=== PATIENT | female | born 1965 | race Caucasian/White ===

== ENCOUNTER → 2018-05-15 | Outpatient (CLI) | payer MEDICARE, MEDICAID ==
--- NOTE | 2018-05-16 09:29 | REP ---
PET/CT: HISTORY: Solitary pulmonary nodule. Nearly found category IV B right upper lobe nodule. 10 mm. COMPARISONS: No prior imaging available. TECHNIQUE: 62 minutes following the intravenous injection of a 8.17 mCi dose of F-18 FDG, three-dimensional PET scintigraphy is acquired from the skull base to the proximal thighs. Triplanar noncontrast CT scanning is acquired through the same anatomic range for attenuation correction, and image registration with scan parameters optimized to minimize radiation exposure to the patient. PET scintigraphy and CT datasets were fused and displayed on a workstation with multiplanar and projection display capability. PET/CT FINDINGS: The previously identified right upper lobe nodule is again seen. It is noted on PET scintigraphy to be hypermetabolic. Maximum standard uptake value is 5.69. There is no other hypermetabolic pulmonary parenchymal lesion. No hilar or mediastinal hypermetabolic nahun uptake is seen. Head and neck soft tissues are unremarkable. In the abdomen and pelvis, normal hepatic, splenic, gastrointestinal, and genitourinary FDG distribution is seen. No abnormal hypermetabolic uptake is seen in the abdomen or pelvis. No abnormal skeletal uptake. IMPRESSION: The recently identified right upper lobe pulmonary nodule is hypermetabolic and must be considered suspicious. No other abnormal hypermetabolic uptake is appreciated. The patient is status post lower thoracic spine fusion. Electronically Signed by Israel Hines MD 05/16/2018 09:35 A
== END ==
LOC: M PLARAD 15:35
PROVIDERS: ATTEND Physician Assistant
DX: R91.1 Solitary pulmonary nodule (principal); Z98.2 Presence of cerebrospinal fluid drainage device
CPT/HCPCS: 78815; A9552

== ENCOUNTER → 2018-05-29 | Outpatient (CLI) | payer MEDICARE, MEDICAID ==
[~2018-05-29] MED LIST: ALEV220T26 PO; ANOR1AER INH; BACL10TA2 PO; MAGN500T2 PO; NICO21DI34 TD; NICO2GUM34 PO; POTA99TA PO; PYRI100T2 PO; SOOT1DRO OU; VISISOL OU; VITA-122 PO; VITA10002 PO; VITA500T PO
[2018-05-29 09:44] LABS: PARTIAL THROMBOPLASTIN TIME 28.4 SECONDS (25.4-37.6); PROTHROMBIN TIME 13.3 SECONDS (12.1-14.4)
== END ==
LOC: M LAB 08:58
PROVIDERS: ATTEND Internal Medicine Pulmonary Disease
DX: R91.1 Solitary pulmonary nodule (principal)

== ENCOUNTER → 2018-06-05 | Outpatient (CLI) | payer MEDICARE, MEDICAID ==
[~2018-06-05] MED LIST changes: +ACETAMINOPHEN 325 MG TAB As Ordered ONE; +LIDOCAINE 1% MDV 20ML VIAL As Ordered ONE; -NICO2GUM34 PO; +NICO2GUM50 PO
--- NOTE | 2018-06-05 10:07 | REP ---
CHEST, POST BIOPSY: Single expiratory view of the chest is performed status-post right lung biopsy. There is a small right apical pneumothorax. The air gap is approximately 1.9 cm. Right upper lobe nodule is again seen. Followup chest radiograph will be performed. Electronically Signed by Omar Boyd MD 06/05/2018 11:19 A
--- NOTE | 2018-06-05 12:10 | REP ---
CHEST, SINGLE VIEW: Single expiratory view of the chest is performed status post right lung biopsy. Comparison is made with a prior study 2 hours ago. There is a small right apical pneumothorax, which may be slightly increased in size since the prior exam, air gap measured to be about 2.2 cm. There are no other acute changes. Electronically Signed by Omar Boyd MD 06/05/2018 04:51 P
--- NOTE | 2018-06-05 16:55 | REP ---
CT-GUIDED RIGHT UPPER LOBE LUNG BIOPSY The procedure was performed under the direct supervision of Dr. boyd. The patient has a history of A right upper lobe lung nodule that was hypermetabolic on a previous PET scan dated 05/15/2018. The risks and benefits of the procedure were explained to the patient and informed consent was obtained. The right upper lobe lung nodule was localized using CT guidance. The skin was prepped and draped in a sterile fashion. 1% lidocaine was used as a local anesthetic. Using CT guidance a 19/20 gauge coaxial needle biopsy system was inserted and advanced into the nodule. Four core biopsy samples were obtained and sent to lab. CT images obtained after the dorsum move shows no evidence of a pneumothorax. However, once the patient sign of she did experience some chest discomfort. She rated her pain as a 07/10. O2 saturations were approximately 94% as when she came in. She was placed on 2 liters of O2 via nasal cannula. A chest x-ray was performed and image demonstrates a small right apical pneumothorax. A chest x-ray was performed two hours later and the image demonstrates that the pneumothorax had gotten slightly bigger. However, her pain had subsided to be nearly gone and her O2 saturations were at baseline. Dr. Xavier was consulted and felt the patient could be discharged and will follow-up with Dr. Cabral. Reviewed by MOUNIKA Forrester 06/05/2018 03:32 P Electronically Signed by Omar Boyd MD 06/05/2018 04:47 P
== END ==
LOC: M RADPRO 07:56
PROVIDERS: ATTEND Internal Medicine Pulmonary Disease
DX: J98.4 Other disorders of lung (principal); J95.811 Postprocedural pneumothorax; J44.9 Chronic obstructive pulmonary disease, unspecified; F17.210 Nicotine dependence, cigarettes, uncomplicated; G35 Multiple sclerosis; Z79.899 Other long term (current) drug therapy; Z88.8 Allergy status to other drugs, medicaments and biological substances

== ENCOUNTER → 2018-09-25 | Outpatient (CLI) | payer MEDICARE, MEDICAID ==
[~2018-09-25] MED LIST changes: -ACETAMINOPHEN 325 MG TAB As Ordered ONE; +CYAN100049 PO; -LIDOCAINE 1% MDV 20ML VIAL As Ordered ONE; -VITA10002 PO
--- NOTE | 2018-09-25 11:12 | REP ---
CT chest without contrast: History: Solitary pulmonary nodule. Comparison is made with prior CT study from [facility] May 10, 2018 showing a cavitary 1.1 cm right upper lobe pulmonary nodule. Percutaneous CT-guided needle biopsy of this was performed June 05, 2018 with negative or nondiagnostic result. Comparison PET/CT study May 15, [address] findings: The previously noted right upper lobe nodule is seen to be associated with a small air cyst. The solid portion of the nodule has decreased in size measuring 6 mm today. Including the air cyst, the nodule measures 11 mm, there is no evidence of progression. No new pulmonary nodule is appreciated. There is a granulomatous calcification in the right lower lobe just above the right hemidiaphragm unchanged. The patient is status post lower thoracic spine fusion with some spray artifact from fusion hardware again noted. There is no evidence of pleural effusion. No infiltrate is seen. There are scattered mediastinal lymph nodes which are not enlarged. These appear to be unchanged in size from the May 10, 2018 study. No adrenal lesion is observed on either side. No bony destructive lesion is seen. Impression: The solid component of the right upper lobe nodule is actually smaller, 6 mm today. The nodule is associated with a small adjacent air cyst. Continued followup is advised. Stable mediastinal lymph nodes. Electronically Signed by Israel Hines MD 09/25/2018 11:47 A
== END ==
LOC: M RAD 09:08
PROVIDERS: ATTEND Internal Medicine Pulmonary Disease
DX: R91.1 Solitary pulmonary nodule (principal)

== ENCOUNTER → 2018-10-04 | Outpatient (CLI) | payer MEDICARE, MEDICAID ==
[2018-10-04 12:27] LABS: BASO # 0.1 10^3/uL (0.0-0.2); BASO % 0.8 % (0.0-1.0); EOS # 0.1 10^3/uL (0.0-0.50); HEMATOCRIT 45.7 % (36.0-47.0); HEMOGLOBIN 15.4 g/dl (12.0-15.5); LYMPH # 2.4 10^3/uL (1.5-4.5); LYMPH % 37.3 % (24.0-44.0); MEAN CORPUSCULAR HEMOGLOBIN 31.6 pg (27.0-33.0); MEAN CORPUSCULAR HGB CONC 33.7 g/dl (32.0-36.5); MEAN CORPUSCULAR VOLUME 93.6 fl (80.0-96.0); MONO # 0.3 10^3/uL (0.0-0.8); MONO % 4.6 % (0.0-5.0); NEUTROPHILS # 3.6 10^3/uL (1.8-7.7); PLATELET COUNT, AUTOMATED 232 10^3/uL (150-450); RED BLOOD COUNT 4.88 10^6/uL (4.00-5.40); WHITE BLOOD COUNT 6.5 10^3/uL (4.0-10.0)
[2018-10-04 12:56] LABS: ALBUMIN 4.3 GM/DL (3.2-5.2); ALT/SGPT 27 U/L (12-78); BILIRUBIN,TOTAL 0.5 MG/DL (0.2-1.0); BLOOD UREA NITROGEN 12 MG/DL (7-18); C REACTIVE PROTEIN QUANTITATIV 0.51 MG/DL (0.00-0.30); CALCIUM LEVEL 9.7 MG/DL (8.5-10.1); CARBON DIOXIDE LEVEL 27 MEQ/L (21-32); CHLORIDE LEVEL 108 MEQ/L (98-107); CREATININE FOR GFR 0.72 MG/DL (0.55-1.30); GLOMERULAR FILTRATION RATE > 60.0 (>51); GLUCOSE, FASTING 132 MG/DL (70-100); RHEUMATOID FACTOR QUANT < 10.0 IU/ML (<15.0); SODIUM LEVEL 140 MEQ/L (136-145); TOTAL PROTEIN 7.5 GM/DL (6.4-8.2); URIC ACID 4.2 MG/DL (2.6-6.0)
[2018-10-04 12:59] LABS: ERYTHROCYTE SEDIMENTATION RATE 7 mm/hr (0-30)
--- NOTE | 2018-10-04 14:09 | REP ---
REASON: Pain. COMPARISON: None. LEFT HAND: The bones are demineralized. There does appear to be mild periarticular osteopenia without evidence of marginal erosion. There is no fracture, dislocation, or subluxation. Tiny marginal osteophytes are seen arising from the DIP joint of the 2nd digit. See the wrist report. IMPRESSION: Chronic changes, as described above. FOUR VIEWS OF THE RIGHT HAND: REASON: Pain. PRIORS: None. There is minimal marginal osteophytosis involving the DIP joint of the 2nd digit. There does appear to be mild periarticular osteopenia. There are no marginal erosions. There is no acute fracture, dislocation, or subluxation. IMPRESSION: Chronic changes, as described above. Electronically Signed by Ortega Ellis DO 10/04/2018 02:16 P
--- NOTE | 2018-10-04 14:10 | REP ---
REASON: Bilateral wrist pain. LEFT WRIST: There has been previous ORIF. The fixation screws do not breach the articular surface. There are chronic changes seen involving the wrist. There is a lucency in the dorsal cortex of the distal radius. IMPRESSION: Postoperative changes and other findings as described above. Since I have no priors for comparison, I cannot state for certainty whether or not the finding involving the dorsal surface of the distal radius represents an acute finding superimposed upon chronic change or represents chronic change in of itself. This needs to be correlated clinically with appropriate followup. RIGHT WRIST, FOUR VIEWS: REASON: Pain. FINDINGS: No acute fracture or destructive osseous lesion. Electronically Signed by Ortega Ellis DO 10/04/2018 02:15 P
--- NOTE | 2018-10-04 14:10 | REP ---
REASON: Knee pain. Bilateral standing AP view of the knees shows the compartments to be symmetric and well maintained. There is no evidence of marginal osteophytosis, and there is no evidence of compartmental narrowing. There is no fracture or destructive osseous lesion. IMPRESSION: As above. Electronically Signed by Ortega Ellis DO 10/04/2018 02:16 P
[2018-10-08 14:07] LABS: VITAMIN D 1,25 DIHYDROXY 63.2 pg/mL (19.9-79.3)
== END ==
LOC: M LAB 11:33
PROVIDERS: ATTEND Internal Medicine Rheumatology
DX: M25.742 Osteophyte, left hand (principal)

== ENCOUNTER → 2018-10-11 | Outpatient (CLI) | payer MEDICARE, MEDICAID ==
[~2018-10-11] MED LIST changes: +PROHANCE 279.3MG/ML 15ML VIAL (A9576) As Ordered ONE
--- NOTE | 2018-10-14 08:45 | REP ---
MRI BRAIN WITHOUT AND WITH CONTRAST: HISTORY: Multiple sclerosis. CONTRAST: ProHance 13 mL. Multiple areas of increased signal intensity on T2-weighted images are present in the periventricular and subcortical white matter and alysha. There are no areas of abnormal signal intensity in the corpus callosum. There is no abnormal enhancement. There is no intraparenchymal hemorrhage, infarct, mass or midline shift. The ventricular system is normal in appearance. There is no extracerebral collection. The sinuses are clear. IMPRESSION: The above findings are consistent with multiple sclerosis. Electronically Signed by Oskar Carrillo MD 10/14/2018 11:21 A
--- NOTE | 2018-10-14 09:01 | REP ---
MR CERVICAL SPINE WITHOUT AND WITH CONTRAST: HISTORY: Multiple sclerosis. CONTRAST: ProHance 13 mL. A disc bulge is present at the C3-4 level. There is minimal effacement of the thecal sac without spinal cord compression. Bilateral uncinate process hypertrophy is present. This produces minimal narrowing of the C3 neural foramina . A disc bulge is present at the C4-5 level. There is minimal effacement of the thecal sac without spinal cord compression. Bilateral uncinate process hypertrophy is present. This produces mild and minimal narrowing of the right and left C4 neural foramina respectively. A disc bulge is present at the C5 -6 level. There moderate effacement of the thecal sac without spinal cord compression. Bilateral uncinate process hypertrophy is present. This produces mild narrowing of the C5 neural foramina. There is no other disc bulge or herniation. The remaining neural foramina are patent. The spinal cord is normal in signal intensity. The C5-6 intervertebral disc is decrease in height consistent with disc degeneration. There is no abnormal enhancement. Normal signal intensity is present in the cervical vertebral bodies. IMPRESSION: There is cervical spondylosis at the C3-4 through C5-6 levels without spinal compression. ? Electronically Signed by Oskar Carrillo MD 10/14/2018 11:17 A
--- NOTE | 2018-10-14 09:07 | REP ---
MRI THORACIC SPINE WITHOUT AND WITH CONTRAST: HISTORY: Multiple sclerosis. CONTRAST: ProHance 13 mL. A small central disc protrusion is present at the T7-8 level. There is minimal effacement of the thecal sac without spinal cord compression. The T7 neural foramina are patent. Posterior osteophytes are present at the T9-10 level. There is mild effacement of the thecal sac without spinal cord compression. The T9 neural foramina are patent. A small central disc protrusion is present at the T10-11 level. There is minimal effacement of the thecal sac without spinal cord compression. The T10 neural foramina are patent. There is no other disc bulge or herniation. The spinal cord is normal in signal intensity. The patient is status-post T9-11 anterior spinal fusion. Metal hardware is present. Normal signal intensity is present in the visualized thoracic vertebral bodies. There is no subluxation. IMPRESSION:1. The patient is status-post T9-11 anterior spinal fusion. 2. Small disc protrusions at the T7-8 and T10-11 levels without spinal cord compression. Electronically Signed by Oskar Carrillo MD 10/14/2018 11:17 A
== END ==
LOC: M RAD 14:33
PROVIDERS: ATTEND Psychiatry & Neurology Neurology
DX: M47.812 Spondylosis without myelopathy or radiculopathy, cervical region (principal); G35 Multiple sclerosis; M51.04 Intervertebral disc disorders with myelopathy, thoracic region; M43.24 Fusion of spine, thoracic region
CPT/HCPCS: 70553; 72156; 72157; A9576

== ENCOUNTER → 2019-03-31 | Outpatient (CLI) | payer MEDICARE, MEDICAID ==
[~2019-03-31] MED LIST changes: -PROHANCE 279.3MG/ML 15ML VIAL (A9576) As Ordered ONE; -PYRI100T2 PO; +VITA100T82 PO
--- NOTE | 2019-03-31 10:41 | REP ---
CT of the chest without IV contrast: Comparisons are 09/25/[address] dated 05/10/2018. There is a 20 mm lobulated cavitary nodule posteriorly in the right upper lobe on image 30. On 09/25/2018 the nodule measured 6 mm, however, there was an adjacent air cyst. Including the air cyst, the lesion measured 11 mm. On 06/05/2018, the lesion measured 10 mm. The the patient had a CT guided needle biopsy of the nodule on 06/05/2018. The lesion is reportedly hypermetabolic on PET scan dated 05/15/2018. No other lung masses or nodules are identified. There is curvilinear parenchymal scarring in the left lower lobe, not significantly changed. There are no infiltrates or pleural effusions. There is no mediastinal or axillary lymphadenopathy. The study is insensitive for hilar lymphadenopathy in the absence of IV contrast. The unenhanced thoracic aorta is unremarkable. Cardiac size is normal. There is no pericardial effusion. The visualized upper abdomen. No adrenal mass is identified. The visualized unenhanced hepatic parenchyma is homogeneous. Surgical fusion of the inferior thoracic spine is again identified, unchanged. Impression: Next The patient's known right upper lobe cavitary lung nodule has significantly increased in size. No other lung nodules are identified. There is no mediastinal adenopathy. Evaluation of hilar adenopathy is insensitive in the absence of IV contrast. No adrenal mass is identified. Surgical fusion of the inferior thoracic spine, unchanged. Electronically Signed by Omar Hendrix MD 03/31/2019 10:34 A
== END ==
LOC: M RAD 09:23
PROVIDERS: ATTEND Internal Medicine Pulmonary Disease
DX: R91.1 Solitary pulmonary nodule (principal)

== ENCOUNTER → 2019-06-19 | Outpatient (CLI) | payer MEDICARE, MEDICAID ==
[~2019-06-19] MED LIST changes: +ACETAMINOPHEN 325 MG TAB As Ordered ONE; +ACETAMINOPHEN TAB 650MG DOSE (2X325MG) PO PRN; +LIDOCAINE 1% MDV 20ML VIAL As Ordered ONE; +VITA-243 PO; -VITA500T PO
[2019-06-19 08:44] LABS: PLATELET COUNT, AUTOMATED 268 10^3/uL (150-450)
[2019-06-19 08:55] LABS: INR 0.97; PROTHROMBIN TIME 12.6 SECONDS (11.8-14.0)
[2019-06-19 10:55] VITALS: BP 129/78
--- NOTE | 2019-06-19 12:45 | REP ---
CHEST, SINGLE VIEW: Single expiratory view of the chest is performed status post right lung biopsy. There is small right apical pneumothorax with an air-gap of 1.8 cm. Right upper lobe nodule is noted. There are crowded lung markings in each lung base. The patient is asymptomatic. She is instructed to return to the emergency department if any symptoms develop such a chest pain or shortness of breath. Electronically Signed by Omar Boyd MD 06/19/2019 01:42 P
--- NOTE | 2019-06-19 13:50 | REP ---
CT-guided right upper lobe lung biopsy The procedure is performed by MOUNIKA Orourke, under the direct supervision of Dr. Boyd. The risks and benefits of the procedure were explained to the patient and informed consent was obtained both orally and written. Directly prior to the start of the procedure, a formal timeout was done in the exam room. The right upper lobe lung mass was localized using CT guidance. Skin was prepped and draped in the usual sterile fashion. 2 ml of 1% lidocaine 10 mg/ml was used as a local anesthetic. Using CT guidance a 19/20 gauge coaxial needle biopsy system was inserted and advanced into the nodule. 6 core biopsy samples were obtained and sent to the lab. CT images obtained directly after the biopsy show no evidence of pneumothorax. A post-biopsy chest x-ray obtained 2 hours after showed a small apical pneumothorax. The patient was not any respiratory distress and was discharged home with instructions to follow up with the emergency room should anything change. Reviewed by MOUNKIA Watts 06/19/2019 12:10 P Electronically Signed by Omar Boyd MD 06/19/2019 01:41 P
== END ==
LOC: M IRPRO 07:30
PROVIDERS: ATTEND Internal Medicine Pulmonary Disease
DX: C34.11 Malignant neoplasm of upper lobe, right bronchus or lung (principal); J44.9 Chronic obstructive pulmonary disease, unspecified; F17.218 Nicotine dependence, cigarettes, with other nicotine-induced disorders; M06.9 Rheumatoid arthritis, unspecified; Z79.899 Other long term (current) drug therapy; Z88.8 Allergy status to other drugs, medicaments and biological substances; Z91.040 Latex allergy status; Z86.79 Personal history of other diseases of the circulatory system

== ENCOUNTER → 2019-07-08 | Outpatient (CLI) | payer MEDICARE, MEDICAID ==
[~2019-07-08] MED LIST changes: -ACETAMINOPHEN 325 MG TAB As Ordered ONE; -ACETAMINOPHEN TAB 650MG DOSE (2X325MG) PO PRN; -LIDOCAINE 1% MDV 20ML VIAL As Ordered ONE
--- NOTE | 2019-07-08 09:29 | PFTRPT ---
Height: 63.00 Inches Weight: 125.00 Lbs BSA: 1.58 Diagnosis: C34.11 DATE OF PROCEDURE: 07/08/2019 ORDERED BY: Dr. Cabral Spirometry: Pre and post bronchodilator study of excellent technical quality. Forced vital capacity normal. FEV1 out of proportion. Obstructive index is, therefore, reduced. Flow Volume Loop: Expiratory limb of the flow volume loop is consistent with flow rate limitation. No significant bronchodilator response is identified. Lung Volumes: Total lung capacity mildly elevated. Residual volume consistent with air trapping. Diffusing Capacity: Diffusing capacity significantly reduced and does not completely correct for alveolar volume. Hemoglobin: Hemoglobin acceptable at 12.9. Airway Mechanics: Airway resistance and conductance are normal. IMPRESSION: Mild to moderate obstructive ventilatory impairment with underlying air trapping and diffusing capacity impairment suggesting emphysema. Please correlate clinically. MTDD
== END ==
LOC: M CARPUL 08:15
PROVIDERS: ATTEND Internal Medicine Pulmonary Disease
DX: C34.11 Malignant neoplasm of upper lobe, right bronchus or lung (principal)

== ENCOUNTER → 2019-07-15 | Outpatient (CLI) | payer MEDICARE, MEDICAID ==
--- NOTE | 2019-07-15 10:37 | REP ---
REASON FOR EXAM: Followup single pulmonary nodule. COMPARISON: Comparison exam 05/15/2018 was reviewed. Patient has a history of nonsmall cell lung carcinoma. All prior CT scans were reviewed by the latest prior CT scan is showing enlargement of a pulmonary nodule in the right upper lobe. After the intravenous administration of 8.02 millicuries of FDG18, triplane, whole body PET/CT was performed from the skull base to the mild thigh. The right upper lobe nodule seen on both prior CT scans and seen to have enlarged is hypermetabolic with maximal SUV valves between 13 and 14. No other areas of abnormal hypometabolic activity are seen in the neck, chest, abdomen, or pelvis. IMPRESSION: The enlarging nodule seen in the right lung upper lobe is hypermetabolic. Electronically Signed by Ortega Ellis DO 07/15/2019 12:09 P
== END ==
LOC: M PLARAD 07:32
PROVIDERS: ATTEND Internal Medicine Pulmonary Disease
DX: C34.11 Malignant neoplasm of upper lobe, right bronchus or lung (principal)
CPT/HCPCS: 78815; A9552

== ENCOUNTER → 2019-07-17 | Outpatient (REF) | payer MEDICARE, MEDICAID ==
[2019-07-17 18:13] LABS: BLOOD UREA NITROGEN 8 MG/DL (7-18); CREATININE FOR GFR 0.56 MG/DL (0.55-1.30); GLOMERULAR FILTRATION RATE > 60.0 (>51)
== END ==
LOC: M LAB REF 16:53
PROVIDERS: ATTEND Thoracic Surgery (Cardiothoracic Vascular Surgery)
DX: Z01.812 Encounter for preprocedural laboratory examination (principal)

== ENCOUNTER → 2019-08-05 | Outpatient (CLI) | payer MEDICARE, MEDICAID ==
[~2019-08-05] MED LIST changes: +ATOR40TA75 PO; +BENA25CA4 PO; +BUPR15TASR PO; +FENT1DIS14 TD; +ISOVUE-370 76% 100ML VIAL As Ordered ONE; +NICO14DI6 TOP; +OMEP40CA97 PO; +OXYC-1 PO; +PROAAER10 INH; +SUMA100T2 PO; +TRAZ-257 PO; +VITAD1000T PO; +potassium PO
--- NOTE | 2019-08-05 12:32 | REP ---
CT CHEST WITH IV CONTRAST: TECHNIQUE: Axial contrast-enhanced images from the thoracic inlet to the upper abdomen using 100 mL Isovue-370 intravenous contrast material with multiplanar reformations. COMPARISON: 03/31/2019 The right upper lobe mass posteriorly abuts the adjacent pleural surface. It has mildly increased in size since the prior study. Current diameter is approximately 2.6 cm, previously approximately 1.9 cm. No new parenchymal nodules are seen bilaterally. Calcified granuloma is seen along the right hemidiaphragm. There is mild bibasilar fibroatelectatic change. There is no axillary adenopathy. There are some scattered subcentimeter mediastinal lymph nodes. There is a lymph node in the pretracheal region 1 cm in short axis. There is a precarinal lymph node 1.2 cm in short axis. There is a right hilar lymph node 1.3 cm in short axis. A subcarinal lymph node has a short axis dimension of 9 mm. The heart is not enlarged. There is no pleural or pericardial effusion. There are atherosclerotic calcifications of the thoracic aorta with no aneurysm. There is a small hiatal hernia. No significant upper abdominal abnormality is seen. There is metallic fixation in the lower thoracic spine. IMPRESSION: Mild increase in size of right upper lobe mass. There is mild mediastinal and right hilar adenopathy as discussed in detail above. Electronically Signed by Omar Boyd MD 08/05/2019 01:42 P
== END ==
LOC: M RAD 08:21
PROVIDERS: ATTEND Thoracic Surgery (Cardiothoracic Vascular Surgery)
DX: Z01.818 Encounter for other preprocedural examination (principal); C34.11 Malignant neoplasm of upper lobe, right bronchus or lung; Z11.59 Encounter for screening for other viral diseases
CPT/HCPCS: 71260; Q9967; U0003

== ENCOUNTER → 2019-08-05 | Outpatient (CLI) | payer MEDICARE, MEDICAID ==
[~2019-08-05] MED LIST changes: -ISOVUE-370 76% 100ML VIAL As Ordered ONE
== END ==
LOC: M LABSMTC 09:28
PROVIDERS: ATTEND Anesthesiology
DX: Z01.818 Encounter for other preprocedural examination (principal); Z11.59 Encounter for screening for other viral diseases

== ENCOUNTER 2019-08-08 05:59 | Inpatient (IN) | payer MEDICARE, MEDICAID ==
[~2019-08-08] VITALS: Ht 160 cm; Wt 61.2 kg
[2019-08-08] VITALS (19 sets, daily range): BP systolic 75–112; BP diastolic 46–63; O2SAT 98
[2019-08-08] MEDS ORDERED: LR 1,000 ML IV ONE (06:00)
[2019-08-08] MEDS ORDERED: MUPIROCIN 2% OINT 22 GM TUBE TOP ONE (07:00)
[2019-08-08] MEDS ORDERED: ceFAZolin SOD 2 GM in IV 1 EA IV ONE (07:00)
[2019-08-08] MEDS ORDERED: fentaNYL 100 MCG/2 ML INJECTION (J3010) As Ordered ONE ×2 (07:21→12:27)
[2019-08-08] MEDS ORDERED: MIDAZOLAM INJ 2MG/2ML VIAL (J2250 PER 1MG) As Ordered ONE ×2 (07:21→09:34)
[2019-08-08] MEDS ORDERED: BUPIVACAINE HCL 0.5% 10ML VIAL As Ordered ONE (07:42)
[2019-08-08] MEDS ORDERED: BUPIVACAINE LIPOSOME/PF 1.3% 20ML VIAL (13.3MG/ML)(EXPAREL)(C9290 PER1MG) As Ordered ONE (07:42)
[2019-08-08] MEDS ORDERED: CETACAINE SPRAY 5GM As Ordered ONE (07:42)
[2019-08-08] MEDS ORDERED: MIDAZOLAM INJ 2MG/2ML VIAL (J2250 PER 1MG) IV ONE ×2 (09:15→14:15)
[2019-08-08] MEDS ORDERED: EPIDURAL/PCA KEYS XX PRN (09:15)
[2019-08-08] MEDS ORDERED: NALOXONE INJ 0.4MG/1ML VIAL (J2310 PER 1MG) IV PRN (09:15)
[2019-08-08] MEDS ORDERED: fentaNYL 100 MCG/2 ML INJECTION (J3010) IV ONE ×2 (09:15→14:15)
[2019-08-08] MEDS ORDERED: WALLBOXKEY XX PRN (09:15)
[2019-08-08] MEDS ORDERED: FENTANYL/BUPIVACAINE/NACL BAG 250 ML EPIDURAL SCH (09:30)
[2019-08-08] MEDS ORDERED: ONDANSETRON 4MG/2ML VIAL As Ordered ONE (09:34)
[2019-08-08] MEDS ORDERED: propofoL 200 MG/20 ML VIAL As Ordered ONE (09:34)
[2019-08-08] MEDS ORDERED: dexameTHASONE 4 MG/ML 1ML VIAL (J1100 PER 1MG) As Ordered ONE (09:34)
[2019-08-08] MEDS ORDERED: BUPIVACAINE HCL 0.25% 30ML VIAL As Ordered ONE (09:34)
[2019-08-08] MEDS ORDERED: ROCURONIUM BROMIDE 50 MG/5 ML VIAL As Ordered ONE ×2 (09:34→11:50)
[2019-08-08] MEDS ORDERED: fentaNYL 250 MCG/5 ML INJECTION (J3010) As Ordered ONE (09:34)
[2019-08-08] MEDS ORDERED: LIDOCAINE 2% 100MG/5ML SDV (FOR ANES.) As Ordered ONE (09:34)
[2019-08-08] MEDS ORDERED: LIDOCAINE 2% JELLY 6 ML SYRINGE As Ordered ONE (09:34)
[2019-08-08] MEDS ORDERED: ePHEDrine SULFATE 25 MG/5 ML(5MG/ML) SYRINGE As Ordered ONE (09:35)
[2019-08-08] MEDS ORDERED: PHENYLephrine HCL 500 MCG/5 ML (100MCG/ML) SYRINGE (J2370) As Ordered ONE (09:35)
[2019-08-08] MEDS ORDERED: SUGAMMADEX SODIUM 500 MG/5 ML VIAL (BRIDION) As Ordered ONE (11:49)
[2019-08-08] MEDS ORDERED: ACETAMINOPHEN 1000MG 100ML IV BTL (OFIRMEV) (J0131 PER 10MG) As Ordered ONE (11:53)
[2019-08-08] MEDS ORDERED: SUMAtriptan SUCCINATE 25 MG TAB PO PRN (13:15)
[2019-08-08] MEDS ORDERED: ACETAMINOPHEN TAB 650MG DOSE (2X325MG) PO PRN (13:15)
[2019-08-08] MEDS ORDERED: LEVALBUTEROL 1.25 MG/0.5 ML CONCENTRATE NEB NEB PRN (13:15)
[2019-08-08] MEDS ORDERED: NICOTINE POLACRILEX 2 MG GUM PO PRN (13:15)
[2019-08-08] MEDS ORDERED: BISACODYL 10 MG SUPP PR PRN (13:15)
[2019-08-08] MEDS: fentaNYL 100 MCG/2 ML INJECTION (J3010) IV PRN ×4 (13:30→13:45)
[2019-08-08] MEDS ORDERED: HYDROMORPHONE HCL 0.5 MG/ 0.5 ML SYRINGE (J1170 PER 1) As Ordered ONE (13:43)
[2019-08-08] MEDS ORDERED: ONDANSETRON 4MG/2ML VIAL IV PRN (13:45)
[2019-08-08] MEDS ORDERED: MEPERIDINE INJ 25 MG/ML VIAL (J2175) IV PRN (13:45)
[2019-08-08] MEDS ORDERED: oxyCODONE 5MG TAB PO PRN (13:45)
[2019-08-08] MEDS ORDERED: HYDROMORPHONE HCL 0.5 MG/ 0.5 ML SYRINGE (J1170 PER 1) IV PRN (13:45)
[2019-08-08] MEDS ORDERED: LR 1,000 ML IV SCH (13:45)
[2019-08-08 13:46] LABS: ABG BASE EXCESS -3.8 (-2.0-2.0); ABG HCO3 20.1 MEQ/L (22.0-26.0); ABG O2 SATURATION 98.6 % (95.0-99.0); ABG PARTIAL PRESSURE CO2 33.7 mmHg (35.0-45.0); ABG PARTIAL PRESSURE O2 127.6 mmHg (75.0-100.0); ABG STANDARD HCO3 21.4 MEQ/L (22.0-26.0); ABG TOTAL CO2 21.1 MEQ/L (22.0-29.0); ABG pH (ARTERIAL) 7.393 UNITS (7.350-7.450)
[2019-08-08 13:51] LABS: BASO % 0.3 % (0.0-1.0); EOS % 0.2 % (0.0-3.0); HEMATOCRIT 45.3 % (36.0-47.0); HEMOGLOBIN 15.5 g/dl (12.0-15.5); LYMPH # 0.9 10^3/uL (1.5-5.0); LYMPH % 7.7 % (24.0-44.0); MEAN CORPUSCULAR HEMOGLOBIN 29.9 pg (27.0-33.0); MEAN CORPUSCULAR HGB CONC 34.2 g/dl (32.0-36.5); MEAN CORPUSCULAR VOLUME 87.5 fl (80.0-96.0); MONO # 0.2 10^3/uL (0.0-0.8); NEUTROPHILS # 10.5 10^3/uL (1.5-8.5); NEUTROPHILS % 89.5 % (36.0-66.0); PLATELET COUNT, AUTOMATED 246 10^3/uL (150-450); RED BLOOD COUNT 5.18 10^6/uL (4.00-5.40); WHITE BLOOD COUNT 11.8 10^3/uL (4.0-10.0)
[2019-08-08] MEDS ORDERED: FENTANYL/BUPIVACAINE BAG 250 ML EPIDURAL SCH (14:00)
[2019-08-08] MEDS: PHENYLephrine HCL 500 MCG/5 ML (100MCG/ML) SYRINGE (J2370) IV SCH ×5 (14:05→14:35)
[2019-08-08] MEDS ORDERED: PROMETHAZINE INJ 25 MG/ML VIAL (J2550) IV PRN (14:15)
[2019-08-08] MEDS ORDERED: PHENYLEPHRINE HCL INJ 10 MG in D5W 99 ML IV SCH (14:15)
[2019-08-08 14:19] LABS: BLOOD UREA NITROGEN 15 MG/DL (7-18); CALCIUM LEVEL 8.8 MG/DL (8.5-10.1); CARBON DIOXIDE LEVEL 24 MEQ/L (21-32); CHLORIDE LEVEL 107 MEQ/L (98-107); CREATININE FOR GFR 0.87 MG/DL (0.55-1.30); GLOMERULAR FILTRATION RATE > 60.0 (>51); GLUCOSE, FASTING 136 MG/DL (70-100); SODIUM LEVEL 139 MEQ/L (136-145)
--- NOTE | 2019-08-08 14:30 | RO ---
DATE OF PROCEDURE: 08/08/2019 PREPROCEDURE DIAGNOSIS: Non-small cell carcinoma right upper lobe, clinical stage I. POSTPROCEDURE DIAGNOSIS: Non-small cell carcinoma right upper lobe, clinical stage I, pathology pending. PROCEDURE: Right upper lobe lobectomy, mediastinal lymphadenectomy, azygos vein flap bronchoscopy, five-level rib block, bronchoscopy. SURGEON: Abraham Xavier MD [employer]: ANESTHESIA: FINDINGS: Bronchoscopy revealed a normal branching tracheobronchial tree. There was some thick secretions, which were suction aspirated. The thoracotomy revealed an almost incomplete fissure of the right middle lobe, which had to be created with a staple line. The internal right pulmonary artery was displaced anteriorly in the major fissure. DESCRIPTION OF PROCEDURE: Under satisfactory general anesthesia with a single-lumen tube endotracheal intubation, the bronchoscope was placed into the tracheobronchial tree. She had normal branching anatomy and all segments and sub segments were thoroughly inspected. There were no endobronchial lesions. There was a number of thick secretions and these were suction aspirated. The patient then underwent double-lumen intubation and turned to the left lateral decubitus position. She was prepped and draped in the usual sterile fashion. A posterolateral thoracotomy incision was made and the chest was entered through the 5th intercostal space above the 6th rib. The lung was not adherent to the chest wall and neither was the tumor. Dissection was started in the main fissure at the rudimentary confluence of fissures. I could not identify a vessel there nor could I palpate one, and I then proceeded more anteriorly up the fissure until I could palpate and isolate the pulmonary artery. This was then followed proximally to the takeoff of the apical basilar segmental artery to the lower lobe. The posterior mediastinal pleura was incised and a tract was created between the major fissure pulmonary artery superior to the apical basilar pulmonary artery to the space between the takeoff of the right upper lobe and then bronchus intermedius. The posterior fissure was then completed by use of an Brainard stapler. It was noted in her dissection of the pulmonary arteries that she had an intensive inflammatory response throughout, which made dissection quite slow and tedious. Attention was then turned to the hilum, where the truncal right pulmonary artery was dissected. The superior pulmonary vein was identified and it looked as if there were two branches coming off going to the middle lobe and these were preserved. The truncal artery was dissected and surrounded with a vessel loop, and then divided by use of a vascular stapler. Likewise, the pulmonary vein was dissected preserving the two branches to the middle lobe and divided by use of the vascular stapler. These were not easy dissections because of the inflammatory responses. Because there was no fissure, I could not create one directly. I therefore turned my attention to the bronchus. The right upper lobe bronchus was isolated and surrounding nodes were swept up with the bronchus. Care was taken not to enter the pulmonary artery. The bronchus was then divided by use of a 4.5 Brainard stapler. Having done the venous arterial supplies and bronchus, attention was then turned to the fissure. The course of the inner lobe and pulmonary artery was closely examined. I could not find a posterior ascending branch. The lung was re-inflated and the demarcating line between the isolated upper lobe and the middle lobe was noted and marked, and a horizontal fissure was then created by multiple staple lines. The right upper lobe bronchus was then checked for air leaks at 30 cm of pressure water. It was found to be intact. Attention was then turned to the inferior pulmonary ligament, which was taken down, and three inferior pulmonary ligament nodes were removed. Attention was then turned to superior mediastinum, which was incised. There was a mass of notable tissue in the paratracheal space and these were all removed after dividing the azygos vein at the vena cava. These were removed by use of both electrocautery and Harmonic scalpel. There was no lymphatic leakage seen in the ensuing mediastinal space after removal of the nodes. Attention was then turned to the subcarinal nodes, which were removed in a packet. There was only one that I could definitely see. The azygos vein was stapled at its distal end and then filleted so as to create a bronchus flap. This was then sewn to the cut bronchus to cover with a vascular flap with interrupted #3-0 Vicryl sutures. The bronchus was again tested and found to be intact. A five-level rib block consisting of Marcaine and Exparel was then injected and two chest tubes, both 24s, one curved, one straight placed anteriorly and posteriorly into the chest. The lung was re-inflated and sutures lines were covered Tisseel as was the superior mediastinal and paratracheal space. The ribs were reapproximated by use of #1 figure-of-8 Prolene sutures. The extrathoracic muscles were reapproximated by use of running #0 Vicryl suture. It should be noted that serratus anterior was quite posterior and had to be taken. Subcutaneous tissue was closed with running #3-0 Vicryl suture and the skin closed with running #3-0 Monocryl subcuticular suture. Patient tolerated the procedure well, left the operating room in satisfactory condition to the recovery room.
[2019-08-08] MEDS: KCL 20MEQ IN D5/NS 1000ML 1,000 ML IV SCH (15:00)
[2019-08-08] MEDS: LEVALBUTEROL 1.25 MG/0.5 ML CONCENTRATE NEB NEB SCH ×2 (15:15→20:17)
--- NOTE | 2019-08-08 15:53 | REP ---
PORTABLE CHEST X-RAY: Single view. HISTORY: Abnormal preop x-ray. Surgery for lung cancer. The patient status post right upper lobectomy. Comparison chest x-ray July 30, 2019. FINDINGS: Epidural catheter is seen along with monitoring electrodes. Two right-sided chest tubes are noted in place. There is minimal soft tissue emphysema in the extrathoracic soft tissues on the right. There is a triangular hazy area of parenchymal opacity adjacent to the chest tube in the right lateral chest. Suture line with some adjacent parenchymal opacity is seen in the right apex. Left lung is clear. Pleural angles are sharp. Mediastinum is not widened. There is lower thoracic spine fusion hardware in place. IMPRESSION: Postoperative changes on the right. Hazy area of parenchymal opacity in the right mid lung zone laterally. Electronically Signed by Israel Hines MD 08/08/2019 04:09 P
[2019-08-08] MEDS: ceFAZolin SOD 1 GM in D5W MINI-BAG PLUS 50 ML IV SCH (17:32)
[2019-08-08] MEDS: fentaNYL 75 MCG/HR PATCH TD SCH (18:27)
[2019-08-08] MEDS: ACETAMINOPHEN *IV* 1,000 MG in IV 1 EA IV SCH (18:27)
[2019-08-08] MEDS ORDERED: PHENYLEPHRINE 10MG/ML 1ML VIAL (J2370 PER 1) As Ordered ONE (20:55)
[2019-08-08] MEDS: PHENYLEPHRINE HCL INJ 50 MG in D5W 495 ML IV SCH (21:07)
[2019-08-08] MEDS: buPROPion **SR TABLET** (ZYBAN) 150MG PO SCH (21:08)
[2019-08-08] MEDS: traZODone 100 MG TAB PO SCH (21:08)
[2019-08-08] MEDS: HEPARIN SOD (PORCINE) 5000UNITS/ML VIAL (J1644 PER 1000UNITS) SC SCH (21:08)
[2019-08-08] MEDS: DOCUSATE SODIUM 100 MG CAP PO SCH (21:08)
[2019-08-09] VITALS (49 sets, daily range): BP systolic 83–145; BP diastolic 48–112; O2SAT 98
[2019-08-09] MEDS: ACETAMINOPHEN *IV* 1,000 MG in IV 1 EA IV SCH ×4 (00:05→17:21)
[2019-08-09] MEDS: ceFAZolin SOD 1 GM in D5W MINI-BAG PLUS 50 ML IV SCH ×3 (00:06→16:38)
[2019-08-09] MEDS: BACLOFEN 10 MG TAB PO PRN (00:36)
[2019-08-09] MEDS: LEVALBUTEROL 1.25 MG/0.5 ML CONCENTRATE NEB NEB SCH ×4 (02:04→20:10)
[2019-08-09] MEDS: KCL 20MEQ IN D5/NS 1000ML 1,000 ML IV SCH (02:06)
[2019-08-09 05:18] LABS: BASO # 0.1 10^3/uL (0.0-0.2); BASO % 0.4 % (0.0-1.0); EOS % 0.1 % (0.0-3.0); HEMATOCRIT 41.4 % (36.0-47.0); HEMOGLOBIN 13.7 g/dl (12.0-15.5); LYMPH # 2.1 10^3/uL (1.5-5.0); LYMPH % 15.5 % (24.0-44.0); MEAN CORPUSCULAR HGB CONC 33.1 g/dl (32.0-36.5); MEAN CORPUSCULAR VOLUME 87.5 fl (80.0-96.0); MONO # 0.8 10^3/uL (0.0-0.8); MONO % 5.8 % (0.0-5.0); NEUTROPHILS # 10.4 10^3/uL (1.5-8.5); NEUTROPHILS % 77.8 % (36.0-66.0); PLATELET COUNT, AUTOMATED 278 10^3/uL (150-450); RED BLOOD COUNT 4.73 10^6/uL (4.00-5.40); WHITE BLOOD COUNT 13.4 10^3/uL (4.0-10.0)
[2019-08-09 05:39] LABS: BLOOD UREA NITROGEN 9 MG/DL (7-18); CALCIUM LEVEL 8.2 MG/DL (8.5-10.1); CARBON DIOXIDE LEVEL 22 MEQ/L (21-32); CHLORIDE LEVEL 108 MEQ/L (98-107); GLOMERULAR FILTRATION RATE > 60.0 (>51); GLUCOSE, FASTING 133 MG/DL (70-100); POTASSIUM SERUM 4.4 MEQ/L (3.5-5.1); SODIUM LEVEL 138 MEQ/L (136-145)
[2019-08-09 05:58] LABS: ABG BASE EXCESS -2.4 (-2.0-2.0); ABG HCO3 20.4 MEQ/L (22.0-26.0); ABG O2 SATURATION 96.7 % (95.0-99.0); ABG PARTIAL PRESSURE CO2 29.7 mmHg (35.0-45.0); ABG PARTIAL PRESSURE O2 81.8 mmHg (75.0-100.0); ABG STANDARD HCO3 22.5 MEQ/L (22.0-26.0); ABG TOTAL CO2 21.3 MEQ/L (22.0-29.0); ABG pH (ARTERIAL) 7.454 UNITS (7.350-7.450)
[2019-08-09] MEDS: CYANOCOBALAMIN 500 MCG TAB PO SCH (08:51)
[2019-08-09] MEDS: ASCORBIC ACID 500 MG TAB PO SCH (08:51)
[2019-08-09] MEDS: buPROPion **SR TABLET** (ZYBAN) 150MG PO SCH ×2 (08:51→20:17)
[2019-08-09] MEDS: PYRIDOXINE 50 MG TAB PO SCH (08:52)
[2019-08-09] MEDS: ATORVASTATIN 20 MG TAB PO SCH (08:52)
[2019-08-09] MEDS: VITAMIN D 1,000 INTERNATIONAL UNITS TABLET PO SCH (08:52)
[2019-08-09] MEDS: PANTOPRAZOLE 40MG TAB (PROTONIX) PO SCH (08:52)
[2019-08-09] MEDS: HEPARIN SOD (PORCINE) 5000UNITS/ML VIAL (J1644 PER 1000UNITS) SC SCH ×2 (08:53→20:17)
[2019-08-09] MEDS: NICOTINE 14 MG/24 HR TRANSDERMAL TOP SCH (08:53)
[2019-08-09] MEDS: DOCUSATE SODIUM 100 MG CAP PO SCH ×2 (08:53→20:17)
[2019-08-09] MEDS: MOM 30ML SUSPENSION UDC PO SCH (09:00)
[2019-08-09] MEDS: FENTANYL/BUPIVACAINE BAG 250 ML EPIDURAL SCH (10:36)
[2019-08-09] MEDS: PHENYLEPHRINE HCL INJ 50 MG in D5W 495 ML IV SCH (11:23)
--- NOTE | 2019-08-09 13:59 | REP ---
CHEST, TWO VIEWS: Two views of the chest are performed and compared to prior study of 08/08/2019. Two right chest tubes are again noted. There is a small right apical pneumothorax. There is a small amount of air in the right chest wall. No infiltrate is seen in either lung. The heart is normal in size. Mediastinal silhouette is unchanged. Metallic internal fixation is seen in the lower thoracic spine. Electronically Signed by Omar Boyd MD 08/09/2019 09:46 P
[2019-08-09] MEDS: traZODone 100 MG TAB PO SCH (20:17)
[2019-08-09] MEDS: diphenhydrAMINE 50MG/ML VIAL (J1200) IV PRN (20:27)
[2019-08-10] VITALS (50 sets, daily range): BP systolic 62–126; BP diastolic 35–74
[2019-08-10] MEDS: ceFAZolin SOD 1 GM in D5W MINI-BAG PLUS 50 ML IV SCH ×2 (00:39→08:57)
[2019-08-10] MEDS: ACETAMINOPHEN *IV* 1,000 MG in IV 1 EA IV SCH ×5 (00:39→23:47)
[2019-08-10] MEDS: LEVALBUTEROL 1.25 MG/0.5 ML CONCENTRATE NEB NEB SCH ×4 (02:15→19:46)
[2019-08-10] MEDS: PHENYLEPHRINE HCL INJ 50 MG in D5W 495 ML IV SCH ×2 (04:45→22:50)
[2019-08-10] MEDS: FENTANYL/BUPIVACAINE BAG 250 ML EPIDURAL SCH ×2 (04:50→22:50)
[2019-08-10 05:06] LABS: BASO % 0.3 % (0.0-1.0); EOS # 0.1 10^3/uL (0.0-0.5); EOS % 0.8 % (0.0-3.0); HEMOGLOBIN 14.4 g/dl (12.0-15.5); LYMPH # 1.3 10^3/uL (1.5-5.0); LYMPH % 8.3 % (24.0-44.0); MEAN CORPUSCULAR HEMOGLOBIN 29.1 pg (27.0-33.0); MEAN CORPUSCULAR VOLUME 91.1 fl (80.0-96.0); MONO # 0.8 10^3/uL (0.0-0.8); NEUTROPHILS # 13.1 10^3/uL (1.5-8.5); NEUTROPHILS % 84.6 % (36.0-66.0); PLATELET COUNT, AUTOMATED 252 10^3/uL (150-450); RED BLOOD COUNT 4.94 10^6/uL (4.00-5.40); WHITE BLOOD COUNT 15.5 10^3/uL (4.0-10.0)
[2019-08-10 05:27] LABS: BLOOD UREA NITROGEN 9 MG/DL (7-18); CALCIUM LEVEL 8.5 MG/DL (8.5-10.1); CARBON DIOXIDE LEVEL 28 MEQ/L (21-32); CHLORIDE LEVEL 103 MEQ/L (98-107); CREATININE FOR GFR 0.66 MG/DL (0.55-1.30); GLOMERULAR FILTRATION RATE > 60.0 (>51); GLUCOSE, FASTING 133 MG/DL (70-100); POTASSIUM SERUM 4.6 MEQ/L (3.5-5.1); SODIUM LEVEL 137 MEQ/L (136-145)
[2019-08-10] MEDS: VITAMIN D 1,000 INTERNATIONAL UNITS TABLET PO SCH (08:58)
[2019-08-10] MEDS: PYRIDOXINE 50 MG TAB PO SCH (08:58)
[2019-08-10] MEDS: DOCUSATE SODIUM 100 MG CAP PO SCH ×2 (08:58→20:11)
[2019-08-10] MEDS: ASCORBIC ACID 500 MG TAB PO SCH (08:58)
[2019-08-10] MEDS: PANTOPRAZOLE 40MG TAB (PROTONIX) PO SCH (08:58)
[2019-08-10] MEDS: buPROPion **SR TABLET** (ZYBAN) 150MG PO SCH ×2 (08:58→20:12)
[2019-08-10] MEDS: ATORVASTATIN 20 MG TAB PO SCH (08:58)
[2019-08-10] MEDS: HEPARIN SOD (PORCINE) 5000UNITS/ML VIAL (J1644 PER 1000UNITS) SC SCH ×2 (08:59→20:12)
[2019-08-10] MEDS: CYANOCOBALAMIN 500 MCG TAB PO SCH (08:59)
[2019-08-10] MEDS: NICOTINE 14 MG/24 HR TRANSDERMAL TOP SCH (08:59)
[2019-08-10] MEDS: MOM 30ML SUSPENSION UDC PO SCH (09:00)
--- NOTE | 2019-08-10 09:43 | REP ---
CHEST, TWO VIEWS: Two views of the chest are performed and compared to prior study of 08/09/2019. Two right chest tubes remain in place. The small right apical pneumothorax has slightly increased in size. There is again a small amount of air in the right chest wall. Lungs are unchanged in appearance. Heart and mediastinum are unchanged. Electronically Signed by Omar Boyd MD 08/10/2019 10:26 A
[2019-08-10 10:35] LABS: ALBUMIN 2.8 GM/DL (3.2-5.2); ALT/SGPT 19 U/L (12-78); BILIRUBIN,DIRECT 0.2 MG/DL (0.0-0.2); BILIRUBIN,TOTAL 0.8 MG/DL (0.2-1.0); TOTAL PROTEIN 5.9 GM/DL (6.4-8.2)
--- NOTE | 2019-08-10 14:25 | IPN ---
DATE: 08/09/2019 Ms. Brandt had a physiologically stable night of surgery. However, her pain is still quite intense. Today she refused increase in epidural for unknown reasons. I have spoken to her with regard to the importance of pain control, and she has consented to allow us to use more of the epidural. She has a background problem of pain from her multiple sclerosis and fibromyalgia. She was already on significant narcotic control for her preoperative pain. Because we are using so much of the epidural, and it is double strength, I have had to place her on phenylephrine for blood pressure maintenance, which she is tolerating. Her vital signs show a maximum temperature (T max) of 98.8 with a heart rate that ranges between 75 and 98 and is sinus rhythm, respiratory rate of 15 to 18 without the use of accessory muscles who is 97% saturated now on room air. Her blood pressure is ranging between 117/72 to 94/58. She did dip into the high 70s last night. Her intake and output the past 24 hours has been recorded as 2654 in and 2060 out for a positivity of 594 mL. She has put out 460 mL from her chest tube, and there is a small air leak. Weight is pending today. On physical examination, her lungs show equal breath sounds on either side. Percussion note is full to the diaphragm. She has bilateral rhonchi, not all of the rhonchi clear with coughing. Cardiac exam is without murmurs, clicks, gallops or rubs. I cannot feel her point of maximum impulse (PMI). S1, S2 are normal. Abdomen is soft and nontender. Bowel sounds are positive. There is no hepatomegaly. No costovertebral angle tenderness. Extremities show no pretibial edema. No calf tenderness. No differential swelling of the upper extremities. Skin is warm, dry and perfused without cyanosis or mottling, including that of the nail beds and the knees. Neck is supple. There is no jugular venous distention, no subcutaneous emphysema. Trachea is midline. Mouth shows her mucous membranes to be pink and moist. Lips and commissures without lesions. There is no thrush. Eyes show her pupils to be equal and reactive. Extraocular motions intact. Sclerae anicteric. Neurologic shows II-XII intact along with gross motor and gross sensation intact. Gait is not tested. Psychiatric shows her to be awake and alert, oriented times three with appropriate mood and affect and conversational. Her white count today is 13.4 with a hemoglobin and hematocrit of 13.7 and 41.4 respectively with a platelet count of 278. Differential shows 77% neutrophils, 15% lymphocytes, 5% monocytes. There are no immature forms. No toxic granulations. Her electrolytes are normal with a BUN and creatinine of 9 and 0.6 with a glucose of 133, and a calcium of 8.2. Blood gases today show a pH of 7.45, a pCO2 of 29 and a pO2 of 81. Base excess of -2.4. Her chest x-ray today shows her lung fully expanded to the chest wall. Chest tube is in good place. There is minimal subcutaneous emphysematous on the lateral chest wall. His costophrenic angles are sharp. There are no infiltrates. IMPRESSION: 1. Postoperative day #1, status post a right upper lobectomy. 2. Multiple sclerosis. 3. Prior narcotic dependence. 4. Fibromyalgia. 5. Depression and anxiety. 6. Prior nicotine dependence. 7. Hyperlipidemia. PLAN AND DISCUSSION: As she is requiring phenylephrine, I will not diurese her today. I will continue her chest tubes on suction and also continue her in the intensive care unit (ICU). She is doing remarkably well all things considered. She is asking to walk around, and I encourage that even though she is on Ju[place]-Synephrine. Her arterial line will remain in place.
[2019-08-10] MEDS: traZODone 100 MG TAB PO SCH (20:12)
[2019-08-11] VITALS (22 sets, daily range): BP systolic 85–138; BP diastolic 48–73
[2019-08-11] MEDS: LEVALBUTEROL 1.25 MG/0.5 ML CONCENTRATE NEB NEB SCH ×4 (01:58→19:57)
[2019-08-11] MEDS: ACETAMINOPHEN *IV* 1,000 MG in IV 1 EA IV SCH ×3 (05:06→23:29)
[2019-08-11 05:12] LABS: BASO # 0.1 10^3/uL (0.0-0.2); BASO % 0.5 % (0.0-1.0); EOS # 0.3 10^3/uL (0.0-0.5); EOS % 3.3 % (0.0-3.0); HEMOGLOBIN 14.3 g/dl (12.0-15.5); LYMPH # 1.4 10^3/uL (1.5-5.0); LYMPH % 13.3 % (24.0-44.0); MEAN CORPUSCULAR HEMOGLOBIN 29.7 pg (27.0-33.0); MEAN CORPUSCULAR HGB CONC 32.5 g/dl (32.0-36.5); MEAN CORPUSCULAR VOLUME 91.3 fl (80.0-96.0); MONO # 0.7 10^3/uL (0.0-0.8); MONO % 6.6 % (0.0-5.0); NEUTROPHILS # 7.7 10^3/uL (1.5-8.5); NEUTROPHILS % 75.8 % (36.0-66.0); PLATELET COUNT, AUTOMATED 236 10^3/uL (150-450); RED BLOOD COUNT 4.82 10^6/uL (4.00-5.40); WHITE BLOOD COUNT 10.2 10^3/uL (4.0-10.0)
[2019-08-11 05:36] LABS: ALBUMIN 2.4 GM/DL (3.2-5.2); ALT/SGPT 16 U/L (12-78); BILIRUBIN,TOTAL 0.4 MG/DL (0.2-1.0); BLOOD UREA NITROGEN 7 MG/DL (7-18); CALCIUM LEVEL 8.6 MG/DL (8.5-10.1); CARBON DIOXIDE LEVEL 30 MEQ/L (21-32); CHLORIDE LEVEL 103 MEQ/L (98-107); CHOLESTEROL LEVEL 168 MG/DL (< 200); CPK CREATINE PHOSPHOKINASE 706 U/L (26-192); CREATININE FOR GFR 0.57 MG/DL (0.55-1.30); GLOMERULAR FILTRATION RATE > 60.0 (>51); GLUCOSE, FASTING 124 MG/DL (70-100); LDH LACTATE DEHYDROGENASE 247 U/L (84-246); MAGNESIUM LEVEL 1.9 MG/DL (1.8-2.4); PHOSPHORUS LEVEL 2.4 MG/DL (2.5-4.9); POTASSIUM SERUM 4.8 MEQ/L (3.5-5.1); SODIUM LEVEL 135 MEQ/L (136-145); TOTAL PROTEIN 5.5 GM/DL (6.4-8.2); TRIGLYCERIDES LEVEL 278 MG/DL (<150)
[2019-08-11] MEDS: KCL 20MEQ IN D5/NS 1000ML 1,000 ML IV SCH ×2 (07:19→19:36)
[2019-08-11] MEDS: PANTOPRAZOLE 40MG TAB (PROTONIX) PO SCH (08:59)
[2019-08-11] MEDS: DOCUSATE SODIUM 100 MG CAP PO SCH ×2 (08:59→20:11)
[2019-08-11] MEDS: ATORVASTATIN 20 MG TAB PO SCH (09:00)
[2019-08-11] MEDS: MOM 30ML SUSPENSION UDC PO SCH (09:00)
[2019-08-11] MEDS: ASCORBIC ACID 500 MG TAB PO SCH (09:01)
[2019-08-11] MEDS: CYANOCOBALAMIN 500 MCG TAB PO SCH (09:01)
[2019-08-11] MEDS: buPROPion **SR TABLET** (ZYBAN) 150MG PO SCH ×2 (09:02→20:11)
[2019-08-11] MEDS: VITAMIN D 1,000 INTERNATIONAL UNITS TABLET PO SCH (09:02)
[2019-08-11] MEDS: PYRIDOXINE 50 MG TAB PO SCH (09:03)
[2019-08-11] MEDS: NICOTINE 14 MG/24 HR TRANSDERMAL TOP SCH (09:05)
[2019-08-11] MEDS: OCTREOTIDE ACETATE 100MCG/ML VIAL (J2354 PER 25MCG) SC SCH ×2 (09:07→17:50)
[2019-08-11] MEDS: HEPARIN SOD (PORCINE) 5000UNITS/ML VIAL (J1644 PER 1000UNITS) SC SCH ×2 (09:07→20:12)
--- NOTE | 2019-08-11 10:00 | REP ---
REASON FOR EXAM: Followup. Latest prior for comparison is 08/10/2019. Right-sided thoracotomy tube status quo. Small right apical pneumothorax, status quo. Cardiomediastinal silhouette status quo. Lung thomas are unchanged. No acute patchy parenchymal opacities or pleural effusions have developed. The degree of subcutaneous emphysema is unchanged. IMPRESSION: No significant change. Electronically Signed by Ortega Ellis DO 08/11/2019 10:11 A
--- NOTE | 2019-08-11 10:27 | IPN ---
DATE: 08/10/2019 This is a postoperative day #2 for Ms. Brandt. Her pain is now better controlled. Although, her shoulder still hurts her. Yesterday afternoon it was noted that she was putting out milky sanguineous fluid, and today it is very clear that she has a lymph which is layering on the Pleur-evac output. It looks though she now has chylothorax most likely from the mediastinal node dissection. Her vital signs show a maximum temperature (Tmax) of 100.0, now 98.1. Heart rate ranges between 91-82 in a sinus rhythm, respiratory rate of 18-20 without the use of accessory muscles, who is 95% saturated on room air, and blood pressure is ranging between 118/56-94/52 when sleeping. She is still on phenylephrine. Her epidural is going at 14 mL/h double strength. Her intake and output for the past 24 hours has been recorded as 3712 in and 3265 out for a positivity of 447 mL. She has put out 505 mL from her chest tube. This, however does not count the soaked dressings at the chest tube sites. So, she has probably put out a lot more than the 500. I have asked the nursing staff to weigh the soaked dressings. Her weight today 62.8 kg compared to 60 kg preoperatively. On physical examination, she has very coarse rhonchi on both sides. Right is greater than left, however. I hear no wheezing. Percussion note is full to the diaphragm. Cardiac exam is without murmurs, clicks, gallops, or rubs. I cannot feel her point of maximum impulse (PMI). S1 and S2 are normal. Abdomen is soft and nontender. Bowel sounds are positive. There is no hepatomegaly. No costovertebral angle (CVA) tenderness. Extremities show no pretibial edema. No calf tenderness. No differential swelling of the upper extremities. Skin is warm, dry and perfused without cyanosis or mottling, including that of the nail beds and the knees. Neck is supple. There is no jugular venous distention. No subcutaneous emphysema. Trachea is midline. Mouth shows her mucous membranes to be pink and moist. Lips and commissures without lesions. There is no thrush. Eyes show her pupils to be equal and reactive. Extraocular motions intact. Sclerae anicteric. Neurologic shows II-XII intact, along with gross motor and gross sensation intact. Gait is not tested. Psychiatric shows her to be awake and alert, oriented times three with appropriate mood and affect, and conversational. Her white count today is 15.5, with hemoglobin and hematocrit of 14.4 and 48.0, respectively. Platelet count is 252 and stable, and differential shows 84% neutrophils, 8% lymphocytes, and 5% monocytes. There are no immature forms. No toxic granulations. Her electrolytes are normal today with BUN and creatinine of 9 and 0.66. Glucose is 133, with a calcium of 8.5. Her albumin today is 2.8, with normal liver functions. Total protein this morning is 5.9. Her chest x-ray today showed sharp costophrenic angles and the lung, which looks to be fully expanded to the chest wall. I am a little suspicious of an air space at the cupula, although I do think I see lung markings at the cupula. There is a faint line, which also corresponds to a staple line secondary to creation of the minor fissure, which was very complete. Lateral chest x-ray does not show any posterior infiltrates. IMPRESSION: 1. Postoperative day #2 status post right upper lobectomy and complete mediastinal node dissection. 2. Multiple sclerosis. 3. Fibromyalgia. 4. Depression. 5. Anxiety. 6. Prior tobacco abuse. 7. Chylothorax. PLAN AND DISCUSSION: She had an extensive lymph node dissection, including paratracheal nodes, subcarinal nodes, and inferior pulmonary ligament nodes. I suspect one of these in fact is leaking. She had an extraordinary of number of paratracheal nodes. I suspect that is where the chylous leak is emitting. Today, I will put her on a low fat diet. If she continues to emit chyle in large amounts, I will be forced to place a central line per hyperalimentation and make her nothing by mouth. I may or may not start octreotide. Her pain control is doing fairly well, although she is on increased amounts via the epidural and still needs phenylephrine support. I would rather support her blood pressure with phenylephrine rather than compromise on her pain control.
[2019-08-11] MEDS: PHENYLEPHRINE HCL INJ 50 MG in D5W 495 ML IV SCH (11:00)
[2019-08-11] MEDS ORDERED: LIDOCAINE 1% MDV 20ML VIAL As Ordered ONE (11:20)
[2019-08-11] MEDS ORDERED: ACETAMINOPHEN 500 MG TAB PO SCH (12:00)
--- NOTE | 2019-08-11 12:15 | IPN ---
DATE: 08/11/2019 This is now the third postoperative day for Ms. Brandt. Her pain is being much better controlled now and her shoulder pain is decreasing. She however has put out an extraordinary amount from her chest tube of chylous consistency. I have therefore made her nothing by mouth (n.p.o.) and will start her on hyperalimentation. Her vital signs show a maximum temperature (Tmax) of 98.3 with a heart rate that ranges between 79 and 90 in a sinus rhythm, a respiratory rate of 16 to 18 without the use of accessory muscles, who is 95% to 99% saturated on room air, and whose blood pressure is ranging between 119/66 to 96/51. She is still on phenylephrine blood pressure support secondary to her epidural. Her intake and output for the past 24 hours has been recorded as 3460 in and 3760 out for a negativity of 300 mL. She has taken in 2500 mL in oral intake and 900 mL in IV intake. Her chest tube has put out 1235 mL. There is still an air leak. Weight today is 61.2 kg compared to 62.8 yesterday. On physical examination, her lungs show equal breath sounds on either side. She has less rhonchi today on the right side than she did yesterday. They do not all clear with coughing. Percussion note is full to the diaphragm. Cardiac exam is without murmurs, clicks, gallops, or rubs. I cannot feel her point of maximum impulse (PMI). S1 and S2 are normal. Abdomen is soft and nontender. Bowel sounds are positive. There is no hepatomegaly. No costovertebral angle (CVA) tenderness. Extremities show no pretibial edema. No calf tenderness. No differential swelling of the upper extremities. Skin is warm, dry and perfused without cyanosis or mottling, including that of the nail beds and the knees. Neck is supple. There is no jugular venous distention. No subcutaneous emphysema. Trachea is midline. Mouth shows her mucous membranes to be pink and moist. Lips and commissures without lesions. There is no thrush. Eyes show her pupils to be equal and reactive. Extraocular motions intact. Sclerae anicteric. Neurologic shows II-XII intact, along with gross motor and gross sensation intact. Gait is not tested. Psychiatric shows her to be awake and alert, oriented times three with appropriate mood and affect, and conversational. Her white count today is 10.2 and continues to decrease with a hemoglobin and hematocrit of 14.3 and 44.0 which is unchanged from yesterday. Platelet count is 236 and stable. Differential shows 75% neutrophils, 13% lymphocytes, and 6% monocytes. There are no immature forms and no toxic granulations. Her electrolytes show marginally low sodium of 135, with a BUN and creatinine of 7 and 0.57 respectively. Glucose is 124 with a calcium of 8.6. Phosphorus is 2.4. Her magnesium is 1.9. Albumin is 2.4, down from 2.8 yesterday. Her chest x-ray is still pending. IMPRESSION: 1. Postoperative day #3 status post right upper lobectomy. 2. Adenocarcinoma, final pathology pending. 3. Multiple sclerosis. 4. Prior narcotic dependency. 5. Fibromyalgia. 6. Depression and anxiety. 7. Prior nicotine dependence. 8. Hyperlipidemia. 9. Chylothorax. PLAN AND DISCUSSION: I tried a low fat diet yesterday and her chest tube output is still considerable and chylous. I will therefore make her n.p.o. and start her on hyperalimentation. I will also order octreotide 100 mcg three times a day subcutaneous. Rather than a central line, I will have a peripherally inserted central catheter (PICC) line placed as this may last a couple of weeks.
[2019-08-11] MEDS ORDERED: ACETAMINOPHEN 500 MG TAB PO PRN (12:30)
[2019-08-11] MEDS: FENTANYL/BUPIVACAINE BAG 250 ML EPIDURAL SCH (13:28)
--- NOTE | 2019-08-11 17:15 | REP ---
Procedure: PICC line insertion with [place] The procedure was performed under the direct supervision of Dr. Boyd. The risks and benefits of the procedure were explained to the patient and informed consent was obtained. The procedure was performed in the ICU at the bedside. The right basilic vein was localized using ultrasound guidance. The skin was prepped and draped in a sterile fashion. 1% lidocaine was used as a local anesthetic. Using ultrasound guidance the basilic vein was cannulated and a 0.018 guidewire was inserted. The needle was removed and a 5.5 Marshallese dilator and peel-away sheath was inserted over the guide wire. A 5.5 Marshallese dual lumen catheter was cut to length of 41 cm. The dilator was removed and the catheter was inserted over the guide wire. A portable chest x-ray was performed and the image demonstrates the catheter to be too long. The catheter was removed and cut to length of 38 cm. The catheter was reinserted over the guide wire. Another portable chest x-ray was performed and the image demonstrates the catheter to be doubled back on itself in the SVC. The catheter was readjusted another film was performed and the shows the catheter to be a heading up into the neck. The catheter was once again readjusted and another chest x-ray was performed and the image demonstrates the tip of the catheter to be in the SVC. The peel-away sheath was removed and the catheter was flushed with heparinized saline as per Hospital protocol. The catheter was affixed to the skin and a sterile dressing was applied. The patient tolerated the procedure well and there were no immediate complications. Electronically Signed by MOUNIKA Forrester 08/11/2019 04:25 P Electronically Signed by Omar Boyd MD 08/11/2019 05:05 P
[2019-08-11] MEDS: fentaNYL 75 MCG/HR PATCH TD SCH (17:16)
[2019-08-11] MEDS: diphenhydrAMINE 50MG/ML VIAL (J1200) IV PRN (17:17)
[2019-08-11] MEDS: HumaLOG INSULIN (NovoLOG) PER UNIT SC SCH ×2 (17:49→23:29)
[2019-08-11] MEDS ORDERED: FAT EMULSION IV 20% 500 ML IV SCH (18:00)
[2019-08-11] MEDS ORDERED: MULTIVITAMIN -ADULT INJECTION 10 ML, CR/CU/SE/MN/ZN INJ 1 ML in AMINO AC/ELECTROLYTE/DE... IV SCH (18:00)
[2019-08-11] MEDS: traZODone 100 MG TAB PO SCH (20:11)
[2019-08-12] VITALS: BP 103/61
[2019-08-12] MEDS: PHENYLEPHRINE HCL INJ 50 MG in D5W 495 ML IV SCH (00:26)
[2019-08-12] MEDS: OCTREOTIDE ACETATE 100MCG/ML VIAL (J2354 PER 25MCG) SC SCH ×3 (01:41→17:42)
[2019-08-12] MEDS: LEVALBUTEROL 1.25 MG/0.5 ML CONCENTRATE NEB NEB SCH ×4 (01:51→19:31)
[2019-08-12 04:00] VITALS: BP 98/59
[2019-08-12 04:05] LABS: BASO % 0.5 % (0.0-1.0); EOS # 0.3 10^3/uL (0.0-0.5); EOS % 4.9 % (0.0-3.0); HEMATOCRIT 34.2 % (36.0-47.0); LYMPH # 1.2 10^3/uL (1.5-5.0); LYMPH % 20.1 % (24.0-44.0); MEAN CORPUSCULAR HEMOGLOBIN 29.1 pg (27.0-33.0); MEAN CORPUSCULAR HGB CONC 32.2 g/dl (32.0-36.5); MEAN CORPUSCULAR VOLUME 90.5 fl (80.0-96.0); MONO # 0.4 10^3/uL (0.0-0.8); MONO % 6.3 % (0.0-5.0); NEUTROPHILS # 4.2 10^3/uL (1.5-8.5); NEUTROPHILS % 67.6 % (36.0-66.0); PLATELET COUNT, AUTOMATED 173 10^3/uL (150-450); RED BLOOD COUNT 3.78 10^6/uL (4.00-5.40); WHITE BLOOD COUNT 6.2 10^3/uL (4.0-10.0)
[2019-08-12 04:42] LABS: ALT/SGPT 12 U/L (12-78); BILIRUBIN,TOTAL 0.2 MG/DL (0.2-1.0); BLOOD UREA NITROGEN 8 MG/DL (7-18); CALCIUM LEVEL 8.3 MG/DL (8.5-10.1); CARBON DIOXIDE LEVEL 30 MEQ/L (21-32); CHLORIDE LEVEL 105 MEQ/L (98-107); CHOLESTEROL LEVEL 112 MG/DL (< 200); CPK CREATINE PHOSPHOKINASE 361 U/L (26-192); CREATININE FOR GFR 0.47 MG/DL (0.55-1.30); GLOMERULAR FILTRATION RATE > 60.0 (>51); GLUCOSE, FASTING 146 MG/DL (70-100); LDH LACTATE DEHYDROGENASE 164 U/L (84-246); PHOSPHORUS LEVEL 3.2 MG/DL (2.5-4.9); POTASSIUM SERUM 3.9 MEQ/L (3.5-5.1); SODIUM LEVEL 139 MEQ/L (136-145); TOTAL PROTEIN 5.5 GM/DL (6.4-8.2); TRIGLYCERIDES LEVEL 236 MG/DL (<150)
[2019-08-12] MEDS: ACETAMINOPHEN *IV* 1,000 MG in IV 1 EA IV SCH ×3 (05:10→17:42)
[2019-08-12] MEDS: HumaLOG INSULIN (NovoLOG) PER UNIT SC SCH ×3 (05:10→17:43)
[2019-08-12] MEDS: FENTANYL/BUPIVACAINE BAG 250 ML EPIDURAL SCH (07:40)
[2019-08-12 08:00] VITALS: BP 92/61
--- NOTE | 2019-08-12 08:40 | REP ---
REASON: Followup COMPARISON: Multiple, the latest 08/11/2019 at 8:28 a.m. The cardiomediastinal silhouette and lung thomas are unchanged. The right-sided thoracotomy tubes are unchanged. The small right apical pneumothorax is stable. The degree of subcutaneous emphysema is essentially unchanged, possibly slightly less. There is no change in the osseous structures. There are no new abnormal opacities. IMPRESSION: No significant change. Electronically Signed by Ortega Ellis DO 08/12/2019 09:46 A
[2019-08-12] MEDS: PYRIDOXINE 50 MG TAB PO SCH (09:04)
[2019-08-12] MEDS: MOM 30ML SUSPENSION UDC PO SCH (09:04)
[2019-08-12] MEDS: HEPARIN SOD (PORCINE) 5000UNITS/ML VIAL (J1644 PER 1000UNITS) SC SCH ×2 (09:04→20:02)
[2019-08-12] MEDS: buPROPion **SR TABLET** (ZYBAN) 150MG PO SCH ×2 (09:04→20:03)
[2019-08-12] MEDS: ASCORBIC ACID 500 MG TAB PO SCH (09:04)
[2019-08-12] MEDS: CYANOCOBALAMIN 500 MCG TAB PO SCH (09:05)
[2019-08-12] MEDS: DOCUSATE SODIUM 100 MG CAP PO SCH ×2 (09:05→20:03)
[2019-08-12] MEDS: VITAMIN D 1,000 INTERNATIONAL UNITS TABLET PO SCH (09:05)
[2019-08-12] MEDS: NICOTINE 14 MG/24 HR TRANSDERMAL TOP SCH (09:05)
[2019-08-12] MEDS: ATORVASTATIN 20 MG TAB PO SCH (09:06)
[2019-08-12] MEDS: PANTOPRAZOLE 40MG TAB (PROTONIX) PO SCH (09:06)
[2019-08-12] MEDS: BACLOFEN 10 MG TAB PO PRN (12:20)
--- NOTE | 2019-08-12 12:55 | IPN ---
DATE: 08/12/2019 Ms. Brandt is sitting comfortably up in a chair. She does note that her pain is somewhat better today with her shoulder being better. Her vital signs show a maximum temperature (Tmax) of 99.0 with a heart rate that ranges between 93 and 85 in a sinus rhythm, a respiratory rate of 18 to 20 without the use of accessory muscles, who is now 94% saturated on room air, and whose blood pressure is ranging between 92/61 to 115/68. Her intake and output for the past 24 hours has been recorded as 3780 in and 2995 out for a positivity of 785 mL. She has only put out 395 mL from the chest tube compared to 1235 mL the day before. She was made nothing by mouth and started octreotide. There is still a small air leak. She continues on her total parenteral nutrition (TPN). On physical examination, she has scattered rhonchi on the right side which almost completely clear with coughing. Percussion note is full to the diaphragm. Cardiac exam is without murmurs, clicks, gallops, or rubs. I cannot feel her point of maximum impulse (PMI). S1 and S2 are normal. Abdomen is soft and nontender. Bowel sounds are positive. There is no hepatomegaly. No costovertebral angle (CVA) tenderness. Extremities show no pretibial edema. No calf tenderness. No differential swelling of the upper extremities. Skin is warm, dry and perfused without cyanosis or mottling, including that of the nail beds and the knees. Neck is supple. There is no jugular venous distention. No subcutaneous emphysema. Trachea is midline. Mouth shows her mucous membranes to be pink and moist. Lips and commissures without lesions. There is no thrush. Eyes show her pupils to be equal and reactive. Extraocular motions intact. Sclerae anicteric. Neurologic shows II-XII intact, along with gross motor and gross sensation intact. Gait is not tested. Psychiatric shows her to be awake and alert, oriented times three with appropriate mood and affect, and conversational. Her white count today is 6.2 with a hemoglobin and hematocrit of 11.0 and 34.2, markedly changed from yesterday of 14.3 and 44.0. I suspect this is either secondary to hemodilution or from taking a sample from the PICC line. Her platelet count is 173 and stable. Differential shows 67% neutrophils, 20% lymphocytes, and 6% monocytes. There are no immature forms and no toxic granulations. Her chemistries today show normal electrolytes with a potassium of 3.9. BUN and creatinine are 8 and 0.47 respectively with a calcium of 8.3 and a corresponding albumin of 2.0, which is down from 2.4 yesterday. Magnesium is 2.0 with a phosphorus of 3.2 which is increased from 2.4 yesterday. Liver functions are normal. I have therefore not changed her hyperalimentation formula today. Her chest x-ray shows the lung fully expanded to the chest wall. There is minimal trace subcutaneous emphysema at the neck. Costophrenic angles are sharp. Chest tubes are in good place. There are no infiltrates, either on the PA or the lateral views. IMPRESSION: 1. Postoperative day #4 status post right upper lobectomy and mediastinal node dissection. 2. Adenocarcinoma, Stage III, see discussion below. 3. Multiple sclerosis. 4. Prior narcotic dependency. 5. Fibromyalgia. 6. Depression and anxiety. 7. Prior nicotine dependence. 8. Hyperlipidemia. 9. Chylothorax. PLAN AND DISCUSSION: I have gone over the pathology with Dr. Zayas. It looks to be poorly differentiated tumor, not completely characterized thus far. It looks to be non small cell. It is present in the mediastinal nodes as well as in a hilar node. This therefore makes her Stage III A. I have informed the patient of her pathology findings today. We had a long discussion with regard to the need for chemotherapy and adjuvant radiation. It is understatement to say that she is disappointed as we entered thinking that she was Stage I disease. As far as her chylothorax is concerned, I am quite gratified that the chest tube output has markedly dropped off with being nothing by mouth and having nutritional support by hyperalimentation and receiving octreotide. She has no complaints of cramping or diarrhea. I will continue her on the epidural. She has also been weaned from the phenylephrine.
[2019-08-12 13:30] VITALS: BP 97/56
[2019-08-12 16:00] VITALS: BP 103/61
[2019-08-12] MEDS ORDERED: AMINO AC/ELECTROLYTE/DEX/CALC 2,000 ML IV SCH (18:00)
[2019-08-12] MEDS ORDERED: FAT EMULSION IV 20% 500 ML IV SCH (18:00)
[2019-08-12] MEDS: SODIUM CHLORIDE 0.9% INJ 10 ML SYR IV SCH (18:35)
[2019-08-12 20:00] VITALS: BP 102/57
[2019-08-12] MEDS: traZODone 100 MG TAB PO SCH (20:03)
[2019-08-13] VITALS: BP 112/55
[2019-08-13] MEDS: OCTREOTIDE ACETATE 100MCG/ML VIAL (J2354 PER 25MCG) SC SCH ×3 (00:03→16:49)
[2019-08-13] MEDS: ACETAMINOPHEN *IV* 1,000 MG in IV 1 EA IV SCH ×4 (00:03→17:45)
[2019-08-13] MEDS: HumaLOG INSULIN (NovoLOG) PER UNIT SC SCH ×4 (00:12→18:21)
[2019-08-13] MEDS: FENTANYL/BUPIVACAINE BAG 250 ML EPIDURAL SCH ×2 (01:14→16:30)
[2019-08-13] MEDS: LEVALBUTEROL 1.25 MG/0.5 ML CONCENTRATE NEB NEB SCH ×4 (01:22→19:39)
[2019-08-13 04:00] VITALS: BP 97/58
[2019-08-13 04:58] LABS: BASO % 0.5 % (0.0-1.0); EOS # 0.3 10^3/uL (0.0-0.5); EOS % 4.5 % (0.0-3.0); HEMATOCRIT 37.6 % (36.0-47.0); HEMOGLOBIN 12.2 g/dl (12.0-15.5); LYMPH # 1.1 10^3/uL (1.5-5.0); LYMPH % 17.9 % (24.0-44.0); MEAN CORPUSCULAR HEMOGLOBIN 29.8 pg (27.0-33.0); MEAN CORPUSCULAR HGB CONC 32.4 g/dl (32.0-36.5); MEAN CORPUSCULAR VOLUME 91.7 fl (80.0-96.0); MONO # 0.4 10^3/uL (0.0-0.8); MONO % 6.4 % (0.0-5.0); NEUTROPHILS # 4.2 10^3/uL (1.5-8.5); NEUTROPHILS % 70.2 % (36.0-66.0); PLATELET COUNT, AUTOMATED 212 10^3/uL (150-450)
[2019-08-13] MEDS: SODIUM CHLORIDE 0.9% INJ 10 ML SYR IV SCH ×2 (05:02→17:45)
[2019-08-13 05:29] LABS: ALT/SGPT 18 U/L (12-78); BILIRUBIN,TOTAL 0.2 MG/DL (0.2-1.0); BLOOD UREA NITROGEN 10 MG/DL (7-18); CALCIUM LEVEL 8.4 MG/DL (8.5-10.1); CARBON DIOXIDE LEVEL 32 MEQ/L (21-32); CHLORIDE LEVEL 104 MEQ/L (98-107); CHOLESTEROL LEVEL 126 MG/DL (< 200); CPK CREATINE PHOSPHOKINASE 163 U/L (26-192); CREATININE FOR GFR 0.48 MG/DL (0.55-1.30); GLOMERULAR FILTRATION RATE > 60.0 (>51); GLUCOSE, FASTING 142 MG/DL (70-100); LDH LACTATE DEHYDROGENASE 173 U/L (84-246); MAGNESIUM LEVEL 2.1 MG/DL (1.8-2.4); PHOSPHORUS LEVEL 4.4 MG/DL (2.5-4.9); POTASSIUM SERUM 4.4 MEQ/L (3.5-5.1); SODIUM LEVEL 139 MEQ/L (136-145); TOTAL PROTEIN 5.9 GM/DL (6.4-8.2); TRIGLYCERIDES LEVEL 191 MG/DL (<150)
[2019-08-13 08:00] VITALS: BP 98/57
[2019-08-13] MEDS: HEPARIN SOD (PORCINE) 5000UNITS/ML VIAL (J1644 PER 1000UNITS) SC SCH ×2 (08:17→20:50)
[2019-08-13] MEDS: NICOTINE 14 MG/24 HR TRANSDERMAL TOP SCH (08:21)
[2019-08-13] MEDS: PANTOPRAZOLE 40MG TAB (PROTONIX) PO SCH (08:21)
[2019-08-13] MEDS: ASCORBIC ACID 500 MG TAB PO SCH (08:21)
[2019-08-13] MEDS: buPROPion **SR TABLET** (ZYBAN) 150MG PO SCH ×2 (08:21→20:50)
[2019-08-13] MEDS: ATORVASTATIN 20 MG TAB PO SCH (08:21)
[2019-08-13] MEDS: DOCUSATE SODIUM 100 MG CAP PO SCH ×2 (08:21→20:50)
[2019-08-13] MEDS: VITAMIN D 1,000 INTERNATIONAL UNITS TABLET PO SCH (08:21)
[2019-08-13] MEDS: PYRIDOXINE 50 MG TAB PO SCH (08:22)
[2019-08-13] MEDS: CYANOCOBALAMIN 500 MCG TAB PO SCH (08:22)
[2019-08-13] MEDS: MOM 30ML SUSPENSION UDC PO SCH (08:22)
[2019-08-13] MEDS: METOCLOPRAMIDE INJ 10MG/2ML VIAL (J2765 PER 1) IV PRN (08:39)
--- NOTE | 2019-08-13 11:13 | REP ---
CHEST, TWO VIEWS: Two views of the chest are performed and compared to a prior study 08/12/2019. Small right apical pneumothorax is unchanged. Right arm PICC line is unchanged. There are two right chest tubes unchanged. The lungs, heart and mediastinum are unchanged in appearance. IMPRESSION: Stable exam. Electronically Signed by Omar Boyd MD 08/13/2019 12:56 P
[2019-08-13 12:00] VITALS: BP 91/62
--- NOTE | 2019-08-13 12:47 | IPN ---
DATE OF SERVICE: 08/13/2019 This is now the fifth postoperative day for Mrs. Brandt. She has plateaued regarding her chest tube output, putting out 400 mL today compared to 395 mL yesterday. Otherwise, she is feeling fairly well. She rates her pain between a 6 and an 8 but was able to walk down to x-ray today. Her vital signs show a maximum temperature (Tmax) of 98.0 with a heart rate that ranges between 95 and 82 in a sinus rhythm, a respiratory rate of 18-20 without the use of accessory muscles, who is 94% saturated on room air, and whose blood pressure is ranging between 112/55 to 97/58. Her intake and output for the past 24 hours has been recorded as 3996 in and 3625 out for a positivity of 375 mL. She has taken in 1080 mL in by mouth intake in the form of water. The remainder of her intake is intravenous (IV) 2900. As noted in introduction, she has put out 400 mL from the chest tube, but there is no air leak. She has put 300 mL out in the last 8 hours, however. Her weight today is 61.6 kg compared to 61.8 kg yesterday. On physical examination, she has some rales and rhonchi on the right side and most of which clear with coughing. Percussion note is full to the diaphragm. Cardiac exam is without murmurs, clicks, gallops, or rubs. I cannot feel her point of maximum impulse (PMI). S1 and S2 are normal. Abdomen is soft and nontender. Bowel sounds are positive. There is no hepatomegaly. No costovertebral angle (CVA) tenderness. Extremities show no pretibial edema. No calf tenderness. No differential swelling of the upper extremities. Skin is warm, dry, and perfused without cyanosis or mottling, including that of the nail beds and the knees. Neck is supple. There is no subcutaneous emphysema. Trachea is midline. There is no jugular venous distention. Mouth shows her mucous membranes to be pink and moist. Lips and commissures without lesions. There is no thrush. Eyes show her pupils to be equal and reactive. Extraocular motions intact. Sclerae anicteric. Neurologic shows II-XII intact, along with gross motor and gross sensation intact. Gait is not tested. Psychiatric shows her to be awake and alert, oriented times three with appropriate mood and affect, and conversational. Her white count today is 6.0 with a hemoglobin and hematocrit of 12.2 and 37.6 up from 11.0 and 34.2 yesterday. Her platelet count is 212 and stable, and differential shows 70% neutrophils, 17% lymphocytes, and 6% monocytes. There are no immature forms and no toxic granulations. Her chemistries today show normal electrolytes with a BUN and creatinine of 10 and 0.48. Glucose is 142 with a calcium of 8.4. Magnesium is 2.0 with a phosphorus of 4.4 up from 3.2 yesterday. Liver functions are normal. Albumin is still 2.0 with a total protein of 5.9. Her chest x-ray today shows her lung fully expanded to the chest wall. She has obligate volume loss from the lobectomy on the right side. Costophrenic angles are sharp. I see no infiltrates. IMPRESSION: 1. Postoperative day #5, status post right upper lobectomy and mediastinal node dissection. 2. Chylothorax 3. Adenocarcinoma, stage IIIA. 4. Multiple sclerosis. 5. Prior narcotic dependency. 6. Fibromyalgia. 7. Depression and anxiety. 8. Prior nicotine dependence. 9. Hyperlipidemia. PLAN AND DISCUSSION: I am gratified that her air leak has stopped. Because her output has plateaued, I will eliminate all fluids by mouth except sips and chips. I have again spoken with her about her diagnosis and had a lengthy discussion. She is devastated by learning that she is stage III and that she will need more radiation and adjuvant therapy. I indicated to her that will not start until she is out of the hospital and healed. I have also reassured her that chemotherapy and radiation is done on an outpatient basis.
[2019-08-13 16:00] VITALS: BP 96/62
[2019-08-13] MEDS: LIDOCAINE 5% OINT 30 GM TOP SCH (16:39)
[2019-08-13] MEDS ORDERED: MULTIVITAMIN -ADULT INJECTION 10 ML, CR/CU/SE/MN/ZN INJ 1 ML in AMINO AC/ELECTROLYTE/DE... IV SCH ×4 (18:00)
[2019-08-13] MEDS ORDERED: FAT EMULSION IV 20% 500 ML IV SCH (18:00)
[2019-08-13 20:00] VITALS: BP 96/73
[2019-08-13] MEDS: traZODone 100 MG TAB PO SCH (20:49)
[2019-08-14] VITALS: BP 96/53
[2019-08-14] MEDS: OCTREOTIDE ACETATE 100MCG/ML VIAL (J2354 PER 25MCG) SC SCH (00:30)
[2019-08-14] MEDS: LIDOCAINE 5% OINT 30 GM TOP SCH (00:30)
[2019-08-14] MEDS: ACETAMINOPHEN *IV* 1,000 MG in IV 1 EA IV SCH ×4 (00:37→17:04)
[2019-08-14] MEDS: ONDANSETRON 4MG/2ML VIAL IV PRN (00:52)
[2019-08-14] MEDS: diphenhydrAMINE 50MG/ML VIAL (J1200) IV PRN (00:55)
[2019-08-14] MEDS: HumaLOG INSULIN (NovoLOG) PER UNIT SC SCH ×4 (00:56→17:40)
[2019-08-14] MEDS: LEVALBUTEROL 1.25 MG/0.5 ML CONCENTRATE NEB NEB SCH ×4 (01:44→19:26)
[2019-08-14 04:00] VITALS: BP 93/55
[2019-08-14 05:30] LABS: BASO % 0.5 % (0.0-1.0); EOS # 0.2 10^3/uL (0.0-0.5); EOS % 3.8 % (0.0-3.0); HEMATOCRIT 38.1 % (36.0-47.0); HEMOGLOBIN 12.3 g/dl (12.0-15.5); MEAN CORPUSCULAR HEMOGLOBIN 29.4 pg (27.0-33.0); MEAN CORPUSCULAR HGB CONC 32.3 g/dl (32.0-36.5); MEAN CORPUSCULAR VOLUME 90.9 fl (80.0-96.0); MONO # 0.4 10^3/uL (0.0-0.8); MONO % 7.2 % (0.0-5.0); NEUTROPHILS # 4.4 10^3/uL (1.5-8.5); NEUTROPHILS % 71.8 % (36.0-66.0); PLATELET COUNT, AUTOMATED 217 10^3/uL (150-450); RED BLOOD COUNT 4.19 10^6/uL (4.00-5.40); WHITE BLOOD COUNT 6.1 10^3/uL (4.0-10.0)
[2019-08-14 06:02] LABS: ALT/SGPT 28 U/L (12-78); BILIRUBIN,TOTAL 0.2 MG/DL (0.2-1.0); BLOOD UREA NITROGEN 14 MG/DL (7-18); CALCIUM LEVEL 8.1 MG/DL (8.5-10.1); CARBON DIOXIDE LEVEL 29 MEQ/L (21-32); CHLORIDE LEVEL 104 MEQ/L (98-107); CHOLESTEROL LEVEL 129 MG/DL (< 200); CPK CREATINE PHOSPHOKINASE 90 U/L (26-192); CREATININE FOR GFR 0.45 MG/DL (0.55-1.30); GLOMERULAR FILTRATION RATE > 60.0 (>51); GLUCOSE, FASTING 114 MG/DL (70-100); LDH LACTATE DEHYDROGENASE 197 U/L (84-246); MAGNESIUM LEVEL 1.9 MG/DL (1.8-2.4); PHOSPHORUS LEVEL 4.2 MG/DL (2.5-4.9); POTASSIUM SERUM 4.5 MEQ/L (3.5-5.1); SODIUM LEVEL 139 MEQ/L (136-145); TOTAL PROTEIN 4.9 GM/DL (6.4-8.2); TRIGLYCERIDES LEVEL 156 MG/DL (<150)
[2019-08-14] MEDS: SODIUM CHLORIDE 0.9% INJ 10 ML SYR IV SCH ×2 (06:20→17:16)
[2019-08-14] MEDS: BACLOFEN 10 MG TAB PO PRN (06:41)
[2019-08-14] MEDS: FENTANYL/BUPIVACAINE BAG 250 ML EPIDURAL SCH (07:43)
[2019-08-14 08:00] VITALS: BP 94/64
[2019-08-14] MEDS: NICOTINE 14 MG/24 HR TRANSDERMAL TOP SCH (08:50)
[2019-08-14] MEDS: OCTREOTIDE ACETATE 100MCG/ML VIAL (J2354 PER 25MCG) IV SCH ×2 (08:51→17:04)
[2019-08-14] MEDS: HEPARIN SOD (PORCINE) 5000UNITS/ML VIAL (J1644 PER 1000UNITS) SC SCH ×2 (08:51→20:48)
[2019-08-14] MEDS: VITAMIN D 1,000 INTERNATIONAL UNITS TABLET PO SCH (08:52)
[2019-08-14] MEDS: ATORVASTATIN 20 MG TAB PO SCH (08:52)
[2019-08-14] MEDS: ASCORBIC ACID 500 MG TAB PO SCH (08:52)
[2019-08-14] MEDS: buPROPion **SR TABLET** (ZYBAN) 150MG PO SCH ×2 (08:52→20:48)
[2019-08-14] MEDS: PYRIDOXINE 50 MG TAB PO SCH (08:52)
[2019-08-14] MEDS: DOCUSATE SODIUM 100 MG CAP PO SCH ×2 (08:52→20:48)
[2019-08-14] MEDS: CYANOCOBALAMIN 500 MCG TAB PO SCH (08:52)
[2019-08-14] MEDS: PANTOPRAZOLE 40MG TAB (PROTONIX) PO SCH (08:53)
[2019-08-14] MEDS: MOM 30ML SUSPENSION UDC PO SCH (08:58)
[2019-08-14] MEDS: METOCLOPRAMIDE INJ 10MG/2ML VIAL (J2765 PER 1) IV PRN ×2 (09:01→17:13)
--- NOTE | 2019-08-14 10:21 | IPN ---
DATE: 08/14/2019 This is now the sixth postoperative day for Mrs. Brandt. She has put out much greater amount from her chest tube than the previous two days. She is very anxious and upset about her staging, which is quite understandable. See discussion below. Her vital signs show a maximum temperature (Tmax) of 98.4 with a heart rate that ranges between 103 and 93 in a sinus rhythm, a respiratory rate of 18-20 without the use of accessory muscles, who is 93% saturated on room air, and whose blood pressure is ranging between 98/57 to 91/62. Her pain is intense today and we have given her another bolus. She is already up to 16 mL of double strength Fentanyl and bupivacaine on the epidural. Her intake and output for the past 24 hours has been recorded as 3596 in and 3790 out for a negativity of 194 mL. She has taken in 2950 mL in IV intake and 640 mL in by mouth intake. Most of the by mouth intake should now be completely gone. Her chest tube output was 1040 yesterday compared to 400 the day before. In the last 8 hours, however, she has only put out 160. Her weight today is 61.6 kg, which is the same as yesterday. On physical examination, she has some scattered rhonchi on the right side. Breath sounds are equal on either side. Percussion note is full to the diaphragm. There is no subcutaneous emphysema over the chest wall. Cardiac exam is without murmurs, clicks, gallops, or rubs. I cannot feel her point of maximum impulse (PMI). S1 and S2 are normal. Abdomen is soft and nontender. Bowel sounds are positive, but hypoactive. She does complain of tenderness at the heparin injection sites. Extremities show no pretibial edema. No calf tenderness. No differential swelling of the upper extremities. Skin is warm, dry, and perfused without cyanosis or mottling, including that of the nail beds and the knees. Neck is supple. There is no jugular venous distention. No subcutaneous emphysema. Trachea is midline. Mouth shows her mucous membranes to be pink and moist. Lips and commissures without lesions. There is no thrush. Eyes show her pupils to be equal and reactive. Extraocular movements intact. Sclerae anicteric. Neurologic shows II-XII intact, along with gross motor and gross sensation intact. Gait is not tested. Psychiatric shows her to be awake and alert, oriented times three with appropriate mood and affect, and conversational. The nurses do report to me that she walked down to x-ray today without difficulty. Her white count today is 6.1 with a hemoglobin and hematocrit of 12.3 and 38.1 respectively with a platelet count of 217 and stable. Differential shows 71% neutrophils, 16% lymphocytes, and 7% monocytes. There are no immature forms and no toxic granulations. Her electrolytes are normal with a BUN and creatinine of 14 and 0.45. Calcium is 8.1 with a phosphorus of 4.2 and a magnesium of 1.9. Liver functions are normal. Her albumin is still 2.0. Her chest x-ray today shows a small apical air space in the right upper hemithorax. I saw one bubble air leak today off suction which did not reoccur with coughing. The costophrenic angles are sharp. Diaphragms are flat. There is obligate volume loss from the lobectomy. There are no infiltrates. IMPRESSION: 1. Postoperative day #6, status post right upper lobectomy and mediastinal node lymphadenectomy. 2. Chylothorax 3. Adenocarcinoma, stage IIIA. 4. Multiple sclerosis. 5. Prior narcotic dependency. 6. Fibromyalgia. 7. Depression and anxiety. 8. Prior nicotine dependence. 9. Hyperlipidemia. PLAN AND DISCUSSION: I am going to change her octreotide to IV 200 mg every 8 hours. I am starting to get a bit more concerned about this chylothorax as her output markedly increased yesterday. I am certainly not ready to take her to the operating room. I did tell her this may take up to two weeks. She is very, very anxious about her staging and diagnosis. She is asking to see oncology as she wants to get on with her chemotherapy and radiation, however, I have indicated to her yesterday and today that nothing is going to happen until she heals from her surgery. Furthermore, oncology could not give her any real plan for treatment until we get the molecular studies back. That will take about a week. I tried my best to ease her anxieties. She is convinced she has Stage IV disease and I have had to agree with her that it could be that, but that we just can't detect it. As soon as we get this chylothorax under control and her on the way to healing, we will arrange oncology to see her. If she is in the hospital when the molecular studies come back, I will also arrange for oncology to see her at that point in time.
[2019-08-14 12:00] VITALS: BP 110/62
--- NOTE | 2019-08-14 13:13 | REP ---
REASON FOR EXAM: Follow Up COMPARISON: Yesterday. Right-sided thoracotomy tube, status quo. Right-sided PICC line catheter tip, unchanged, remaining in the superior vena cava. Chronic right basilar changes, stable. No acute patchy parenchymal opacities or pleural effusions have developed. Left lung clear and stable. No change in the osseous structures. IMPRESSION: Stable exam. Electronically Signed by Ortega Ellis DO 08/14/2019 02:32 P
[2019-08-14 17:00] VITALS: BP 103/60
[2019-08-14] MEDS: fentaNYL 75 MCG/HR PATCH TD SCH (17:06)
[2019-08-14] MEDS: FENTANYL REMOVAL DOCUMENTATION MISC XX SCH (17:11)
[2019-08-14] MEDS: AMINO AC/ELECTROLYTE/DEX/CALC 2,000 ML IV SCH (17:15)
[2019-08-14] MEDS ORDERED: FAT EMULSION IV 20% 500 ML IV SCH (18:00)
[2019-08-14 20:00] VITALS: BP 102/59
[2019-08-14] MEDS: traZODone 100 MG TAB PO SCH (20:48)
[2019-08-15] VITALS: BP 90/55
[2019-08-15] MEDS: ACETAMINOPHEN *IV* 1,000 MG in IV 1 EA IV SCH ×5 (00:11→23:44)
[2019-08-15] MEDS: OCTREOTIDE ACETATE 100MCG/ML VIAL (J2354 PER 25MCG) IV SCH ×3 (00:12→17:49)
[2019-08-15] MEDS: METOCLOPRAMIDE INJ 10MG/2ML VIAL (J2765 PER 1) IV PRN ×3 (00:12→17:49)
[2019-08-15] MEDS: ONDANSETRON 4MG/2ML VIAL IV PRN (00:37)
[2019-08-15] MEDS: HumaLOG INSULIN (NovoLOG) PER UNIT SC SCH ×4 (00:37→18:00)
[2019-08-15] MEDS: FENTANYL/BUPIVACAINE BAG 250 ML EPIDURAL SCH ×2 (00:44→17:01)
[2019-08-15] MEDS: LEVALBUTEROL 1.25 MG/0.5 ML CONCENTRATE NEB NEB SCH ×4 (02:00→19:55)
[2019-08-15 04:00] VITALS: BP 106/58
[2019-08-15] MEDS: SODIUM CHLORIDE 0.9% INJ 10 ML SYR IV SCH ×2 (05:43→17:49)
[2019-08-15 06:19] LABS: ALBUMIN 2.1 GM/DL (3.2-5.2); ALT/SGPT 36 U/L (12-78); BILIRUBIN,TOTAL 0.2 MG/DL (0.2-1.0); BLOOD UREA NITROGEN 16 MG/DL (7-18); CALCIUM LEVEL 8.3 MG/DL (8.5-10.1); CARBON DIOXIDE LEVEL 29 MEQ/L (21-32); CHLORIDE LEVEL 105 MEQ/L (98-107); CHOLESTEROL LEVEL 135 MG/DL (< 200); CPK CREATINE PHOSPHOKINASE 63 U/L (26-192); CREATININE FOR GFR 0.48 MG/DL (0.55-1.30); GLOMERULAR FILTRATION RATE > 60.0 (>51); GLUCOSE, FASTING 117 MG/DL (70-100); LDH LACTATE DEHYDROGENASE 197 U/L (84-246); MAGNESIUM LEVEL 1.9 MG/DL (1.8-2.4); PHOSPHORUS LEVEL 4.2 MG/DL (2.5-4.9); POTASSIUM SERUM 4.4 MEQ/L (3.5-5.1); SODIUM LEVEL 138 MEQ/L (136-145); TOTAL PROTEIN 5.1 GM/DL (6.4-8.2); TRIGLYCERIDES LEVEL 174 MG/DL (<150)
[2019-08-15 08:00] VITALS: BP 111/55
[2019-08-15] MEDS: VITAMIN D 1,000 INTERNATIONAL UNITS TABLET PO SCH (09:00)
[2019-08-15] MEDS: CYANOCOBALAMIN 500 MCG TAB PO SCH (09:00)
[2019-08-15] MEDS: MOM 30ML SUSPENSION UDC PO SCH (09:00)
[2019-08-15] MEDS: DOCUSATE SODIUM 100 MG CAP PO SCH ×2 (09:01→20:10)
[2019-08-15] MEDS: PANTOPRAZOLE 40MG TAB (PROTONIX) PO SCH (09:01)
[2019-08-15] MEDS: ATORVASTATIN 20 MG TAB PO SCH (09:01)
[2019-08-15] MEDS: HEPARIN SOD (PORCINE) 5000UNITS/ML VIAL (J1644 PER 1000UNITS) SC SCH ×2 (09:02→20:10)
[2019-08-15] MEDS: buPROPion **SR TABLET** (ZYBAN) 150MG PO SCH ×2 (09:03→20:11)
[2019-08-15] MEDS: PYRIDOXINE 50 MG TAB PO SCH (09:03)
[2019-08-15] MEDS: NICOTINE 14 MG/24 HR TRANSDERMAL TOP SCH (09:03)
[2019-08-15] MEDS: ASCORBIC ACID 500 MG TAB PO SCH (09:04)
--- NOTE | 2019-08-15 10:43 | REP ---
REASON FOR EXAM: Followup. Multiple priors reviewed, the latest obtained yesterday. Right-sided thoracotomy tube, status quo. Chronic right lung base changes, status quo. Small persistent right apical pneumothorax, status quo. No change in the cardiomediastinal silhouette, tip of the right-sided PICC line catheter, or osseous structures. IMPRESSION: Stable chest. Electronically Signed by Ortega Ellis DO 08/15/2019 11:15 A
[2019-08-15 12:00] VITALS: BP 96/51
[2019-08-15] MEDS ORDERED: FUROSEMIDE 20MG/2ML VIAL (J1940) IV ONE (12:00)
--- NOTE | 2019-08-15 13:23 | IPN ---
DATE: 08/15/2019 This is now the 6th postoperative day for Ms. Bower. Today, she is in better spirits and her pain is being fairly well controlled with the epidural. Furthermore, her chest tube output is markedly decreased. Her vital signs show a T-max of 97.8 with a heart rate that ranges between 92 and 103 in a sinus rhythm, a respiratory rate of 18 to 20 without the use of accessory muscles, who is 97% to 98% saturated on room air, and whose blood pressure is ranging between 90/55 to 111/55. Her intake and output the past 24 hours has been recorded as 3206 in and 3405 out for a negativity of 199 mL. Her chest tube has put out 380 mL compared to 1040 mL yesterday. There is no air leak. Weight today is 62.4 kg compared to 61.6 kg yesterday. On physical examination, her lungs show equal breath sounds on either side. I hear no wheezes, rhonchi or rales and her percussion note is full to the diaphragm. Cardiac exam is without murmurs, clicks, gallops or rubs. I cannot feel her PMI. S1, S2 are normal. Abdomen is soft, nontender. Bowel sounds are positive. There is no hepatomegaly. No CVA tenderness. Extremities show no pretibial edema and no calf tenderness. No differential swelling of the upper extremities. Skin is warm, dry and perfused, without cyanosis or mottling, including that of the nail beds and the knees. Neck is supple. There is no jugular venous distention. No subcutaneous emphysema. Trachea is midline. Mouth shows her mucous membranes to be pink and moist. Lips and commissures are without lesions. There is no thrush. Eyes show her pupils to be equal and reactive. Extraocular movements intact. Sclerae nonicteric. Neurologic shows II-XII intact along with gross motor and gross sensation intact. Gait is not tested. The nurses tell me that she walked down to x-ray without difficulty. Psychiatric shows her to be awake, alert and oriented times three with appropriate mood and affect and conversational. Her white count today is 6.1 with a hemoglobin and hematocrit of 12.3 and 38.1 respectively. Platelet count is 217 with a differential of 71% neutrophils, 16% lymphocytes and 7% monocytes. There are no immature forms and no toxic granulations. Her electrolytes are normal with a BUN and creatinine of 16 and 0.48, glucose 117, and a calcium of 8.3. Liver functions are normal and her albumin is now up to 2.1. IMPRESSION: 1. Postoperative day #7 status post right upper lobectomy and mediastinal node lymphadenectomy. 2. Chylothorax. 3. Adenocarcinoma Stage III A. 4. Multiple sclerosis. 5. Prior narcotic dependency. 6. Fibromyalgia. 7. Depression and anxiety. 8. Prior nicotine dependence. 9. Hyperlipidemia. PLAN AND DISCUSSION: I am very pleased that her chest tube output is decreased. She does have about 10 minutes of nausea after the octreotide infusion. There is no abdominal cramping or pain. Her electrolytes are normal and will continue her on total parenteral nutrition (TPN) and the octreotide infusion. I will also gently diurese her today.
[2019-08-15] MEDS: AMINO AC/ELECTROLYTE/DEX/CALC 2,000 ML IV SCH (13:43)
[2019-08-15 16:04] VITALS: BP 94/52
[2019-08-15] MEDS ORDERED: FAT EMULSION IV 20% 500 ML IV SCH (18:00)
[2019-08-15] MEDS ORDERED: MULTIVITAMIN -ADULT INJECTION 10 ML, CR/CU/SE/MN/ZN INJ 1 ML in AMINO AC/ELECTROLYTE/DE... IV SCH ×4 (18:00)
[2019-08-15 20:00] VITALS: BP 103/58
[2019-08-15] MEDS: traZODone 100 MG TAB PO SCH (20:10)
[2019-08-15] MEDS: PERCOCET 5MG/325MG TAB PO PRN (20:11)
[2019-08-16] VITALS: BP 101/57
[2019-08-16] MEDS: OCTREOTIDE ACETATE 100MCG/ML VIAL (J2354 PER 25MCG) IV SCH ×3 (00:03→16:19)
[2019-08-16] MEDS: HumaLOG INSULIN (NovoLOG) PER UNIT SC SCH ×4 (00:03→18:07)
[2019-08-16] MEDS: METOCLOPRAMIDE INJ 10MG/2ML VIAL (J2765 PER 1) IV PRN ×2 (00:03→16:31)
[2019-08-16] MEDS: PERCOCET 5MG/325MG TAB PO PRN ×6 (00:04→18:13)
[2019-08-16] MEDS: LEVALBUTEROL 1.25 MG/0.5 ML CONCENTRATE NEB NEB SCH ×4 (01:52→20:24)
[2019-08-16 04:00] VITALS: BP 105/68
[2019-08-16] MEDS: ACETAMINOPHEN *IV* 1,000 MG in IV 1 EA IV SCH ×3 (05:07→18:07)
[2019-08-16] MEDS: SODIUM CHLORIDE 0.9% INJ 10 ML SYR IV SCH ×2 (05:08→16:20)
[2019-08-16 05:52] LABS: ALT/SGPT 35 U/L (12-78); BILIRUBIN,TOTAL 0.2 MG/DL (0.2-1.0); BLOOD UREA NITROGEN 16 MG/DL (7-18); CALCIUM LEVEL 8.6 MG/DL (8.5-10.1); CARBON DIOXIDE LEVEL 31 MEQ/L (21-32); CHLORIDE LEVEL 105 MEQ/L (98-107); CHOLESTEROL LEVEL 125 MG/DL (< 200); CPK CREATINE PHOSPHOKINASE 58 U/L (26-192); CREATININE FOR GFR 0.53 MG/DL (0.55-1.30); GLOMERULAR FILTRATION RATE > 60.0 (>51); GLUCOSE, FASTING 138 MG/DL (70-100); LDH LACTATE DEHYDROGENASE 171 U/L (84-246); MAGNESIUM LEVEL 2.1 MG/DL (1.8-2.4); PHOSPHORUS LEVEL 4.4 MG/DL (2.5-4.9); POTASSIUM SERUM 4.3 MEQ/L (3.5-5.1); SODIUM LEVEL 140 MEQ/L (136-145); TOTAL PROTEIN 5.7 GM/DL (6.4-8.2); TRIGLYCERIDES LEVEL 179 MG/DL (<150)
[2019-08-16] MEDS: FENTANYL/BUPIVACAINE BAG 250 ML EPIDURAL SCH (07:32)
[2019-08-16 07:37] VITALS: BP 115/66
[2019-08-16] MEDS: ATORVASTATIN 20 MG TAB PO SCH (08:15)
[2019-08-16] MEDS: buPROPion **SR TABLET** (ZYBAN) 150MG PO SCH ×2 (08:15→20:19)
[2019-08-16] MEDS: NICOTINE 14 MG/24 HR TRANSDERMAL TOP SCH (08:15)
[2019-08-16] MEDS: PANTOPRAZOLE 40MG TAB (PROTONIX) PO SCH (08:15)
[2019-08-16] MEDS: DOCUSATE SODIUM 100 MG CAP PO SCH ×2 (08:15→20:19)
[2019-08-16] MEDS: MOM 30ML SUSPENSION UDC PO SCH (08:15)
[2019-08-16] MEDS: ONDANSETRON 4MG/2ML VIAL IV PRN (08:16)
[2019-08-16] MEDS: HEPARIN SOD (PORCINE) 5000UNITS/ML VIAL (J1644 PER 1000UNITS) SC SCH ×2 (08:17→20:19)
[2019-08-16] MEDS: CYANOCOBALAMIN 500 MCG TAB PO SCH (08:23)
[2019-08-16] MEDS: ASCORBIC ACID 500 MG TAB PO SCH (08:24)
[2019-08-16] MEDS: VITAMIN D 1,000 INTERNATIONAL UNITS TABLET PO SCH (08:24)
[2019-08-16] MEDS: PYRIDOXINE 50 MG TAB PO SCH (08:24)
--- NOTE | 2019-08-16 09:41 | IPN ---
DATE: 08/16/2019 This is now the 8th postoperative day for Ms. Brandt. Her epidural was weaned yesterday over 16 hours and she managing fairly well. Most importantly, her chest tube output is markedly down. Her vital signs show a maximum temperature (Tmax) of 98.4 with a heart rate that ranges between 98 and 102 in a sinus rhythm, respiratory rate of 18 to 20 without the use of accessory muscles, who is 96% saturated on room air, and whose blood pressure is ranging between [address]36 to 94/52. Her intake and output for the past 24 hours has been recorded as 3548 in and 3115 out for a positivity of 433 mL. She has put 170 mL out the chest tube and there is no air leak. I did diurese with 20 mg of Lasix yesterday and she put out 2945 mL of urine. I will continue to diurese her today. Her weight today is 62.1 kg, down from 62.4 kg yesterday. On physical examination, her lungs show normal vesicular sounds without wheezes, rhonchi or rales. Percussion note is full to the diaphragm. Cardiac exam is without murmurs, clicks, gallops or rubs. I cannot feel her point of maximum impulse (PMI). S1 and S2 are normal. Abdomen is soft, nontender. Bowel sounds are positive. There is no hepatomegaly. No costovertebral angle (CVA) tenderness. She did have bowel movement today. Extremities show no pretibial edema. No calf tenderness. No differential swelling of the upper extremities. Skin is warm, dry and perfused, without cyanosis or mottling, including that of the nail beds and the knees. Neck is supple. There is no jugular venous distention. No subcutaneous emphysema. Trachea is midline. Mouth shows her mucous membranes to be pink and moist. Lips and commissures are without lesions. There is no thrush. Eyes show her pupils to be equal and reactive. Extraocular movements intact. Sclerae nonicteric. Neurologic shows II-XII intact along with gross motor and gross sensation intact. Gait is not tested. Psychiatric shows her to be awake, alert and oriented times three with appropriate mood and affect and conversational. Her chemistries show normal electrolytes with a BUN and creatinine of 16 and 0.53. Glucose is 138 with a calcium of 8.6. Phosphorus is 4.4 with a magnesium of 2.1. AST and ALT are normal, and albumin is 2.0. Her chest x-ray shows her lung fully expanded to the chest wall except for a small apical air space in the right upper hemithorax. Chest tubes are in good place. I see no infiltrates. IMPRESSION: 1. Postoperative day #8 status post right upper lobectomy and mediastinal node lymphadenectomy. 2. Chylothorax. 3. Adenocarcinoma Stage III A. 4. Multiple sclerosis. 5. Prior narcotic dependency. 6. Fibromyalgia. 7. Depression and anxiety. 8. Prior nicotine dependence. 9. Hyperlipidemia. PLAN AND DISCUSSION: As noted above, I will again diurese her today. I am very gratified that her chest tube output has markedly increased. Now that I am not too rushed to be feeding her as to allow inflammatory process to seal lymphatic leak as the output is going markedly down. I will transfer her to the progressive care unit (PCU) today.
[2019-08-16] MEDS: NORCO, ANEXSIA 5/325MG TABLET (HYDROcodone/ACETAMINOPHEN) PO PRN ×3 (09:54→18:18)
[2019-08-16] MEDS ORDERED: FUROSEMIDE 40MG/4ML VIAL (J1940) IV ONE (10:00)
[2019-08-16 10:05] LABS: BASO % 0.5 % (0.0-1.0); EOS # 0.3 10^3/uL (0.0-0.5); EOS % 4.6 % (0.0-3.0); HEMATOCRIT 35.2 % (36.0-47.0); HEMOGLOBIN 11.8 g/dl (12.0-15.5); LYMPH # 0.8 10^3/uL (1.5-5.0); LYMPH % 13.7 % (24.0-44.0); MEAN CORPUSCULAR HEMOGLOBIN 32.1 pg (27.0-33.0); MEAN CORPUSCULAR HGB CONC 33.5 g/dl (32.0-36.5); MEAN CORPUSCULAR VOLUME 95.7 fl (80.0-96.0); MONO # 0.4 10^3/uL (0.0-0.8); MONO % 6.2 % (0.0-5.0); NEUTROPHILS # 4.6 10^3/uL (1.5-8.5); PLATELET COUNT, AUTOMATED 216 10^3/uL (150-450); RED BLOOD COUNT 3.68 10^6/uL (4.00-5.40); WHITE BLOOD COUNT 6.2 10^3/uL (4.0-10.0)
[2019-08-16 12:00] VITALS: BP 127/80
[2019-08-16 16:00] VITALS: BP 137/75
[2019-08-16] MEDS ORDERED: FAT EMULSION IV 20% 500 ML IV SCH (18:00)
[2019-08-16] MEDS: AMINO AC/ELECTROLYTE/DEX/CALC 2,000 ML IV SCH (18:41)
[2019-08-16] MEDS ORDERED: oxyCODONE 5MG TAB PO PRN (19:00)
[2019-08-16 20:00] VITALS: BP 119/71
[2019-08-16] MEDS: traZODone 100 MG TAB PO SCH (20:19)
[2019-08-16] MEDS: oxyCODONE 5MG TAB PO PRN (20:20)
[2019-08-17] VITALS: BP 118/62
[2019-08-17] MEDS: METOCLOPRAMIDE INJ 10MG/2ML VIAL (J2765 PER 1) IV PRN (00:25)
[2019-08-17] MEDS: oxyCODONE 5MG TAB PO PRN ×6 (00:25→21:02)
[2019-08-17] MEDS: HumaLOG INSULIN (NovoLOG) PER UNIT SC SCH ×4 (00:26→18:00)
[2019-08-17] MEDS: ACETAMINOPHEN *IV* 1,000 MG in IV 1 EA IV SCH ×5 (00:33→23:45)
[2019-08-17] MEDS: OCTREOTIDE ACETATE 100MCG/ML VIAL (J2354 PER 25MCG) IV SCH (00:48)
[2019-08-17] MEDS: LEVALBUTEROL 1.25 MG/0.5 ML CONCENTRATE NEB NEB SCH ×4 (02:00→20:13)
[2019-08-17 04:00] VITALS: BP 115/71
[2019-08-17] MEDS: SODIUM CHLORIDE 0.9% INJ 10 ML SYR IV SCH ×2 (05:58→18:29)
[2019-08-17 06:33] LABS: BASO % 0.6 % (0.0-1.0); EOS # 0.3 10^3/uL (0.0-0.5); HEMATOCRIT 40.2 % (36.0-47.0); HEMOGLOBIN 12.9 g/dl (12.0-15.5); LYMPH # 0.6 10^3/uL (1.5-5.0); LYMPH % 8.7 % (24.0-44.0); MEAN CORPUSCULAR HEMOGLOBIN 29.4 pg (27.0-33.0); MEAN CORPUSCULAR HGB CONC 32.1 g/dl (32.0-36.5); MEAN CORPUSCULAR VOLUME 91.6 fl (80.0-96.0); MONO # 0.5 10^3/uL (0.0-0.8); MONO % 7.2 % (0.0-5.0); NEUTROPHILS # 5.2 10^3/uL (1.5-8.5); NEUTROPHILS % 78.4 % (36.0-66.0); PLATELET COUNT, AUTOMATED 253 10^3/uL (150-450); RED BLOOD COUNT 4.39 10^6/uL (4.00-5.40); WHITE BLOOD COUNT 6.6 10^3/uL (4.0-10.0)
[2019-08-17 07:05] LABS: ALBUMIN 2.3 GM/DL (3.2-5.2); ALT/SGPT 38 U/L (12-78); BILIRUBIN,TOTAL 0.4 MG/DL (0.2-1.0); BLOOD UREA NITROGEN 17 MG/DL (7-18); CALCIUM LEVEL 8.5 MG/DL (8.5-10.1); CARBON DIOXIDE LEVEL 30 MEQ/L (21-32); CHLORIDE LEVEL 102 MEQ/L (98-107); CHOLESTEROL LEVEL 142 MG/DL (< 200); CPK CREATINE PHOSPHOKINASE 86 U/L (26-192); CREATININE FOR GFR 0.52 MG/DL (0.55-1.30); GLOMERULAR FILTRATION RATE > 60.0 (>51); GLUCOSE, FASTING 123 MG/DL (70-100); LDH LACTATE DEHYDROGENASE 426 U/L (84-246); MAGNESIUM LEVEL 2.1 MG/DL (1.8-2.4); PHOSPHORUS LEVEL 4.6 MG/DL (2.5-4.9); POTASSIUM SERUM 5.1 MEQ/L (3.5-5.1); SODIUM LEVEL 137 MEQ/L (136-145); TOTAL PROTEIN 5.7 GM/DL (6.4-8.2); TRIGLYCERIDES LEVEL 193 MG/DL (<150)
[2019-08-17 08:00] VITALS: BP 130/63
[2019-08-17] MEDS: ASCORBIC ACID 500 MG TAB PO SCH (08:28)
[2019-08-17] MEDS: CYANOCOBALAMIN 500 MCG TAB PO SCH (08:28)
[2019-08-17] MEDS: VITAMIN D 1,000 INTERNATIONAL UNITS TABLET PO SCH (08:28)
[2019-08-17] MEDS: PANTOPRAZOLE 40MG TAB (PROTONIX) PO SCH (08:29)
[2019-08-17] MEDS: DOCUSATE SODIUM 100 MG CAP PO SCH ×2 (08:29→20:40)
[2019-08-17] MEDS: MOM 30ML SUSPENSION UDC PO SCH (08:29)
[2019-08-17] MEDS: ATORVASTATIN 20 MG TAB PO SCH (08:29)
[2019-08-17] MEDS: buPROPion **SR TABLET** (ZYBAN) 150MG PO SCH ×2 (08:29→20:39)
[2019-08-17] MEDS: PYRIDOXINE 50 MG TAB PO SCH (08:29)
[2019-08-17] MEDS: HEPARIN SOD (PORCINE) 5000UNITS/ML VIAL (J1644 PER 1000UNITS) SC SCH ×2 (08:30→20:41)
[2019-08-17] MEDS: NICOTINE 14 MG/24 HR TRANSDERMAL TOP SCH (08:30)
[2019-08-17 12:00] VITALS: BP 137/68
[2019-08-17] MEDS ORDERED: FUROSEMIDE 20MG/2ML VIAL (J1940) IV ONE (12:00)
--- NOTE | 2019-08-17 12:05 | IPN ---
DATE: 08/17/2019 This is now the ninth postoperative day for Mrs. Brandt status post right upper lobectomy and subsequent chylothorax. Today, she is doing fairly well with her pain being controlled with oral pain medications. Her chest tube output is markedly decreased. Her vital signs show a maximum temperature (T-max) of 97.5 with a heart rate that ranges between 70 and 97 in sinus rhythm. Respiratory rate of 18-20 without the use of accessory muscles who is 93-97% saturated on room air and whose blood pressures range between 130/63 to 115/71. Her intake and output over the past 24 hours has been recorded as 2950 in and 4355 out for a negativity of 1400 mL. She has put out 55 mL out the chest tube. Weight today is 61.4 kg with 62.1 kg yesterday. On physical examination, her lungs showed normal vesicular sounds without wheezes, rhonchi or rales. Percussion note is full to the diaphragm. Cardiac exam is without murmurs, clicks, gallops or rubs. I cannot feel his point of maximum impulse (PMI). S1 and S2 are normal. Abdomen is soft and nontender. Bowel sounds are positive. There is no hepatomegaly. No costovertebral angle (CVA) tenderness. Extremities show no pretibial edema with no calf tenderness. No differential swelling of the upper extremities. Skin is warm, dry and perfused without cyanosis or mottling including that of the nail beds and knees. Neck is supple. There is no jugular venous distention. No subcutaneous emphysema. Trachea is midline. Mouth shows her mucous membranes to be pink and moist. Lips and commissures are without lesions. There is no thrush. Eyes show her pupils to be equal and reactive. Extraocular movements intact. Sclerae nonicteric. Neurologic shows II-XII intact along with gross motor and gross sensation intact. Gait is not tested. Psychiatric showed her to be awake, alert and oriented times three with appropriate and affect and conversational. Her white count today is 6.6 with hemoglobin and hematocrit of 12.9 and 40.2. Platelet count is 253 and differential shows 70% neutrophil, 8% lymphocytes 7% monocytes. There are no immature forms or toxic granulations. Her electrolytes are normal with a BUN and creatinine of 17 and 0.52 and glucose of 123, calcium 8.5. Phosphorus is 4.6 with a magnesium of 2.1. AST and ALT are normal. Albumin is up to 2.3. Her chest x-ray today shows her lungs fully expanded to the chest wall. There is volume loss from the lobectomy. Costophrenic angle is sharp and I see no infiltrates. IMPRESSION: 1. Postoperative day #9 status post right upper lobectomy. 2. Chylothorax. 3. Adenocarcinoma stage III A. 4. Multiple sclerosis. 5. Prior narcotic dependency. 6. Fibromyalgia. 7. Depression and anxiety. 8. Prior nicotine dependence. 9. Hyperlipidemia. PLAN AND DISCUSSION: I will discontinue her octreotide today. I will increase oral pain medications to include oxycodone 15 mg every 4 hours. She has become quite intolerant to narcotics secondary to her prior pain control. Hopefully tomorrow, we will start to feed her if the chest tube output remains down after stopping the octreotide.
[2019-08-17] MEDS: SODIUM CHLORIDE 0.9% INJ 10 ML SYR IV PRN (12:18)
[2019-08-17 16:00] VITALS: BP 118/80
[2019-08-17] MEDS: AMINO AC/ELECTROLYTE/DEX/CALC 2,000 ML IV SCH (16:40)
[2019-08-17] MEDS ORDERED: FAT EMULSION IV 20% 500 ML IV SCH (18:00)
[2019-08-17] MEDS: fentaNYL 75 MCG/HR PATCH TD SCH (18:30)
[2019-08-17 20:00] VITALS: BP 136/69
[2019-08-17] MEDS: traZODone 100 MG TAB PO SCH (20:40)
[2019-08-18] VITALS: BP 111/57
[2019-08-18] MEDS: oxyCODONE 5MG TAB PO PRN ×6 (00:31→21:21)
[2019-08-18] MEDS: HumaLOG INSULIN (NovoLOG) PER UNIT SC SCH ×5 (00:34→23:41)
[2019-08-18] MEDS: LEVALBUTEROL 1.25 MG/0.5 ML CONCENTRATE NEB NEB SCH ×4 (01:55→19:38)
[2019-08-18 04:00] VITALS: BP 111/68
[2019-08-18 05:23] LABS: BASO # 0.1 10^3/uL (0.0-0.2); BASO % 1.1 % (0.0-1.0); EOS # 0.3 10^3/uL (0.0-0.5); EOS % 5.3 % (0.0-3.0); HEMATOCRIT 41.2 % (36.0-47.0); HEMOGLOBIN 13.3 g/dl (12.0-15.5); LYMPH # 0.8 10^3/uL (1.5-5.0); LYMPH % 14.8 % (24.0-44.0); MEAN CORPUSCULAR HEMOGLOBIN 29.6 pg (27.0-33.0); MEAN CORPUSCULAR HGB CONC 32.3 g/dl (32.0-36.5); MEAN CORPUSCULAR VOLUME 91.8 fl (80.0-96.0); MONO # 0.5 10^3/uL (0.0-0.8); MONO % 8.3 % (0.0-5.0); NEUTROPHILS # 3.9 10^3/uL (1.5-8.5); NEUTROPHILS % 69.1 % (36.0-66.0); PLATELET COUNT, AUTOMATED 275 10^3/uL (150-450); RED BLOOD COUNT 4.49 10^6/uL (4.00-5.40); WHITE BLOOD COUNT 5.7 10^3/uL (4.0-10.0)
[2019-08-18] MEDS: SODIUM CHLORIDE 0.9% INJ 10 ML SYR IV SCH ×2 (06:44→17:14)
[2019-08-18] MEDS: ACETAMINOPHEN *IV* 1,000 MG in IV 1 EA IV SCH ×4 (06:44→23:41)
[2019-08-18 08:00] VITALS: BP 120/80
[2019-08-18] MEDS: CYANOCOBALAMIN 500 MCG TAB PO SCH (08:39)
[2019-08-18] MEDS: PYRIDOXINE 50 MG TAB PO SCH (08:39)
[2019-08-18] MEDS: DOCUSATE SODIUM 100 MG CAP PO SCH ×2 (08:39→21:21)
[2019-08-18] MEDS: MOM 30ML SUSPENSION UDC PO SCH (08:39)
[2019-08-18] MEDS: ASCORBIC ACID 500 MG TAB PO SCH (08:39)
[2019-08-18] MEDS: VITAMIN D 1,000 INTERNATIONAL UNITS TABLET PO SCH (08:39)
[2019-08-18] MEDS: NICOTINE 14 MG/24 HR TRANSDERMAL TOP SCH (08:40)
[2019-08-18] MEDS: HEPARIN SOD (PORCINE) 5000UNITS/ML VIAL (J1644 PER 1000UNITS) SC SCH ×2 (08:41→21:21)
[2019-08-18] MEDS: PANTOPRAZOLE 40MG TAB (PROTONIX) PO SCH (08:41)
[2019-08-18] MEDS: ATORVASTATIN 20 MG TAB PO SCH (08:41)
[2019-08-18] MEDS: buPROPion **SR TABLET** (ZYBAN) 150MG PO SCH ×2 (08:41→21:20)
[2019-08-18 08:45] LABS: MAGNESIUM LEVEL 2.3 MG/DL (1.8-2.4)
[2019-08-18 09:08] LABS: ALBUMIN 2.4 GM/DL (3.2-5.2); ALT/SGPT 38 U/L (12-78); BILIRUBIN,TOTAL 0.2 MG/DL (0.2-1.0); BLOOD UREA NITROGEN 15 MG/DL (7-18); CALCIUM LEVEL 8.7 MG/DL (8.5-10.1); CARBON DIOXIDE LEVEL 29 MEQ/L (21-32); CHLORIDE LEVEL 104 MEQ/L (98-107); CHOLESTEROL LEVEL 142 MG/DL (< 200); CPK CREATINE PHOSPHOKINASE 54 U/L (26-192); GLOMERULAR FILTRATION RATE > 60.0 (>51); GLUCOSE, FASTING 115 MG/DL (70-100); LDH LACTATE DEHYDROGENASE 295 U/L (84-246); PHOSPHORUS LEVEL 4.9 MG/DL (2.5-4.9); POTASSIUM SERUM 4.5 MEQ/L (3.5-5.1); SODIUM LEVEL 140 MEQ/L (136-145); TOTAL PROTEIN 6.1 GM/DL (6.4-8.2); TRIGLYCERIDES LEVEL 208 MG/DL (<150)
--- NOTE | 2019-08-18 09:51 | IPN ---
DATE OF SERVICE: 08/18/2019 This is now the tenth postoperative day for Mrs. Brandt. Things are going well, although she is rather frustrated today after having multiple blood draws. I have taken responsibility for that and indicated to her that was my error. Her pain is being fairly well controlled. She is in fairly good spirits. I have started her on clear liquids, and she is quite gratified. Her vital signs show a maximum temperature (Tmax) of 98.4 with a heart rate that ranges between 85 and 104 in sinus rhythm. Respiratory rate of 18-20 without the use of accessory muscles who is 96% saturated on room air and whose blood pressure is ranging between 111/68 to 137/68. Her intake and output over the past 24 hours has been recorded as 2720 in and 3100 out for a negativity of 380 mL. She has put 75 mL out of the chest tube. There is no air leak. She weighs 61.2 kg today compared to 61.4 kg yesterday. On physical examination, she has normal vesicular sounds on either side without wheezes, rhonchi, or rales. Percussion note is full to the diaphragm. Cardiac examination is without murmurs, clicks, gallops, or rubs. I cannot feel her point of maximum impulse (PMI). S1 and S2 are normal. Abdomen is soft and nontender. Bowel sounds are positive. There is no hepatomegaly. No costovertebral angle (CVA) tenderness. Extremities show no pretibial edema, no calf tenderness, no differential swelling of the upper extremities. Skin is warm, dry, and perfused without cyanosis or mottling including that of the nail beds and the knees. Neck is supple. There is no jugular venous distention. No subcutaneous emphysema. Trachea is midline. Mouth shows her mucous membranes to be pink and moist. Lips and commissures without lesions. There is no thrush. Eyes show her pupils to be equal and reactive. Extraocular motions are intact. Sclerae anicteric. Neurologic shows II-XII intact, along with gross motor and gross sensation intact. Gait is not tested. Psychiatric shows her to be awake, alert, and oriented times three with appropriate mood and affect and conversational. Her white count today is 5.7 with hemoglobin and hematocrit of 13.3 and 41.2, respectively. Platelet count is 275 and stable, and differential shows 69% neutrophil, 14% lymphocytes, and 8% monocytes. There are no immature forms. No toxic granulations. Her electrolytes are pending. Her magnesium is also pending. Her chest x-ray today shows her lung fully expanded to the chest wall. There are no infiltrates. Costophrenic angles are sharp. There is obligate volume loss from the upper lobectomy. IMPRESSION: 1. Postoperative day #10, status post right upper lobectomy. 2. Chylothorax. 3. Adenocarcinoma stage IIIA. 4. Multiple sclerosis. 5. Prior narcotic dependency. 6. Fibromyalgia. 7. Depression and anxiety. 8. Prior nicotine dependence. 9. Hyperlipidemia. PLAN AND DISCUSSION: I am quite gratified now that her output has been down for the last 48 hours from her chest tube. I will start her on clear liquids today. If she tolerates that and there is no increase in her chest tube output, I will then move her along to a regular diet. The real test will come with a regular diet and her gut being challenged with fats. I have already discontinued her octreotide. I will continue her on hyperalimentation today.
[2019-08-18 12:00] VITALS: BP 121/57
--- NOTE | 2019-08-18 12:20 | REP ---
REASON FOR EXAM: Followup. Today's exam 08/17/2019 at 7:56 a.m. Compared to multiple priors, the latest 08/16/2019 at 7:43 a.m. Right-sided thoracotomy tube, status quo. Small right apical pneumothorax, status quo. Right basilar opacity, status quo. No new abnormal opacities. No change in the cardiomediastinal silhouette or osseous structures. No change in the tip of the PICC line catheter. No significant change. Electronically Signed by Ortega Ellis DO 08/18/2019 03:15 P
[2019-08-18] MEDS: AMINO AC/ELECTROLYTE/DEX/CALC 2,000 ML IV SCH (12:53)
--- NOTE | 2019-08-18 13:33 | REP ---
CHEST, TWO VIEWS: Two views of the chest are performed and compared to prior study of 08/17/2019. Two right chest tubes remain in place. There is again a small right apical pneumothorax, unchanged. Right arm PICC line is unchanged. Lungs, heart, and mediastinum are unchanged. IMPRESSION: Stable exam. Electronically Signed by Omar Boyd MD 08/18/2019 10:45 P
--- NOTE | 2019-08-18 13:47 | REP ---
CHEST, TWO VIEWS: Two views of the chest are performed and compared to prior study of 08/15/2019. Small right apical pneumothorax is unchanged. Two right chest tubes remain in place. Right arm PICC line is unchanged. The lungs, heart, and mediastinum are unchanged in appearance. IMPRESSION: Stable exam. Electronically Signed by Omar Boyd MD 08/18/2019 10:56 P
[2019-08-18 16:00] VITALS: BP 140/63
[2019-08-18] MEDS ORDERED: MULTIVITAMIN -ADULT INJECTION 10 ML, CR/CU/SE/MN/ZN INJ 1 ML in AMINO AC/ELECTROLYTE/DE... IV SCH ×4 (18:00)
[2019-08-18] MEDS ORDERED: FAT EMULSION IV 20% 500 ML IV SCH (18:00)
[2019-08-18 20:00] VITALS: BP 127/64
[2019-08-18] MEDS: traZODone 100 MG TAB PO SCH (21:21)
[2019-08-18] MEDS: BACLOFEN 10 MG TAB PO PRN (23:41)
[2019-08-19] VITALS: BP 115/67
[2019-08-19] MEDS: oxyCODONE 5MG TAB PO PRN ×6 (02:16→23:06)
[2019-08-19 04:00] VITALS: BP 106/66
[2019-08-19 05:15] LABS: BASO # 0.1 10^3/uL (0.0-0.2); BASO % 0.8 % (0.0-1.0); EOS # 0.3 10^3/uL (0.0-0.5); HEMATOCRIT 36.9 % (36.0-47.0); HEMOGLOBIN 11.8 g/dl (12.0-15.5); LYMPH # 0.9 10^3/uL (1.5-5.0); LYMPH % 13.6 % (24.0-44.0); MEAN CORPUSCULAR HEMOGLOBIN 29.3 pg (27.0-33.0); MEAN CORPUSCULAR VOLUME 91.6 fl (80.0-96.0); MONO # 0.5 10^3/uL (0.0-0.8); NEUTROPHILS # 4.7 10^3/uL (1.5-8.5); NEUTROPHILS % 71.9 % (36.0-66.0); PLATELET COUNT, AUTOMATED 250 10^3/uL (150-450); RED BLOOD COUNT 4.03 10^6/uL (4.00-5.40); WHITE BLOOD COUNT 6.6 10^3/uL (4.0-10.0)
[2019-08-19 05:39] LABS: ALBUMIN 2.1 GM/DL (3.2-5.2); ALT/SGPT 29 U/L (12-78); BILIRUBIN,TOTAL 0.2 MG/DL (0.2-1.0); BLOOD UREA NITROGEN 18 MG/DL (7-18); CALCIUM LEVEL 8.2 MG/DL (8.5-10.1); CARBON DIOXIDE LEVEL 27 MEQ/L (21-32); CHLORIDE LEVEL 105 MEQ/L (98-107); CHOLESTEROL LEVEL 124 MG/DL (< 200); CPK CREATINE PHOSPHOKINASE 40 U/L (26-192); GLOMERULAR FILTRATION RATE > 60.0 (>51); GLUCOSE, FASTING 117 MG/DL (70-100); LDH LACTATE DEHYDROGENASE 217 U/L (84-246); PHOSPHORUS LEVEL 4.5 MG/DL (2.5-4.9); POTASSIUM SERUM 4.6 MEQ/L (3.5-5.1); SODIUM LEVEL 138 MEQ/L (136-145); TOTAL PROTEIN 5.3 GM/DL (6.4-8.2); TRIGLYCERIDES LEVEL 172 MG/DL (<150)
[2019-08-19] MEDS: HumaLOG INSULIN (NovoLOG) PER UNIT SC SCH ×2 (06:00→12:00)
[2019-08-19] MEDS: SODIUM CHLORIDE 0.9% INJ 10 ML SYR IV SCH ×2 (06:11→17:52)
[2019-08-19] MEDS: ACETAMINOPHEN *IV* 1,000 MG in IV 1 EA IV SCH ×4 (06:24→23:06)
[2019-08-19] MEDS: LEVALBUTEROL 1.25 MG/0.5 ML CONCENTRATE NEB NEB SCH ×3 (07:15→19:18)
[2019-08-19 08:01] VITALS: BP 111/67
[2019-08-19] MEDS ORDERED: FUROSEMIDE 40MG/4ML VIAL (J1940) IV ONE (08:30)
[2019-08-19] MEDS: VITAMIN D 1,000 INTERNATIONAL UNITS TABLET PO SCH (09:00)
[2019-08-19] MEDS: PYRIDOXINE 50 MG TAB PO SCH (09:00)
[2019-08-19] MEDS: CYANOCOBALAMIN 500 MCG TAB PO SCH (09:00)
[2019-08-19] MEDS: ASCORBIC ACID 500 MG TAB PO SCH (09:00)
[2019-08-19] MEDS: HEPARIN SOD (PORCINE) 5000UNITS/ML VIAL (J1644 PER 1000UNITS) SC SCH ×2 (09:14→20:46)
[2019-08-19] MEDS: NICOTINE 14 MG/24 HR TRANSDERMAL TOP SCH (09:14)
[2019-08-19] MEDS: DOCUSATE SODIUM 100 MG CAP PO SCH ×2 (09:15→20:47)
[2019-08-19] MEDS: MOM 30ML SUSPENSION UDC PO SCH (09:15)
[2019-08-19] MEDS: ATORVASTATIN 20 MG TAB PO SCH (09:15)
[2019-08-19] MEDS: PANTOPRAZOLE 40MG TAB (PROTONIX) PO SCH (09:15)
[2019-08-19] MEDS: buPROPion **SR TABLET** (ZYBAN) 150MG PO SCH ×2 (09:15→20:47)
[2019-08-19] MEDS: SODIUM CHLORIDE 0.9% INJ 10 ML SYR IV PRN ×2 (09:40→13:00)
--- NOTE | 2019-08-19 10:16 | IPN ---
DATE OF SERVICE: 08/19/2019 This is now the eleventh postoperative day for Mrs. Brandt. She was fed clear liquids yesterday, and she has only put 135 mL out of the chest tube. It does not look cloudy. The real test will come today when we feed her a regular diet. Her vital signs show a maximum temperature (Tmax) of 98.0 with a heart rate that ranges between 109 and 97 in a sinus rhythm. Respiratory rate of 16-20 without the use of accessory muscles who is 95% saturated on room air and whose blood pressure is ranging between 111/67 to 106/66. Her intake and output over the past 24 hours has been recorded as 4420 in and 3059 out for a positivity of 1360 mL. She has put out 134 mL out of the chest tube. There is no air leak. Her weight today is 63.1 kg compared to 61.2 kg yesterday. On physical examination, her lungs show normal vesicular sounds without wheezes, rhonchi, or rales. Cardiac examination is without murmurs, clicks, gallops, or rubs. I cannot feel her point of maximum impulse (PMI). S1 and S2 are normal. Abdomen is soft and nontender. Bowel sounds are positive. There is no hepatomegaly. No costovertebral angle (CVA) tenderness. Extremities show no pretibial edema, no calf tenderness, no differential swelling of the upper extremities. Skin is warm, dry, and perfused without cyanosis or mottling, including that of the nail beds and the knees. Neck is supple. There is no jugular venous distention. No subcutaneous emphysema. Trachea is midline. Mouth shows her mucous membranes to be pink and moist. Lips and commissures without lesions. There is no thrush. Eyes show her pupils to be equal and reactive. Extraocular motions are intact. Sclerae anicteric. Neurologic shows II-XII intact, along with gross motor and gross sensation intact. Gait is not tested. Psychiatric shows her to be awake, alert, and oriented times three with appropriate mood and affect and conversational. Her white count today is 6.6 with hemoglobin and hematocrit of 11.8 and 36.9, respectively, down from 13.3 and 41.2 yesterday secondary to hemodilution. Platelet count is 250 and stable, and differential shows 71% neutrophil, 16% lymphocytes, and 7% monocytes. There are no immature forms. No toxic granulations. Her chemistries today show normal electrolytes with potassium 4.6 and a BUN and creatinine of 18 and 0.50. Glucose is 117 with a calcium of 8.2. Magnesium is 2.0. AST and ALT are normal, and her albumin is 2.1 again secondary to hemodilution. Her chest x-ray today shows her lung fully expanded to the chest wall. There are no infiltrates. Costophrenic angles are sharp. There is obligate volume loss from the lobectomy on the right side. IMPRESSION: 1. Postoperative day #11, status post right upper lobectomy. 2. Chylothorax. 3. Adenocarcinoma stage IIIA. 4. Multiple sclerosis. 5. Prior narcotic dependency. 6. Fibromyalgia. 7. Depression and anxiety. 8. Prior nicotine dependence. 9. Hyperlipidemia. PLAN AND DISCUSSION: Today, we will feed her a low-fat diet. Will monitor the chest tube output. Depending on the chest tube output, I may remove them tomorrow or the next day. I will also diurese her today. Will stop her hyperalimentation.
[2019-08-19 12:00] VITALS: BP 119/65
--- NOTE | 2019-08-19 12:41 | REP ---
REASON: Status post right upper lobectomy. COMPARISON: Multiple, the latest yesterday. PICC line catheter status quo. Two right-sided chest tubes stable. Small right apical pneumothorax unchanged. Bibasilar opacities with bilateral CP angle blunting, stable. Cardiomediastinal silhouette is unchanged. No acute patchy parenchymal opacities have developed. There is no significant change in the osseous structures. IMPRESSION: No significant change. Electronically Signed by Ortega Ellis DO 08/19/2019 02:24 P
[2019-08-19 16:00] VITALS: BP 109/61
[2019-08-19 20:00] VITALS: BP 134/71
[2019-08-19] MEDS: BACLOFEN 10 MG TAB PO PRN (20:46)
[2019-08-19] MEDS: traZODone 100 MG TAB PO SCH (20:47)
[2019-08-20] VITALS: BP 128/68
[2019-08-20] MEDS: LEVALBUTEROL 1.25 MG/0.5 ML CONCENTRATE NEB NEB SCH ×4 (01:26→19:30)
[2019-08-20] MEDS: oxyCODONE 5MG TAB PO PRN ×5 (03:41→20:42)
[2019-08-20 04:00] VITALS: BP 119/59
[2019-08-20] MEDS: ACETAMINOPHEN *IV* 1,000 MG in IV 1 EA IV SCH (05:45)
[2019-08-20] MEDS: SODIUM CHLORIDE 0.9% INJ 10 ML SYR IV SCH ×2 (05:45→16:49)
[2019-08-20 06:38] LABS: BASO # 0.1 10^3/uL (0.0-0.2); BASO % 0.7 % (0.0-1.0); EOS # 0.2 10^3/uL (0.0-0.5); EOS % 2.3 % (0.0-3.0); HEMATOCRIT 39.4 % (36.0-47.0); HEMOGLOBIN 12.9 g/dl (12.0-15.5); LYMPH % 9.8 % (24.0-44.0); MEAN CORPUSCULAR HEMOGLOBIN 29.5 pg (27.0-33.0); MEAN CORPUSCULAR HGB CONC 32.7 g/dl (32.0-36.5); MONO # 0.6 10^3/uL (0.0-0.8); NEUTROPHILS # 8.6 10^3/uL (1.5-8.5); NEUTROPHILS % 80.4 % (36.0-66.0); PLATELET COUNT, AUTOMATED 326 10^3/uL (150-450); RED BLOOD COUNT 4.38 10^6/uL (4.00-5.40); WHITE BLOOD COUNT 10.6 10^3/uL (4.0-10.0)
[2019-08-20 07:03] LABS: ALBUMIN 2.3 GM/DL (3.2-5.2); ALT/SGPT 29 U/L (12-78); BILIRUBIN,TOTAL 0.4 MG/DL (0.2-1.0); BLOOD UREA NITROGEN 14 MG/DL (7-18); CALCIUM LEVEL 9.1 MG/DL (8.5-10.1); CARBON DIOXIDE LEVEL 29 MEQ/L (21-32); CHLORIDE LEVEL 100 MEQ/L (98-107); CHOLESTEROL LEVEL 145 MG/DL (< 200); CPK CREATINE PHOSPHOKINASE 37 U/L (26-192); GLOMERULAR FILTRATION RATE > 60.0 (>51); GLUCOSE, FASTING 110 MG/DL (70-100); LDH LACTATE DEHYDROGENASE 183 U/L (84-246); PHOSPHORUS LEVEL 3.8 MG/DL (2.5-4.9); POTASSIUM SERUM 4.4 MEQ/L (3.5-5.1); SODIUM LEVEL 133 MEQ/L (136-145); TOTAL PROTEIN 6.6 GM/DL (6.4-8.2); TRIGLYCERIDES LEVEL 166 MG/DL (<150)
[2019-08-20] MEDS: BACLOFEN 10 MG TAB PO PRN (07:54)
[2019-08-20 07:55] VITALS: BP 101/57
[2019-08-20] MEDS: DOCUSATE SODIUM 100 MG CAP PO SCH ×2 (08:04→20:14)
[2019-08-20] MEDS: ATORVASTATIN 20 MG TAB PO SCH (08:04)
[2019-08-20] MEDS: PANTOPRAZOLE 40MG TAB (PROTONIX) PO SCH (08:05)
[2019-08-20] MEDS: VITAMIN D 1,000 INTERNATIONAL UNITS TABLET PO SCH (08:05)
[2019-08-20] MEDS: ASCORBIC ACID 500 MG TAB PO SCH (08:05)
[2019-08-20] MEDS: PYRIDOXINE 50 MG TAB PO SCH (08:05)
[2019-08-20] MEDS: MOM 30ML SUSPENSION UDC PO SCH (08:05)
[2019-08-20] MEDS: CYANOCOBALAMIN 500 MCG TAB PO SCH (08:05)
[2019-08-20] MEDS: HEPARIN SOD (PORCINE) 5000UNITS/ML VIAL (J1644 PER 1000UNITS) SC SCH ×2 (08:05→20:15)
[2019-08-20] MEDS: NICOTINE 14 MG/24 HR TRANSDERMAL TOP SCH (08:06)
--- NOTE | 2019-08-20 09:52 | REP ---
CHEST, TWO VIEWS: Two views of the chest are performed and compared to a prior study of 08/19/2019. Small right apical pneumothorax is unchanged. Right arm PICC line and two right chest tubes are unchanged. Heart and mediastinum are unchanged. Bibasilar pleural and parenchymal opacities are unchanged. IMPRESSION: Stable exam. Electronically Signed by Omar Boyd MD 08/21/2019 10:29 A
[2019-08-20] MEDS ORDERED: FUROSEMIDE 40MG/4ML VIAL (J1940) IV ONE (10:00)
[2019-08-20] MEDS ORDERED: PERCOCET 5MG/325MG TAB PO PRN ×2 (10:00)
[2019-08-20] MEDS ORDERED: NORCO, ANEXSIA 5/325MG TABLET (HYDROcodone/ACETAMINOPHEN) PO PRN (10:00)
--- NOTE | 2019-08-20 10:29 | IPN ---
DATE OF SERVICE: 08/20/2019 As noted yesterday, her chest tube output occurring with full diet. She put out 400 plus mL from her chest tube yesterday. It does look creamy. I suspect she still has the chylothorax. In the last 8 hours, however, she has put out 55 mL. By definition, I would expect that in the evening, as she has not eaten since last night. Ms. Brandt is quite frustrated at the length of time this is taking, and I have had to explain to her that this is potentially a fatal complication if we do not treat it quickly. For now, she understands that. Her vital signs show a maximum temperature (Tmax) of 98.0 with a heart rate that ranges between 107 and 125 in a sinus rhythm. Respiratory rate of 15-20 without the use of accessory muscles who is 95% saturated on room air and whose blood pressure is ranging between 101/57 to 128/68. Her intake and output over the past 24 hours has been recorded as 3760 in and 4961 out for a negativity of 1200 mL. She put out 436 mL out of the chest tube. There is no air leak. Her weight today is 62.3 kg compared to 63.1 kg yesterday. I will continue to diurese her today. On physical examination, her lungs show normal vesicular sounds without wheezes, rhonchi, or rales. Breath sounds are equal on either side. Percussion note is full to the diaphragm. Cardiac examination is without murmurs, clicks, gallops, or rubs. I cannot feel her point of maximum impulse (PMI). S1 and S2 are normal. Abdomen is soft and nontender. Bowel sounds are positive. There is no hepatomegaly. No costovertebral angle (CVA) tenderness. Extremities show no pretibial edema, no calf tenderness, no differential swelling of the upper extremities. Skin is warm, dry, and perfused without cyanosis or mottling, including that of the nail beds and the knees. Neck is supple. There is no jugular venous distention. No subcutaneous emphysema. Trachea is midline. Mouth shows her mucous membranes to be pink and moist. Lips and commissures without lesions. There is no thrush. Eyes show her pupils to be equal and reactive. Extraocular motions are intact. Sclerae anicteric. Neurologic shows II-XII intact, along with gross motor and gross sensation intact. Gait is not tested. Psychiatric shows her to be awake, alert, and oriented times three with appropriate mood and affect and conversational. Her white count today is 10.6 compared to 6.6 yesterday. Hemoglobin and hematocrit are 12.9 and 39.4 up from yesterdays of 11.8 and 36.9. Platelet count is 326 and stable, and differential shows 80% neutrophils, 10% lymphocytes, and 6% monocytes. There are no immature forms. No toxic granulations. Her electrolytes show a sodium of 133 with a BUN and creatinine of 14 and 0.7 compared to 18 and 0.5 yesterday. AST and ALT are normal. Glucose is 110 and a calcium is 9.1 with an albumin of 2.3 today. Her chest x-ray shows her lung fully expanded to the chest wall. Costophrenic angles are sharp, given that she has flat diaphragms and prior emphysema. I see no infiltrates. There is no subcutaneous emphysema. IMPRESSION: 1. Postoperative day #12, status post right upper lobectomy and mediastinal lymphadenectomy. 2. Chylothorax. 3. Adenocarcinoma stage IIIA disease. 4. Multiple sclerosis. 5. Prior narcotic dependency. 6. Fibromyalgia. 7. Depression and anxiety. 8. Prior nicotine dependence. 9. Hyperlipidemia. PLAN AND DISCUSSION: I have called dietary to see if we can do a no-fat diet with MCT oil supplementation. I will again diurese her today. I am hoping that the output will decrease. It would have to decrease to below 200 mL a day for me to feel confident to remove her chest tubes. She did respond to the period of nothing by mouth and hyperalimentation, along with octreotide, as she used to be putting out over 1000 mL a day. The choices are to undertake a thoracic duct ligation either surgically or with interventional radiology or to resume the nothing by mouth hyperalimentation, octreotide, treatment. Right now, I favor the latter, although it would take at least another week.
[2019-08-20] MEDS ORDERED: ACETAMINOPHEN TAB 650MG DOSE (2X325MG) PO PRN (10:45)
[2019-08-20] MEDS ORDERED: oxyCODONE 5MG TAB PO PRN (10:45)
[2019-08-20] MEDS: buPROPion **SR TABLET** (ZYBAN) 150MG PO SCH ×2 (11:20→20:14)
[2019-08-20 11:48] VITALS: BP 121/71
[2019-08-20 15:48] VITALS: BP 107/62
[2019-08-20] MEDS: fentaNYL 75 MCG/HR PATCH TD SCH (18:26)
[2019-08-20 20:00] VITALS: BP 115/71
[2019-08-20] MEDS: traZODone 100 MG TAB PO SCH (20:14)
[2019-08-21] VITALS: BP 117/68
[2019-08-21] MEDS: oxyCODONE 5MG TAB PO PRN ×6 (00:47→20:31)
[2019-08-21] MEDS: LEVALBUTEROL 1.25 MG/0.5 ML CONCENTRATE NEB NEB SCH ×4 (01:05→20:00)
[2019-08-21 04:00] VITALS: BP 114/74
[2019-08-21] MEDS: SODIUM CHLORIDE 0.9% INJ 10 ML SYR IV SCH ×2 (04:42→17:13)
[2019-08-21 05:13] LABS: BASO # 0.1 10^3/uL (0.0-0.2); EOS # 0.3 10^3/uL (0.0-0.5); EOS % 4.6 % (0.0-3.0); HEMATOCRIT 38.1 % (36.0-47.0); HEMOGLOBIN 12.5 g/dl (12.0-15.5); LYMPH # 1.1 10^3/uL (1.5-5.0); LYMPH % 15.4 % (24.0-44.0); MEAN CORPUSCULAR HEMOGLOBIN 29.6 pg (27.0-33.0); MEAN CORPUSCULAR HGB CONC 32.8 g/dl (32.0-36.5); MEAN CORPUSCULAR VOLUME 90.3 fl (80.0-96.0); MONO # 0.5 10^3/uL (0.0-0.8); MONO % 7.2 % (0.0-5.0); NEUTROPHILS # 5.1 10^3/uL (1.5-8.5); NEUTROPHILS % 70.8 % (36.0-66.0); PLATELET COUNT, AUTOMATED 314 10^3/uL (150-450); RED BLOOD COUNT 4.22 10^6/uL (4.00-5.40); WHITE BLOOD COUNT 7.3 10^3/uL (4.0-10.0)
[2019-08-21 05:43] LABS: ALBUMIN 2.4 GM/DL (3.2-5.2); ALT/SGPT 28 U/L (12-78); BILIRUBIN,TOTAL 0.5 MG/DL (0.2-1.0); BLOOD UREA NITROGEN 17 MG/DL (7-18); CALCIUM LEVEL 8.9 MG/DL (8.5-10.1); CARBON DIOXIDE LEVEL 30 MEQ/L (21-32); CHLORIDE LEVEL 100 MEQ/L (98-107); CHOLESTEROL LEVEL 159 MG/DL (< 200); CPK CREATINE PHOSPHOKINASE 36 U/L (26-192); CREATININE FOR GFR 0.65 MG/DL (0.55-1.30); GLOMERULAR FILTRATION RATE > 60.0 (>51); GLUCOSE, FASTING 101 MG/DL (70-100); LDH LACTATE DEHYDROGENASE 206 U/L (84-246); MAGNESIUM LEVEL 2.1 MG/DL (1.8-2.4); SODIUM LEVEL 136 MEQ/L (136-145); TRIGLYCERIDES LEVEL 198 MG/DL (<150)
[2019-08-21 07:58] VITALS: BP 107/67
--- NOTE | 2019-08-21 08:32 | REP ---
REASON FOR EXAM: Followup. The right-sided chest tubes are unchanged. The small right-sided pneumothorax is unchanged. PICC line catheter is unchanged. Right basilar opacity is stable. Left lung clear and unchanged. No change in the osseous structures. The cardiomediastinal silhouette is stable. IMPRESSION: No change. Electronically Signed by Ortega Ellis DO 08/21/2019 10:51 A
[2019-08-21] MEDS: HEPARIN SOD (PORCINE) 5000UNITS/ML VIAL (J1644 PER 1000UNITS) SC SCH ×2 (08:34→20:29)
[2019-08-21] MEDS: DOCUSATE SODIUM 100 MG CAP PO SCH ×2 (08:34→20:29)
[2019-08-21] MEDS: PANTOPRAZOLE 40MG TAB (PROTONIX) PO SCH (08:35)
[2019-08-21] MEDS: MOM 30ML SUSPENSION UDC PO SCH (08:35)
[2019-08-21] MEDS: buPROPion **SR TABLET** (ZYBAN) 150MG PO SCH ×2 (08:35→20:29)
[2019-08-21] MEDS: ATORVASTATIN 20 MG TAB PO SCH (08:35)
[2019-08-21] MEDS: BACLOFEN 10 MG TAB PO PRN (08:37)
[2019-08-21] MEDS: NICOTINE 14 MG/24 HR TRANSDERMAL TOP SCH (08:38)
[2019-08-21] MEDS: VITAMIN D 1,000 INTERNATIONAL UNITS TABLET PO SCH (09:00)
[2019-08-21] MEDS: CYANOCOBALAMIN 500 MCG TAB PO SCH (09:00)
[2019-08-21] MEDS: PYRIDOXINE 50 MG TAB PO SCH (09:00)
[2019-08-21] MEDS: ASCORBIC ACID 500 MG TAB PO SCH (09:00)
[2019-08-21] MEDS ORDERED: FUROSEMIDE 40MG/4ML VIAL (J1940) IV ONE (10:15)
--- NOTE | 2019-08-21 10:35 | IPN ---
DATE: 08/21/2019 This is now the 13th postoperative day for Mrs. Brandt. She drained 315 mL from the chest tube yesterday. She has been placed on a no-fat diet. In the 8 hours from the 13 day, she has only drained 75 mL. She weighs 62 kg today. Her vital signs show a Maximum temperature (T-max) of 98.2, with a heart rate that ranges between 115-107 and in sinus rhythm with a respiratory rate of 18-20 without the use of accessory muscles who is 96% saturated on room air and has blood pressures ranging between 114/74 to 128/68. Her intake and output over the past 24 hours has been recorded as 1548 in and 2815 out for a negativity of 1275 mL. Her chest tube put out 315 mL. There is no air leak. Weight is 62 kg compared to the 62.3 kg yesterday. On physical examination, the lungs show normal vesicular sounds without wheezes, rhonchi or rales. Percussion note is full to the diaphragm. Cardiac exam is without murmurs, clicks, gallops or rubs. I cannot feel her point of maximum impulse (PMI). S1 and S2 are normal. Abdomen is soft and nontender. Bowel sounds are positive. There is no hepatomegaly. No costovertebral angle (CVA) tenderness. Extremities show no pretibial edema with no calf tenderness. No differential swelling of the upper extremities. Skin is warm, dry and perfused without cyanosis or mottling including that of the nail beds and knees. Neck is supple. There is no jugular venous distention. No subcutaneous emphysema. Trachea is midline. Mouth shows her mucous membranes to be pink and moist. Lips and commissures are without lesions. There is no thrush. Eyes show her pupils to be equal and reactive. Extraocular movements intact. Sclerae nonicteric. Neurologic shows II-XII intact along with gross motor and gross sensation intact. Gait is not tested. Psychiatric showed her to be awake, alert and oriented times three with appropriate and affect and conversational. Her white count today is down to 7.3 from 10.6 yesterday. Hemoglobin and hematocrit is 12.5 and 38.1 essentially unchanged from yesterday with a platelet count of 314. Differential shows 70% neutrophils, 15% lymphocytes, 7% monocytes. There are no immature forms or toxic granulations. Her electrolytes are normal with a BUN and creatinine of 17 and 0.65 which is essentially unchanged from 14/0.7 yesterday. Glucose is 101 with a calcium 8.9. Albumin continues to slowly improved up to 2.4 but most likely secondary to hemoconcentration. AST and ALT are normal. Her chest x-ray shows her lungs fully expanded to the chest wall. Costophrenic angles are sharp. There is obligate volume loss from the lobectomy and there are no infiltrates. Chest tubes are in good place. IMPRESSION: 1. Postoperative day number 13 status post a right upper lobectomy and mediastinal lymphadenectomy. 2. Chylothorax. 3. Adenocarcinoma stage III A. 4. Multiple sclerosis. 5. Prior narcotic dependence. 6. Fibromyalgia. 7. Depression and anxiety. 8. Prior nicotine dependence. 9. Hyperlipidemia. PLAN AND DISCUSSION: Today, I am going to clamp her chest tube. I put her on a no-fat diet. I will obtain MCT oil. I will also continued to diuresis her. We will check a chest x-ray tomorrow and if the chest x-ray does not her accumulating any more fluid and that she is actually reabsorbing the fluid, I will pull her chest tubes. It should be noted that there still is Chylous fluid coming out from the chest but it is of sufficient little amount that I am hoping that we can remove her chest tubes.
[2019-08-21 11:39] VITALS: BP 95/59
[2019-08-21 16:00] VITALS: BP 93/58
[2019-08-21 20:00] VITALS: BP 115/58
[2019-08-21] MEDS: traZODone 100 MG TAB PO SCH (20:29)
[2019-08-22] VITALS: BP 116/62
[2019-08-22] MEDS: oxyCODONE 5MG TAB PO PRN ×6 (00:34→21:03)
[2019-08-22] MEDS: LEVALBUTEROL 1.25 MG/0.5 ML CONCENTRATE NEB NEB SCH ×4 (01:15→19:56)
[2019-08-22 04:00] VITALS: BP 113/56
[2019-08-22 05:16] LABS: BASO # 0.1 10^3/uL (0.0-0.2); BASO % 1.2 % (0.0-1.0); EOS # 0.4 10^3/uL (0.0-0.5); EOS % 6.3 % (0.0-3.0); HEMATOCRIT 39.5 % (36.0-47.0); LYMPH # 1.1 10^3/uL (1.5-5.0); LYMPH % 16.4 % (24.0-44.0); MEAN CORPUSCULAR HEMOGLOBIN 29.3 pg (27.0-33.0); MEAN CORPUSCULAR HGB CONC 32.9 g/dl (32.0-36.5); MEAN CORPUSCULAR VOLUME 89.2 fl (80.0-96.0); MONO # 0.6 10^3/uL (0.0-0.8); MONO % 8.7 % (0.0-5.0); NEUTROPHILS # 4.4 10^3/uL (1.5-8.5); NEUTROPHILS % 66.4 % (36.0-66.0); PLATELET COUNT, AUTOMATED 362 10^3/uL (150-450); RED BLOOD COUNT 4.43 10^6/uL (4.00-5.40); WHITE BLOOD COUNT 6.7 10^3/uL (4.0-10.0)
[2019-08-22] MEDS: SODIUM CHLORIDE 0.9% INJ 10 ML SYR IV SCH ×2 (05:28→17:23)
[2019-08-22 05:32] LABS: ALBUMIN 2.5 GM/DL (3.2-5.2); ALT/SGPT 29 U/L (12-78); BILIRUBIN,TOTAL 0.4 MG/DL (0.2-1.0); BLOOD UREA NITROGEN 20 MG/DL (7-18); CALCIUM LEVEL 9.3 MG/DL (8.5-10.1); CARBON DIOXIDE LEVEL 34 MEQ/L (21-32); CHLORIDE LEVEL 95 MEQ/L (98-107); CHOLESTEROL LEVEL 168 MG/DL (< 200); CPK CREATINE PHOSPHOKINASE 33 U/L (26-192); CREATININE FOR GFR 0.61 MG/DL (0.55-1.30); GLOMERULAR FILTRATION RATE > 60.0 (>51); GLUCOSE, FASTING 114 MG/DL (70-100); LDH LACTATE DEHYDROGENASE 176 U/L (84-246); PHOSPHORUS LEVEL 4.2 MG/DL (2.5-4.9); POTASSIUM SERUM 3.6 MEQ/L (3.5-5.1); SODIUM LEVEL 132 MEQ/L (136-145); TOTAL PROTEIN 6.9 GM/DL (6.4-8.2); TRIGLYCERIDES LEVEL 242 MG/DL (<150)
[2019-08-22 08:00] VITALS: BP 123/64
--- NOTE | 2019-08-22 08:22 | REP ---
REASON: Followup. COMPARISON: Multiple, the latest yesterday. Right-sided thoracotomy tube is unchanged. PICC line catheter is unchanged. Cardiomediastinal silhouette unchanged. Lung thomas unchanged. Persistent right basilar opacities with bilateral cp angle blunting status quo. No change in the osseous structures. IMPRESSION: No significant change. Electronically Signed by Ortega Ellis DO 08/22/2019 09:22 A
[2019-08-22] MEDS: NICOTINE 14 MG/24 HR TRANSDERMAL TOP SCH (08:49)
[2019-08-22] MEDS: DOCUSATE SODIUM 100 MG CAP PO SCH ×2 (08:49→21:02)
[2019-08-22] MEDS: BACLOFEN 10 MG TAB PO PRN ×2 (08:50→17:31)
[2019-08-22] MEDS: PANTOPRAZOLE 40MG TAB (PROTONIX) PO SCH (08:50)
[2019-08-22] MEDS: buPROPion **SR TABLET** (ZYBAN) 150MG PO SCH ×2 (08:50→21:02)
[2019-08-22] MEDS: ATORVASTATIN 20 MG TAB PO SCH (08:52)
[2019-08-22] MEDS: HEPARIN SOD (PORCINE) 5000UNITS/ML VIAL (J1644 PER 1000UNITS) SC SCH (08:52)
[2019-08-22] MEDS: MOM 30ML SUSPENSION UDC PO SCH (09:00)
[2019-08-22] MEDS: VITAMIN D 1,000 INTERNATIONAL UNITS TABLET PO SCH (09:00)
[2019-08-22] MEDS: PYRIDOXINE 50 MG TAB PO SCH (09:00)
[2019-08-22] MEDS: CYANOCOBALAMIN 500 MCG TAB PO SCH (09:00)
[2019-08-22] MEDS: ASCORBIC ACID 500 MG TAB PO SCH (09:00)
[2019-08-22] MEDS ORDERED: FUROSEMIDE 20MG/2ML VIAL (J1940) IV ONE (10:00)
[2019-08-22 12:00] VITALS: BP 119/63
[2019-08-22 16:00] VITALS: BP 113/68
[2019-08-22 20:00] VITALS: BP 102/60
[2019-08-22] MEDS: traZODone 100 MG TAB PO SCH (21:02)
[2019-08-23] MEDS: oxyCODONE 5MG TAB PO PRN ×3 (01:15→09:29)
[2019-08-23] MEDS: LEVALBUTEROL 1.25 MG/0.5 ML CONCENTRATE NEB NEB SCH ×2 (02:00→07:05)
[2019-08-23 04:00] VITALS: BP 102/73
[2019-08-23] MEDS: SODIUM CHLORIDE 0.9% INJ 10 ML SYR IV SCH (05:31)
[2019-08-23 05:50] LABS: BASO # 0.1 10^3/uL (0.0-0.2); BASO % 0.9 % (0.0-1.0); EOS # 0.4 10^3/uL (0.0-0.5); EOS % 5.5 % (0.0-3.0); HEMATOCRIT 38.9 % (36.0-47.0); LYMPH % 15.9 % (24.0-44.0); MEAN CORPUSCULAR HGB CONC 33.4 g/dl (32.0-36.5); MEAN CORPUSCULAR VOLUME 89.6 fl (80.0-96.0); MONO # 0.5 10^3/uL (0.0-0.8); MONO % 8.2 % (0.0-5.0); NEUTROPHILS # 4.5 10^3/uL (1.5-8.5); NEUTROPHILS % 68.4 % (36.0-66.0); PLATELET COUNT, AUTOMATED 384 10^3/uL (150-450); RED BLOOD COUNT 4.34 10^6/uL (4.00-5.40); WHITE BLOOD COUNT 6.6 10^3/uL (4.0-10.0)
[2019-08-23 06:15] LABS: ALBUMIN 2.6 GM/DL (3.2-5.2); ALT/SGPT 33 U/L (12-78); BILIRUBIN,TOTAL 0.4 MG/DL (0.2-1.0); BLOOD UREA NITROGEN 16 MG/DL (7-18); CALCIUM LEVEL 9.1 MG/DL (8.5-10.1); CARBON DIOXIDE LEVEL 33 MEQ/L (21-32); CHLORIDE LEVEL 97 MEQ/L (98-107); CHOLESTEROL LEVEL 178 MG/DL (< 200); CPK CREATINE PHOSPHOKINASE 35 U/L (26-192); CREATININE FOR GFR 0.61 MG/DL (0.55-1.30); GLOMERULAR FILTRATION RATE > 60.0 (>51); GLUCOSE, FASTING 103 MG/DL (70-100); LDH LACTATE DEHYDROGENASE 221 U/L (84-246); PHOSPHORUS LEVEL 4.4 MG/DL (2.5-4.9); POTASSIUM SERUM 3.7 MEQ/L (3.5-5.1); SODIUM LEVEL 135 MEQ/L (136-145); TOTAL PROTEIN 6.3 GM/DL (6.4-8.2); TRIGLYCERIDES LEVEL 238 MG/DL (<150)
[2019-08-23 08:00] VITALS: BP 110/68
[2019-08-23] MEDS: DOCUSATE SODIUM 100 MG CAP PO SCH (09:00)
[2019-08-23] MEDS: MOM 30ML SUSPENSION UDC PO SCH (09:00)
[2019-08-23] MEDS ORDERED: OXYC-1 PO (09:26)
[2019-08-23] MEDS: ATORVASTATIN 20 MG TAB PO SCH (09:26)
[2019-08-23] MEDS: CYANOCOBALAMIN 500 MCG TAB PO SCH (09:27)
[2019-08-23] MEDS: VITAMIN D 1,000 INTERNATIONAL UNITS TABLET PO SCH (09:27)
[2019-08-23] MEDS: ASCORBIC ACID 500 MG TAB PO SCH (09:27)
[2019-08-23] MEDS: PANTOPRAZOLE 40MG TAB (PROTONIX) PO SCH (09:27)
[2019-08-23] MEDS: PYRIDOXINE 50 MG TAB PO SCH (09:28)
[2019-08-23] MEDS: buPROPion **SR TABLET** (ZYBAN) 150MG PO SCH (09:28)
[2019-08-23] MEDS: NICOTINE 14 MG/24 HR TRANSDERMAL TOP SCH (09:28)
[2019-08-23] MEDS ORDERED: LASI40TA9 PO (09:29)
[2019-08-23] MEDS: fentaNYL 75 MCG/HR PATCH TD SCH (12:09)
[2019-08-23] MEDS: FENTANYL REMOVAL DOCUMENTATION MISC XX SCH (12:09)
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
--- NOTE | 2019-08-23 16:21 | REP ---
Two-view chest: 08/23/2019. Indication: Chest tube removal. Comparison: Yesterday. Findings: Right-sided chest tubes have been removed. Small apical pneumothorax is present. The study is otherwise unchanged. Right-sided PICC line is stable in position. Postoperative sequelae of the thoracolumbar spine are noted. No new pulmonary consolidation or worsening effusions are present. Impression: Interval discontinuation of the right-sided chest tubes. Small right apical pneumothorax. The study is otherwise stable. Electronically Signed by Nilo Zamora DO 08/23/2019 04:11 P
== END 2019-08-23 12:26 | disposition home health service (06) | DRG 164 ==
LOC: M OR 05:59 → M ICU 17:00 → M PCU 08-16 11:32
PROVIDERS: ADMIT Thoracic Surgery (Cardiothoracic Vascular Surgery); ATTEND Thoracic Surgery (Cardiothoracic Vascular Surgery)
PROC: 07B70ZX Excision of Thorax Lymphatic, Open Approach, Diagnostic (ICD-10-PCS; 2019-08-08)
PROC: 0B9C8ZZ Drainage of Right Upper Lung Lobe, Via Natural or Artificial Opening Endoscopic (ICD-10-PCS; 2019-08-08)
PROC: 0BTC0ZZ Resection of Right Upper Lung Lobe, Open Approach (ICD-10-PCS; principal; 2019-08-08 08:00)
PROC: 02HV33Z Insertion of Infusion Device into Superior Vena Cava, Percutaneous Approach (ICD-10-PCS; 2019-08-11)
PROC: 3E0436Z Introduction of Nutritional Substance into Central Vein, Percutaneous Approach (ICD-10-PCS; 2019-08-12)
DX: C34.11 Malignant neoplasm of upper lobe, right bronchus or lung (principal); C77.1 Secondary and unspecified malignant neoplasm of intrathoracic lymph nodes; G35 Multiple sclerosis; M79.7 Fibromyalgia; F32.9 Major depressive disorder, single episode, unspecified; I87.9 Disorder of vein, unspecified; F41.9 Anxiety disorder, unspecified; E78.5 Hyperlipidemia, unspecified; M06.9 Rheumatoid arthritis, unspecified; M19.90 Unspecified osteoarthritis, unspecified site; Z79.899 Other long term (current) drug therapy; Z11.59 Encounter for screening for other viral diseases; Z91.040 Latex allergy status; Z87.891 Personal history of nicotine dependence; Z88.8 Allergy status to other drugs, medicaments and biological substances; Z88.6 Allergy status to analgesic agent; Z79.891 Long term (current) use of opiate analgesic

== ENCOUNTER → 2019-09-05 | Outpatient (CLI) | payer MEDICARE, MEDICAID ==
[~2019-09-05] MED LIST changes: +LASI40TA9 PO
--- NOTE | 2019-09-05 10:24 | REPPI ---
CHEST X-RAY: TWO VIEWS. HISTORY: Malignant neoplasm. Comparison chest x-ray: August 23, 2019 There is apical pleural thickening on the right and some pleural thickening is seen at the right base. Interstitial markings are slightly prominent in the lungs diffusely. There is linear perihilar discoid atelectasis or scarring on the right. The left lung is free of infiltrate. Lower thoracic spine fusion hardware is noted in place, unchanged. IMPRESSION: Post thoracotomy changes on the right. Prominent interstitial markings. Status post lower thoracic spine fusion. Electronically Signed by Israel Hines MD 09/05/2019 11:02 A
== END ==
LOC: M PLALAB 08:06
PROVIDERS: ATTEND Thoracic Surgery (Cardiothoracic Vascular Surgery)
DX: C34.11 Malignant neoplasm of upper lobe, right bronchus or lung (principal); Z98.1 Arthrodesis status

== ENCOUNTER → 2019-09-22 | Outpatient (CLI) | payer MEDICARE, MEDICAID ==
[~2019-09-22] MED LIST changes: +B-12100021 PO; +CARA1TAB6 PO; +D3 +TAB PO; +D31000TA2 PO; +FLUC10TA PO; +FOLI1TAB11 PO; +LIDO2.5C15; +LIDOCAINE 1% MDV 20ML VIAL As Ordered ONE; +MIDAZOLAM INJ 2MG/2ML VIAL (J2250 PER 1MG) As Ordered ONE; +ONDA8TAB8; +ONDA8TAB8 PO; +PROC5TAB57 PO; +PROMETHAZINE INJ 25 MG/ML VIAL (J2550) As Ordered ONE; +PROT1TAB2 PO; +VITA500C24 PO; -VITAD1000T PO; +ceFAZolin 1GM VIAL (J0690 PER 500MG) As Ordered ONE; +diphenhydrAMINE 50MG/ML VIAL (J1200) As Ordered ONE; +fentaNYL 100 MCG/2 ML INJECTION (J3010) As Ordered ONE
--- NOTE | 2019-09-22 15:57 | IRHP ---
[facility] IR Pre-Procedure H & P General Date of Service: Sep 22, 2019 Procedure: Same Day Surgery Interval History and Physical I have seen the patient and reviewed last H & P performed within 30 days. There is no significant interval change. History of Present Illness Chief Complaint The patient is a 53-year-old female admitted with a reason for visit of Lung Ca. PRE-PROCEDURE DIAGNOSIS: lung ca HEART: normal rate. LUNGS: normal breathing at rest. ASA Classification ASA Classification: II-Mild systemic disease Mallampati Score: II NPO: Yes Problems with prior sedation: No Obstructive Sleep Apnea: No Plan moderate sedation Allergies Coded Allergies: pregabalin (Verified Allergy, Severe, swollen tongue, 08/08/19) buprenorphine (Verified Allergy, Intermediate, rash, 08/08/19) celecoxib (Verified Allergy, Intermediate, rash, 08/08/19) duloxetine (Verified Allergy, Intermediate, rash, 08/08/19) escitalopram (Verified Allergy, Intermediate, rash, 08/08/19) estrogens, conjugated (Verified Allergy, Intermediate, hives, 08/08/19) etanercept (Verified Allergy, Intermediate, rash, 08/08/19) ketorolac (Verified Allergy, Intermediate, hives, 08/08/19) teriflunomide (Verified Allergy, Intermediate, hives, 08/08/19) tiagabine (Verified Allergy, Intermediate, rash, 08/08/19) topiramate (Verified Allergy, Intermediate, hives, 08/08/19) levetiracetam (Verified Allergy, Unknown, 08/08/19) glatiramer (copolymer 1) (Unverified Adverse Reaction, Intermediate, LUMPS AT INJECTION SITE, 08/08/19) ibuprofen (Verified Adverse Reaction, Intermediate, SEVERE GI Bleed, 08/08/19) interferon beta-1b (Unverified Adverse Reaction, Intermediate, LUMPS AT INJECTION SITE, 08/08/19) latex (Unverified Adverse Reaction, Intermediate, TEARS SKIN, 08/08/19) meloxicam (Unverified Adverse Reaction, Intermediate, GI BLEED, 08/08/19) prednisone (Verified Adverse Reaction, Intermediate, rage, 08/08/19) gabapentin (Unverified Adverse Reaction, Mild, "EMOTIONAL ROLLER COASTER", 08/08/19) Home Medications Scheduled Albuterol Sulfate (Proair Hfa), 2 PUFF INH PRN, (Reported) Atorvastatin Calcium (Atorvastatin Calcium), 40 MG PO DAILY, (Reported) Bupropion HCl (Bupropion HCl Sr), 150 MG PO BID, (Reported) Fentanyl (Fentanyl), 75 MCG TD Q3RD, (Reported) Nicotine (Nicotine Patch), 1 PATCH TOP DAILY, (Reported) Omeprazole (Omeprazole), 40 MG PO DAILY, (Reported) Oxycodone Hcl (Oxycodone HCl), 10 MG PO Q4HP Trazodone HCl (Trazodone HCl), 100 MG PO QHS, (Reported) Umeclidinium Brm/Vilanterol Tr (Anoro Ellipta 62.5-25 Mcg INH), 1 PUFF INH DAILY, (Reported) Scheduled PRN Baclofen (Baclofen), 10 MG PO TID PRN for SPASMS, (Reported) Diphenhydramine HCl (Benadryl), 25 MG PO PRN PRN for ITCHING, (Reported) Mineral Oil, Light/Mineral Oil (Soothe Xp Eye Drops), 1 DROP OU PRN PRN for DRY EYES, (Reported) Nicotine Polacrilex (Nicotine Gum), 2 MG PO Q2H PRN for NICOTINE WITHDRAWAL, (Reported) Sumatriptan Succinate (Sumatriptan Succinate), 100 MG PO ASDIRECTED PRN for MIGRAINE, (Reported) Tetrahydroz/Peg 400/Hyprom/Gly (Visine Max Redness Relief Drop), 1 DROP OU PRN PRN for REDNESS/IRRITATION, (Reported) Discontinued Medications Ascorbic Acid (Vitamin C), 500 MG PO DAILY, (Reported) Discontinued Reason: Pt states not taking Cholecalciferol (Vitamin D3) (Vitamin D3), 5,000 UNITS PO DAILY, (Reported) Discontinued Reason: Pt states not taking Cyanocobalamin (Vitamin B-12) (Vitamin B-12), 1,000 MCG PO DAILY, (Reported) Discontinued Reason: Pt states not taking Furosemide (Lasix), 40 MG PO DAILY Discontinued Reason: Pt states not taking Magnesium Oxide (Magnesium Oxide), 500 MG PO BID, (Reported) Discontinued Reason: Pt states not taking Pyridoxine HCl (Vitamin B6) (Vitamin B-6), 100 MG PO DAILY, (Reported) Discontinued Reason: Pt states not taking [potassium], 99 MG PO DAILY, (Reported) Discontinued Reason: Pt states not taking AIRAM DENT MD Sep 22, 2019 15:57
[2019-09-22 18:45] VITALS: BP 119/68
--- NOTE | 2019-09-24 15:51 | REP ---
IR Ultrasound and fluoroscopy-guided port placement. IR Ultrasound of the neck. IR Moderate sedation. Clinical information: Lung cancer. Physician: Dr. Monsivais. Procedure: The patient was advised of the benefits, risks, and alternatives of the procedure and informed consent was obtained. A time-out was performed with verification of the patient's name, MRN, site of procedure and type of procedure to be performed. The patient was positioned in the supine position on the angiographic table. The site was prepped and draped in the usual sterile fashion. Moderate sedation was performed by the physician including the presence of an independent trained observer who assisted and monitored the patient's level of consciousness and physiologic status. Following the administration of fentanyl and Versed, the physician spent 30 minutes of continuous face to face time with the patient. Ultrasound of the neck reveals a patent and compressible right internal jugular vein. A professional sports scout radiograph reveals spinal hardware. The neck and anterior chest wall were anesthetized with lidocaine. The right internal jugular vein was accessed using a microintroducer needle under ultrasound guidance, via a lateral approach. An 018 wire was advanced into the superior vena cava, the needle was removed and a microsheath was placed. An Amplatz wire was then passed into the inferior vena cava. An incision at the internal jugular vein access site and anterior chest wall were made using a scalpel. An incision was made at the anterior chest wall. A small pocket was created using a combination of blunt and sharp dissection. A tunneling device was then used to pass the catheter from the pocket to the neck puncture site. An 8-Stateless Angio Feusd Smart power port was then positioned in the pocket. The catheter was then measured and cut. The introducer sheath was exchanged for a peel-away sheath. The catheter was passed through the peel-away sheath into the internal jugular vein and the peel-away sheath was removed. The port tip was positioned at the cavoatrial junction. The port was then accessed with a Patel needle. The port flushes and aspirates well. The puncture site in the neck was closed. The chest wall incision was then closed with 2-0 Vicryl and 4-0 Monocryl. Glue and Steri-Strips were applied. A sterile dressing was then applied. The patient tolerated the procedure well and was returned to the PRU in stable condition. Estimated blood loss: <5 ml. Complications: None. Conclusion: 1. Successful placement of an 8-Stateless Angio dynamics Smart power port via the right internal jugular vein. The port is ready for immediate use. 2. Patient to follow up in IR clinic in 2 weeks. Thank you for this referral. Electronically Signed by Brynn Monsivais MD 09/24/2019 03:49 P
== END ==
LOC: M IRPRO 14:35
PROVIDERS: ATTEND Specialist
DX: C34.11 Malignant neoplasm of upper lobe, right bronchus or lung (principal)
CPT/HCPCS: 36561; 99152; 99153; C1769; C1788; C1894; J0690; J1200; J1642; J1644; J2250; J3010

== ENCOUNTER → 2019-09-25 | Outpatient (CLI) | payer MEDICARE, MEDICAID ==
[~2019-09-25] MED LIST changes: -LIDOCAINE 1% MDV 20ML VIAL As Ordered ONE; -MIDAZOLAM INJ 2MG/2ML VIAL (J2250 PER 1MG) As Ordered ONE; -PROMETHAZINE INJ 25 MG/ML VIAL (J2550) As Ordered ONE; -ceFAZolin 1GM VIAL (J0690 PER 500MG) As Ordered ONE; -diphenhydrAMINE 50MG/ML VIAL (J1200) As Ordered ONE; -fentaNYL 100 MCG/2 ML INJECTION (J3010) As Ordered ONE
== END ==
LOC: M ONCR 12:51
PROVIDERS: ATTEND Radiology Radiation Oncology
DX: C34.11 Malignant neoplasm of upper lobe, right bronchus or lung (principal); Z92.3 Personal history of irradiation; Z90.2 Acquired absence of lung [part of]

== ENCOUNTER → 2019-10-07 | Outpatient (POV) | payer MEDICARE, MEDICAID ==
--- NOTE | 2019-11-13 10:42 | IRPN ---
[facility] IR Progress Note IR Progress Note DATE: Oct 07, 2019 Patient agreed to this telephone follow-up. Duration of call 5 minutes. FOLLOW-UP: Status post port placement. Patient states she is doing well. No fevers, chills, pain or discharge at site. Port has not been used yet. ON EXAMINATION: No video on patient side. IMPRESSION: Doing well status post port placement. Port will need to be flushed in infusion if not accessed at least once a month. No further follow-up scheduled unless issued by patient and/or referring provider. Thank you for this referral [facility] infusion Allergies Coded Allergies: pregabalin (Verified Allergy, Severe, swollen tongue, 08/08/19) buprenorphine (Verified Allergy, Intermediate, rash, 08/08/19) celecoxib (Verified Allergy, Intermediate, rash, 08/08/19) duloxetine (Verified Allergy, Intermediate, rash, 08/08/19) escitalopram (Verified Allergy, Intermediate, rash, 08/08/19) estrogens, conjugated (Verified Allergy, Intermediate, hives, 08/08/19) etanercept (Verified Allergy, Intermediate, rash, 08/08/19) ketorolac (Verified Allergy, Intermediate, hives, 08/08/19) teriflunomide (Verified Allergy, Intermediate, hives, 08/08/19) tiagabine (Verified Allergy, Intermediate, rash, 08/08/19) topiramate (Verified Allergy, Intermediate, hives, 08/08/19) levetiracetam (Verified Allergy, Unknown, 08/08/19) glatiramer (copolymer 1) (Unverified Adverse Reaction, Intermediate, LUMPS AT INJECTION SITE, 08/08/19) ibuprofen (Verified Adverse Reaction, Intermediate, SEVERE GI Bleed, 08/08/19) interferon beta-1b (Unverified Adverse Reaction, Intermediate, LUMPS AT INJECTION SITE, 08/08/19) latex (Unverified Adverse Reaction, Intermediate, TEARS SKIN, 08/08/19) meloxicam (Unverified Adverse Reaction, Intermediate, GI BLEED, 08/08/19) prednisone (Verified Adverse Reaction, Intermediate, rage, 08/08/19) gabapentin (Unverified Adverse Reaction, Mild, "EMOTIONAL ROLLER COASTER", 08/08/19) AIRAM DENT MD Nov 13, 2019 10:42
== END ==
LOC: M IRPOV 10:15
PROVIDERS: ATTEND Radiology Diagnostic Radiology
DX: Z45.2 Encounter for adjustment and management of vascular access device (principal); Z88.8 Allergy status to other drugs, medicaments and biological substances; Z91.040 Latex allergy status

== ENCOUNTER 2019-11-07 09:35 | Outpatient (RCR) | payer MEDICARE, MEDICAID ==
[~2019-11-07 09:35] MED LIST changes: -CARA1TAB6 PO; -LIDO2.5C15; -ONDA8TAB8; -PROT1TAB2 PO
== END 2019-11-10 ==
LOC: M ONCR 09:35
PROVIDERS: ATTEND General Practice
DX: C34.11 Malignant neoplasm of upper lobe, right bronchus or lung (principal); Z88.8 Allergy status to other drugs, medicaments and biological substances; Z91.040 Latex allergy status

== ENCOUNTER 2019-12-04 14:02 | Emergency (ER) | payer MEDICARE, MEDICAID ==
[~2019-12-04] VITALS: Ht 160 cm; Wt 55.3 kg
[2019-12-04] MEDS ORDERED: LIDO2.5C15 (14:41)
[2019-12-04] MEDS ORDERED: ONDA8TAB8 (14:41)
[2019-12-04 14:56] LABS: BASO # 0.1 10^3/uL (0.0-0.2); BASO % 0.6 % (0.0-1.0); EOS # 0.1 10^3/uL (0.0-0.5); HEMATOCRIT 43.6 % (36.0-47.0); HEMOGLOBIN 14.5 g/dl (12.0-15.5); LYMPH # 0.6 10^3/uL (1.5-5.0); LYMPH % 5.3 % (24.0-44.0); MEAN CORPUSCULAR HEMOGLOBIN 28.2 pg (27.0-33.0); MEAN CORPUSCULAR HGB CONC 33.3 g/dl (32.0-36.5); MEAN CORPUSCULAR VOLUME 84.7 fl (80.0-96.0); MONO # 0.7 10^3/uL (0.0-0.8); MONO % 6.3 % (0.0-5.0); NEUTROPHILS # 9.3 10^3/uL (1.5-8.5); NEUTROPHILS % 86.2 % (36.0-66.0); PLATELET COUNT, AUTOMATED 247 10^3/uL (150-450); RED BLOOD COUNT 5.15 10^6/uL (4.00-5.40); WHITE BLOOD COUNT 10.8 10^3/uL (4.0-10.0)
[2019-12-04 15:22] LABS: ALBUMIN 4.4 GM/DL (3.2-5.2); BILIRUBIN,DIRECT 0.1 MG/DL (0.0-0.2); BILIRUBIN,TOTAL 0.7 MG/DL (0.2-1.0)
[2019-12-04] MEDS ORDERED: NS 1,000 ML IV ONE (15:30)
[2019-12-04] MEDS ORDERED: ONDANSETRON 4MG/2ML VIAL IV ONE (15:30)
[2019-12-04] MEDS ORDERED: MORPHINE 4 MG/ML 1ML VIAL/SYRINGE (J2270) IV ONE (15:30)
[2019-12-04] MEDS ORDERED: ISOVUE-370 76% 100ML VIAL As Ordered ONE (16:43)
[2019-12-04 17:50] VITALS: BP 112/66
--- NOTE | 2019-12-04 17:54 | REPVR ---
PROCEDURE INFORMATION: Exam: CT Abdomen And Pelvis With Contrast Exam date and time: 12/04/2019 4:34 PM Age: 54 years old Clinical indication: Abdominal pain; Epigastric; Additional info: Epigastric ruq pain, lung CA TECHNIQUE: Imaging protocol: Computed tomography of the abdomen and pelvis with intravenous contrast. Radiation optimization: All CT scans at this facility use at least one of these dose optimization techniques: automated exposure control; mA and/or kV adjustment per patient size (includes targeted exams where dose is matched to clinical indication); or iterative reconstruction. Contrast material: ISOVUE 370; Contrast volume: 100 ml; Contrast route: INTRAVENOUS (IV); COMPARISON: CT ABD/PELVIS W/O CONTRAST - OUTSIDE PRIOR 05/10/2018 4:20 PM FINDINGS: Mediastinal space: A small sliding hiatal hernia is present above the level of the diaphragm. Liver: Normal. No mass. Gallbladder and bile ducts: The extrahepatic bile ducts are dilated, measuring 7.0 mm (previously 5-6 mm). No ductal calculus identified. Pancreas: Normal. No ductal dilation. Spleen: Normal. No splenomegaly. Adrenals: Normal. No mass. Kidneys and ureters: Normal. No hydronephrosis. Stomach and bowel: Sigmoid and descending colonic diverticula are present without evidence of diverticulitis. Appendix: The vermiform appendix is normal. Intraperitoneal space: Unremarkable. No free air. No significant fluid collection. Vasculature: Calcified phleboliths are present in the lower pelvis bilaterally. Moderate aortic atherosclerotic calcification without aneurysm. The iliac arteries show moderate bilateral atherosclerotic calcifications without evidence of aneurysm. Lymph nodes: No enlarged lymph nodes. Urinary bladder: Unremarkable as visualized. Reproductive: The uterus is status post hysterectomy. Bones/joints: Left lateral lower thoracic (T10-T12) screw and plate fixation with T8-10 11 and T11-12 intervertebral cage-type devices. Soft tissues: Unremarkable. Other findings: . IMPRESSION: 1. Mild nonspecific extrahepatic biliary ductal dilatation, mild interval increase. MRCP may be helpful if indicated. 2. Prior hysterectomy. 3. Diverticulosis. 4. Small hiatal hernia. Electronically signed by: Merlin Marrufo On 12/04/2019 17:53:34 PM
[2019-12-04] MEDS ORDERED: PANTOPRAZOLE 40MG VIAL (C9113 PER 1) IV ONE (19:00)
[2019-12-04] MEDS ORDERED: PROT1TAB2 PO (19:02)
[2019-12-04] MEDS ORDERED: CARA1TAB6 PO (19:02)
--- NOTE | 2019-12-04 20:57 | ECGEPIP ---
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
== END 2019-12-04 19:30 | disposition home or self-care (01) ==
LOC: M ED 14:02
DX: K29.00 Acute gastritis without bleeding (principal); R10.13 Epigastric pain; R94.31 Abnormal electrocardiogram [ECG] [EKG]; K57.31 Diverticulosis of large intestine without perforation or abscess with bleeding; K44.9 Diaphragmatic hernia without obstruction or gangrene; K83.8 Other specified diseases of biliary tract; Z90.710 Acquired absence of both cervix and uterus; C34.91 Malignant neoplasm of unspecified part of right bronchus or lung; G35 Multiple sclerosis; J44.9 Chronic obstructive pulmonary disease, unspecified; J45.909 Unspecified asthma, uncomplicated; M19.90 Unspecified osteoarthritis, unspecified site; G43.909 Migraine, unspecified, not intractable, without status migrainosus; Z87.891 Personal history of nicotine dependence; Z79.899 Other long term (current) drug therapy; Z88.8 Allergy status to other drugs, medicaments and biological substances; Z91.040 Latex allergy status
CPT/HCPCS: 36415; 74177; 80047; 80076; 83690; 85025; 93005; 96361; 96374; 96375; 99284; J2270; J2405; Q9967

== ENCOUNTER 2019-12-05 09:27 | Outpatient (RCR) | payer MEDICARE, MEDICAID ==
[~2019-12-05 09:27] MED LIST changes: +CARA1TAB6 PO; +LIDO2.5C15; +ONDA8TAB8; +PROT1TAB2 PO
== END 2019-12-10 ==
LOC: M ONCR 09:27
PROVIDERS: ATTEND General Practice
DX: C34.11 Malignant neoplasm of upper lobe, right bronchus or lung (principal); R05 Cough; R53.83 Other fatigue; Z88.8 Allergy status to other drugs, medicaments and biological substances

== ENCOUNTER 2020-06-04 18:46 | Emergency (ER) | payer MEDICARE, MEDICAID ==
[~2020-06-04] VITALS: Ht 160 cm; Wt 63.6 kg
[2020-06-04] MEDS ORDERED: NS 1,000 ML IV ONE (19:25)
[2020-06-04] MEDS ORDERED: MORPHINE 4 MG/ML 1ML VIAL/SYRINGE (J2270) IV ONE (19:25)
[2020-06-04] MEDS ORDERED: ONDANSETRON 4MG/2ML VIAL IV ONE (19:25)
[2020-06-04] MEDS ORDERED: PANTOPRAZOLE 40MG VIAL (C9113 PER 1) IV ONE (19:30)
[2020-06-04] MEDS ORDERED: GI COCKTAIL 50ML BTL(HYOSCYAMINE/MAALOX/LIDOCAINE VISCOUS)(1:3:1) PO ONE (19:30)
[2020-06-04] MEDS ORDERED: ISOVUE-370 76% 100ML VIAL As Ordered ONE (20:10)
[2020-06-04] MEDS ORDERED: fentaNYL 100 MCG/2 ML INJECTION (J3010) IV ONE (20:25)
[2020-06-04 20:55] LABS: BASO # 0.1 10^3/uL (0.0-0.2); BASO % 0.8 % (0.0-1.0); EOS # 0.1 10^3/uL (0.0-0.5); EOS % 1.3 % (0.0-3.0); HEMATOCRIT 49.5 % (36.0-47.0); HEMOGLOBIN 16.6 g/dl (12.0-15.5); LYMPH # 1.1 10^3/uL (1.5-5.0); LYMPH % 17.3 % (24.0-44.0); MEAN CORPUSCULAR HEMOGLOBIN 29.5 pg (27.0-33.0); MEAN CORPUSCULAR HGB CONC 33.5 g/dl (32.0-36.5); MEAN CORPUSCULAR VOLUME 88.1 fl (80.0-96.0); MONO # 0.4 10^3/uL (0.0-0.8); MONO % 5.8 % (2.0-8.0); NEUTROPHILS # 4.6 10^3/uL (1.5-8.5); NEUTROPHILS % 74.5 % (36.0-66.0); PLATELET COUNT, AUTOMATED 237 10^3/uL (150-450); RED BLOOD COUNT 5.62 10^6/uL (4.00-5.40); WHITE BLOOD COUNT 6.2 10^3/uL (4.0-10.0)
[2020-06-04 21:05] LABS: INR 0.93; PROTHROMBIN TIME 12.7 SECONDS (12.5-14.3)
[2020-06-04 21:06] LABS: PARTIAL THROMBOPLASTIN TIME 27.4 SECONDS (24.2-38.5)
--- NOTE | 2020-06-04 21:19 | REPVR ---
PROCEDURE INFORMATION: Exam: CT Abdomen And Pelvis With Contrast Exam date and time: 06/04/2020 8:13 PM Age: 54 years old Clinical indication: Abdominal pain; Generalized TECHNIQUE: Imaging protocol: Computed tomography of the abdomen and pelvis with contrast. Radiation optimization: All CT scans at this facility use at least one of these dose optimization techniques: automated exposure control; mA and/or kV adjustment per patient size (includes targeted exams where dose is matched to clinical indication); or iterative reconstruction. Contrast material: ISOVUE 370; Contrast volume: 100 ml; Contrast route: INTRAVENOUS (IV); COMPARISON: CT ABD/PEL W/IV CONTRAST ONLY 12/04/2019 5:08 PM FINDINGS: Mediastinal space: The small hiatal hernia. Liver: The liver is low attenuation indicating hepatic steatosis. Gallbladder and bile ducts: Stable mild extrahepatic biliary duct dilation. No obstructing biliary tract calculi. Gallbladder is normal. Pancreas: Normal. No ductal dilation. Spleen: Normal. No splenomegaly. Adrenal glands: Normal. No mass. Kidneys and ureters: Normal. No hydronephrosis. Stomach and bowel: There is colonic diverticulosis without evidence of diverticulitis. Large amount of fecal material in the colon. No bowel obstruction. Appendix: No evidence of appendicitis. Intraperitoneal space: Unremarkable. No free air. No significant fluid collection. Vasculature: Unremarkable. No abdominal aortic aneurysm. Lymph nodes: Unremarkable. No enlarged lymph nodes. Urinary bladder: Unremarkable as visualized. Reproductive: Unremarkable as visualized. Bones/joints: Changes of prior T10-T12 fusion. Normal alignment. Soft tissues: Unremarkable. IMPRESSION: 1. Colonic diverticulosis without evidence of diverticulitis. 2. Hepatic steatosis. 3. Constipation. 4. Stable mild extrahepatic biliary duct dilation. No biliary tract calculi or signs of cholecystitis. Electronically signed by: Eloy Dallas On 06/04/2020 21:19:06 PM
[2020-06-04 21:37] LABS: ALBUMIN 4.2 GM/DL (3.2-5.2); ALT/SGPT 22 U/L (12-78); BILIRUBIN,DIRECT < 0.1 MG/DL (0.0-0.2); BILIRUBIN,TOTAL 0.3 MG/DL (0.2-1.0); CK-MB VALUE MASS 1.7 NG/ML (<3.6); CPK CREATINE PHOSPHOKINASE 77 U/L (26-192); LIPASE 117 U/L (73-393); MB/CK RELATIVE INDEX 2.21 (< OR =4); TROPONIN I < 0.02 NG/ML (< 0.10)
[2020-06-04] MEDS ORDERED: fentaNYL 100 MCG/HR PATCH TOP ONE (22:00)
[2020-06-04] MEDS ORDERED: FENTANYL REMOVAL DOCUMENTATION MISC TD SCH (22:00)
[2020-06-04 22:25] VITALS: BP 134/78
--- NOTE | 2020-06-07 12:23 | ED PDOC ---
Post-Departure Follow-Up ct abd/p faxed to sonali mcconnell for fu Birgit Bethea MD Jun 07, 2020 12:23
== END 2020-06-04 22:33 | disposition home or self-care (01) ==
LOC: M ED 18:46 → EDBD 18:46 → M ED 22:33
DX: F11.23 Opioid dependence with withdrawal (principal); C34.90 Malignant neoplasm of unspecified part of unspecified bronchus or lung; K76.0 Fatty (change of) liver, not elsewhere classified; K21.9 Gastro-esophageal reflux disease without esophagitis; K59.00 Constipation, unspecified; K57.30 Diverticulosis of large intestine without perforation or abscess without bleeding; Z88.8 Allergy status to other drugs, medicaments and biological substances; Z88.6 Allergy status to analgesic agent; Z79.51 Long term (current) use of inhaled steroids; Z79.899 Other long term (current) drug therapy
CPT/HCPCS: 74177; 80047; 80076; 82550; 82553; 83690; 84484; 85025; 85610; 85730; 86850; 86900; 86901; 96361; 96374; 96375; 99284; C9113; J2270; J2405; J3010; Q9967

== ENCOUNTER 2020-10-31 12:30 | Emergency (ER) | payer MEDICARE, MEDICAID ==
[~2020-10-31] VITALS: Ht 160 cm; Wt 65.9 kg
[~2020-10-31 12:30] MED LIST changes: +LIDO1CRE42; -LIDO2.5C15; +OMEP40CA4 PO; -OMEP40CA97 PO
[2020-10-31] MEDS ORDERED: FENTANYL REMOVAL DOCUMENTATION MISC XX SCH ×2 (13:25)
[2020-10-31] MEDS ORDERED: fentaNYL 100 MCG/HR PATCH TOP ONE (13:25)
[2020-10-31] MEDS ORDERED: oxyCODONE 5MG TAB PO ONE (13:40)
[2020-10-31] MEDS ORDERED: fentaNYL 25 MCG/HR PATCH TOP ONE (13:45)
[2020-10-31 15:52] VITALS: BP 136/76
== END 2020-10-31 15:50 | disposition home or self-care (01) ==
LOC: M ED 12:30
DX: F11.13 Opioid abuse with withdrawal (principal); C34.90 Malignant neoplasm of unspecified part of unspecified bronchus or lung; Z87.891 Personal history of nicotine dependence; Z79.899 Other long term (current) drug therapy; Z88.8 Allergy status to other drugs, medicaments and biological substances; Z88.6 Allergy status to analgesic agent; Z91.040 Latex allergy status

== ENCOUNTER 2020-12-21 07:33 | Emergency (ER) | payer MEDICARE, MEDICAID ==
[~2020-12-21] VITALS: Ht 160 cm; Wt 63.6 kg
[2020-12-21 08:22] VITALS: BP 140/84
[2020-12-21] MEDS ORDERED: QUET50TA4 (08:22)
[2020-12-21] MEDS ORDERED: FENT100D25 (08:22)
[2020-12-21] MEDS ORDERED: OXYC20TA2 (08:22)
[2020-12-21] MEDS ORDERED: HYDROMORPHONE HCL 0.5 MG/ 0.5 ML SYRINGE (J1170 PER 1) IV ONE ×2 (08:30→09:25)
[2020-12-21] MEDS ORDERED: fentaNYL 100 MCG/HR PATCH TOP ONE (08:30)
[2020-12-21] MEDS ORDERED: FENTANYL REMOVAL DOCUMENTATION MISC XX SCH (08:30)
[2020-12-21] MEDS ORDERED: ONDANSETRON 4MG/2ML VIAL IV ONE ×2 (08:30→09:25)
[2020-12-21] MEDS ORDERED: OXYC20TA2 PO (08:30)
[2020-12-21] MEDS ORDERED: oxyCODONE 5MG TAB PO ONE (11:05)
== END 2020-12-21 12:20 | disposition home or self-care (01) ==
LOC: M ED 07:33 → EDBD 07:33 → M ED 12:20
DX: F11.13 Opioid abuse with withdrawal (principal); G89.29 Other chronic pain; C34.90 Malignant neoplasm of unspecified part of unspecified bronchus or lung; Z79.899 Other long term (current) drug therapy; Z88.8 Allergy status to other drugs, medicaments and biological substances; Z88.6 Allergy status to analgesic agent; Z91.040 Latex allergy status
CPT/HCPCS: 96374; 96375; 96376; 99284; J1170; J2405

== ENCOUNTER 2021-02-02 10:53 | Inpatient (IN) | payer MEDICARE, MEDICAID ==
[~2021-02-02] VITALS: Ht 154.9 cm; Wt 63.6 kg
[~2021-02-02 10:53] MED LIST changes: +FENT100D25; +OXYC20TA2; +OXYC20TA2 PO; +QUET50TA4
[2021-02-02 11:20] LABS: BASO % 0.6 % (0.0-1.0); EOS # 0.1 10^3/uL (0.0-0.5); HEMATOCRIT 50.4 % (36.0-47.0); HEMOGLOBIN 16.7 g/dl (12.0-15.5); LYMPH # 1.4 10^3/uL (1.5-5.0); LYMPH % 19.2 % (24.0-44.0); MEAN CORPUSCULAR HEMOGLOBIN 29.6 pg (27.0-33.0); MEAN CORPUSCULAR HGB CONC 33.1 g/dl (32.0-36.5); MEAN CORPUSCULAR VOLUME 89.2 fl (80.0-96.0); MONO # 0.4 10^3/uL (0.0-0.8); MONO % 6.2 % (2.0-8.0); NEUTROPHILS # 5.2 10^3/uL (1.5-8.5); NEUTROPHILS % 72.7 % (36.0-66.0); PLATELET COUNT, AUTOMATED 241 10^3/uL (150-450); RED BLOOD COUNT 5.65 10^6/uL (4.00-5.40); WHITE BLOOD COUNT 7.1 10^3/uL (4.0-10.0)
[2021-02-02 11:51] LABS: ALBUMIN 4.3 GM/DL (3.2-5.2); ALT/SGPT 24 U/L (12-78); BILIRUBIN,DIRECT 0.2 MG/DL (0.0-0.2); BILIRUBIN,TOTAL 0.5 MG/DL (0.2-1.0); BLOOD UREA NITROGEN 13 MG/DL (7-18); CALCIUM LEVEL 9.7 MG/DL (8.5-10.1); CARBON DIOXIDE LEVEL 27 MEQ/L (21-32); CHLORIDE LEVEL 107 MEQ/L (98-107); CREATININE FOR GFR 0.86 MG/DL (0.55-1.30); GLOMERULAR FILTRATION RATE > 60.0 (>51); GLUCOSE, FASTING 111 MG/DL (70-100); POTASSIUM SERUM 4.1 MEQ/L (3.5-5.1); SODIUM LEVEL 140 MEQ/L (136-145); TOTAL PROTEIN 7.9 GM/DL (6.4-8.2)
[2021-02-02] MEDS ORDERED: FENTANYL REMOVAL DOCUMENTATION MISC XX SCH ×3 (13:05→17:15)
[2021-02-02] MEDS: COMBIVENT RESPIMAT 100-20MCG INHALER 4GM INH SCH ×2 (13:19→13:20)
[2021-02-02 13:39] LABS: ABG BASE EXCESS -3.2 (-2.0-2.0); ABG HCO3 20.7 MEQ/L (22.0-26.0); ABG PARTIAL PRESSURE CO2 34.1 mmHg (35.0-45.0); ABG PARTIAL PRESSURE O2 62.1 mmHg (75.0-100.0); ABG STANDARD HCO3 21.7 MEQ/L (22.0-26.0); ABG TOTAL CO2 21.7 MEQ/L (22.0-29.0); ABG pH (ARTERIAL) 7.401 UNITS (7.350-7.450)
[2021-02-02] MEDS: fentaNYL 25 MCG/HR PATCH TOP ONE ×2 (13:55→14:07)
[2021-02-02] MEDS ORDERED: oxyCODONE 5MG TAB PO ONE (14:00)
[2021-02-02] MEDS ORDERED: fentaNYL 100 MCG/HR PATCH TOP ONE (14:00)
[2021-02-02] MEDS ORDERED: ISOVUE-370 76% 100ML VIAL As Ordered ONE (14:10)
[2021-02-02] MEDS ORDERED: LEVALBUTEROL 1.25 MG/0.5 ML CONCENTRATE NEB INH PRN (16:15)
[2021-02-02] MEDS ORDERED: FENT1DIS14 TD (16:43)
[2021-02-02] MEDS ORDERED: OMEP40CA4 PO (16:43)
[2021-02-02] MEDS ORDERED: BUPR150T12 PO (16:43)
[2021-02-02] MEDS ORDERED: QUET50TA4 PO (16:43)
[2021-02-02] MEDS ORDERED: NICO14DI24 TD (16:43)
[2021-02-02] MEDS ORDERED: OXYC20TA2 PO (16:43)
[2021-02-02] MEDS ORDERED: ATOR40TA75 PO (16:43)
[2021-02-02] MEDS ORDERED: BACL1TAB9 PO (16:43)
[2021-02-02] MEDS ORDERED: FENT10PA TD (16:43)
[2021-02-02] MEDS ORDERED: ANOR1AER PO (16:43)
[2021-02-02] MEDS ORDERED: HOME MED LIST COMPLETE! XX SCH (16:45)
[2021-02-02] MEDS ORDERED: HumaLOG INSULIN (NovoLOG) PER UNIT SC STA ×2 (16:47→16:48)
[2021-02-02] MEDS ORDERED: methylPREDNISolone 125MG 2ML VIAL IV ONE (17:00)
[2021-02-02] MEDS ORDERED: SENOKOT S TAB PO PRN (17:15)
[2021-02-02] MEDS ORDERED: MOM 30ML SUSPENSION UDC PO PRN (17:15)
[2021-02-02] MEDS: cefTRIAXone SOD 2 GM in D5W MINI-BAG PLUS 50 ML IV SCH (17:28)
[2021-02-02] MEDS: oxyCODONE 5MG TAB PO PRN ×2 (18:33→23:48)
[2021-02-02 18:35] LABS: NT-PRO BNP 19 PG/ML (<125)
[2021-02-02] MEDS: DOXYCYCLINE HYCLATE 100 MG in D5W MINI-BAG PLUS 100 ML IV SCH (18:48)
[2021-02-02 19:47] LABS: CK-MB VALUE MASS 1.9 NG/ML (<3.6); MB/CK RELATIVE INDEX 2.18 (< OR =4)
[2021-02-02] MEDS: methylPREDNISolone 125MG 2ML VIAL IV SCH (20:25)
[2021-02-02] MEDS: BACLOFEN 10 MG TAB PO PRN (20:25)
[2021-02-02] MEDS: QUEtiapine FUMARATE 50MG TAB PO SCH (20:25)
[2021-02-02] MEDS: FLUTICASONE HFA 220 MCG 12 GM INHALER (FLOVENT) INH SCH (20:58)
[2021-02-02] MEDS: LEVALBUTEROL 1.25 MG/0.5 ML CONCENTRATE NEB INH SCH ×2 (20:58→23:38)
[2021-02-02 22:00] VITALS: BP 103/65
[2021-02-03] MEDS: methylPREDNISolone 125MG 2ML VIAL IV SCH ×4 (02:33→20:13)
[2021-02-03] MEDS: LEVALBUTEROL 1.25 MG/0.5 ML CONCENTRATE NEB INH SCH ×6 (03:57→23:12)
[2021-02-03] MEDS: DOXYCYCLINE HYCLATE 100 MG in D5W MINI-BAG PLUS 100 ML IV SCH ×2 (05:34→18:27)
[2021-02-03] MEDS: oxyCODONE 5MG TAB PO PRN ×4 (05:35→18:36)
[2021-02-03 06:00] VITALS: BP 114/71
[2021-02-03 06:52] LABS: HEMATOCRIT 45.5 % (36.0-47.0); HEMOGLOBIN 14.8 g/dl (12.0-15.5); LYMPH # 0.3 10^3/uL (1.5-5.0); LYMPH % 12.5 % (24.0-44.0); MEAN CORPUSCULAR HEMOGLOBIN 29.1 pg (27.0-33.0); MEAN CORPUSCULAR HGB CONC 32.5 g/dl (32.0-36.5); MEAN CORPUSCULAR VOLUME 89.6 fl (80.0-96.0); MONO % 1.2 % (2.0-8.0); NEUTROPHILS # 2.2 10^3/uL (1.5-8.5); NEUTROPHILS % 85.9 % (36.0-66.0); PLATELET COUNT, AUTOMATED 223 10^3/uL (150-450); RED BLOOD COUNT 5.08 10^6/uL (4.00-5.40); WHITE BLOOD COUNT 2.6 10^3/uL (4.0-10.0)
[2021-02-03 07:07] LABS: BLOOD UREA NITROGEN 14 MG/DL (7-18); CALCIUM LEVEL 9.4 MG/DL (8.5-10.1); CARBON DIOXIDE LEVEL 21 MEQ/L (21-32); CHLORIDE LEVEL 103 MEQ/L (98-107); GLOMERULAR FILTRATION RATE > 60.0 (>51); GLUCOSE, FASTING 258 MG/DL (70-100); POTASSIUM SERUM 3.8 MEQ/L (3.5-5.1); SODIUM LEVEL 134 MEQ/L (136-145)
[2021-02-03] MEDS: FLUTICASONE HFA 220 MCG 12 GM INHALER (FLOVENT) INH SCH ×2 (08:08→20:05)
[2021-02-03] MEDS ORDERED: NICOTINE 14 MG/24 HR TRANSDERMAL TD SCH (09:00)
[2021-02-03] MEDS ORDERED: FLUBLOK(EGG FREE)(QUAD)INFLUENZA VACC 0.5ML SYRINGE 18YRS & OLDER IM ONE (09:00)
[2021-02-03] MEDS: OMEPRAZOLE 20MG CAP PO SCH (09:16)
[2021-02-03] MEDS: buPROPion **XL** TABLET 150MG (WELLBUTRIN XL) PO SCH (09:16)
[2021-02-03] MEDS: ATORVASTATIN 20 MG TAB PO SCH (09:16)
[2021-02-03] MEDS: NICOTINE 14 MG/24 HR TRANSDERMAL TD SCH (09:18)
[2021-02-03] MEDS: BACLOFEN 10 MG TAB PO PRN (09:58)
[2021-02-03] MEDS: TIOTROPIUM INHALER/CAPSULE (SPIRIVA) INH SCH (11:17)
[2021-02-03 14:00] VITALS: BP 113/68
[2021-02-03] MEDS: cefTRIAXone SOD 2 GM in D5W MINI-BAG PLUS 50 ML IV SCH (17:21)
[2021-02-03] MEDS: SUCRALFATE 1 GM TAB PO SCH (18:18)
[2021-02-03] MEDS: QUEtiapine FUMARATE 50MG TAB PO SCH (20:13)
[2021-02-03 22:00] VITALS: BP 118/72
[2021-02-04] MEDS: LEVALBUTEROL 1.25 MG/0.5 ML CONCENTRATE NEB INH SCH ×5 (04:00→19:57)
[2021-02-04] MEDS: DOXYCYCLINE HYCLATE 100 MG in D5W MINI-BAG PLUS 100 ML IV SCH ×2 (05:17→18:46)
[2021-02-04] MEDS: methylPREDNISolone 125MG 2ML VIAL IV SCH ×4 (05:17→20:16)
[2021-02-04] MEDS: oxyCODONE 5MG TAB PO PRN ×4 (05:17→18:36)
[2021-02-04 06:00] VITALS: BP 101/66
[2021-02-04 06:16] LABS: BASO % 0.2 % (0.0-1.0); HEMATOCRIT 42.5 % (36.0-47.0); HEMOGLOBIN 13.9 g/dl (12.0-15.5); LYMPH # 0.7 10^3/uL (1.5-5.0); LYMPH % 5.2 % (24.0-44.0); MEAN CORPUSCULAR HEMOGLOBIN 29.6 pg (27.0-33.0); MEAN CORPUSCULAR HGB CONC 32.7 g/dl (32.0-36.5); MEAN CORPUSCULAR VOLUME 90.6 fl (80.0-96.0); MONO # 0.5 10^3/uL (0.0-0.8); MONO % 3.7 % (2.0-8.0); NEUTROPHILS # 11.9 10^3/uL (1.5-8.5); NEUTROPHILS % 90.3 % (36.0-66.0); PLATELET COUNT, AUTOMATED 221 10^3/uL (150-450); RED BLOOD COUNT 4.69 10^6/uL (4.00-5.40); WHITE BLOOD COUNT 13.2 10^3/uL (4.0-10.0)
[2021-02-04 06:39] LABS: BLOOD UREA NITROGEN 13 MG/DL (7-18); CARBON DIOXIDE LEVEL 26 MEQ/L (21-32); CHLORIDE LEVEL 108 MEQ/L (98-107); CREATININE FOR GFR 0.81 MG/DL (0.55-1.30); GLOMERULAR FILTRATION RATE > 60.0 (>51); GLUCOSE, FASTING 136 MG/DL (70-100); POTASSIUM SERUM 4.4 MEQ/L (3.5-5.1); SODIUM LEVEL 139 MEQ/L (136-145)
[2021-02-04] MEDS: TIOTROPIUM INHALER/CAPSULE (SPIRIVA) INH SCH (07:38)
[2021-02-04] MEDS: FLUTICASONE HFA 220 MCG 12 GM INHALER (FLOVENT) INH SCH ×2 (07:39→19:57)
[2021-02-04] MEDS: ATORVASTATIN 20 MG TAB PO SCH (08:13)
[2021-02-04] MEDS: NICOTINE 14 MG/24 HR TRANSDERMAL TD SCH (08:14)
[2021-02-04] MEDS: buPROPion **XL** TABLET 150MG (WELLBUTRIN XL) PO SCH (08:14)
[2021-02-04] MEDS: OMEPRAZOLE 20MG CAP PO SCH (08:14)
[2021-02-04] MEDS: SUCRALFATE 1 GM TAB PO SCH ×3 (08:14→17:06)
[2021-02-04] MEDS: BACLOFEN 10 MG TAB PO PRN (10:02)
[2021-02-04 14:00] VITALS: BP 128/74
[2021-02-04] MEDS: cefTRIAXone SOD 2 GM in D5W MINI-BAG PLUS 50 ML IV SCH (17:06)
[2021-02-04 20:00] VITALS: BP 108/64
[2021-02-04] MEDS: QUEtiapine FUMARATE 50MG TAB PO SCH (20:16)
[2021-02-05] MEDS: methylPREDNISolone 125MG 2ML VIAL IV SCH ×2 (02:32→16:00)
[2021-02-05] MEDS: oxyCODONE 5MG TAB PO PRN ×5 (02:33→19:56)
[2021-02-05] MEDS: LEVALBUTEROL 1.25 MG/0.5 ML CONCENTRATE NEB INH SCH ×6 (03:54→20:00)
[2021-02-05] MEDS: DOXYCYCLINE HYCLATE 100 MG in D5W MINI-BAG PLUS 100 ML IV SCH ×2 (05:11→17:55)
[2021-02-05 05:35] VITALS: BP 109/64
[2021-02-05] MEDS: SUCRALFATE 1 GM TAB PO SCH ×3 (06:44→16:01)
[2021-02-05 06:46] LABS: BASO % 0.1 % (0.0-1.0); HEMATOCRIT 41.9 % (36.0-47.0); HEMOGLOBIN 13.6 g/dl (12.0-15.5); LYMPH # 0.4 10^3/uL (1.5-5.0); LYMPH % 4.1 % (24.0-44.0); MEAN CORPUSCULAR HEMOGLOBIN 29.6 pg (27.0-33.0); MEAN CORPUSCULAR HGB CONC 32.5 g/dl (32.0-36.5); MEAN CORPUSCULAR VOLUME 91.1 fl (80.0-96.0); MONO # 0.2 10^3/uL (0.0-0.8); MONO % 1.9 % (2.0-8.0); NEUTROPHILS # 9.1 10^3/uL (1.5-8.5); NEUTROPHILS % 93.3 % (36.0-66.0); PLATELET COUNT, AUTOMATED 196 10^3/uL (150-450); WHITE BLOOD COUNT 9.7 10^3/uL (4.0-10.0)
[2021-02-05 07:04] LABS: BLOOD UREA NITROGEN 18 MG/DL (7-18); CALCIUM LEVEL 9.2 MG/DL (8.5-10.1); CARBON DIOXIDE LEVEL 26 MEQ/L (21-32); CHLORIDE LEVEL 105 MEQ/L (98-107); CREATININE FOR GFR 0.83 MG/DL (0.55-1.30); GLOMERULAR FILTRATION RATE > 60.0 (>51); GLUCOSE, FASTING 189 MG/DL (70-100); SODIUM LEVEL 140 MEQ/L (136-145)
[2021-02-05] MEDS: FLUTICASONE HFA 220 MCG 12 GM INHALER (FLOVENT) INH SCH ×2 (07:10→21:15)
[2021-02-05] MEDS: TIOTROPIUM INHALER/CAPSULE (SPIRIVA) INH SCH (07:11)
[2021-02-05] MEDS ORDERED: DICLOFENAC EPOLAMINE 1.3 % PATCH TOP SCH (07:15)
[2021-02-05] MEDS ORDERED: KETOROLAC 30 MG/ML 1ML VIAL IV SCH (07:15)
[2021-02-05] MEDS ORDERED: NS 1,000 ML IV SCH (08:00)
[2021-02-05] MEDS: ATORVASTATIN 20 MG TAB PO SCH (08:00)
[2021-02-05] MEDS ORDERED: HYDROMORPHONE HCL 0.5 MG/ 0.5 ML SYRINGE (J1170 PER 1) IV ONE (08:00)
[2021-02-05] MEDS: OMEPRAZOLE 20MG CAP PO SCH (08:01)
[2021-02-05] MEDS: buPROPion **XL** TABLET 150MG (WELLBUTRIN XL) PO SCH (08:01)
[2021-02-05] MEDS: NICOTINE 14 MG/24 HR TRANSDERMAL TD SCH (08:01)
[2021-02-05] MEDS ORDERED: fentaNYL 100 MCG/HR PATCH TD SCH ×2 (09:00→13:00)
[2021-02-05] MEDS ORDERED: fentaNYL 25 MCG/HR PATCH TD SCH ×2 (09:00→13:00)
[2021-02-05] MEDS ORDERED: FENTANYL REMOVAL DOCUMENTATION MISC XX SCH ×2 (09:00→13:00)
[2021-02-05 14:00] VITALS: BP 105/62
[2021-02-05] MEDS: BACLOFEN 10 MG TAB PO PRN (16:01)
[2021-02-05 17:10] LABS: BLOOD UREA NITROGEN 24 MG/DL (7-18); CALCIUM LEVEL 9.1 MG/DL (8.5-10.1); CARBON DIOXIDE LEVEL 27 MEQ/L (21-32); CHLORIDE LEVEL 107 MEQ/L (98-107); CREATININE FOR GFR 0.78 MG/DL (0.55-1.30); GLOMERULAR FILTRATION RATE > 60.0 (>51); GLUCOSE, FASTING 118 MG/DL (70-100); POTASSIUM SERUM 3.9 MEQ/L (3.5-5.1); SODIUM LEVEL 142 MEQ/L (136-145)
[2021-02-05] MEDS: cefTRIAXone SOD 2 GM in D5W MINI-BAG PLUS 50 ML IV SCH (17:21)
[2021-02-05] MEDS: QUEtiapine FUMARATE 50MG TAB PO SCH (19:55)
[2021-02-06] MEDS: oxyCODONE 5MG TAB PO PRN ×6 (00:16→20:39)
[2021-02-06] MEDS: LEVALBUTEROL 1.25 MG/0.5 ML CONCENTRATE NEB INH SCH ×6 (03:14→17:55)
[2021-02-06] MEDS: methylPREDNISolone 125MG 2ML VIAL IV SCH (04:03)
[2021-02-06 05:48] LABS: BASO % 0.1 % (0.0-1.0); HEMATOCRIT 40.3 % (36.0-47.0); HEMOGLOBIN 12.9 g/dl (12.0-15.5); LYMPH # 0.6 10^3/uL (1.5-5.0); LYMPH % 7.6 % (24.0-44.0); MEAN CORPUSCULAR HEMOGLOBIN 29.2 pg (27.0-33.0); MEAN CORPUSCULAR VOLUME 91.2 fl (80.0-96.0); MONO # 0.4 10^3/uL (0.0-0.8); MONO % 4.6 % (2.0-8.0); NEUTROPHILS # 7.1 10^3/uL (1.5-8.5); PLATELET COUNT, AUTOMATED 204 10^3/uL (150-450); RED BLOOD COUNT 4.42 10^6/uL (4.00-5.40); WHITE BLOOD COUNT 8.2 10^3/uL (4.0-10.0)
[2021-02-06 06:00] VITALS: BP 108/56
[2021-02-06 06:08] LABS: BLOOD UREA NITROGEN 16 MG/DL (7-18); CALCIUM LEVEL 8.8 MG/DL (8.5-10.1); CARBON DIOXIDE LEVEL 27 MEQ/L (21-32); CHLORIDE LEVEL 108 MEQ/L (98-107); CREATININE FOR GFR 0.72 MG/DL (0.55-1.30); GLOMERULAR FILTRATION RATE > 60.0 (>51); GLUCOSE, FASTING 100 MG/DL (70-100); POTASSIUM SERUM 4.5 MEQ/L (3.5-5.1); SODIUM LEVEL 142 MEQ/L (136-145)
[2021-02-06] MEDS: DOXYCYCLINE HYCLATE 100 MG in D5W MINI-BAG PLUS 100 ML IV SCH (06:36)
[2021-02-06] MEDS: TIOTROPIUM INHALER/CAPSULE (SPIRIVA) INH SCH (07:12)
[2021-02-06] MEDS: FLUTICASONE HFA 220 MCG 12 GM INHALER (FLOVENT) INH SCH ×2 (07:12→17:55)
[2021-02-06] MEDS: SUCRALFATE 1 GM TAB PO SCH ×3 (07:31→16:22)
[2021-02-06] MEDS ORDERED: PILL CUTTER 1 EACH XX PRN (08:10)
[2021-02-06] MEDS: NICOTINE 14 MG/24 HR TRANSDERMAL TD SCH (08:16)
[2021-02-06] MEDS: OMEPRAZOLE 20MG CAP PO SCH (08:16)
[2021-02-06] MEDS: ATORVASTATIN 20 MG TAB PO SCH (08:16)
[2021-02-06] MEDS: buPROPion **XL** TABLET 150MG (WELLBUTRIN XL) PO SCH (09:00)
[2021-02-06 14:00] VITALS: BP 134/77
[2021-02-06] MEDS: QUEtiapine FUMARATE 50MG TAB PO SCH (20:38)
[2021-02-06 22:00] VITALS: BP 130/81
[2021-02-07] MEDS: oxyCODONE 5MG TAB PO PRN ×4 (00:42→14:06)
[2021-02-07 06:00] VITALS: BP_SYST 142; BP_SYST 145; BP_DIAS 68; BP_DIAS 79
[2021-02-07] MEDS ORDERED: DEXA4TA PO (06:09)
[2021-02-07] MEDS ORDERED: TIOT18INH INH (06:09)
[2021-02-07] MEDS ORDERED: FLUT22IN INH (06:09)
[2021-02-07] MEDS ORDERED: DECA4TAB PO ×2 (06:12)
[2021-02-07] MEDS: SUCRALFATE 1 GM TAB PO SCH ×2 (06:39→13:05)
[2021-02-07] MEDS: LEVALBUTEROL 1.25 MG/0.5 ML CONCENTRATE NEB INH SCH ×2 (08:41→12:00)
[2021-02-07] MEDS: TIOTROPIUM INHALER/CAPSULE (SPIRIVA) INH SCH (08:41)
[2021-02-07] MEDS: FLUTICASONE HFA 220 MCG 12 GM INHALER (FLOVENT) INH SCH (08:41)
[2021-02-07] MEDS: buPROPion **XL** TABLET 150MG (WELLBUTRIN XL) PO SCH (08:46)
[2021-02-07] MEDS: OMEPRAZOLE 20MG CAP PO SCH (08:46)
[2021-02-07] MEDS: ATORVASTATIN 20 MG TAB PO SCH (08:46)
[2021-02-07] MEDS: NICOTINE 14 MG/24 HR TRANSDERMAL TD SCH (08:47)
[2021-02-07 09:06] LABS: BASO % 0.2 % (0.0-1.0); HEMATOCRIT 45.4 % (36.0-47.0); HEMOGLOBIN 14.6 g/dl (12.0-15.5); LYMPH # 0.6 10^3/uL (1.5-5.0); LYMPH % 7.5 % (24.0-44.0); MEAN CORPUSCULAR HEMOGLOBIN 29.4 pg (27.0-33.0); MEAN CORPUSCULAR HGB CONC 32.2 g/dl (32.0-36.5); MEAN CORPUSCULAR VOLUME 91.3 fl (80.0-96.0); MONO # 0.4 10^3/uL (0.0-0.8); MONO % 5.2 % (2.0-8.0); NEUTROPHILS # 7.2 10^3/uL (1.5-8.5); NEUTROPHILS % 85.8 % (36.0-66.0); PLATELET COUNT, AUTOMATED 234 10^3/uL (150-450); RED BLOOD COUNT 4.97 10^6/uL (4.00-5.40); WHITE BLOOD COUNT 8.4 10^3/uL (4.0-10.0)
[2021-02-07 09:49] LABS: BLOOD UREA NITROGEN 18 MG/DL (7-18); CALCIUM LEVEL 9.3 MG/DL (8.5-10.1); CARBON DIOXIDE LEVEL 31 MEQ/L (21-32); CHLORIDE LEVEL 103 MEQ/L (98-107); CREATININE FOR GFR 0.84 MG/DL (0.55-1.30); GLOMERULAR FILTRATION RATE > 60.0 (>51); GLUCOSE, FASTING 122 MG/DL (70-100); POTASSIUM SERUM 4.2 MEQ/L (3.5-5.1); SODIUM LEVEL 141 MEQ/L (136-145)
[2021-02-07] MEDS ORDERED: XANA0.25 PO (10:21)
[2021-02-07] MEDS ORDERED: DOXY-350 PO (10:36)
[2021-02-07] MEDS ORDERED: FENT10PA TOP (10:36)
[2021-02-07] MEDS ORDERED: PROV108A INH (10:37)
[2021-02-07] MEDS ORDERED: ATIV1TAB10 PO (13:00)
== END 2021-02-07 14:15 | disposition home health service (06) | DRG 192 ==
LOC: M ED 10:53 → M MS5PR 16:03 → M ED INP 16:03 → ENRESERV 16:18 → M MS5PR 17:55
PROVIDERS: ADMIT General Practice; ATTEND General Practice
DX: J44.1 Chronic obstructive pulmonary disease with (acute) exacerbation (principal); G35 Multiple sclerosis; F41.9 Anxiety disorder, unspecified; E78.2 Mixed hyperlipidemia; M79.7 Fibromyalgia; K21.9 Gastro-esophageal reflux disease without esophagitis; M81.0 Age-related osteoporosis without current pathological fracture; F32.A Depression, unspecified; G43.709 Chronic migraine without aura, not intractable, without status migrainosus; M06.30 Rheumatoid nodule, unspecified site; Z90.2 Acquired absence of lung [part of]; Z85.118 Personal history of other malignant neoplasm of bronchus and lung; Z92.21 Personal history of antineoplastic chemotherapy; Z92.3 Personal history of irradiation; Z85.42 Personal history of malignant neoplasm of other parts of uterus; Z98.1 Arthrodesis status; Z79.899 Other long term (current) drug therapy; Z88.6 Allergy status to analgesic agent; Z91.040 Latex allergy status; Z88.8 Allergy status to other drugs, medicaments and biological substances

== ENCOUNTER 2021-02-11 12:50 | Inpatient (IN) | payer MEDICARE, MEDICAID ==
[~2021-02-11] VITALS: Ht 160 cm; Wt 63.0 kg
[~2021-02-11 12:50] MED LIST changes: +ANOR1AER PO; +ATIV1TAB10 PO; +BACL1TAB9 PO; +BUPR150T12 PO; +DECA4TAB PO; +DEXA4TA PO; +DOXY-350 PO; +FENT10PA TD; +FENT10PA TOP; +FLUT22IN INH; +NICO14DI24 TD; +PROV108A INH; +QUET50TA4 PO; +TIOT18INH INH; +XANA0.25 PO
[2021-02-11] MEDS ORDERED: methylPREDNISolone 125MG 2ML VIAL IV ONE (13:25)
[2021-02-11] MEDS ORDERED: MORPHINE 2 MG/ML 1ML VIAL (J2270) IV ONE (13:25)
[2021-02-11] MEDS ORDERED: fentaNYL 100 MCG/HR PATCH TOP ONE (14:05)
[2021-02-11] MEDS ORDERED: fentaNYL 25 MCG/HR PATCH TOP ONE (14:05)
[2021-02-11] MEDS ORDERED: FENTANYL REMOVAL DOCUMENTATION MISC XX SCH ×4 (14:05→17:35)
[2021-02-11 14:13] LABS: BASO % 0.1 % (0.0-1.0); HEMATOCRIT 46.7 % (36.0-47.0); HEMOGLOBIN 15.6 g/dl (12.0-15.5); LYMPH # 0.9 10^3/uL (1.5-5.0); LYMPH % 9.3 % (24.0-44.0); MEAN CORPUSCULAR HEMOGLOBIN 29.3 pg (27.0-33.0); MEAN CORPUSCULAR HGB CONC 33.4 g/dl (32.0-36.5); MEAN CORPUSCULAR VOLUME 87.8 fl (80.0-96.0); MONO # 0.4 10^3/uL (0.0-0.8); NEUTROPHILS # 7.9 10^3/uL (1.5-8.5); NEUTROPHILS % 85.4 % (36.0-66.0); PLATELET COUNT, AUTOMATED 261 10^3/uL (150-450); RED BLOOD COUNT 5.32 10^6/uL (4.00-5.40); WHITE BLOOD COUNT 9.3 10^3/uL (4.0-10.0)
[2021-02-11 14:53] LABS: ALBUMIN 3.6 GM/DL (3.2-5.2); ALT/SGPT 35 U/L (12-78); BILIRUBIN,DIRECT 0.1 MG/DL (0.0-0.2); BILIRUBIN,TOTAL 0.6 MG/DL (0.2-1.0); BLOOD UREA NITROGEN 19 MG/DL (7-18); CALCIUM LEVEL 8.9 MG/DL (8.5-10.1); CARBON DIOXIDE LEVEL 25 MEQ/L (21-32); CHLORIDE LEVEL 104 MEQ/L (98-107); CREATININE FOR GFR 0.78 MG/DL (0.55-1.30); GLOMERULAR FILTRATION RATE > 60.0 (>51); GLUCOSE, FASTING 91 MG/DL (70-100); NT-PRO BNP 72 PG/ML (<125); POTASSIUM SERUM 4.7 MEQ/L (3.5-5.1); SODIUM LEVEL 137 MEQ/L (136-145); THYROID STIMULATING HORMONE 0.255 uIU/ML (0.358-3.740); THYROXINE (T4) 6.2 UG/DL (4.5-12.0); TOTAL PROTEIN 6.8 GM/DL (6.4-8.2)
[2021-02-11] MEDS ORDERED: MORPHINE 4 MG/ML 1ML VIAL/SYRINGE (J2270) IV ONE (14:55)
--- NOTE | 2021-02-11 15:13 | REP ---
INDICATION: DYSPNEA/COUGH. COMPARISON: None. TECHNIQUE: Single portable AP view of the chest was performed. FINDINGS: There is no acute infiltrate or pulmonary edema. Lungs are clear. The heart is not significantly enlarged. The mediastinal silhouette is unremarkable. The visualized osseous structures are intact.Right central venous catheter is seen with the tip in the superior vena cava. Metallic fixation is seen in the lower thoracic spine. IMPRESSION: No acute pulmonary disease. <Electronically signed by Omar Boyd > 02/11/21 [id number]
--- NOTE | 2021-02-11 16:25 | HPEPDOC ---
General Date of Admission 02/11/21 Date of Service: Feb 11, 2021 Chief Complaint The patient is a 55-year-old female admitted with a reason for visit of Shorrness Of Breath. Source: Patient, RN/MD History of Present Illness 55 year old female with PMH of Stage IIIa non-small cell lung carcinoma of the right lung (large cell variant) status post right upper lobectomy, incomplete chemoradiation stopped treatment 1 year ago due to side effects, MS since 2020 did not tolerate any therapy due to side effects, COPD non oxygen dependent but does intermittently use 2 L oxygen at home for comfort, Asthma, migraine, chronic back and neck pains with h/o back surgery presented to ED for increased Shortness of breath. She was most recently admitted from 02/02 to 02/07 for COPD exacerbation, chronic pain issues. Today other that her SOB she complained of extreme generalized weakness and unable to complete her ADLS in a timely manner. She reported that it took her more than an hour to shower this am and then she could not get out of the shower. She does not have any support person at home. In ED her vitals her stable , no hypoxia , her Labs are similar to 1 week ago. She is being admitted for generalized debility and unable to care for herself at home. Home Medications Scheduled Atorvastatin Calcium (Atorvastatin Calcium) 40 Mg Tablet, 40 MG PO DAILY, (Reported) Bupropion Hcl (Bupropion Xl) 150 Mg Tab.er.24h, 150 MG PO DAILY, (Reported) Dexamethasone (Dexamethasone) 4 Mg Tablet, 10 MG PO BID, (Reported) Doxycycline Monohydrate (Doxycycline Monohydrate) 100 Mg Capsule, 100 MG PO BID, (Reported) Fentanyl (Fentanyl) 25 Mcg Patch.td72, 25 MCG TD Q3RD, (Reported) APPLIED TO LEFT CHEST WALL Fentanyl (Fentanyl) 100 Mcg Patch.td72, 100 MCG TD Q3RD, (Reported) APPLIED TO LEFT CHEST WALL Fluticasone Propionate (Flovent Hfa) 44 Mcg/Act Aer.w.adap, 2 PUFF INH BID, (Reported) Nicotine (Nicotine Patch) 14 Mg Patch.td24, 14 MG TD DAILY, (Reported) APPLIED TO LEFT DELTOID Omeprazole (Omeprazole) 40 Mg Capsule.dr, 40 MG PO DAILY, (Reported) Quetiapine Fumarate (Quetiapine Fumarate) 50 Mg Tablet, 50 MG PO QHS, (Reported) Tiotropium [place] Monohydrate (Spiriva) 18 Mcg Cap.w.dev, 1 INHALATION INH DAILY, (Reported) Scheduled PRN Albuterol Sulfate (Proventil Hfa) 6.7 Gm Hfa.aer.ad, 2 PUFF INH QID PRN for SHORTNESS OF BREATH, (Reported) Baclofen (Baclofen) 20 Mg Tablet, 20 MG PO BID PRN for MUSCLE SPASMS, (Reported) Oxycodone Hcl (Oxycodone HCl) 20 Mg Tablet, 40 MG PO Q4H PRN for PAIN LEVEL 7- 10, (Reported) Allergies Coded Allergies: pregabalin (Verified Allergy, Severe, swollen tongue, 12/04/19) estrogens, conjugated (Verified Allergy, Intermediate, hives, 12/04/19) ketorolac (Verified Allergy, Intermediate, hives, 12/04/19) teriflunomide (Verified Allergy, Intermediate, hives, 12/04/19) topiramate (Verified Allergy, Intermediate, hives, 12/04/19) buprenorphine (Verified Allergy, Mild, rash, 06/04/20) celecoxib (Verified Allergy, Mild, rash, 06/04/20) duloxetine (Verified Allergy, Mild, rash, 06/04/20) escitalopram (Verified Allergy, Mild, rash, 06/04/20) etanercept (Verified Allergy, Mild, rash, 06/04/20) tiagabine (Verified Allergy, Mild, rash, 06/04/20) levetiracetam (Unverified Allergy, Unknown, 06/04/20) glatiramer (copolymer 1) (Verified Adverse Reaction, Intermediate, LUMPS AT INJECTION SITE, 12/04/19) ibuprofen (Verified Adverse Reaction, Intermediate, SEVERE GI Bleed, 12/04/19) interferon beta-1b (Verified Adverse Reaction, Intermediate, LUMPS AT INJECTION SITE, 12/04/19) latex (Verified Adverse Reaction, Intermediate, TEARS SKIN, 12/04/19) meloxicam (Verified Adverse Reaction, Intermediate, GI BLEED, 12/04/19) prednisone (Verified Adverse Reaction, Intermediate, rage, 12/04/19) gabapentin (Verified Adverse Reaction, Mild, "EMOTIONAL ROLLER COASTER", 12/04/19) Past Medical History Medical History Adenocarcinoma stage IIIa lung cancer status post right upper lobectomy and mediastinal lymphadenectomy, Incomplete Chemotherapy, RT for positive lymphnodes stopped treatment Multiple sclerosis status post many medical treatments with failure and lost to follow-up refused further treatment due to side effects of medications COPD with chronic hypoxic resp failure on 2L Bronchial asthma Rheumatoid arthritis with rheumatoid nodules, Uterine cancer status post hysterectomy Fibromyalgia , Multiple neck and back surgeries GERD Anxiety, depression, mixed dyslipidemia, H/o chylothorax Chronic neck and back pain, Surgical History Tubal ligation, two C-sections, hysterectomy, history of osteoporosis and orthopedic surgeries, Right upper lobectomy for stage III large cell lung cancer, T10-T12 fusion surgery, left wrist surgery Family History Father had MS and at the age of 51 Social History * Smoker: former Smoker Alcohol: Denies Drugs: denies A-FIB/CHADSVASC A-FIB History Current/History of A-Fib/PAF?: No Review of Systems Constitutional: Reports: Weakness, Fatigue Eyes: Denies: Pain, Vision change ENT: Reports: Head Aches Skin: Denies: Rash, Lesions, Breakdown Pulmonary: Reports: Dyspnea, Cough Cardiovascular: Denies: Chest Pain, Palpitations, Lt Headedness Gastrointestinal: Denies: Nausea, Vomiting, Abdominal Pain, Diarrhea Genitourinary: Denies: Dysuria, Frequency, Incontinence, Retention Hematologic: Denies: Bruising, Bleeding Excessively Musculoskeletal: Reports: Neck Pain, Back Pain, Joint Pain, Muscle Pain Psych: Reports: Anxiety, Depression Physical Examination General Exam: Positive: Alert, Cooperative, No Acute Distress Eye Exam: Positive: PERRLA, Conjunctiva & lids normal, EOMI; Negative: Sclera icteric Neck Exam: Positive: Supple; Negative: JVD, thyromegaly Chest Exam: Positive: Rhonchi, Diminished Heart Exam: Positive: Rate Normal, Regular Rhythm, Normal S1, Normal S2; Negative: Murmurs, Rubs Abdomen Exam: Positive: Normal bowel sounds, Soft; Negative: Tenderness Extremity Exam: Negative: Clubbing, Cyanosis, Edema Psych Exam: Positive: Memory Intact, Oriented x 3 Vital Signs Vital Signs Date Time Temp Pulse Resp B/P (MAP) Pulse Ox O2 Delivery O2 Flow Rate FiO2 02/11/21 15:07 16 02/11/21 13:15 98.0 83 142/77 (98) 96 Room Air Laboratory Data Labs 24H Laboratory Tests 2 02/11/21 13:58: Immature Granulocyte % (Auto) 1.2, Neutrophils (%) (Auto) 85.4H, Lymphocytes (%) (Auto) 9.3L, Monocytes (%) (Auto) 4.0, Eosinophils (%) (Auto) 0.0, Basophils (%) (Auto) 0.1, Neutrophils # (Auto) 7.9, Lymphocytes # (Auto) 0.9L, Monocytes # (Auto) 0.4, Eosinophils # (Auto) 0.0, Basophils # (Auto) 0.0, Nucleated Red Blood Cells % (auto) 0.0, Anion Gap 8, Glomerular Filtration Rate > 60.0, Lactic Acid Level 2.6*H, Calcium Level 8.9, Total Bilirubin 0.6, Direct Bilirubin 0.1, Aspartate Amino Transf (AST/SGOT) 19, Alanine Aminotransferase (ALT/SGPT) 35, Alkaline Phosphatase 73, TR-Ywa-Z-Type Natriuretic Peptide 72, Total Protein 6.8, Albumin 3.6, Albumin/Globulin Ratio 1.1L, Thyroid Stimulating Hormone (TSH) 0.255L, Thyroxine (T4) 6.2 02/11/21 14:00: POC Troponin I (Misc) 0.00 CBC/BMP Laboratory Tests 02/11/21 13:58 Microbiology Microbiology 02/11/21 Blood Culture, Received Pending 02/11/21 Respiratory Virus Panel (PCR) ([facility]) - Final, Complete 02/11/21 Blood Culture, Received Pending Assessment/Plan 55 year old female with PMH of Stage IIIa non-small cell lung carcinoma of the right lung (large cell variant) status post right upper lobectomy, incomplete chemoradiation stopped treatment 1 year ago due to side effects, MS since 2011 did not tolerate any therapy due to side effects, COPD non oxygen dependent but does intermittently use 2 L oxygen at home for comfort, Asthma, migraine, chronic back and neck pains with h/o back surgery presented to ED for increased Shortness of breath. She was most recently admitted from 02/02 to 02/07 for COPD exacerbation, chronic pain issues. Today other that her SOB she complained of extreme generalized weakness and unable to complete her ADLS in a timely manner. She reported that it took her more than an hour to shower this am and then she could not get out of the shower. She has not been able eating since discharge as she has been unable to stand for any length of time to make her meals. She does not have any support person at home. In ED her vitals her stable , no hypoxia , her Labs are similar to 1 week ago. She is being admitted for generalized debility and unable to care for herself at home. Debility and unable to care for herself at home After recent hospitalization. PT/OT PFS consult COPD/ asthma not in exacerbation Not oxygen dependent at rest but does have oxygen at home and uses it during ambulation. This was ordered during last admission. continue spiriva and replace with symbicort the second inhaler Continue dexamethasone taper Resolving pneumonia continue doxycycline Lung cancer stopped treatment due to side effects MS stopped all treatment due to side effects Chronic back pain, neck pain, muscle aches/ spasms opiate dependent. On fentanyl patch, baclofen, oxycodone 40 every 4 hours. HLD stain GERD PPI Migraine continue home meds. Anxiety/ depression bupropion, seroquel. Plan / VTE VTE Prophylaxis Ordered?: Yes Sophia Duggan MD Feb 11, 2021 16:19
[2021-02-11] MEDS ORDERED: FLUT44IN INH (16:29)
[2021-02-11] MEDS ORDERED: PROV108A INH (16:29)
[2021-02-11] MEDS ORDERED: DEXA4TA PO (16:29)
[2021-02-11] MEDS ORDERED: DOXY-443 PO (16:29)
[2021-02-11] MEDS ORDERED: HOME MED LIST COMPLETE! XX SCH (16:30)
[2021-02-11] MEDS ORDERED: TIOT18INH INH (16:30)
[2021-02-11] MEDS ORDERED: ALBUTEROL SULFATE 2.5 MG/0.5 ML INH NEB SOLN NEB PRN (17:35)
[2021-02-11] MEDS ORDERED: LR 1,000 ML IV ONE (19:55)
[2021-02-11] MEDS: oxyCODONE 5MG TAB PO PRN (20:07)
[2021-02-11] MEDS: FLUTICASONE HFA 44 MCG 10.6GM INHALER (FLOVENT) INH SCH (20:57)
[2021-02-11] MEDS: SYMBICORT 160/4.5MCG INHALER 6GM INH SCH (20:57)
[2021-02-11] MEDS ORDERED: QUEtiapine FUMARATE 50MG TAB PO SCH (21:00)
[2021-02-11] MEDS: DOXYCYCLINE HYCLATE 100MG TABLET PO SCH (23:03)
[2021-02-12] MEDS: oxyCODONE 5MG TAB PO PRN ×5 (01:27→18:20)
[2021-02-12] MEDS ORDERED: LORazepam 1 MG TAB PO ONE (01:50)
--- NOTE | 2021-02-12 07:31 | ECGEPIP ---
[facility] - ED Test Date: 2021-02-11 Pat Name: GWEN HOWE Department: Room: - Gender: Female [employer] Project Coordinator: KENNY : 1965 Requested By: BEAU ABDULLAHI Order Number: [id number] Reading MD: Suzette Rodriguez Measurements Intervals [place] Rate: 93 P: 67 [place]: 132 QRS: 14 QRSD: 60 T: 74 QT: 340 QTc: 422 Interpretive Statements Normal sinus rhythm NSTTW abnormalities decreased rate 02/02/21 Electronically Signed on 02-12-2021 7:30:35 EST by Suzette Rodriguez
[2021-02-12 08:00] VITALS: BP 123/81
[2021-02-12] MEDS: FLUTICASONE HFA 44 MCG 10.6GM INHALER (FLOVENT) INH SCH (08:00)
[2021-02-12] MEDS ORDERED: TIOTROPIUM INHALER/CAPSULE (SPIRIVA) INH SCH (08:00)
[2021-02-12 08:25] LABS: HEMATOCRIT 43.8 % (36.0-47.0); HEMOGLOBIN 14.3 g/dl (12.0-15.5); MEAN CORPUSCULAR HEMOGLOBIN 29.1 pg (27.0-33.0); MEAN CORPUSCULAR HGB CONC 32.6 g/dl (32.0-36.5); PLATELET COUNT, AUTOMATED 220 10^3/uL (150-450); RED BLOOD COUNT 4.92 10^6/uL (4.00-5.40); WHITE BLOOD COUNT 9.8 10^3/uL (4.0-10.0)
[2021-02-12] MEDS: SYMBICORT 160/4.5MCG INHALER 6GM INH SCH (08:29)
[2021-02-12 08:52] LABS: BLOOD UREA NITROGEN 23 MG/DL (7-18); CALCIUM LEVEL 8.9 MG/DL (8.5-10.1); CARBON DIOXIDE LEVEL 25 MEQ/L (21-32); CHLORIDE LEVEL 108 MEQ/L (98-107); CREATININE FOR GFR 0.67 MG/DL (0.55-1.30); GLOMERULAR FILTRATION RATE > 60.0 (>51); GLUCOSE, FASTING 107 MG/DL (70-100); POTASSIUM SERUM 4.7 MEQ/L (3.5-5.1); SODIUM LEVEL 140 MEQ/L (136-145)
[2021-02-12] MEDS ORDERED: NICOTINE 14 MG/24 HR TRANSDERMAL TD SCH (09:00)
[2021-02-12] MEDS ORDERED: OMEPRAZOLE 20 MG CAP PO SCH (09:00)
[2021-02-12] MEDS ORDERED: ATORVASTATIN 20 MG TAB PO SCH (09:00)
[2021-02-12] MEDS ORDERED: buPROPion **XL** TABLET 150MG (WELLBUTRIN XL) PO SCH (09:00)
[2021-02-12] MEDS: ENOXAPARIN 40MG/0.4ML SYRINGE (J1650 PER 10MG) SC SCH ×2 (09:00→09:27)
[2021-02-12] MEDS: DOXYCYCLINE HYCLATE 100MG TABLET PO SCH (09:28)
[2021-02-12] MEDS ORDERED: ALBUTEROL SULFATE 2.5 MG/0.5 ML INH NEB SOLN NEB SCH (14:00)
--- NOTE | 2021-02-12 14:09 | IPNPDOC ---
Subjective Date Seen The patient was seen on 02/12/21. Subjective Chief Complaint/HPI Patient was very anxious and could not sleep last night so needed lorazepam 1 mg. At present patient is in severe pain she reports that her fentanyl 100 mcg transdermal patch which was put on in ED fell off yesterday night and was retaped the back and it is not sticking to the skin. She is very shaky hot flushed feeling cannot breathe in enough air. She may be undergoing some withdrawal or it could be side effect of Decadron that she got earlier Objective Physical Examination General Exam: Positive: Alert, Cooperative, No Acute Distress Eye Exam: Positive: PERRLA, Conjunctiva & lids normal, EOMI; Negative: Sclera icteric Neck Exam: Positive: Supple; Negative: JVD, thyromegaly Chest Exam: Positive: Rhonchi, Diminished Heart Exam: Positive: Rate Normal, Regular Rhythm, Normal S1, Normal S2; Negative: Murmurs, Rubs Abdomen Exam: Positive: Normal bowel sounds, Soft; Negative: Tenderness Extremity Exam: Negative: Clubbing, Cyanosis, Edema Psych Exam: Positive: Memory Intact, Oriented x 3 Assessment /Plan Assessment 55 year old female with PMH of Stage IIIa non-small cell lung carcinoma of the right lung (large cell variant) status post right upper lobectomy, incomplete chemoradiation stopped treatment 1 year ago due to side effects, MS since 2011 did not tolerate any therapy due to side effects, COPD non oxygen dependent but does intermittently use 2 L oxygen at home for comfort, Asthma, migraine, chronic back and neck pains with h/o back surgery presented to ED for increased Shortness of breath. She was most recently admitted from 02/02 to 02/07 for COPD exacerbation, chronic pain issues. Today other that her SOB she complained of extreme generalized weakness and unable to complete her ADLS in a timely manner. She reported that it took her more than an hour to shower this am and then she could not get out of the shower. She has not been able eating since discharge as she has been unable to stand for any length of time to make her meals. She does not have any support person at home. In ED her vitals her stable , no hypoxia , her Labs are similar to 1 week ago. She is being admitted for generalized debility and unable to care for herself at home. Opiate withdrawal Likely due to fentanyl patch not sticking to her chest wall. She does have history of opiate withdrawal. Will request for a new 100 mcg patch from pharmacy will give dilaudid for now. Debility and unable to care for herself at home After recent hospitalization. PT/OT PFS consult Ambulate with nursing for 3 times a day, monitor oxygen saturations while ambulating. COPD/ asthma not in exacerbation at present. Not oxygen dependent at rest but does have oxygen at home and uses it during ambulation. This was ordered during last admission. continue spiriva and replace with symbicort the second inhaler Continue dexamethasone taper Resolving pneumonia continue doxycycline Lung cancer stopped treatment due to side effects MS stopped all treatment due to side effects Chronic back pain, neck pain, muscle aches/ spasms opiate dependent. On fentanyl patch, baclofen, oxycodone 40 every 4 hours. HLD stain GERD PPI Migraine continue home meds. Anxiety/ depression bupropion, seroquel. Plan/VTE VTE Prophylaxis Ordered?: Yes VS, I&O, 24H, Fishbone Vital Signs/I&O Vital Signs Date Time Temp Pulse Resp B/P (MAP) Pulse Ox O2 Delivery O2 Flow Rate FiO2 02/12/21 10:47 18 02/12/21 08:22 98.4 95 94 Room Air 02/12/21 08:00 123/81 (95) Laboratory Data 24H LABS Laboratory Tests 2 02/11/21 18:39: Lactic Acid Followup at 4 Hours 3.0*H 02/12/21 07:21: Nucleated Red Blood Cells % (auto) 0.0, Anion Gap 7L, Glomerular Filtration Rate > 60.0, Calcium Level 8.9 02/12/21 08:34: Lactic Acid Level 2.1*H 02/12/21 13:06: Lactic Acid Followup at 4 Hours 2.2*H CBC/BMP Laboratory Tests 02/12/21 07:21 Microbiology Microbiology 02/11/21 Blood Culture, Received Pending 02/11/21 Respiratory Virus Panel (PCR) ([facility]) - Final, Complete 02/11/21 Blood Culture - Preliminary, Resulted No growth after 24 hours . All specim... Sophia Duggan MD Feb 12, 2021 14:09
[2021-02-12] MEDS ORDERED: PILL CUTTER 1 EACH XX PRN (14:15)
[2021-02-12] MEDS ORDERED: HYDROMORPHONE HCL 0.5 MG/ 0.5 ML SYRINGE (J1170 PER 1) IV PRN (14:50)
[2021-02-12] MEDS ORDERED: fentaNYL 100 MCG/HR PATCH TD SCH (15:00)
[2021-02-12] MEDS: HYDROMORPHONE HCL 0.5 MG/ 0.5 ML SYRINGE (J1170 PER 1) IV PRN ×2 (15:03→18:49)
[2021-02-12 16:47] VITALS: BP 129/85
[2021-02-14] MEDS ORDERED: fentaNYL 25 MCG/HR PATCH TD SCH (09:00)
--- NOTE | 2021-02-14 14:14 | DS.PDOC ---
Discharge Summary General Date of Admission Feb 11, 2021 at 16:19 Date of Discharge 02/12/21 Discharge Summary PROCEDURES PERFORMED DURING STAY: [None]. DISCHARGE DIAGNOSES: Debility and unable to care for herself at home Resolving pneumonia Opiate withdrawal in hospital. 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 needs oxygen only during ambulation Asthma, migraine, chronic back and neck pains with h/o back surgery Chronic heavy opiate dependence. COMPLICATIONS/CHIEF COMPLAINT: Chronic Pain Syndrome,Lung Cancer,Ms,Weakness. 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 She was most recently admitted from 02/02 to 02/07 for COPD exacerbation, chronic pain issues. Today other that her SOB she complained of extreme generalized weakness and unable to complete her ADLS in a timely manner. She reported that it took her more than an hour to shower this am and then she could not get out of the shower. She has not been able eating since discharge as she has been unable to stand for any length of time to make her meals. She does not have any support person at home. In ED her vitals her stable , no hypoxia , her Labs are similar to 1 week ago. She is being admitted for generalized debility and unable to care for herself at home. Mirta requested to speak with [facility] to help get some home services, meals on wheels. She reported that she was extremely weak to stand up for and prepare a meal. I explained this being the week end francoise have to wait till 02/14/21 till we can set up home services. I explained she has to be evaluated by PT and if she is very weak may need to go to rehab prior to going home. She continued to complain of severe pain all over her body , hot flushes, felt like she was going though opiate withdrawal as her fentanyl patch was not sticking properly to her skin. I ordered dilaudid for her and ordered a new patch for her. Then in the evening she did not want to stay any longer in the hospital as her pain was not controlled and she was very anxious. She asked for more Dilaudid as what we were giving was not helping control her pain so left AMA. For rest of the hospital course and physical exam see prior note from same day. DISPOSITION: Against Medical Advice. Vital Signs/I&Os Vital Signs Date Time Temp Pulse Resp B/P (MAP) Pulse Ox O2 Delivery O2 Flow Rate FiO2 02/12/21 19:00 16 02/12/21 16:47 98.3 97 129/85 (100) 91 Room Air 02/12/21 09:00 2.0 Microbiology Microbiology 02/11/21 Blood Culture - Preliminary, Resulted No Growth after 48 hours. All Specime... 02/11/21 Respiratory Virus Panel (PCR) ([facility]) - Final, Complete 02/11/21 Blood Culture - Preliminary, Resulted No Growth after 48 hours. All Specime... Discharge Medications Scheduled Atorvastatin Calcium (Atorvastatin Calcium) 40 Mg Tablet, 40 MG PO DAILY, (Reported) Bupropion Hcl (Bupropion Xl) 150 Mg Tab.er.24h, 150 MG PO DAILY, (Reported) Dexamethasone (Dexamethasone) 4 Mg Tablet, 10 MG PO BID, (Reported) Doxycycline Monohydrate (Doxycycline Monohydrate) 100 Mg Capsule, 100 MG PO BID, (Reported) Fentanyl (Fentanyl) 25 Mcg Patch.td72, 25 MCG TD Q3RD, (Reported) APPLIED TO LEFT CHEST WALL Fentanyl (Fentanyl) 100 Mcg Patch.td72, 100 MCG TD Q3RD, (Reported) APPLIED TO LEFT CHEST WALL Fluticasone Propionate (Flovent Hfa) 44 Mcg/Act Aer.w.adap, 2 PUFF INH BID, (Reported) Nicotine (Nicotine Patch) 14 Mg Patch.td24, 14 MG TD DAILY, (Reported) APPLIED TO LEFT DELTOID Omeprazole (Omeprazole) 40 Mg Capsule.dr, 40 MG PO DAILY, (Reported) Quetiapine Fumarate (Quetiapine Fumarate) 50 Mg Tablet, 50 MG PO QHS, (Reported) Tiotropium [place] Monohydrate (Spiriva) 18 Mcg Cap.w.dev, 1 INHALATION INH DAILY, (Reported) Scheduled PRN Albuterol Sulfate (Proventil Hfa) 6.7 Gm Hfa.aer.ad, 2 PUFF INH QID PRN for SHORTNESS OF BREATH, (Reported) Baclofen (Baclofen) 20 Mg Tablet, 20 MG PO BID PRN for MUSCLE SPASMS, (Reported) Oxycodone Hcl (Oxycodone HCl) 20 Mg Tablet, 40 MG PO Q4H PRN for PAIN LEVEL 7- 10, (Reported) Allergies Coded Allergies: pregabalin (Verified Allergy, Severe, swollen tongue, 12/04/19) estrogens, conjugated (Verified Allergy, Intermediate, hives, 12/04/19) ketorolac (Verified Allergy, Intermediate, hives, 12/04/19) teriflunomide (Verified Allergy, Intermediate, hives, 12/04/19) topiramate (Verified Allergy, Intermediate, hives, 12/04/19) buprenorphine (Verified Allergy, Mild, rash, 06/04/20) celecoxib (Verified Allergy, Mild, rash, 06/04/20) duloxetine (Verified Allergy, Mild, rash, 06/04/20) escitalopram (Verified Allergy, Mild, rash, 06/04/20) etanercept (Verified Allergy, Mild, rash, 06/04/20) tiagabine (Verified Allergy, Mild, rash, 06/04/20) levetiracetam (Unverified Allergy, Unknown, 06/04/20) glatiramer (copolymer 1) (Verified Adverse Reaction, Intermediate, LUMPS AT INJECTION SITE, 12/04/19) ibuprofen (Verified Adverse Reaction, Intermediate, SEVERE GI Bleed, 12/04/19) interferon beta-1b (Verified Adverse Reaction, Intermediate, LUMPS AT INJECTION SITE, 12/04/19) latex (Verified Adverse Reaction, Intermediate, TEARS SKIN, 12/04/19) meloxicam (Verified Adverse Reaction, Intermediate, GI BLEED, 12/04/19) prednisone (Verified Adverse Reaction, Intermediate, rage, 12/04/19) gabapentin (Verified Adverse Reaction, Mild, "EMOTIONAL ROLLER COASTER", 12/04/19) Sophia Duggan MD Feb 14, 2021 14:14
== END 2021-02-12 19:30 | disposition left against medical advice (07) | DRG 948 ==
LOC: EDBD 12:50 → M ED 12:50 → EDSEX 12:50 → M ED INP 16:19 → ENRESERV 02-12 06:35 → M MS5PR 02-12 07:50
PROVIDERS: ADMIT Internal Medicine Nephrology; ATTEND Internal Medicine Nephrology
DX: R53.81 Other malaise (principal); J96.11 Chronic respiratory failure with hypoxia; F11.23 Opioid dependence with withdrawal; R53.1 Weakness; G35 Multiple sclerosis; J44.9 Chronic obstructive pulmonary disease, unspecified; J45.909 Unspecified asthma, uncomplicated; G43.909 Migraine, unspecified, not intractable, without status migrainosus; M54.2 Cervicalgia; Z74.1 Need for assistance with personal care; Z79.899 Other long term (current) drug therapy; Z88.6 Allergy status to analgesic agent; Z91.040 Latex allergy status; Z88.8 Allergy status to other drugs, medicaments and biological substances; Z85.118 Personal history of other malignant neoplasm of bronchus and lung; Z90.2 Acquired absence of lung [part of]; M79.7 Fibromyalgia; K21.9 Gastro-esophageal reflux disease without esophagitis; F41.9 Anxiety disorder, unspecified; F32.A Depression, unspecified; E78.2 Mixed hyperlipidemia; Z85.42 Personal history of malignant neoplasm of other parts of uterus; Z90.710 Acquired absence of both cervix and uterus; Z92.21 Personal history of antineoplastic chemotherapy; Z98.1 Arthrodesis status; Z92.3 Personal history of irradiation; Z87.891 Personal history of nicotine dependence; Z95.828 Presence of other vascular implants and grafts

== ENCOUNTER 2021-04-07 08:55 | Emergency (ER) | payer MEDICARE, MEDICAID ==
[~2021-04-07] VITALS: Ht 160 cm; Wt 65.9 kg
[~2021-04-07 08:55] MED LIST changes: +DOXY-443 PO; +FLUT44IN INH
[2021-04-07] MEDS ORDERED: NS 1,000 ML IV ONE (09:55)
[2021-04-07] MEDS ORDERED: oxyCODONE 5MG TAB PO ONE ×2 (10:15→18:10)
[2021-04-07 10:40] LABS: HEMATOCRIT 47.3 % (36.0-47.0); HEMOGLOBIN 15.4 g/dl (12.0-15.5); MEAN CORPUSCULAR HEMOGLOBIN 28.4 pg (27.0-33.0); MEAN CORPUSCULAR HGB CONC 32.6 g/dl (32.0-36.5); MEAN CORPUSCULAR VOLUME 87.3 fl (80.0-96.0); PLATELET COUNT, AUTOMATED 190 10^3/uL (150-450); RED BLOOD COUNT 5.42 10^6/uL (4.00-5.40); WHITE BLOOD COUNT 5.9 10^3/uL (4.0-10.0)
[2021-04-07 11:33] LABS: ACETAMINOPHEN LEVEL < 2.0 UG/ML (10.0-30.0); ALT/SGPT 21 U/L (12-78); BILIRUBIN,DIRECT 0.1 MG/DL (0.0-0.2); BILIRUBIN,TOTAL 0.4 MG/DL (0.2-1.0); BLOOD UREA NITROGEN 10 MG/DL (7-18); CALCIUM LEVEL 9.2 MG/DL (8.5-10.1); CARBON DIOXIDE LEVEL 26 MEQ/L (21-32); CHLORIDE LEVEL 109 MEQ/L (98-107); CREATININE FOR GFR 0.69 MG/DL (0.55-1.30); ETHYL ALCOHOL (ETHANOL) < 0.003 % (0.000-0.010); GLOMERULAR FILTRATION RATE > 60.0 (>51); GLUCOSE, FASTING 101 MG/DL (70-100); POTASSIUM SERUM 3.7 MEQ/L (3.5-5.1); SALICYLATE LEVEL 4.1 MG/DL (5.0-30.0); SODIUM LEVEL 140 MEQ/L (136-145); TOTAL PROTEIN 7.2 GM/DL (6.4-8.2)
[2021-04-07 13:00] LABS: RSV AMPLIFICATION NEGATIVE (NEGATIVE)
[2021-04-07] MEDS ORDERED: fentaNYL 100 MCG/HR PATCH TOP ONE (14:00)
[2021-04-07] MEDS ORDERED: fentaNYL 25 MCG/HR PATCH TOP ONE (14:00)
[2021-04-07] MEDS ORDERED: FENTANYL REMOVAL DOCUMENTATION MISC XX SCH ×2 (14:00)
[2021-04-07] MEDS ORDERED: ALBUTEROL 90 MCG/ACT 8GM HFA INHALER INH ONE ×2 (14:00→15:45)
[2021-04-07 14:08] LABS: AMPHETAMINES LEVEL URINE NEGATIVE (NEGATIVE); BARBITURATES URINE NEGATIVE (NEGATIVE); BENZODIAZEPINES URINE NEGATIVE (NEGATIVE); CANNABINOIDS URINE NEGATIVE (NEGATIVE); COCAINE METABOLITE URINE NEGATIVE (NEGATIVE); METHADONE URINE NEGATIVE (NEGATIVE); OPIATES URINE POSITIVE (NEGATIVE); PHENCYCLIDINE URINE NEGATIVE (NEGATIVE)
[2021-04-07] MEDS ORDERED: ANOR1AER (14:52)
[2021-04-07] MEDS ORDERED: BACL10TA2 (14:52)
[2021-04-07 20:40] VITALS: BP 124/82
== END 2021-04-07 20:44 ==
LOC: M ED 08:55
DX: R45.851 Suicidal ideations (principal); R94.31 Abnormal electrocardiogram [ECG] [EKG]; C34.90 Malignant neoplasm of unspecified part of unspecified bronchus or lung; J44.9 Chronic obstructive pulmonary disease, unspecified; M79.7 Fibromyalgia; G35 Multiple sclerosis; E78.2 Mixed hyperlipidemia; Z79.51 Long term (current) use of inhaled steroids; Z79.899 Other long term (current) drug therapy; Z88.8 Allergy status to other drugs, medicaments and biological substances; Z91.040 Latex allergy status; Z87.19 Personal history of other diseases of the digestive system; Z98.890 Other specified postprocedural states

== ENCOUNTER 2021-06-04 09:43 | Emergency (ER) | payer MEDICAID, MEDICARE ==
[~2021-06-04] VITALS: Ht 160 cm; Wt 59.1 kg
[~2021-06-04 09:43] MED LIST changes: +ANOR1AER; +BACL10TA2; -D31000TA2 PO; +VITA100093 PO
[2021-06-04] MEDS ORDERED: oxyCODONE 5MG TAB PO ONE (11:05)
[2021-06-04] MEDS ORDERED: fentaNYL 25 MCG/HR PATCH TOP ONE (12:35)
[2021-06-04] MEDS ORDERED: FENTANYL REMOVAL DOCUMENTATION MISC XX SCH (12:35)
[2021-06-04] MEDS ORDERED: fentaNYL 100 MCG/HR PATCH TOP ONE (12:35)
[2021-06-04] MEDS ORDERED: HYDROMORPHONE HCL 0.5 MG/ 0.5 ML SYRINGE (J1170 PER 1) IV ONE (12:35)
[2021-06-04 14:43] VITALS: BP 139/70
[2021-06-07] MEDS ORDERED: FENTANYL REMOVAL DOCUMENTATION MISC XX SCH (12:35)
== END 2021-06-04 14:46 | disposition home or self-care (01) ==
LOC: EDBD 09:43 → M ED 09:43
DX: Z76.0 Encounter for issue of repeat prescription (principal); C34.90 Malignant neoplasm of unspecified part of unspecified bronchus or lung; J44.9 Chronic obstructive pulmonary disease, unspecified; Z87.891 Personal history of nicotine dependence; Z88.8 Allergy status to other drugs, medicaments and biological substances
CPT/HCPCS: 96374; 99284; J1170

== ENCOUNTER 2021-06-24 20:15 | Inpatient (IN) | payer MEDICARE ==
[~2021-06-24] VITALS: Ht 160 cm; Wt 61.8 kg
[~2021-06-24 20:15] MED LIST changes: -ANOR1AER; -BACL10TA2
[2021-06-24] MEDS ORDERED: PRAZ1CAP PO (20:58)
[2021-06-24] MEDS ORDERED: QUET100T2 PO (20:58)
[2021-06-24] MEDS ORDERED: BUPR150T12 PO (20:58)
[2021-06-24] MEDS ORDERED: FENT100D25 TOP (20:58)
[2021-06-24] MEDS ORDERED: fentaNYL 25 MCG/HR PATCH TOP ONE (21:40)
[2021-06-24 22:05] LABS: HEMATOCRIT 41.7 % (36.0-47.0); HEMOGLOBIN 13.6 g/dl (12.0-15.5); MEAN CORPUSCULAR HEMOGLOBIN 28.3 pg (27.0-33.0); MEAN CORPUSCULAR HGB CONC 32.6 g/dl (32.0-36.5); MEAN CORPUSCULAR VOLUME 86.7 fl (80.0-96.0); PLATELET COUNT, AUTOMATED 218 10^3/uL (150-450); RED BLOOD COUNT 4.81 10^6/uL (4.00-5.40); WHITE BLOOD COUNT 5.4 10^3/uL (4.0-10.0)
[2021-06-24] MEDS ORDERED: FENTANYL REMOVAL DOCUMENTATION MISC XX SCH (22:20)
[2021-06-24] MEDS ORDERED: fentaNYL 100 MCG/HR PATCH TOP ONE (22:20)
[2021-06-24] MEDS ORDERED: FENT1DIS14 TOP (22:28)
[2021-06-24 22:31] LABS: ACETAMINOPHEN LEVEL < 2.0 UG/ML (10.0-30.0); ALBUMIN 3.8 GM/DL (3.2-5.2); ALT/SGPT 25 U/L (12-78); BILIRUBIN,DIRECT 0.1 MG/DL (0.0-0.2); BILIRUBIN,TOTAL 0.5 MG/DL (0.2-1.0); BLOOD UREA NITROGEN 10 MG/DL (7-18); CALCIUM LEVEL 9.1 MG/DL (8.5-10.1); CARBON DIOXIDE LEVEL 30 MEQ/L (21-32); CHLORIDE LEVEL 107 MEQ/L (98-107); CREATININE FOR GFR 0.68 MG/DL (0.55-1.30); ETHYL ALCOHOL (ETHANOL) < 0.003 % (0.000-0.010); GLOMERULAR FILTRATION RATE > 60.0 (>51); GLUCOSE, FASTING 82 MG/DL (70-100); SALICYLATE LEVEL 4.7 MG/DL (5.0-30.0); SODIUM LEVEL 141 MEQ/L (136-145); THYROID STIMULATING HORMONE 0.982 uIU/ML (0.358-3.740); TOTAL PROTEIN 6.6 GM/DL (6.4-8.2)
[2021-06-24 22:36] LABS: RSV AMPLIFICATION NEGATIVE (NEGATIVE)
[2021-06-24 23:02] LABS: AMPHETAMINES LEVEL URINE NEGATIVE (NEGATIVE); BARBITURATES URINE NEGATIVE (NEGATIVE); BENZODIAZEPINES URINE NEGATIVE (NEGATIVE); CANNABINOIDS URINE NEGATIVE (NEGATIVE); COCAINE METABOLITE URINE NEGATIVE (NEGATIVE); METHADONE URINE NEGATIVE (NEGATIVE); OPIATES URINE POSITIVE (NEGATIVE); PHENCYCLIDINE URINE NEGATIVE (NEGATIVE)
[2021-06-24] MEDS ORDERED: HOME MED LIST COMPLETE! XX SCH (23:25)
[2021-06-24] MEDS ORDERED: MOM 30ML SUSPENSION UDC PO PRN (23:50)
[2021-06-24] MEDS ORDERED: MAALOX 30 ML SUSP *UDC PO PRN (23:50)
[2021-06-24 23:51] VITALS: BP 117/72
[2021-06-25] MEDS: ALBUTEROL 90 MCG/ACT 8GM HFA INHALER INH PRN ×3 (01:22→18:34)
[2021-06-25] MEDS: traZODone 50 MG TAB PO PRN ×2 (01:39→20:24)
[2021-06-25] MEDS ORDERED: QUEtiapine FUMARATE 100 MG TAB PO ONE (01:45)
[2021-06-25] MEDS ORDERED: buPROPion **XL** TABLET 150MG (WELLBUTRIN XL) PO ONE (01:45)
[2021-06-25] MEDS ORDERED: PRAZOSIN 1 MG CAP PO ONE (01:45)
[2021-06-25 01:49] VITALS: BP 136/96
[2021-06-25] MEDS: BACLOFEN 10 MG TAB PO PRN ×3 (01:52→15:28)
[2021-06-25] MEDS: oxyCODONE 5MG TAB PO PRN ×4 (01:57→20:24)
[2021-06-25] MEDS: NICOTINE 14 MG/24 HR TRANSDERMAL TD SCH (09:45)
[2021-06-25] MEDS: OMEPRAZOLE 20MG CAP PO SCH (09:45)
[2021-06-25] MEDS: ATORVASTATIN 20 MG TAB PO SCH (09:45)
[2021-06-25] MEDS: COMBIVENT RESPIMAT 100-20MCG INHALER 4GM INH SCH ×2 (14:38→20:21)
[2021-06-25 16:32] VITALS: BP 109/74
[2021-06-25] MEDS: PRAZOSIN 1 MG CAP PO SCH (20:20)
[2021-06-25] MEDS: QUEtiapine FUMARATE 100 MG TAB PO SCH (20:21)
[2021-06-25] MEDS: buPROPion **XL** TABLET 150MG (WELLBUTRIN XL) PO SCH (20:21)
[2021-06-26] MEDS: BACLOFEN 10 MG TAB PO PRN ×2 (01:39→20:03)
[2021-06-26] MEDS: oxyCODONE 5MG TAB PO PRN ×5 (01:41→20:05)
[2021-06-26 06:32] VITALS: BP 107/50
[2021-06-26] MEDS: OMEPRAZOLE 20MG CAP PO SCH (08:22)
[2021-06-26] MEDS: NICOTINE 14 MG/24 HR TRANSDERMAL TD SCH (08:22)
[2021-06-26] MEDS: ATORVASTATIN 20 MG TAB PO SCH (08:22)
[2021-06-26] MEDS: ALBUTEROL 90 MCG/ACT 8GM HFA INHALER INH PRN ×3 (08:23→18:59)
[2021-06-26] MEDS: COMBIVENT RESPIMAT 100-20MCG INHALER 4GM INH SCH ×2 (09:11→20:03)
[2021-06-26] MEDS: hydrOXYzine 10 MG TAB PO PRN ×2 (12:00→20:54)
[2021-06-26 16:23] VITALS: BP 116/68
[2021-06-26] MEDS: QUEtiapine FUMARATE 100 MG TAB PO SCH (20:03)
[2021-06-26] MEDS: buPROPion **XL** TABLET 150MG (WELLBUTRIN XL) PO SCH (20:03)
[2021-06-26] MEDS: PRAZOSIN 1 MG CAP PO SCH (20:04)
[2021-06-26] MEDS: traZODone 50 MG TAB PO PRN (20:54)
[2021-06-27] MEDS: oxyCODONE 5MG TAB PO PRN ×2 (03:51→10:41)
[2021-06-27 07:02] VITALS: BP 110/71
[2021-06-27] MEDS: ATORVASTATIN 20 MG TAB PO SCH (08:03)
[2021-06-27] MEDS: OMEPRAZOLE 20MG CAP PO SCH (08:03)
[2021-06-27] MEDS: COMBIVENT RESPIMAT 100-20MCG INHALER 4GM INH SCH ×2 (08:04→21:04)
[2021-06-27] MEDS: NICOTINE 14 MG/24 HR TRANSDERMAL TD SCH (08:05)
[2021-06-27] MEDS: oxyCODONE 5MG TAB PO SCH ×3 (13:10→21:06)
[2021-06-27] MEDS: ALBUTEROL 90 MCG/ACT 8GM HFA INHALER INH PRN (16:58)
[2021-06-27 19:17] VITALS: BP 140/82
[2021-06-27] MEDS ORDERED: FENTANYL REMOVAL DOCUMENTATION MISC XX SCH ×3 (21:00→22:00)
[2021-06-27] MEDS: PRAZOSIN 1 MG CAP PO SCH (21:04)
[2021-06-27] MEDS: traZODone 50 MG TAB PO PRN (21:05)
[2021-06-27] MEDS: buPROPion **XL** TABLET 150MG (WELLBUTRIN XL) PO SCH (21:05)
[2021-06-27] MEDS: QUEtiapine FUMARATE 100 MG TAB PO SCH (21:07)
[2021-06-27] MEDS: fentaNYL 25 MCG/HR PATCH TOP SCH (22:21)
[2021-06-27] MEDS: fentaNYL 100 MCG/HR PATCH TOP SCH (22:22)
[2021-06-28] MEDS: oxyCODONE 5MG TAB PO SCH ×6 (00:57→20:58)
[2021-06-28 06:47] VITALS: BP 101/60
[2021-06-28] MEDS: COMBIVENT RESPIMAT 100-20MCG INHALER 4GM INH SCH ×2 (08:42→20:59)
[2021-06-28] MEDS: OMEPRAZOLE 20MG CAP PO SCH (08:43)
[2021-06-28] MEDS: ATORVASTATIN 20 MG TAB PO SCH (08:43)
[2021-06-28] MEDS: NICOTINE 14 MG/24 HR TRANSDERMAL TD SCH (08:44)
[2021-06-28] MEDS: ACETAMINOPHEN TAB 650MG DOSE (2X325MG) PO PRN (12:32)
[2021-06-28 16:38] VITALS: BP 98/54
[2021-06-28] MEDS: hydrOXYzine 10 MG TAB PO PRN (16:55)
[2021-06-28] MEDS: QUEtiapine FUMARATE 100 MG TAB PO SCH (20:57)
[2021-06-28] MEDS: buPROPion **XL** TABLET 150MG (WELLBUTRIN XL) PO SCH (20:57)
[2021-06-28] MEDS: PRAZOSIN 1 MG CAP PO SCH (20:57)
[2021-06-29] MEDS: oxyCODONE 5MG TAB PO SCH ×6 (00:57→20:14)
[2021-06-29] MEDS: ALBUTEROL 90 MCG/ACT 8GM HFA INHALER INH PRN ×2 (01:38→09:02)
[2021-06-29 06:58] VITALS: BP 135/78
[2021-06-29] MEDS: COMBIVENT RESPIMAT 100-20MCG INHALER 4GM INH SCH ×2 (09:01→20:12)
[2021-06-29] MEDS: NICOTINE 14 MG/24 HR TRANSDERMAL TD SCH (09:04)
[2021-06-29] MEDS: OMEPRAZOLE 20MG CAP PO SCH (09:04)
[2021-06-29] MEDS: ATORVASTATIN 20 MG TAB PO SCH (09:04)
[2021-06-29] MEDS: hydrOXYzine 10 MG TAB PO PRN (11:53)
[2021-06-29] MEDS ORDERED: oxyCODONE 5MG TAB PO SCH (13:15)
[2021-06-29 17:35] VITALS: BP 116/80
[2021-06-29] MEDS: buPROPion **XL** TABLET 150MG (WELLBUTRIN XL) PO SCH (20:12)
[2021-06-29] MEDS: PRAZOSIN 1 MG CAP PO SCH (20:13)
[2021-06-29] MEDS: QUEtiapine FUMARATE 100 MG TAB PO SCH (20:15)
[2021-06-30] MEDS: oxyCODONE 5MG TAB PO SCH ×6 (01:01→20:04)
[2021-06-30 06:37] VITALS: BP 120/68
[2021-06-30] MEDS: COMBIVENT RESPIMAT 100-20MCG INHALER 4GM INH SCH ×2 (08:41→20:03)
[2021-06-30] MEDS: ATORVASTATIN 20 MG TAB PO SCH (08:44)
[2021-06-30] MEDS: NICOTINE 14 MG/24 HR TRANSDERMAL TD SCH (08:44)
[2021-06-30] MEDS: OMEPRAZOLE 20MG CAP PO SCH (08:45)
[2021-06-30 15:43] VITALS: BP 111/63
[2021-06-30] MEDS: ALBUTEROL 90 MCG/ACT 8GM HFA INHALER INH PRN (19:52)
[2021-06-30] MEDS: buPROPion **XL** TABLET 150MG (WELLBUTRIN XL) PO SCH (20:03)
[2021-06-30] MEDS: PRAZOSIN 1 MG CAP PO SCH (20:03)
[2021-06-30] MEDS: QUEtiapine FUMARATE 100 MG TAB PO SCH (20:03)
[2021-06-30] MEDS: fentaNYL 25 MCG/HR PATCH TOP SCH (21:15)
[2021-06-30] MEDS: fentaNYL 100 MCG/HR PATCH TOP SCH (21:17)
[2021-06-30] MEDS: FENTANYL REMOVAL DOCUMENTATION MISC XX SCH ×2 (21:17→21:18)
[2021-07-01] MEDS: oxyCODONE 5MG TAB PO SCH ×6 (01:12→20:16)
[2021-07-01 05:52] VITALS: BP 95/54
[2021-07-01] MEDS: OMEPRAZOLE 20MG CAP PO SCH (08:33)
[2021-07-01] MEDS: COMBIVENT RESPIMAT 100-20MCG INHALER 4GM INH SCH ×2 (08:33→20:15)
[2021-07-01] MEDS: ATORVASTATIN 20 MG TAB PO SCH (08:33)
[2021-07-01] MEDS: NICOTINE 14 MG/24 HR TRANSDERMAL TD SCH (08:34)
[2021-07-01] MEDS: ALBUTEROL 90 MCG/ACT 8GM HFA INHALER INH PRN (13:17)
[2021-07-01 18:58] VITALS: BP 127/74
[2021-07-01] MEDS: QUEtiapine FUMARATE 100 MG TAB PO SCH (20:16)
[2021-07-01] MEDS: buPROPion **XL** TABLET 150MG (WELLBUTRIN XL) PO SCH (20:16)
[2021-07-01] MEDS: PRAZOSIN 1 MG CAP PO SCH (20:16)
[2021-07-02] MEDS: oxyCODONE 5MG TAB PO SCH ×6 (01:01→20:39)
[2021-07-02 06:55] VITALS: BP 104/56
[2021-07-02] MEDS: NICOTINE 14 MG/24 HR TRANSDERMAL TD SCH (09:05)
[2021-07-02] MEDS: OMEPRAZOLE 20MG CAP PO SCH (09:06)
[2021-07-02] MEDS: ATORVASTATIN 20 MG TAB PO SCH (09:07)
[2021-07-02] MEDS: ALBUTEROL 90 MCG/ACT 8GM HFA INHALER INH PRN (09:11)
[2021-07-02 18:44] VITALS: BP 127/86
[2021-07-02] MEDS: COMBIVENT RESPIMAT 100-20MCG INHALER 4GM INH SCH (19:37)
[2021-07-02] MEDS: PRAZOSIN 1 MG CAP PO SCH (20:39)
[2021-07-02] MEDS: buPROPion **XL** TABLET 150MG (WELLBUTRIN XL) PO SCH (20:39)
[2021-07-02] MEDS: QUEtiapine FUMARATE 100 MG TAB PO SCH (20:39)
[2021-07-03] MEDS: oxyCODONE 5MG TAB PO SCH ×6 (01:01→21:15)
[2021-07-03 07:04] VITALS: BP 121/59
[2021-07-03] MEDS: COMBIVENT RESPIMAT 100-20MCG INHALER 4GM INH SCH ×2 (08:13→19:26)
[2021-07-03] MEDS: ATORVASTATIN 20 MG TAB PO SCH (08:15)
[2021-07-03] MEDS: OMEPRAZOLE 20MG CAP PO SCH (08:15)
[2021-07-03] MEDS: NICOTINE 14 MG/24 HR TRANSDERMAL TD SCH (08:16)
[2021-07-03 18:36] VITALS: BP 134/87
[2021-07-03] MEDS: BACLOFEN 10 MG TAB PO PRN (19:26)
[2021-07-03] MEDS: hydrOXYzine 10 MG TAB PO PRN (19:26)
[2021-07-03] MEDS: ALBUTEROL 90 MCG/ACT 8GM HFA INHALER INH PRN (19:29)
[2021-07-03] MEDS: PRAZOSIN 1 MG CAP PO SCH (21:13)
[2021-07-03] MEDS: buPROPion **XL** TABLET 150MG (WELLBUTRIN XL) PO SCH (21:13)
[2021-07-03] MEDS: QUEtiapine FUMARATE 100 MG TAB PO SCH (21:15)
[2021-07-03] MEDS: fentaNYL 25 MCG/HR PATCH TOP SCH (21:16)
[2021-07-03] MEDS: fentaNYL 100 MCG/HR PATCH TOP SCH (21:17)
[2021-07-03] MEDS: FENTANYL REMOVAL DOCUMENTATION MISC XX SCH ×2 (21:47→21:48)
[2021-07-04] MEDS: oxyCODONE 5MG TAB PO SCH ×6 (01:09→20:14)
[2021-07-04] MEDS: ALBUTEROL 90 MCG/ACT 8GM HFA INHALER INH PRN ×2 (04:06→15:08)
[2021-07-04 06:45] VITALS: BP 114/69
[2021-07-04] MEDS: OMEPRAZOLE 20MG CAP PO SCH (08:21)
[2021-07-04] MEDS: NICOTINE 14 MG/24 HR TRANSDERMAL TD SCH (08:21)
[2021-07-04] MEDS: hydrOXYzine 10 MG TAB PO PRN (08:23)
[2021-07-04] MEDS: COMBIVENT RESPIMAT 100-20MCG INHALER 4GM INH SCH ×2 (08:23→20:13)
[2021-07-04] MEDS: ATORVASTATIN 20 MG TAB PO SCH (08:26)
[2021-07-04] MEDS: ACETAMINOPHEN TAB 650MG DOSE (2X325MG) PO PRN (12:13)
[2021-07-04] MEDS ORDERED: FENT1DIS14 TOP (14:36)
[2021-07-04] MEDS ORDERED: ANOR1AER PO (14:36)
[2021-07-04] MEDS ORDERED: FENT100D25 TOP (14:36)
[2021-07-04] MEDS ORDERED: OMEP40CA4 PO (14:36)
[2021-07-04] MEDS ORDERED: NICO14DI24 TD (14:36)
[2021-07-04] MEDS ORDERED: ATOR40TA75 PO (14:36)
[2021-07-04] MEDS ORDERED: PROV108A INH (14:36)
[2021-07-04] MEDS ORDERED: BACL10TA2 PO (14:36)
[2021-07-04] MEDS ORDERED: QUET100T2 PO (14:36)
[2021-07-04] MEDS ORDERED: PRAZ1CAP PO (14:36)
[2021-07-04] MEDS ORDERED: BUPR150T12 PO (14:36)
[2021-07-04] MEDS ORDERED: OXYC20TA2 PO (15:01)
[2021-07-04 16:48] VITALS: BP 106/65
[2021-07-04] MEDS: buPROPion **XL** TABLET 150MG (WELLBUTRIN XL) PO SCH (20:13)
[2021-07-04] MEDS: BACLOFEN 10 MG TAB PO PRN (20:13)
[2021-07-04] MEDS: QUEtiapine FUMARATE 100 MG TAB PO SCH (20:13)
[2021-07-04 20:14] VITALS: BP 131/62
[2021-07-04] MEDS: PRAZOSIN 1 MG CAP PO SCH (20:14)
[2021-07-05] MEDS: oxyCODONE 5MG TAB PO SCH ×3 (00:46→08:16)
[2021-07-05] MEDS: OMEPRAZOLE 20MG CAP PO SCH (08:16)
[2021-07-05] MEDS: ATORVASTATIN 20 MG TAB PO SCH (08:16)
[2021-07-05] MEDS: NICOTINE 14 MG/24 HR TRANSDERMAL TD SCH (08:17)
[2021-07-05] MEDS: COMBIVENT RESPIMAT 100-20MCG INHALER 4GM INH SCH (08:17)
== END 2021-07-05 11:02 | disposition home or self-care (01) | DRG 885 ==
LOC: M ED 20:15 → M ED INP 23:47 → M PSY 06-25 01:10
PROVIDERS: ADMIT Psychiatry & Neurology Psychiatry; ATTEND Psychiatry & Neurology Psychiatry
DX: F32.1 Major depressive disorder, single episode, moderate (principal); C34.91 Malignant neoplasm of unspecified part of right bronchus or lung; R45.851 Suicidal ideations; J96.11 Chronic respiratory failure with hypoxia; Z92.3 Personal history of irradiation; Z92.21 Personal history of antineoplastic chemotherapy; J44.9 Chronic obstructive pulmonary disease, unspecified; R26.81 Unsteadiness on feet; F41.9 Anxiety disorder, unspecified; G35 Multiple sclerosis; M06.9 Rheumatoid arthritis, unspecified; K21.9 Gastro-esophageal reflux disease without esophagitis; E78.5 Hyperlipidemia, unspecified; Z90.2 Acquired absence of lung [part of]; Z85.42 Personal history of malignant neoplasm of other parts of uterus; Z90.710 Acquired absence of both cervix and uterus; Z87.891 Personal history of nicotine dependence; Z79.899 Other long term (current) drug therapy; Z88.6 Allergy status to analgesic agent; Z88.8 Allergy status to other drugs, medicaments and biological substances; Z63.79 Other stressful life events affecting family and household; Z99.81 Dependence on supplemental oxygen

== ENCOUNTER → 2021-07-19 | Outpatient (CLI) | payer MEDICARE ==
[~2021-07-19] MED LIST changes: +FENT100D25 TOP; +FENT1DIS14 TOP; +PRAZ1CAP PO; +QUET100T2 PO
== END ==
LOC: M ONCR 11:04
PROVIDERS: ATTEND General Practice
DX: C34.11 Malignant neoplasm of upper lobe, right bronchus or lung (principal); R06.83 Snoring; R06.89 Other abnormalities of breathing; Z88.6 Allergy status to analgesic agent; Z88.8 Allergy status to other drugs, medicaments and biological substances; Z90.2 Acquired absence of lung [part of]; Z91.040 Latex allergy status; Z92.21 Personal history of antineoplastic chemotherapy; Z92.3 Personal history of irradiation

== ENCOUNTER 2021-07-30 01:31 | Emergency (ER) | payer MEDICARE ==
[2021-07-30] MEDS ORDERED: FENTANYL REMOVAL DOCUMENTATION MISC XX SCH ×2 (02:15)
[2021-07-30] MEDS ORDERED: fentaNYL 100 MCG/HR PATCH TOP ONE (02:15)
[2021-07-30] MEDS ORDERED: fentaNYL 25 MCG/HR PATCH TOP ONE (02:15)
[2021-07-30] MEDS ORDERED: dexameTHASONE 20MG/5ML VIAL (J1100 PER 1MG) IV ONE (02:15)
[2021-07-30] MEDS ORDERED: fentaNYL 100 MCG/2 ML INJECTION As Ordered ONE (02:20)
[2021-07-30] MEDS: COMBIVENT RESPIMAT 100-20MCG INHALER 4GM INH SCH ×2 (02:35→03:18)
[2021-07-30 02:52] LABS: BASO % 0.7 % (0.0-1.0); EOS # 0.2 10^3/uL (0.0-0.5); EOS % 2.8 % (0.0-3.0); HEMATOCRIT 44.2 % (36.0-47.0); HEMOGLOBIN 14.6 g/dl (12.0-15.5); LYMPH # 1.2 10^3/uL (1.5-5.0); LYMPH % 22.9 % (24.0-44.0); MEAN CORPUSCULAR HEMOGLOBIN 28.9 pg (27.0-33.0); MEAN CORPUSCULAR VOLUME 87.5 fl (80.0-96.0); MONO # 0.4 10^3/uL (0.0-0.8); MONO % 6.8 % (2.0-8.0); NEUTROPHILS # 3.6 10^3/uL (1.5-8.5); NEUTROPHILS % 66.4 % (36.0-66.0); PLATELET COUNT, AUTOMATED 175 10^3/uL (150-450); RED BLOOD COUNT 5.05 10^6/uL (4.00-5.40); WHITE BLOOD COUNT 5.4 10^3/uL (4.0-10.0)
[2021-07-30 03:14] LABS: CK-MB VALUE MASS 1.5 NG/ML (<3.6); MB/CK RELATIVE INDEX 2.68 (< OR =4)
[2021-07-30 03:16] LABS: ALBUMIN 3.8 GM/DL (3.2-5.2); ALT/SGPT 19 U/L (12-78); BILIRUBIN,DIRECT < 0.1 MG/DL (0.0-0.2); BILIRUBIN,TOTAL 0.3 MG/DL (0.2-1.0); BLOOD UREA NITROGEN 14 MG/DL (7-18); CALCIUM LEVEL 8.9 MG/DL (8.5-10.1); CARBON DIOXIDE LEVEL 28 MEQ/L (21-32); CHLORIDE LEVEL 107 MEQ/L (98-107); CREATININE FOR GFR 0.75 MG/DL (0.55-1.30); GLOMERULAR FILTRATION RATE > 60.0 (>51); GLUCOSE, FASTING 107 MG/DL (70-100); NT-PRO BNP 20 PG/ML (<125); POTASSIUM SERUM 3.8 MEQ/L (3.5-5.1); SODIUM LEVEL 143 MEQ/L (136-145); TOTAL PROTEIN 6.7 GM/DL (6.4-8.2)
[2021-07-30 04:15] LABS: CK-MB VALUE MASS 1.4 NG/ML (<3.6); CPK CREATINE PHOSPHOKINASE 54 U/L (26-192); MB/CK RELATIVE INDEX 2.59 (< OR =4)
[2021-07-30 04:49] LABS: ABG pH (ARTERIAL) 7.378 UNITS (7.350-7.450)
[2021-07-30 04:50] LABS: ABG BASE EXCESS -1.1 (-2.0-2.0); ABG O2 SATURATION 94.8 % (95.0-99.0); ABG PARTIAL PRESSURE CO2 41.7 mmHg (35.0-45.0); ABG PARTIAL PRESSURE O2 78.8 mmHg (75.0-100.0); ABG STANDARD HCO3 23.5 MEQ/L (22.0-26.0); ABG TOTAL CO2 25.3 MEQ/L (22.0-29.0)
[2021-07-30] MEDS ORDERED: AZITHROMYCIN 250MG TABLET PO ONE (05:25)
[2021-07-30] MEDS ORDERED: AZIT-12 PO (05:27)
[2021-07-30] MEDS ORDERED: DECA4TAB PO (05:27)
[2021-07-30 05:45] VITALS: BP 129/65
== END 2021-07-30 06:13 | disposition home or self-care (01) ==
LOC: M ED 01:31
DX: J44.1 Chronic obstructive pulmonary disease with (acute) exacerbation (principal); M79.7 Fibromyalgia; Z87.891 Personal history of nicotine dependence
CPT/HCPCS: 71045; 80048; 80076; 82550; 82553; 82803; 83605; 83880; 84484; 85025; 87486; 87581; 87633; 87798; 93041; 94760; 96374; 99285; J1100

== ENCOUNTER 2021-08-11 22:13 | Inpatient (IN) | payer MEDICARE ==
[~2021-08-11] VITALS: Ht 160 cm; Wt 60.8 kg
[~2021-08-11 22:13] MED LIST changes: +AZIT-12 PO
[2021-08-11] MEDS ORDERED: dexameTHASONE 20MG/5ML VIAL (J1100 PER 1MG) As Ordered ONE (22:32)
[2021-08-11] MEDS ORDERED: IPRATROPIUM 0.5MG/ALBUTEROL 2.5MG INH SOL UD 3ML (DUONEB) As Ordered ONE (22:32)
[2021-08-11 22:57] LABS: ABG BASE EXCESS -1.4 (-2.0-2.0); ABG HCO3 23.8 MEQ/L (22.0-26.0); ABG O2 SATURATION 96.3 % (95.0-99.0); ABG PARTIAL PRESSURE CO2 41.5 mmHg (35.0-45.0); ABG PARTIAL PRESSURE O2 83.6 mmHg (75.0-100.0); ABG STANDARD HCO3 23.3 MEQ/L (22.0-26.0); ABG TOTAL CO2 25.1 MEQ/L (22.0-29.0); ABG pH (ARTERIAL) 7.376 UNITS (7.350-7.450)
[2021-08-11 23:11] LABS: BASO % 0.6 % (0.0-1.0); EOS # 0.2 10^3/uL (0.0-0.5); EOS % 2.4 % (0.0-3.0); HEMATOCRIT 45.1 % (36.0-47.0); HEMOGLOBIN 14.7 g/dl (12.0-15.5); LYMPH # 1.5 10^3/uL (1.5-5.0); LYMPH % 21.8 % (24.0-44.0); MEAN CORPUSCULAR HEMOGLOBIN 28.7 pg (27.0-33.0); MEAN CORPUSCULAR HGB CONC 32.6 g/dl (32.0-36.5); MEAN CORPUSCULAR VOLUME 87.9 fl (80.0-96.0); MONO # 0.4 10^3/uL (0.0-0.8); MONO % 5.6 % (2.0-8.0); NEUTROPHILS # 4.7 10^3/uL (1.5-8.5); NEUTROPHILS % 69.5 % (36.0-66.0); PLATELET COUNT, AUTOMATED 216 10^3/uL (150-450); RED BLOOD COUNT 5.13 10^6/uL (4.00-5.40); WHITE BLOOD COUNT 6.8 10^3/uL (4.0-10.0)
[2021-08-11 23:49] LABS: ALBUMIN 3.6 GM/DL (3.2-5.2); ALT/SGPT 23 U/L (12-78); BILIRUBIN,DIRECT 0.2 MG/DL (0.0-0.2); BILIRUBIN,TOTAL 0.4 MG/DL (0.2-1.0); BLOOD UREA NITROGEN 12 MG/DL (7-18); CALCIUM LEVEL 8.6 MG/DL (8.5-10.1); CARBON DIOXIDE LEVEL 25 MEQ/L (21-32); CHLORIDE LEVEL 109 MEQ/L (98-107); CREATININE FOR GFR 0.67 MG/DL (0.55-1.30); GLOMERULAR FILTRATION RATE > 60.0 (>51); GLUCOSE, FASTING 146 MG/DL (70-100); NT-PRO BNP 216 PG/ML (<125); POTASSIUM SERUM 3.9 MEQ/L (3.5-5.1); SODIUM LEVEL 142 MEQ/L (136-145); THYROXINE (T4) 6.9 UG/DL (4.5-12.0); TOTAL PROTEIN 6.6 GM/DL (6.4-8.2)
[2021-08-12] VITALS (7 sets, daily range): BP systolic 105–125; BP diastolic 63–78; O2SAT 93
[2021-08-12] MEDS ORDERED: ALBUTEROL 90 MCG/ACT 8GM HFA INHALER INH PRN (00:45)
[2021-08-12] MEDS ORDERED: cefTRIAXone SOD 1 GM in D5W MINI-BAG PLUS 50 ML IV SCH (02:00)
[2021-08-12] MEDS ORDERED: ALBUTEROL SULFATE 2.5 MG/0.5 ML INH NEB SOLN NEB PRN (02:00)
[2021-08-12] MEDS ORDERED: FENTANYL REMOVAL DOCUMENTATION MISC XX SCH (02:05)
[2021-08-12] MEDS ORDERED: BACLOFEN 10 MG TAB PO PRN (02:05)
[2021-08-12] MEDS ORDERED: QUET100T2 PO (02:11)
[2021-08-12] MEDS ORDERED: BACL10TA2 PO (02:11)
[2021-08-12] MEDS ORDERED: FENT100D25 TD (02:11)
[2021-08-12] MEDS ORDERED: ANOR1AER INH (02:11)
[2021-08-12] MEDS ORDERED: OXYC20TA2 PO (02:11)
[2021-08-12] MEDS ORDERED: ALBU8.5H INH (02:11)
[2021-08-12] MEDS ORDERED: ATOR40TA75 PO (02:11)
[2021-08-12] MEDS ORDERED: NICO14DI24 TD (02:11)
[2021-08-12] MEDS ORDERED: OMEP40CA5 PO (02:11)
[2021-08-12] MEDS ORDERED: PRAZ1CAP PO (02:11)
[2021-08-12] MEDS ORDERED: FENT1DIS14 TD (02:11)
[2021-08-12] MEDS ORDERED: BUPR150T12 PO (02:13)
[2021-08-12] MEDS ORDERED: HOME MED LIST COMPLETE! XX SCH (02:15)
[2021-08-12] MEDS: IPRATROPIUM 0.5MG/ALBUTEROL 2.5MG INH SOL UD 3ML (DUONEB) NEB SCH ×3 (02:54→19:32)
[2021-08-12] MEDS: PRAZOSIN 1 MG CAP PO SCH ×2 (03:14→20:28)
[2021-08-12] MEDS: QUEtiapine FUMARATE 100 MG TAB PO SCH ×2 (03:14→20:28)
[2021-08-12] MEDS: buPROPion **XL** TABLET 150MG (WELLBUTRIN XL) PO SCH ×2 (03:15→20:28)
[2021-08-12] MEDS: oxyCODONE 5MG TAB PO PRN ×5 (03:15→21:10)
[2021-08-12] MEDS ORDERED: methylPREDNISolone 125MG 2ML VIAL IV SCH (06:00)
[2021-08-12 07:43] LABS: BASO % 0.2 % (0.0-1.0); HEMATOCRIT 46.5 % (36.0-47.0); HEMOGLOBIN 15.2 g/dl (12.0-15.5); LYMPH # 0.5 10^3/uL (1.5-5.0); LYMPH % 10.2 % (24.0-44.0); MEAN CORPUSCULAR HEMOGLOBIN 28.3 pg (27.0-33.0); MEAN CORPUSCULAR HGB CONC 32.7 g/dl (32.0-36.5); MEAN CORPUSCULAR VOLUME 86.6 fl (80.0-96.0); MONO # 0.1 10^3/uL (0.0-0.8); NEUTROPHILS # 4.4 10^3/uL (1.5-8.5); NEUTROPHILS % 87.2 % (36.0-66.0); PLATELET COUNT, AUTOMATED 228 10^3/uL (150-450); RED BLOOD COUNT 5.37 10^6/uL (4.00-5.40); WHITE BLOOD COUNT 5.1 10^3/uL (4.0-10.0)
[2021-08-12 08:09] LABS: BLOOD UREA NITROGEN 11 MG/DL (7-18); CARBON DIOXIDE LEVEL 26 MEQ/L (21-32); CHLORIDE LEVEL 106 MEQ/L (98-107); CREATININE FOR GFR 0.63 MG/DL (0.55-1.30); GLOMERULAR FILTRATION RATE > 60.0 (>51); GLUCOSE, FASTING 152 MG/DL (70-100); POTASSIUM SERUM 4.5 MEQ/L (3.5-5.1); SODIUM LEVEL 140 MEQ/L (136-145)
[2021-08-12 08:10] LABS: CALCIUM LEVEL 9.2 MG/DL (8.5-10.1)
[2021-08-12] MEDS: ADVAIR HFA 230/21MCG INHALER INH SCH ×2 (08:28→19:32)
[2021-08-12] MEDS: TIOTROPIUM INHALER/CAPSULE (SPIRIVA) INH SCH (08:29)
[2021-08-12] MEDS ORDERED: fentaNYL 25 MCG/HR PATCH TD SCH (09:00)
[2021-08-12] MEDS ORDERED: fentaNYL 100 MCG/HR PATCH TD SCH (09:00)
[2021-08-12] MEDS: ENOXAPARIN 40MG/0.4ML SYRINGE (J1650 PER 10MG) SC SCH (09:10)
[2021-08-12] MEDS: ATORVASTATIN 20 MG TAB PO SCH (09:10)
[2021-08-12] MEDS: OMEPRAZOLE 20MG CAP PO SCH (09:10)
[2021-08-12] MEDS: NICOTINE 14 MG/24 HR TRANSDERMAL TD SCH (09:12)
[2021-08-12] MEDS ORDERED: AZITHROMYCIN INJ 500 MG, VIAL MATE ADAPTER 1 EACH in NS 250 ML IV SCH (12:00)
[2021-08-12] MEDS: methylPREDNISolone 40MG 1ML VIAL IV SCH ×2 (15:05→21:04)
[2021-08-13] MEDS: oxyCODONE 5MG TAB PO PRN ×4 (01:13→10:19)
[2021-08-13] MEDS: IPRATROPIUM 0.5MG/ALBUTEROL 2.5MG INH SOL UD 3ML (DUONEB) NEB SCH ×2 (02:00→08:00)
[2021-08-13 02:05] VITALS: BP 123/75
[2021-08-13] MEDS: methylPREDNISolone 40MG 1ML VIAL IV SCH (05:12)
[2021-08-13 05:51] VITALS: BP 130/89
[2021-08-13 06:32] LABS: BASO % 0.1 % (0.0-1.0); HEMATOCRIT 42.2 % (36.0-47.0); HEMOGLOBIN 13.4 g/dl (12.0-15.5); LYMPH # 0.9 10^3/uL (1.5-5.0); LYMPH % 6.8 % (24.0-44.0); MEAN CORPUSCULAR HEMOGLOBIN 27.7 pg (27.0-33.0); MEAN CORPUSCULAR HGB CONC 31.8 g/dl (32.0-36.5); MEAN CORPUSCULAR VOLUME 87.4 fl (80.0-96.0); MONO # 0.6 10^3/uL (0.0-0.8); MONO % 4.8 % (2.0-8.0); NEUTROPHILS # 11.2 10^3/uL (1.5-8.5); PLATELET COUNT, AUTOMATED 252 10^3/uL (150-450); RED BLOOD COUNT 4.83 10^6/uL (4.00-5.40); WHITE BLOOD COUNT 12.8 10^3/uL (4.0-10.0)
[2021-08-13 07:03] LABS: BLOOD UREA NITROGEN 17 MG/DL (7-18); CALCIUM LEVEL 8.9 MG/DL (8.5-10.1); CARBON DIOXIDE LEVEL 27 MEQ/L (21-32); CHLORIDE LEVEL 108 MEQ/L (98-107); CREATININE FOR GFR 0.62 MG/DL (0.55-1.30); GLOMERULAR FILTRATION RATE > 60.0 (>51); GLUCOSE, FASTING 100 MG/DL (70-100); POTASSIUM SERUM 4.5 MEQ/L (3.5-5.1); SODIUM LEVEL 138 MEQ/L (136-145)
[2021-08-13] MEDS: TIOTROPIUM INHALER/CAPSULE (SPIRIVA) INH SCH (09:01)
[2021-08-13] MEDS: ADVAIR HFA 230/21MCG INHALER INH SCH (09:01)
[2021-08-13] MEDS: OMEPRAZOLE 20MG CAP PO SCH (09:25)
[2021-08-13] MEDS: ATORVASTATIN 20 MG TAB PO SCH (09:25)
[2021-08-13] MEDS: ENOXAPARIN 40MG/0.4ML SYRINGE (J1650 PER 10MG) SC SCH (09:26)
[2021-08-13] MEDS: NICOTINE 14 MG/24 HR TRANSDERMAL TD SCH (09:26)
[2021-08-13] MEDS ORDERED: AZIT500T5 PO (09:32)
[2021-08-13] MEDS ORDERED: PRED10TA2 PO (09:32)
[2021-08-13 10:00] VITALS: BP 125/69
[2021-08-15] MEDS ORDERED: FENTANYL REMOVAL DOCUMENTATION MISC XX SCH (09:00)
[2021-08-15] MEDS ORDERED: PRED10TA2 PO (09:44)
== END 2021-08-13 12:25 | disposition home health service (06) | DRG 191 ==
LOC: M ED 22:13 → M ED INP 08-12 00:28 → ENRESERV 08-12 10:57 → M MS5PR 08-12 11:50
PROVIDERS: ADMIT Family Medicine; ATTEND Family Medicine
DX: J44.1 Chronic obstructive pulmonary disease with (acute) exacerbation (principal); J96.11 Chronic respiratory failure with hypoxia; R09.02 Hypoxemia; E78.5 Hyperlipidemia, unspecified; F32.A Depression, unspecified; M19.90 Unspecified osteoarthritis, unspecified site; K21.9 Gastro-esophageal reflux disease without esophagitis; F41.9 Anxiety disorder, unspecified; G35 Multiple sclerosis; M06.9 Rheumatoid arthritis, unspecified; Z85.118 Personal history of other malignant neoplasm of bronchus and lung; Z90.2 Acquired absence of lung [part of]; Z87.891 Personal history of nicotine dependence; Z79.899 Other long term (current) drug therapy; Z79.891 Long term (current) use of opiate analgesic; Z88.6 Allergy status to analgesic agent; Z88.8 Allergy status to other drugs, medicaments and biological substances; Z85.42 Personal history of malignant neoplasm of other parts of uterus

== ENCOUNTER 2021-08-23 11:56 | Emergency (ER) | payer MEDICARE ==
[~2021-08-23] VITALS: Ht 160 cm; Wt 61.4 kg
[~2021-08-23 11:56] MED LIST changes: +ALBU8.5H INH; +AZIT500T5 PO; +FENT100D25 TD; +OMEP40CA5 PO; +PRED10TA2 PO
[2021-08-23 12:25] LABS: BASO % 0.3 % (0.0-1.0); EOS % 0.1 % (0.0-3.0); HEMATOCRIT 51.8 % (36.0-47.0); HEMOGLOBIN 16.8 g/dl (12.0-15.5); LYMPH # 0.8 10^3/uL (1.5-5.0); LYMPH % 8.2 % (24.0-44.0); MEAN CORPUSCULAR HEMOGLOBIN 28.5 pg (27.0-33.0); MEAN CORPUSCULAR HGB CONC 32.4 g/dl (32.0-36.5); MEAN CORPUSCULAR VOLUME 87.8 fl (80.0-96.0); MONO # 0.3 10^3/uL (0.0-0.8); MONO % 2.6 % (2.0-8.0); NEUTROPHILS # 8.5 10^3/uL (1.5-8.5); NEUTROPHILS % 88.4 % (36.0-66.0); PLATELET COUNT, AUTOMATED 224 10^3/uL (150-450); WHITE BLOOD COUNT 9.6 10^3/uL (4.0-10.0)
[2021-08-23 12:36] LABS: INR 0.86; PROTHROMBIN TIME 12.1 SECONDS (12.7-14.5)
[2021-08-23] MEDS ORDERED: fentaNYL 100 MCG/HR PATCH TOP ONE ×2 (12:50→13:00)
[2021-08-23] MEDS ORDERED: NS 500 ML IV ONE (12:50)
[2021-08-23] MEDS ORDERED: FENTANYL REMOVAL DOCUMENTATION MISC XX SCH (12:50)
[2021-08-23 12:56] LABS: CK-MB VALUE MASS 2.8 NG/ML (<3.6); MB/CK RELATIVE INDEX 5.09 (< OR =4)
[2021-08-23 12:58] LABS: RSV AMPLIFICATION NEGATIVE (NEGATIVE)
[2021-08-23 12:59] LABS: ALT/SGPT 23 U/L (12-78); BILIRUBIN,DIRECT 0.2 MG/DL (0.0-0.2); BILIRUBIN,TOTAL 0.5 MG/DL (0.2-1.0); BLOOD UREA NITROGEN 12 MG/DL (7-18); CALCIUM LEVEL 9.3 MG/DL (8.5-10.1); CARBON DIOXIDE LEVEL 25 MEQ/L (21-32); CHLORIDE LEVEL 108 MEQ/L (98-107); CREATININE FOR GFR 0.83 MG/DL (0.55-1.30); GLOMERULAR FILTRATION RATE > 60.0 (>51); GLUCOSE, FASTING 132 MG/DL (70-100); LIPASE 144 U/L (73-393); POTASSIUM SERUM 4.3 MEQ/L (3.5-5.1); SODIUM LEVEL 139 MEQ/L (136-145); TOTAL PROTEIN 7.8 GM/DL (6.4-8.2)
[2021-08-23] MEDS ORDERED: fentaNYL 25 MCG/HR PATCH TOP ONE (13:05)
[2021-08-23 13:51] LABS: ABG BASE EXCESS 0.4 (-2.0-2.0); ABG HCO3 23.6 MEQ/L (22.0-26.0); ABG O2 SATURATION 97.2 % (95.0-99.0); ABG PARTIAL PRESSURE CO2 34.3 mmHg (35.0-45.0); ABG STANDARD HCO3 24.8 MEQ/L (22.0-26.0); ABG TOTAL CO2 24.6 MEQ/L (22.0-29.0); ABG pH (ARTERIAL) 7.455 UNITS (7.350-7.450)
[2021-08-23 13:58] LABS: FREE T4 1.02 NG/DL (0.76-1.46); MAGNESIUM LEVEL 2.1 MG/DL (1.8-2.4); THYROID STIMULATING HORMONE 0.885 uIU/ML (0.358-3.740)
[2021-08-23] MEDS ORDERED: ISOVUE-370 76% 100ML VIAL As Ordered ONE (13:59)
[2021-08-23 14:24] LABS: CK-MB VALUE MASS 2.4 NG/ML (<3.6); MB/CK RELATIVE INDEX 5.22 (< OR =4)
[2021-08-23 16:39] VITALS: BP 147/78
[2021-08-26] MEDS ORDERED: FENTANYL REMOVAL DOCUMENTATION MISC XX SCH ×2 (13:00)
== END 2021-08-23 16:40 | disposition home or self-care (01) ==
LOC: M ED 11:56
DX: R00.2 Palpitations (principal); R06.02 Shortness of breath; F41.9 Anxiety disorder, unspecified; C34.90 Malignant neoplasm of unspecified part of unspecified bronchus or lung; J44.9 Chronic obstructive pulmonary disease, unspecified; E78.5 Hyperlipidemia, unspecified; Z87.891 Personal history of nicotine dependence; Z88.6 Allergy status to analgesic agent; Z88.8 Allergy status to other drugs, medicaments and biological substances
CPT/HCPCS: 36600; 71045; 71275; 80048; 80076; 82550; 82553; 82803; 83690; 83735; 84439; 84443; 84484; 85025; 85610; 87631; 93005; 93041; 94760; 96360; 96361; 99285; Q9967

== ENCOUNTER 2021-09-09 15:44 | Inpatient (IN) | payer MEDICARE ==
[~2021-09-09] VITALS: Ht 157.5 cm; Wt 59.1 kg
[2021-09-09] MEDS ORDERED: oxyCODONE 5MG TAB PO ONE (18:15)
[2021-09-09 18:38] LABS: HEMOGLOBIN 12.5 g/dl (12.0-15.5); MEAN CORPUSCULAR HEMOGLOBIN 28.3 pg (27.0-33.0); MEAN CORPUSCULAR HGB CONC 32.1 g/dl (32.0-36.5); MEAN CORPUSCULAR VOLUME 88.2 fl (80.0-96.0); PLATELET COUNT, AUTOMATED 250 10^3/uL (150-450); RED BLOOD COUNT 4.42 10^6/uL (4.00-5.40); WHITE BLOOD COUNT 5.2 10^3/uL (4.0-10.0)
[2021-09-09 19:11] LABS: RSV AMPLIFICATION NEGATIVE (NEGATIVE)
[2021-09-09 19:19] LABS: AMPHETAMINES LEVEL URINE NEGATIVE (NEGATIVE); BARBITURATES URINE NEGATIVE (NEGATIVE); BENZODIAZEPINES URINE NEGATIVE (NEGATIVE); CANNABINOIDS URINE NEGATIVE (NEGATIVE); COCAINE METABOLITE URINE NEGATIVE (NEGATIVE); METHADONE URINE NEGATIVE (NEGATIVE); OPIATES URINE POSITIVE (NEGATIVE); PHENCYCLIDINE URINE NEGATIVE (NEGATIVE)
[2021-09-09 19:20] LABS: ACETAMINOPHEN LEVEL < 2.0 UG/ML (10.0-30.0); ALBUMIN 3.2 GM/DL (3.2-5.2); ALT/SGPT 20 U/L (12-78); BILIRUBIN,DIRECT 0.1 MG/DL (0.0-0.2); BILIRUBIN,TOTAL 0.5 MG/DL (0.2-1.0); BLOOD UREA NITROGEN 5 MG/DL (7-18); CALCIUM LEVEL 9.2 MG/DL (8.5-10.1); CARBON DIOXIDE LEVEL 26 MEQ/L (21-32); CHLORIDE LEVEL 107 MEQ/L (98-107); CREATININE FOR GFR 0.55 MG/DL (0.55-1.30); ETHYL ALCOHOL (ETHANOL) < 0.003 % (0.000-0.010); GLOMERULAR FILTRATION RATE > 60.0 (>51); GLUCOSE, FASTING 116 MG/DL (70-100); POTASSIUM SERUM 4.5 MEQ/L (3.5-5.1); SALICYLATE LEVEL 1.9 MG/DL (5.0-30.0); SODIUM LEVEL 141 MEQ/L (136-145); TOTAL PROTEIN 6.1 GM/DL (6.4-8.2)
[2021-09-09] MEDS ORDERED: HOME MED LIST COMPLETE! XX SCH (20:45)
[2021-09-09] MEDS: QUEtiapine FUMARATE 100 MG TAB PO SCH (21:00)
[2021-09-09] MEDS: PRAZOSIN 1 MG CAP PO SCH (21:00)
[2021-09-09] MEDS: buPROPion **XL** TABLET 150MG (WELLBUTRIN XL) PO SCH (21:00)
[2021-09-10] MEDS ORDERED: ACETAMINOPHEN TAB 650MG DOSE (2X325MG) PO PRN (03:00)
[2021-09-10] MEDS ORDERED: MOM 30ML SUSPENSION UDC PO PRN (03:00)
[2021-09-10] MEDS ORDERED: traZODone 50 MG TAB PO PRN (03:00)
[2021-09-10] MEDS ORDERED: BACLOFEN 10 MG TAB PO PRN (03:00)
[2021-09-10] MEDS ORDERED: MAALOX 30 ML SUSP *UDC PO PRN (03:00)
[2021-09-10] MEDS ORDERED: FENTANYL REMOVAL DOCUMENTATION MISC XX SCH (03:00)
[2021-09-10 05:18] VITALS: BP 119/74
[2021-09-10] MEDS: oxyCODONE 5MG TAB PO PRN ×5 (05:58→23:10)
[2021-09-10] MEDS: ATORVASTATIN 20 MG TAB PO SCH (08:20)
[2021-09-10] MEDS: PANTOPRAZOLE 40MG TAB (PROTONIX) PO SCH (08:20)
[2021-09-10] MEDS: NICOTINE 14 MG/24 HR TRANSDERMAL TD SCH (08:22)
[2021-09-10] MEDS: ALBUTEROL 90 MCG/ACT 8GM HFA INHALER INH PRN ×3 (08:29→22:11)
[2021-09-10] MEDS ORDERED: fentaNYL 25 MCG/HR PATCH TD SCH (09:00)
[2021-09-10] MEDS ORDERED: fentaNYL 100 MCG/HR PATCH TD SCH (09:00)
[2021-09-10] MEDS: SALMETEROL DISKUS 50MCG INHALER (SEREVENT) INH SCH ×2 (10:26→21:01)
[2021-09-10] MEDS: TIOTROPIUM INHALER/CAPSULE (SPIRIVA) INH SCH (11:51)
[2021-09-10 18:20] VITALS: BP 132/60
[2021-09-10] MEDS ORDERED: IPRATROPIUM 0.5MG/ALBUTEROL 2.5MG INH SOL UD 3ML (DUONEB) NEB PRN (20:50)
[2021-09-10 21:00] VITALS: BP 132/60
[2021-09-10] MEDS: PRAZOSIN 1 MG CAP PO SCH (21:00)
[2021-09-10] MEDS: buPROPion **XL** TABLET 150MG (WELLBUTRIN XL) PO SCH (21:00)
[2021-09-10] MEDS: QUEtiapine FUMARATE 100 MG TAB PO SCH (21:00)
[2021-09-11] MEDS: ALBUTEROL 90 MCG/ACT 8GM HFA INHALER INH PRN (02:54)
[2021-09-11 03:10] VITALS: BP 118/68
[2021-09-11 03:45] VITALS: BP 98/55
[2021-09-11 03:51] LABS: ABG BASE EXCESS 2.8 (-2.0-2.0); ABG HCO3 26.5 MEQ/L (22.0-26.0); ABG O2 SATURATION 87.8 % (95.0-99.0); ABG PARTIAL PRESSURE O2 52.1 mmHg (75.0-100.0); ABG STANDARD HCO3 26.7 MEQ/L (22.0-26.0); ABG TOTAL CO2 27.7 MEQ/L (22.0-29.0); ABG pH (ARTERIAL) 7.462 UNITS (7.350-7.450)
[2021-09-11 04:44] LABS: BASO % 0.3 % (0.0-1.0); EOS % 0.3 % (0.0-3.0); HEMATOCRIT 38.7 % (36.0-47.0); HEMOGLOBIN 12.8 g/dl (12.0-15.5); LYMPH # 0.4 10^3/uL (1.5-5.0); LYMPH % 5.2 % (24.0-44.0); MEAN CORPUSCULAR HEMOGLOBIN 28.7 pg (27.0-33.0); MEAN CORPUSCULAR HGB CONC 33.1 g/dl (32.0-36.5); MEAN CORPUSCULAR VOLUME 86.8 fl (80.0-96.0); MONO # 0.6 10^3/uL (0.0-0.8); MONO % 7.9 % (2.0-8.0); NEUTROPHILS # 5.9 10^3/uL (1.5-8.5); NEUTROPHILS % 85.9 % (36.0-66.0); PLATELET COUNT, AUTOMATED 179 10^3/uL (150-450); RED BLOOD COUNT 4.46 10^6/uL (4.00-5.40); WHITE BLOOD COUNT 6.9 10^3/uL (4.0-10.0)
[2021-09-11] MEDS ORDERED: LEVALBUTEROL 1.25 MG/0.5 ML CONCENTRATE NEB INH ONE (05:00)
[2021-09-11 05:14] LABS: BLOOD UREA NITROGEN 8 MG/DL (7-18); CARBON DIOXIDE LEVEL 27 MEQ/L (21-32); CHLORIDE LEVEL 104 MEQ/L (98-107); CREATININE FOR GFR 0.74 MG/DL (0.55-1.30); GLOMERULAR FILTRATION RATE > 60.0 (>51); GLUCOSE, FASTING 160 MG/DL (70-100); POTASSIUM SERUM 3.9 MEQ/L (3.5-5.1); SODIUM LEVEL 138 MEQ/L (136-145)
[2021-09-11 06:00] VITALS: BP 97/59
[2021-09-11 06:05] VITALS: BP 97/59
[2021-09-11] MEDS: oxyCODONE 5MG TAB PO PRN ×2 (06:24→12:18)
[2021-09-11] MEDS ORDERED: SYMBICORT 160/4.5MCG INHALER 6GM INH SCH (08:00)
[2021-09-11] MEDS ORDERED: LEVALBUTEROL 1.25 MG/0.5 ML CONCENTRATE NEB INH SCH (08:00)
[2021-09-11] MEDS: PANTOPRAZOLE 40MG TAB (PROTONIX) PO SCH (08:15)
[2021-09-11] MEDS: NICOTINE 14 MG/24 HR TRANSDERMAL TD SCH (08:16)
[2021-09-11] MEDS: ATORVASTATIN 20 MG TAB PO SCH (08:16)
[2021-09-11] MEDS: TIOTROPIUM INHALER/CAPSULE (SPIRIVA) INH SCH (08:18)
[2021-09-11] MEDS ORDERED: LevoFLOXacin 750 MG TABLET PO SCH (09:00)
[2021-09-11] MEDS ORDERED: guaiFENesin ER 600 MG TAB PO SCH (09:00)
[2021-09-11] MEDS ORDERED: predniSONE 20 MG TAB PO SCH (09:00)
[2021-09-11] MEDS ORDERED: LACTOBACILLUS ACIDOPHILUS CAP (BACID) PO SCH (09:00)
[2021-09-11 09:35] VITALS: BP 134/60
[2021-09-11 12:18] VITALS: BP 136/76
[2021-09-13] MEDS ORDERED: FENTANYL REMOVAL DOCUMENTATION MISC XX SCH (09:00)
== END 2021-09-11 12:50 | disposition short-term general hospital (02) | DRG 885 ==
LOC: M ED 15:44 → M ED INP 09-10 02:58 → M PSY 09-10 05:20
PROVIDERS: ADMIT Student in an Organized Health Care Education/Training Program; ATTEND Student in an Organized Health Care Education/Training Program
DX: F33.2 Major depressive disorder, recurrent severe without psychotic features (principal); J96.11 Chronic respiratory failure with hypoxia; R45.851 Suicidal ideations; G35 Multiple sclerosis; M19.90 Unspecified osteoarthritis, unspecified site; M06.9 Rheumatoid arthritis, unspecified; M79.7 Fibromyalgia; Z98.1 Arthrodesis status; G89.29 Other chronic pain; J98.01 Acute bronchospasm; R26.89 Other abnormalities of gait and mobility; J44.9 Chronic obstructive pulmonary disease, unspecified; E78.5 Hyperlipidemia, unspecified; F17.200 Nicotine dependence, unspecified, uncomplicated; M54.2 Cervicalgia; Z85.118 Personal history of other malignant neoplasm of bronchus and lung; Z79.899 Other long term (current) drug therapy; Z79.891 Long term (current) use of opiate analgesic; Z88.6 Allergy status to analgesic agent; Z88.8 Allergy status to other drugs, medicaments and biological substances; Z91.040 Latex allergy status; Z92.21 Personal history of antineoplastic chemotherapy; Z92.3 Personal history of irradiation; Z85.3 Personal history of malignant neoplasm of breast; Z85.42 Personal history of malignant neoplasm of other parts of uterus; Z87.81 Personal history of (healed) traumatic fracture

== ENCOUNTER 2021-09-11 10:20 | Inpatient (IN) | payer MEDICARE ==
[~2021-09-11] VITALS: Ht 157.5 cm; Wt 59.2 kg
[2021-09-11] MEDS ORDERED: MOM 30ML SUSPENSION UDC PO PRN (10:25)
[2021-09-11 13:08] VITALS: BP 109/59
[2021-09-11] MEDS ORDERED: FENTANYL REMOVAL DOCUMENTATION MISC XX SCH (13:15)
[2021-09-11] MEDS: LEVALBUTEROL 1.25 MG/0.5 ML CONCENTRATE NEB INH SCH ×4 (13:30→23:22)
[2021-09-11] MEDS: methylPREDNISolone 40MG 1ML VIAL IV SCH ×2 (15:44→21:34)
[2021-09-11 15:55] VITALS: BP 105/65
[2021-09-11] MEDS: oxyCODONE 5MG TAB PO PRN ×2 (17:03→21:34)
[2021-09-11] MEDS: SYMBICORT 160/4.5MCG INHALER 6GM INH SCH (19:59)
[2021-09-11 20:00] VITALS: BP 102/55
[2021-09-11] MEDS: DOCUSATE SODIUM 100MG CAPSULE PO SCH (21:34)
[2021-09-11] MEDS: buPROPion **XL** TABLET 150MG (WELLBUTRIN XL) PO SCH (21:35)
[2021-09-11] MEDS: QUEtiapine FUMARATE 100 MG TAB PO SCH (21:35)
[2021-09-11] MEDS: PRAZOSIN 1 MG CAP PO SCH (21:38)
[2021-09-11 23:00] VITALS: BP 100/59
[2021-09-12] VITALS: BP 112/61
[2021-09-12] MEDS: methylPREDNISolone 40MG 1ML VIAL IV SCH ×4 (02:07→20:59)
[2021-09-12] MEDS: oxyCODONE 5MG TAB PO PRN ×5 (02:08→20:57)
[2021-09-12] MEDS: LEVALBUTEROL 1.25 MG/0.5 ML CONCENTRATE NEB INH SCH ×6 (03:29→23:15)
[2021-09-12 04:00] VITALS: BP 113/84
[2021-09-12] MEDS: TIOTROPIUM INHALER/CAPSULE (SPIRIVA) INH SCH (07:06)
[2021-09-12] MEDS: SYMBICORT 160/4.5MCG INHALER 6GM INH SCH ×2 (07:07→19:12)
[2021-09-12 07:14] VITALS: BP 100/57
[2021-09-12 07:32] LABS: HEMATOCRIT 40.4 % (36.0-47.0); HEMOGLOBIN 12.9 g/dl (12.0-15.5); LYMPH # 0.2 10^3/uL (1.5-5.0); LYMPH % 4.5 % (24.0-44.0); MEAN CORPUSCULAR HGB CONC 31.9 g/dl (32.0-36.5); MEAN CORPUSCULAR VOLUME 87.6 fl (80.0-96.0); MONO # 0.2 10^3/uL (0.0-0.8); MONO % 3.7 % (2.0-8.0); NEUTROPHILS # 4.5 10^3/uL (1.5-8.5); NEUTROPHILS % 91.4 % (36.0-66.0); PLATELET COUNT, AUTOMATED 213 10^3/uL (150-450); RED BLOOD COUNT 4.61 10^6/uL (4.00-5.40); WHITE BLOOD COUNT 4.9 10^3/uL (4.0-10.0)
[2021-09-12 07:56] LABS: BLOOD UREA NITROGEN 8 MG/DL (7-18); CALCIUM LEVEL 9.8 MG/DL (8.5-10.1); CARBON DIOXIDE LEVEL 28 MEQ/L (21-32); CHLORIDE LEVEL 101 MEQ/L (98-107); CREATININE FOR GFR 0.85 MG/DL (0.55-1.30); GLOMERULAR FILTRATION RATE > 60.0 (>51); GLUCOSE, FASTING 233 MG/DL (70-100); POTASSIUM SERUM 3.9 MEQ/L (3.5-5.1); SODIUM LEVEL 135 MEQ/L (136-145)
[2021-09-12] MEDS: OMEPRAZOLE 20MG CAP PO SCH (08:24)
[2021-09-12] MEDS: DOCUSATE SODIUM 100MG CAPSULE PO SCH ×2 (08:24→20:54)
[2021-09-12] MEDS: LevoFLOXacin IV 750 MG in IV 1 EA IV SCH (08:25)
[2021-09-12] MEDS: NICOTINE 14 MG/24 HR TRANSDERMAL TD SCH (08:25)
[2021-09-12] MEDS: ENOXAPARIN 40MG/0.4ML SYRINGE (J1650 PER 10MG) SC SCH (08:25)
[2021-09-12] MEDS ORDERED: LEVEMIR (INSULIN DETEMIR) 1 UNITS/0.01ML SC SCH (09:00)
[2021-09-12 11:20] VITALS: BP 149/77
[2021-09-12 14:00] VITALS: BP 106/71
[2021-09-12] MEDS: QUEtiapine FUMARATE 100 MG TAB PO SCH (20:54)
[2021-09-12] MEDS: buPROPion **XL** TABLET 150MG (WELLBUTRIN XL) PO SCH (20:55)
[2021-09-12] MEDS: PRAZOSIN 1 MG CAP PO SCH (20:55)
[2021-09-12 21:03] VITALS: BP 129/85
[2021-09-13] MEDS: oxyCODONE 5MG TAB PO PRN ×5 (01:47→21:47)
[2021-09-13] MEDS: methylPREDNISolone 40MG 1ML VIAL IV SCH ×2 (02:33→09:12)
[2021-09-13] MEDS: LEVALBUTEROL 1.25 MG/0.5 ML CONCENTRATE NEB INH SCH ×6 (03:26→23:33)
[2021-09-13 05:21] VITALS: BP 102/63
[2021-09-13 06:37] LABS: BASO % 0.1 % (0.0-1.0); HEMATOCRIT 38.2 % (36.0-47.0); HEMOGLOBIN 12.3 g/dl (12.0-15.5); LYMPH # 0.3 10^3/uL (1.5-5.0); LYMPH % 2.2 % (24.0-44.0); MEAN CORPUSCULAR HEMOGLOBIN 27.9 pg (27.0-33.0); MEAN CORPUSCULAR HGB CONC 32.2 g/dl (32.0-36.5); MEAN CORPUSCULAR VOLUME 86.6 fl (80.0-96.0); MONO # 0.5 10^3/uL (0.0-0.8); MONO % 3.7 % (2.0-8.0); NEUTROPHILS # 12.7 10^3/uL (1.5-8.5); NEUTROPHILS % 93.5 % (36.0-66.0); PLATELET COUNT, AUTOMATED 213 10^3/uL (150-450); RED BLOOD COUNT 4.41 10^6/uL (4.00-5.40); WHITE BLOOD COUNT 13.5 10^3/uL (4.0-10.0)
[2021-09-13 07:02] LABS: BLOOD UREA NITROGEN 12 MG/DL (7-18); CALCIUM LEVEL 9.2 MG/DL (8.5-10.1); CARBON DIOXIDE LEVEL 28 MEQ/L (21-32); CHLORIDE LEVEL 106 MEQ/L (98-107); CREATININE FOR GFR 0.58 MG/DL (0.55-1.30); GLOMERULAR FILTRATION RATE > 60.0 (>51); GLUCOSE, FASTING 141 MG/DL (70-100); POTASSIUM SERUM 4.5 MEQ/L (3.5-5.1); SODIUM LEVEL 140 MEQ/L (136-145)
[2021-09-13] MEDS: TIOTROPIUM INHALER/CAPSULE (SPIRIVA) INH SCH (07:12)
[2021-09-13] MEDS: SYMBICORT 160/4.5MCG INHALER 6GM INH SCH ×2 (07:12→19:46)
[2021-09-13] MEDS ORDERED: LEVEMIR (INSULIN DETEMIR) 1 UNITS/0.01ML SC SCH (09:00)
[2021-09-13] MEDS: LevoFLOXacin IV 750 MG in IV 1 EA IV SCH (09:11)
[2021-09-13] MEDS: DOCUSATE SODIUM 100MG CAPSULE PO SCH ×2 (09:11→21:50)
[2021-09-13] MEDS: OMEPRAZOLE 20MG CAP PO SCH (09:11)
[2021-09-13] MEDS: ENOXAPARIN 40MG/0.4ML SYRINGE (J1650 PER 10MG) SC SCH (09:13)
[2021-09-13] MEDS: NICOTINE 14 MG/24 HR TRANSDERMAL TD SCH (09:13)
[2021-09-13] MEDS: fentaNYL 25 MCG/HR PATCH TOP SCH (09:14)
[2021-09-13] MEDS: fentaNYL 100 MCG/HR PATCH TOP SCH (09:15)
[2021-09-13] MEDS: FENTANYL REMOVAL DOCUMENTATION MISC XX SCH (09:17)
[2021-09-13] MEDS ORDERED: LevoFLOXacin 750 MG TABLET PO ONE (11:25)
[2021-09-13] MEDS ORDERED: ONDANSETRON 4MG ORAL DISINTEGRATING TAB PO PRN (11:25)
[2021-09-13] MEDS: BACLOFEN 10 MG TAB PO PRN (11:53)
[2021-09-13 14:00] VITALS: BP 113/78
[2021-09-13] MEDS: IPRATROPIUM 0.5MG/ALBUTEROL 2.5MG INH SOL UD 3ML (DUONEB) NEB PRN ×2 (17:42→19:48)
[2021-09-13 20:00] VITALS: BP 118/79
[2021-09-13] MEDS ORDERED: methylPREDNISolone 40MG 1ML VIAL IV SCH (20:00)
[2021-09-13] MEDS: PRAZOSIN 1 MG CAP PO SCH (21:49)
[2021-09-13] MEDS: buPROPion **XL** TABLET 150MG (WELLBUTRIN XL) PO SCH (21:50)
[2021-09-13] MEDS: QUEtiapine FUMARATE 100 MG TAB PO SCH (21:50)
[2021-09-14] MEDS: oxyCODONE 5MG TAB PO PRN ×4 (02:15→18:02)
[2021-09-14] MEDS: IPRATROPIUM 0.5MG/ALBUTEROL 2.5MG INH SOL UD 3ML (DUONEB) NEB PRN (02:20)
[2021-09-14] MEDS: guaiFENesin ER 600 MG TAB PO SCH ×3 (02:55→20:35)
[2021-09-14] MEDS: LEVALBUTEROL 1.25 MG/0.5 ML CONCENTRATE NEB INH SCH ×6 (03:42→23:12)
[2021-09-14] MEDS ORDERED: hydrOXYzine 50 MG TAB PO ONE (04:20)
[2021-09-14 05:18] VITALS: BP 135/97
[2021-09-14 05:57] LABS: BASO % 0.1 % (0.0-1.0); EOS % 0.2 % (0.0-3.0); HEMATOCRIT 41.4 % (36.0-47.0); HEMOGLOBIN 12.8 g/dl (12.0-15.5); LYMPH # 0.5 10^3/uL (1.5-5.0); LYMPH % 5.9 % (24.0-44.0); MEAN CORPUSCULAR HGB CONC 30.9 g/dl (32.0-36.5); MEAN CORPUSCULAR VOLUME 90.6 fl (80.0-96.0); MONO # 0.5 10^3/uL (0.0-0.8); MONO % 5.3 % (2.0-8.0); NEUTROPHILS # 7.6 10^3/uL (1.5-8.5); PLATELET COUNT, AUTOMATED 186 10^3/uL (150-450); RED BLOOD COUNT 4.57 10^6/uL (4.00-5.40); WHITE BLOOD COUNT 8.7 10^3/uL (4.0-10.0)
[2021-09-14] MEDS ORDERED: LevoFLOXacin 750 MG TABLET PO SCH (06:00)
[2021-09-14 06:19] LABS: BLOOD UREA NITROGEN 11 MG/DL (7-18); CALCIUM LEVEL 9.4 MG/DL (8.5-10.1); CARBON DIOXIDE LEVEL 31 MEQ/L (21-32); CHLORIDE LEVEL 100 MEQ/L (98-107); CREATININE FOR GFR 0.65 MG/DL (0.55-1.30); GLOMERULAR FILTRATION RATE > 60.0 (>51); GLUCOSE, FASTING 119 MG/DL (70-100); POTASSIUM SERUM 3.8 MEQ/L (3.5-5.1); SODIUM LEVEL 135 MEQ/L (136-145)
[2021-09-14] MEDS: SYMBICORT 160/4.5MCG INHALER 6GM INH SCH ×2 (07:19→19:49)
[2021-09-14] MEDS: TIOTROPIUM INHALER/CAPSULE (SPIRIVA) INH SCH (07:19)
[2021-09-14] MEDS: ENOXAPARIN 40MG/0.4ML SYRINGE (J1650 PER 10MG) SC SCH (08:36)
[2021-09-14] MEDS: SENOKOT S TAB PO SCH ×2 (08:36→20:34)
[2021-09-14] MEDS: OMEPRAZOLE 20MG CAP PO SCH (08:37)
[2021-09-14] MEDS: NICOTINE 14 MG/24 HR TRANSDERMAL TD SCH (08:37)
[2021-09-14] MEDS ORDERED: predniSONE 20 MG TAB PO SCH (09:00)
[2021-09-14] MEDS: ACETAMINOPHEN TAB 650MG DOSE (2X325MG) PO PRN ×2 (10:58→19:38)
[2021-09-14] MEDS ORDERED: ISOVUE-370 76% 100ML VIAL As Ordered ONE (11:18)
[2021-09-14] MEDS ORDERED: methylPREDNISolone 40MG 1ML VIAL IV SCH ×2 (12:00→21:00)
[2021-09-14] MEDS: SODIUM CHLORIDE 0.9% INJ 10 ML SYR IV SCH (12:42)
[2021-09-14 14:00] VITALS: BP 135/83
[2021-09-14] MEDS ORDERED: LEVALBUTEROL 1.25 MG/0.5 ML CONCENTRATE NEB INH SCH (16:00)
[2021-09-14 19:53] VITALS: O2SAT 98
[2021-09-14] MEDS: buPROPion **XL** TABLET 150MG (WELLBUTRIN XL) PO SCH (20:35)
[2021-09-14] MEDS: QUEtiapine FUMARATE 100 MG TAB PO SCH (20:35)
[2021-09-14] MEDS: PRAZOSIN 1 MG CAP PO SCH (20:36)
[2021-09-14] MEDS ORDERED: ALPRAZolam 0.25 MG TAB PO SCH (21:00)
[2021-09-14 22:00] VITALS: BP 125/88
[2021-09-15] MEDS: oxyCODONE 5MG TAB PO PRN ×6 (01:20→22:23)
[2021-09-15] MEDS: LEVALBUTEROL 1.25 MG/0.5 ML CONCENTRATE NEB INH SCH ×5 (04:00→19:33)
[2021-09-15] MEDS: LevoFLOXacin IV 750 MG in IV 1 EA IV SCH (05:11)
[2021-09-15 06:00] VITALS: BP 153/95
[2021-09-15 06:16] LABS: BASO % 0.2 % (0.0-1.0); HEMATOCRIT 38.3 % (36.0-47.0); HEMOGLOBIN 11.9 g/dl (12.0-15.5); LYMPH # 0.5 10^3/uL (1.5-5.0); LYMPH % 10.2 % (24.0-44.0); MEAN CORPUSCULAR HEMOGLOBIN 27.9 pg (27.0-33.0); MEAN CORPUSCULAR HGB CONC 31.1 g/dl (32.0-36.5); MEAN CORPUSCULAR VOLUME 89.7 fl (80.0-96.0); MONO # 0.4 10^3/uL (0.0-0.8); MONO % 7.6 % (2.0-8.0); NEUTROPHILS % 81.8 % (36.0-66.0); PLATELET COUNT, AUTOMATED 178 10^3/uL (150-450); RED BLOOD COUNT 4.27 10^6/uL (4.00-5.40); WHITE BLOOD COUNT 4.9 10^3/uL (4.0-10.0)
[2021-09-15 06:32] LABS: BLOOD UREA NITROGEN 7 MG/DL (7-18); CARBON DIOXIDE LEVEL 34 MEQ/L (21-32); CHLORIDE LEVEL 101 MEQ/L (98-107); CREATININE FOR GFR 0.52 MG/DL (0.55-1.30); GLOMERULAR FILTRATION RATE > 60.0 (>51); GLUCOSE, FASTING 150 MG/DL (70-100); POTASSIUM SERUM 4.5 MEQ/L (3.5-5.1); SODIUM LEVEL 138 MEQ/L (136-145)
[2021-09-15] MEDS: SODIUM CHLORIDE 0.9% INJ 10 ML SYR IV PRN ×2 (06:53→12:22)
[2021-09-15] MEDS: SYMBICORT 160/4.5MCG INHALER 6GM INH SCH ×2 (07:21→19:30)
[2021-09-15] MEDS: TIOTROPIUM INHALER/CAPSULE (SPIRIVA) INH SCH (07:21)
[2021-09-15] MEDS: guaiFENesin ER 600 MG TAB PO SCH ×2 (08:57→21:11)
[2021-09-15] MEDS: SENOKOT S TAB PO SCH ×2 (08:57→21:11)
[2021-09-15] MEDS: NICOTINE 14 MG/24 HR TRANSDERMAL TD SCH (08:57)
[2021-09-15] MEDS: ENOXAPARIN 40MG/0.4ML SYRINGE (J1650 PER 10MG) SC SCH (08:57)
[2021-09-15] MEDS: OMEPRAZOLE 20MG CAP PO SCH (08:57)
[2021-09-15] MEDS: SODIUM CHLORIDE 0.9% INJ 10 ML SYR IV SCH (08:58)
[2021-09-15] MEDS: ALBUTEROL 90 MCG/ACT 8GM HFA INHALER INH PRN ×3 (09:18→19:30)
[2021-09-15] MEDS ORDERED: ALPRAZolam 0.25 MG TAB PO ONE (09:30)
[2021-09-15] MEDS: methylPREDNISolone 40MG 1ML VIAL IV SCH ×2 (12:22→18:11)
[2021-09-15 14:00] VITALS: BP 142/62
[2021-09-15] MEDS: buPROPion **XL** TABLET 150MG (WELLBUTRIN XL) PO SCH (21:11)
[2021-09-15] MEDS: QUEtiapine FUMARATE 100 MG TAB PO SCH (21:11)
[2021-09-15] MEDS: PRAZOSIN 1 MG CAP PO SCH (21:14)
[2021-09-15 22:00] VITALS: BP 156/97
[2021-09-16] MEDS: methylPREDNISolone 40MG 1ML VIAL IV SCH ×4 (00:10→18:03)
[2021-09-16] MEDS: SODIUM CHLORIDE 0.9% INJ 10 ML SYR IV PRN (00:17)
[2021-09-16] MEDS: oxyCODONE 5MG TAB PO PRN ×4 (02:43→18:05)
[2021-09-16] MEDS: ALBUTEROL 90 MCG/ACT 8GM HFA INHALER INH PRN (02:46)
[2021-09-16] MEDS: LEVALBUTEROL 1.25 MG/0.5 ML CONCENTRATE NEB INH SCH ×7 (04:00→23:07)
[2021-09-16] MEDS: LevoFLOXacin IV 750 MG in IV 1 EA IV SCH (05:57)
[2021-09-16 06:00] VITALS: BP 156/93
[2021-09-16 06:20] LABS: BASO % 0.1 % (0.0-1.0); HEMATOCRIT 42.4 % (36.0-47.0); HEMOGLOBIN 13.4 g/dl (12.0-15.5); LYMPH # 0.7 10^3/uL (1.5-5.0); LYMPH % 9.5 % (24.0-44.0); MEAN CORPUSCULAR HEMOGLOBIN 27.9 pg (27.0-33.0); MEAN CORPUSCULAR HGB CONC 31.6 g/dl (32.0-36.5); MEAN CORPUSCULAR VOLUME 88.1 fl (80.0-96.0); MONO # 0.4 10^3/uL (0.0-0.8); MONO % 5.4 % (2.0-8.0); NEUTROPHILS # 5.9 10^3/uL (1.5-8.5); NEUTROPHILS % 84.6 % (36.0-66.0); PLATELET COUNT, AUTOMATED 222 10^3/uL (150-450); RED BLOOD COUNT 4.81 10^6/uL (4.00-5.40)
[2021-09-16 06:50] LABS: BLOOD UREA NITROGEN 8 MG/DL (7-18); CALCIUM LEVEL 9.6 MG/DL (8.5-10.1); CARBON DIOXIDE LEVEL 33 MEQ/L (21-32); CHLORIDE LEVEL 102 MEQ/L (98-107); CREATININE FOR GFR 0.59 MG/DL (0.55-1.30); GLOMERULAR FILTRATION RATE > 60.0 (>51); GLUCOSE, FASTING 137 MG/DL (70-100); POTASSIUM SERUM 4.3 MEQ/L (3.5-5.1); SODIUM LEVEL 139 MEQ/L (136-145)
[2021-09-16] MEDS: TIOTROPIUM INHALER/CAPSULE (SPIRIVA) INH SCH (07:28)
[2021-09-16] MEDS: SYMBICORT 160/4.5MCG INHALER 6GM INH SCH ×2 (07:29→19:28)
[2021-09-16] MEDS: SODIUM CHLORIDE 0.9% INJ 10 ML SYR IV SCH (09:00)
[2021-09-16] MEDS: ENOXAPARIN 40MG/0.4ML SYRINGE (J1650 PER 10MG) SC SCH (10:26)
[2021-09-16] MEDS: NICOTINE 21MG/24HR 1 EA TRANSDERMAL TD SCH (10:27)
[2021-09-16] MEDS: fentaNYL 25 MCG/HR PATCH TOP SCH (10:28)
[2021-09-16] MEDS: fentaNYL 100 MCG/HR PATCH TOP SCH (10:29)
[2021-09-16] MEDS: guaiFENesin ER 600 MG TAB PO SCH ×2 (10:30→20:26)
[2021-09-16] MEDS: SENOKOT S TAB PO SCH ×2 (10:30→20:26)
[2021-09-16] MEDS: OMEPRAZOLE 20MG CAP PO SCH (10:30)
[2021-09-16] MEDS: FENTANYL REMOVAL DOCUMENTATION MISC XX SCH (10:34)
[2021-09-16] MEDS: BUDESONIDE 0.5 MG/2 ML INHALATION SUSPENSION INH SCH ×2 (11:36→19:28)
[2021-09-16 14:00] VITALS: BP 132/82
[2021-09-16] MEDS: ALPRAZolam 0.25 MG TAB PO PRN (20:24)
[2021-09-16] MEDS: PRAZOSIN 1 MG CAP PO SCH (20:25)
[2021-09-16] MEDS: QUEtiapine FUMARATE 100 MG TAB PO SCH (20:26)
[2021-09-16] MEDS: buPROPion **XL** TABLET 150MG (WELLBUTRIN XL) PO SCH (20:26)
[2021-09-16 22:00] VITALS: BP 156/96
[2021-09-17] MEDS: methylPREDNISolone 40MG 1ML VIAL IV SCH ×4 (00:09→17:07)
[2021-09-17] MEDS: oxyCODONE 5MG TAB PO PRN ×5 (02:45→21:06)
[2021-09-17] MEDS: LEVALBUTEROL 1.25 MG/0.5 ML CONCENTRATE NEB INH SCH ×6 (03:17→23:33)
[2021-09-17] MEDS: LevoFLOXacin IV 750 MG in IV 1 EA IV SCH (05:48)
[2021-09-17 05:53] VITALS: BP 140/92
[2021-09-17 06:26] LABS: HEMATOCRIT 42.2 % (36.0-47.0); HEMOGLOBIN 13.1 g/dl (12.0-15.5); LYMPH # 0.7 10^3/uL (1.5-5.0); LYMPH % 7.3 % (24.0-44.0); MEAN CORPUSCULAR HEMOGLOBIN 27.6 pg (27.0-33.0); MONO # 0.4 10^3/uL (0.0-0.8); MONO % 4.1 % (2.0-8.0); NEUTROPHILS # 8.6 10^3/uL (1.5-8.5); NEUTROPHILS % 88.1 % (36.0-66.0); PLATELET COUNT, AUTOMATED 227 10^3/uL (150-450); RED BLOOD COUNT 4.74 10^6/uL (4.00-5.40); WHITE BLOOD COUNT 9.8 10^3/uL (4.0-10.0)
[2021-09-17 06:43] LABS: BLOOD UREA NITROGEN 13 MG/DL (7-18); CALCIUM LEVEL 9.6 MG/DL (8.5-10.1); CARBON DIOXIDE LEVEL 35 MEQ/L (21-32); CHLORIDE LEVEL 100 MEQ/L (98-107); CREATININE FOR GFR 0.66 MG/DL (0.55-1.30); GLOMERULAR FILTRATION RATE > 60.0 (>51); GLUCOSE, FASTING 113 MG/DL (70-100); POTASSIUM SERUM 4.6 MEQ/L (3.5-5.1); SODIUM LEVEL 137 MEQ/L (136-145)
[2021-09-17] MEDS: TIOTROPIUM INHALER/CAPSULE (SPIRIVA) INH SCH (07:46)
[2021-09-17] MEDS: SYMBICORT 160/4.5MCG INHALER 6GM INH SCH ×2 (07:46→19:19)
[2021-09-17] MEDS: ENOXAPARIN 40MG/0.4ML SYRINGE (J1650 PER 10MG) SC SCH (08:08)
[2021-09-17] MEDS: OMEPRAZOLE 20MG CAP PO SCH (08:09)
[2021-09-17] MEDS: SENOKOT S TAB PO SCH ×2 (08:10→20:04)
[2021-09-17] MEDS: NICOTINE 21MG/24HR 1 EA TRANSDERMAL TD SCH (08:10)
[2021-09-17] MEDS: guaiFENesin ER 600 MG TAB PO SCH ×2 (08:10→20:05)
[2021-09-17] MEDS: SODIUM CHLORIDE 0.9% INJ 10 ML SYR IV SCH (09:00)
[2021-09-17] MEDS: BUDESONIDE 0.5 MG/2 ML INHALATION SUSPENSION INH SCH (11:14)
[2021-09-17] MEDS ORDERED: BISACODYL 5 MG TAB PO ONE (11:20)
[2021-09-17] MEDS: NICOTINE 14 MG/24 HR TRANSDERMAL TD SCH (11:25)
[2021-09-17] MEDS: MOM 30ML SUSPENSION UDC PO SCH (11:35)
[2021-09-17] MEDS: PIPERACILLIN/TAZOBACTAM SOD 3.375 GM in D5W MINI-BAG PLUS 50 ML IV SCH ×2 (12:38→17:07)
[2021-09-17 14:00] VITALS: BP 140/84
[2021-09-17] MEDS: ALBUTEROL 90 MCG/ACT 8GM HFA INHALER INH PRN (15:43)
[2021-09-17] MEDS: QUEtiapine FUMARATE 100 MG TAB PO SCH (20:04)
[2021-09-17] MEDS: buPROPion **XL** TABLET 150MG (WELLBUTRIN XL) PO SCH (20:04)
[2021-09-17] MEDS: ALPRAZolam 0.25 MG TAB PO PRN (20:05)
[2021-09-17] MEDS: PRAZOSIN 1 MG CAP PO SCH (20:07)
[2021-09-17 22:00] VITALS: BP 154/96
[2021-09-18] MEDS: methylPREDNISolone 40MG 1ML VIAL IV SCH ×5 (00:59→23:51)
[2021-09-18] MEDS: PIPERACILLIN/TAZOBACTAM SOD 3.375 GM in D5W MINI-BAG PLUS 50 ML IV SCH ×5 (00:59→23:51)
[2021-09-18] MEDS: oxyCODONE 5MG TAB PO PRN ×7 (02:38→23:06)
[2021-09-18] MEDS: LEVALBUTEROL 1.25 MG/0.5 ML CONCENTRATE NEB INH SCH ×6 (03:08→23:26)
[2021-09-18 06:40] LABS: BASO % 0.1 % (0.0-1.0); HEMATOCRIT 41.9 % (36.0-47.0); HEMOGLOBIN 13.1 g/dl (12.0-15.5); LYMPH # 0.8 10^3/uL (1.5-5.0); LYMPH % 8.2 % (24.0-44.0); MEAN CORPUSCULAR HEMOGLOBIN 27.7 pg (27.0-33.0); MEAN CORPUSCULAR HGB CONC 31.3 g/dl (32.0-36.5); MEAN CORPUSCULAR VOLUME 88.6 fl (80.0-96.0); MONO # 0.3 10^3/uL (0.0-0.8); MONO % 3.3 % (2.0-8.0); NEUTROPHILS # 8.1 10^3/uL (1.5-8.5); NEUTROPHILS % 87.5 % (36.0-66.0); PLATELET COUNT, AUTOMATED 242 10^3/uL (150-450); RED BLOOD COUNT 4.73 10^6/uL (4.00-5.40); WHITE BLOOD COUNT 9.3 10^3/uL (4.0-10.0)
[2021-09-18 06:45] VITALS: BP 146/88
[2021-09-18 07:08] LABS: BLOOD UREA NITROGEN 12 MG/DL (7-18); CALCIUM LEVEL 9.5 MG/DL (8.5-10.1); CARBON DIOXIDE LEVEL 32 MEQ/L (21-32); CHLORIDE LEVEL 101 MEQ/L (98-107); CREATININE FOR GFR 0.67 MG/DL (0.55-1.30); GLOMERULAR FILTRATION RATE > 60.0 (>51); GLUCOSE, FASTING 99 MG/DL (70-100); POTASSIUM SERUM 4.5 MEQ/L (3.5-5.1); SODIUM LEVEL 140 MEQ/L (136-145)
[2021-09-18] MEDS: SYMBICORT 160/4.5MCG INHALER 6GM INH SCH ×2 (07:35→20:09)
[2021-09-18] MEDS: TIOTROPIUM INHALER/CAPSULE (SPIRIVA) INH SCH (07:35)
[2021-09-18] MEDS: MOM 30ML SUSPENSION UDC PO SCH (09:00)
[2021-09-18] MEDS: OMEPRAZOLE 20MG CAP PO SCH (09:20)
[2021-09-18] MEDS: guaiFENesin ER 600 MG TAB PO SCH ×2 (09:21→20:00)
[2021-09-18] MEDS: NICOTINE 14 MG/24 HR TRANSDERMAL TD SCH (09:21)
[2021-09-18] MEDS: SENOKOT S TAB PO SCH ×2 (09:21→19:56)
[2021-09-18] MEDS: SODIUM CHLORIDE 0.9% INJ 10 ML SYR IV SCH (09:22)
[2021-09-18] MEDS: ENOXAPARIN 40MG/0.4ML SYRINGE (J1650 PER 10MG) SC SCH (09:23)
[2021-09-18 14:00] VITALS: BP 154/96
[2021-09-18] MEDS: SODIUM CHLORIDE 0.9% INJ 10 ML SYR IV PRN (15:00)
[2021-09-18] MEDS: QUEtiapine FUMARATE 100 MG TAB PO SCH (19:56)
[2021-09-18] MEDS: buPROPion **XL** TABLET 150MG (WELLBUTRIN XL) PO SCH (19:56)
[2021-09-18] MEDS: PRAZOSIN 1 MG CAP PO SCH (19:59)
[2021-09-18] MEDS: ALPRAZolam 0.25 MG TAB PO PRN (20:17)
[2021-09-18 22:00] VITALS: BP 156/98
[2021-09-19] MEDS: LEVALBUTEROL 1.25 MG/0.5 ML CONCENTRATE NEB INH SCH ×4 (03:03→19:23)
[2021-09-19] MEDS: oxyCODONE 5MG TAB PO PRN ×5 (04:21→22:31)
[2021-09-19] MEDS: methylPREDNISolone 40MG 1ML VIAL IV SCH ×2 (05:51→12:39)
[2021-09-19] MEDS: PIPERACILLIN/TAZOBACTAM SOD 3.375 GM in D5W MINI-BAG PLUS 50 ML IV SCH ×2 (05:51→12:40)
[2021-09-19 06:00] VITALS: BP 148/92
[2021-09-19] MEDS: TIOTROPIUM INHALER/CAPSULE (SPIRIVA) INH SCH (07:58)
[2021-09-19] MEDS: SYMBICORT 160/4.5MCG INHALER 6GM INH SCH ×2 (07:58→19:23)
[2021-09-19] MEDS: fentaNYL 25 MCG/HR PATCH TOP SCH (08:51)
[2021-09-19] MEDS: guaiFENesin ER 600 MG TAB PO SCH ×2 (08:52→19:49)
[2021-09-19] MEDS: NICOTINE 14 MG/24 HR TRANSDERMAL TD SCH (08:52)
[2021-09-19] MEDS: fentaNYL 100 MCG/HR PATCH TOP SCH (08:52)
[2021-09-19] MEDS: OMEPRAZOLE 20MG CAP PO SCH (08:53)
[2021-09-19] MEDS: MOM 30ML SUSPENSION UDC PO SCH (08:54)
[2021-09-19] MEDS: SODIUM CHLORIDE 0.9% INJ 10 ML SYR IV SCH (08:54)
[2021-09-19] MEDS: SENOKOT S TAB PO SCH ×2 (08:54→19:50)
[2021-09-19] MEDS: ENOXAPARIN 40MG/0.4ML SYRINGE (J1650 PER 10MG) SC SCH (08:54)
[2021-09-19] MEDS: FENTANYL REMOVAL DOCUMENTATION MISC XX SCH (08:56)
[2021-09-19 14:00] VITALS: BP 158/97
[2021-09-19] MEDS: LevoFLOXacin 750 MG TABLET PO SCH (17:48)
[2021-09-19] MEDS: PRAZOSIN 1 MG CAP PO SCH (19:48)
[2021-09-19] MEDS: buPROPion **XL** TABLET 150MG (WELLBUTRIN XL) PO SCH (19:48)
[2021-09-19] MEDS: ALPRAZolam 0.25 MG TAB PO PRN (19:49)
[2021-09-19] MEDS: QUEtiapine FUMARATE 100 MG TAB PO SCH (19:49)
[2021-09-19 20:50] VITALS: BP 111/73
[2021-09-20] MEDS: LEVALBUTEROL 1.25 MG/0.5 ML CONCENTRATE NEB INH SCH ×4 (02:34→19:08)
[2021-09-20] MEDS: oxyCODONE 5MG TAB PO PRN ×5 (03:12→21:14)
[2021-09-20] MEDS: LevoFLOXacin 750 MG TABLET PO SCH (05:24)
[2021-09-20 06:00] VITALS: BP 148/98
[2021-09-20] MEDS: SYMBICORT 160/4.5MCG INHALER 6GM INH SCH ×2 (07:44→19:07)
[2021-09-20] MEDS: TIOTROPIUM INHALER/CAPSULE (SPIRIVA) INH SCH (07:44)
[2021-09-20] MEDS: SENOKOT S TAB PO SCH ×2 (09:00→20:30)
[2021-09-20] MEDS: MOM 30ML SUSPENSION UDC PO SCH (09:00)
[2021-09-20] MEDS: guaiFENesin ER 600 MG TAB PO SCH ×2 (09:47→20:29)
[2021-09-20] MEDS: predniSONE 10 MG TAB PO SCH (09:47)
[2021-09-20] MEDS: OMEPRAZOLE 20MG CAP PO SCH (09:47)
[2021-09-20] MEDS: ENOXAPARIN 40MG/0.4ML SYRINGE (J1650 PER 10MG) SC SCH (09:48)
[2021-09-20] MEDS: SODIUM CHLORIDE 0.9% INJ 10 ML SYR IV SCH (09:48)
[2021-09-20] MEDS: NICOTINE 14 MG/24 HR TRANSDERMAL TD SCH (09:48)
[2021-09-20] MEDS: ACETAMINOPHEN TAB 650MG DOSE (2X325MG) PO PRN (09:56)
[2021-09-20] MEDS: ALPRAZolam 0.25 MG TAB PO PRN (13:10)
[2021-09-20 14:00] VITALS: BP 129/80
[2021-09-20] MEDS: QUEtiapine FUMARATE 100 MG TAB PO SCH (20:29)
[2021-09-20] MEDS: buPROPion **XL** TABLET 150MG (WELLBUTRIN XL) PO SCH (20:29)
[2021-09-20] MEDS: PRAZOSIN 1 MG CAP PO SCH (20:30)
[2021-09-20 22:00] VITALS: BP 133/82
[2021-09-21] MEDS: oxyCODONE 5MG TAB PO PRN ×5 (01:15→18:44)
[2021-09-21] MEDS: LEVALBUTEROL 1.25 MG/0.5 ML CONCENTRATE NEB INH SCH ×4 (01:37→20:00)
[2021-09-21 02:00] VITALS: BP 136/73
[2021-09-21] MEDS: LevoFLOXacin 750 MG TABLET PO SCH (04:57)
[2021-09-21 06:00] VITALS: BP 128/68
[2021-09-21] MEDS: TIOTROPIUM INHALER/CAPSULE (SPIRIVA) INH SCH (07:34)
[2021-09-21] MEDS: SYMBICORT 160/4.5MCG INHALER 6GM INH SCH ×2 (07:35→20:07)
[2021-09-21] MEDS: SENOKOT S TAB PO SCH ×2 (09:00→19:19)
[2021-09-21] MEDS: MOM 30ML SUSPENSION UDC PO SCH (09:00)
[2021-09-21] MEDS: NICOTINE 14 MG/24 HR TRANSDERMAL TD SCH (09:19)
[2021-09-21] MEDS: ALPRAZolam 0.25 MG TAB PO PRN ×2 (09:20→21:18)
[2021-09-21] MEDS: OMEPRAZOLE 20MG CAP PO SCH (09:20)
[2021-09-21] MEDS: predniSONE 10 MG TAB PO SCH (09:20)
[2021-09-21] MEDS: guaiFENesin ER 600 MG TAB PO SCH ×2 (09:21→21:19)
[2021-09-21] MEDS: BACLOFEN 10 MG TAB PO PRN (09:21)
[2021-09-21] MEDS: SODIUM CHLORIDE 0.9% INJ 10 ML SYR IV SCH (09:21)
[2021-09-21] MEDS: ENOXAPARIN 40MG/0.4ML SYRINGE (J1650 PER 10MG) SC SCH (09:22)
[2021-09-21] MEDS ORDERED: AMOX875T2 PO (10:50)
[2021-09-21] MEDS ORDERED: ALBU2.5V10 INH (10:50)
[2021-09-21] MEDS ORDERED: PRED20TA PO (10:50)
[2021-09-21 14:00] VITALS: BP 140/88
[2021-09-21 20:30] VITALS: BP 131/95
[2021-09-21 21:18] VITALS: BP 134/76
[2021-09-21] MEDS: buPROPion **XL** TABLET 150MG (WELLBUTRIN XL) PO SCH (21:18)
[2021-09-21] MEDS: PRAZOSIN 1 MG CAP PO SCH (21:18)
[2021-09-21] MEDS: QUEtiapine FUMARATE 100 MG TAB PO SCH (21:18)
[2021-09-22] MEDS: LEVALBUTEROL 1.25 MG/0.5 ML CONCENTRATE NEB INH SCH ×2 (02:00→07:33)
[2021-09-22] MEDS: oxyCODONE 5MG TAB PO PRN ×2 (03:32→07:40)
[2021-09-22] MEDS: LevoFLOXacin 750 MG TABLET PO SCH (05:08)
[2021-09-22 05:36] VITALS: BP 134/80
[2021-09-22] MEDS: TIOTROPIUM INHALER/CAPSULE (SPIRIVA) INH SCH (07:33)
[2021-09-22] MEDS: SYMBICORT 160/4.5MCG INHALER 6GM INH SCH (07:33)
[2021-09-22] MEDS ORDERED: ALPR0.25 PO ×3 (07:41→11:51)
[2021-09-22] MEDS ORDERED: LEVO1TAB40 PO ×3 (07:41→11:51)
[2021-09-22] MEDS ORDERED: OXYC20TA2 PO ×3 (07:41→11:54)
[2021-09-22] MEDS ORDERED: FENT1DIS14 TD ×3 (07:41→11:54)
[2021-09-22] MEDS ORDERED: PRED10TA2 PO ×2 (07:41→11:05)
[2021-09-22] MEDS ORDERED: NYST50SS SS ×3 (07:41→11:51)
[2021-09-22] MEDS ORDERED: FENT100D25 TD ×3 (07:41→11:54)
[2021-09-22] MEDS ORDERED: LEVA12INH INH ×3 (07:41→11:51)
[2021-09-22] MEDS ORDERED: PULM0.5S NEB ×3 (07:41→11:51)
[2021-09-22] MEDS ORDERED: MUCI600T31 PO ×3 (07:41→11:51)
[2021-09-22] MEDS ORDERED: HYDR-643 PO ×3 (07:41→11:51)
[2021-09-22] MEDS ORDERED: SENN-52 PO ×3 (07:41→11:51)
[2021-09-22] MEDS: FENTANYL REMOVAL DOCUMENTATION MISC XX SCH (09:30)
[2021-09-22] MEDS: ENOXAPARIN 40MG/0.4ML SYRINGE (J1650 PER 10MG) SC SCH (09:30)
[2021-09-22] MEDS: guaiFENesin ER 600 MG TAB PO SCH (09:31)
[2021-09-22] MEDS: SENOKOT S TAB PO SCH (09:31)
[2021-09-22] MEDS: predniSONE 10 MG TAB PO SCH (09:31)
[2021-09-22] MEDS: fentaNYL 25 MCG/HR PATCH TOP SCH (09:32)
[2021-09-22] MEDS: ALPRAZolam 0.25 MG TAB PO PRN (09:33)
[2021-09-22] MEDS: MOM 30ML SUSPENSION UDC PO SCH (09:34)
[2021-09-22] MEDS: OMEPRAZOLE 20MG CAP PO SCH (09:34)
[2021-09-22] MEDS: NICOTINE 14 MG/24 HR TRANSDERMAL TD SCH (09:34)
[2021-09-22] MEDS: fentaNYL 100 MCG/HR PATCH TOP SCH (09:41)
[2021-09-22] MEDS: SODIUM CHLORIDE 0.9% INJ 10 ML SYR IV SCH (10:45)
[2021-09-22] MEDS ORDERED: PRED20TA PO ×2 (11:05→11:51)
[2021-09-22] MEDS ORDERED: ALBU2.5V10 INH ×2 (11:05→11:51)
[2021-09-22] MEDS ORDERED: AMOX875T2 PO ×2 (11:05→11:51)
== END 2021-09-22 12:28 | disposition home health service (06) | DRG 191 ==
LOC: M PCU 12:54 → M MSPAV 09-12 11:15
PROVIDERS: ADMIT Internal Medicine Nephrology; ATTEND Internal Medicine Nephrology
DX: J44.1 Chronic obstructive pulmonary disease with (acute) exacerbation (principal); J96.11 Chronic respiratory failure with hypoxia; R45.851 Suicidal ideations; F33.2 Major depressive disorder, recurrent severe without psychotic features; R00.0 Tachycardia, unspecified; E78.5 Hyperlipidemia, unspecified; K21.9 Gastro-esophageal reflux disease without esophagitis; G35 Multiple sclerosis; M06.9 Rheumatoid arthritis, unspecified; M54.2 Cervicalgia; M19.90 Unspecified osteoarthritis, unspecified site; F41.0 Panic disorder [episodic paroxysmal anxiety]; F41.8 Other specified anxiety disorders; Z85.118 Personal history of other malignant neoplasm of bronchus and lung; Z90.2 Acquired absence of lung [part of]; Z92.21 Personal history of antineoplastic chemotherapy; Z92.3 Personal history of irradiation; Z85.3 Personal history of malignant neoplasm of breast; Z79.899 Other long term (current) drug therapy; Z88.6 Allergy status to analgesic agent; Z88.8 Allergy status to other drugs, medicaments and biological substances; Z91.040 Latex allergy status; Z87.891 Personal history of nicotine dependence; Z85.42 Personal history of malignant neoplasm of other parts of uterus; Z90.710 Acquired absence of both cervix and uterus; Z98.1 Arthrodesis status; Z79.891 Long term (current) use of opiate analgesic; Z87.81 Personal history of (healed) traumatic fracture

== ENCOUNTER 2021-10-19 13:51 | Emergency (ER) | payer MEDICARE, MEDICAID ==
[~2021-10-19] VITALS: Ht 160 cm; Wt 59.0 kg
[~2021-10-19 13:51] MED LIST changes: +ALBU2.5V10 INH; +ALBU6.7H6 INH; +ALPR0.25 PO; +AMOX875T2 PO; +HYDR-643 PO; +LEVA12INH INH; +LEVO1TAB40 PO; +MUCI600T31 PO; +NYST50SS SS; +PRED20TA PO; -PROV108A INH; +PULM0.5S NEB; +SENN-52 PO
[2021-10-19 14:33] LABS: HEMATOCRIT 42.9 % (36.0-47.0); HEMOGLOBIN 13.5 g/dl (12.0-15.5); MEAN CORPUSCULAR HEMOGLOBIN 27.4 pg (27.0-33.0); MEAN CORPUSCULAR HGB CONC 31.5 g/dl (32.0-36.5); MEAN CORPUSCULAR VOLUME 87.2 fl (80.0-96.0); PLATELET COUNT, AUTOMATED 326 10^3/uL (150-450); RED BLOOD COUNT 4.92 10^6/uL (4.00-5.40); WHITE BLOOD COUNT 7.4 10^3/uL (4.0-10.0)
[2021-10-19 15:33] LABS: AMPHETAMINES LEVEL URINE NEGATIVE (NEGATIVE); BARBITURATES URINE NEGATIVE (NEGATIVE); BENZODIAZEPINES URINE NEGATIVE (NEGATIVE); CANNABINOIDS URINE NEGATIVE (NEGATIVE); COCAINE METABOLITE URINE NEGATIVE (NEGATIVE); METHADONE URINE NEGATIVE (NEGATIVE); OPIATES URINE NEGATIVE (NEGATIVE); PHENCYCLIDINE URINE NEGATIVE (NEGATIVE)
[2021-10-19 15:35] LABS: ACETAMINOPHEN LEVEL < 2.0 UG/ML (10.0-30.0); ALBUMIN 3.5 GM/DL (3.2-5.2); ALT/SGPT 26 U/L (12-78); BILIRUBIN,DIRECT < 0.1 MG/DL (0.0-0.2); BILIRUBIN,TOTAL 0.4 MG/DL (0.2-1.0); BLOOD UREA NITROGEN 14 MG/DL (7-18); CALCIUM LEVEL 9.9 MG/DL (8.5-10.1); CARBON DIOXIDE LEVEL 31 MEQ/L (21-32); CHLORIDE LEVEL 104 MEQ/L (98-107); CREATININE FOR GFR 0.59 MG/DL (0.55-1.30); ETHYL ALCOHOL (ETHANOL) < 0.003 % (0.000-0.010); GLOMERULAR FILTRATION RATE > 60.0 (>51); GLUCOSE, FASTING 85 MG/DL (70-100); SALICYLATE LEVEL 4.4 MG/DL (5.0-30.0); SODIUM LEVEL 138 MEQ/L (136-145); THYROID STIMULATING HORMONE 0.631 uIU/ML (0.358-3.740); TOTAL PROTEIN 6.7 GM/DL (6.4-8.2)
[2021-10-19 16:27] LABS: RSV AMPLIFICATION NEGATIVE (NEGATIVE)
[2021-10-19] MEDS ORDERED: ALBUTEROL SULFATE 2.5 MG/0.5 ML INH NEB SOLN NEB ONE (17:50)
[2021-10-19] MEDS ORDERED: oxyCODONE 5MG TAB PO ONE (18:00)
[2021-10-19] MEDS ORDERED: ALPRAZolam 0.25 MG TAB PO ONE (18:00)
[2021-10-19] MEDS ORDERED: FENT100D25 TD (18:38)
[2021-10-19] MEDS ORDERED: FENT12DI12 TOP (18:38)
[2021-10-19] MEDS ORDERED: ALBU2.5V10 INH (18:44)
[2021-10-19] MEDS ORDERED: OXYC30TA PO (18:44)
[2021-10-19] MEDS ORDERED: ALPR0.25 PO (18:44)
[2021-10-19] MEDS ORDERED: BUDE0.5S6 INH (18:44)
[2021-10-19] MEDS ORDERED: DOXY100T27 PO (18:51)
[2021-10-19] MEDS ORDERED: PRED10TA2 PO (18:51)
[2021-10-19] MEDS ORDERED: LEVA12INH INH (18:53)
[2021-10-19] MEDS ORDERED: HOME MED LIST COMPLETE! XX SCH (18:55)
[2021-10-19] MEDS ORDERED: ALBUTEROL SULFATE 2.5 MG/0.5 ML INH NEB SOLN NEB PRN (18:55)
[2021-10-19] MEDS ORDERED: fentaNYL 100 MCG/HR PATCH TOP ONE (19:00)
[2021-10-19] MEDS ORDERED: FENTANYL REMOVAL DOCUMENTATION MISC XX SCH ×2 (19:00)
[2021-10-19] MEDS ORDERED: fentaNYL 12 MCG/HR PATCH TOP ONE (19:00)
[2021-10-19] MEDS: BUDESONIDE 0.5 MG/2 ML INHALATION SUSPENSION INH SCH (19:55)
[2021-10-19] MEDS: LEVALBUTEROL 1.25 MG/0.5 ML CONCENTRATE NEB NEB SCH (19:55)
[2021-10-19] MEDS: buPROPion **XL** TABLET 150MG (WELLBUTRIN XL) PO SCH (22:08)
[2021-10-19] MEDS: DOXYCYCLINE HYCLATE 100MG TABLET PO SCH (22:08)
[2021-10-19] MEDS: QUEtiapine FUMARATE 50MG TAB PO SCH (22:08)
[2021-10-19] MEDS: ATORVASTATIN 20 MG TAB PO SCH (22:08)
[2021-10-19] MEDS: PRAZOSIN 1 MG CAP PO SCH (22:13)
[2021-10-20] MEDS ORDERED: oxyCODONE 5MG TAB PO ONE (05:10)
[2021-10-20] MEDS ORDERED: predniSONE 20 MG TAB PO SCH (09:00)
[2021-10-20] MEDS: BUDESONIDE 0.5 MG/2 ML INHALATION SUSPENSION INH SCH ×2 (09:30→19:16)
[2021-10-20] MEDS: LEVALBUTEROL 1.25 MG/0.5 ML CONCENTRATE NEB NEB SCH ×4 (09:30→19:16)
[2021-10-20] MEDS ORDERED: ALPRAZolam 0.25 MG TAB PO ONE (09:40)
[2021-10-20] MEDS: OMEPRAZOLE 20MG CAP PO SCH (09:45)
[2021-10-20] MEDS: DOXYCYCLINE HYCLATE 100MG TABLET PO SCH ×2 (09:46→21:22)
[2021-10-20] MEDS: predniSONE 10 MG TAB PO SCH ×4 (10:21→21:22)
[2021-10-20] MEDS: oxyCODONE 5MG TAB PO PRN ×3 (11:28→23:54)
[2021-10-20] MEDS: ATORVASTATIN 20 MG TAB PO SCH (21:22)
[2021-10-20] MEDS: PRAZOSIN 1 MG CAP PO SCH (21:22)
[2021-10-20] MEDS: buPROPion **XL** TABLET 150MG (WELLBUTRIN XL) PO SCH (21:22)
[2021-10-20] MEDS: QUEtiapine FUMARATE 50MG TAB PO SCH (21:22)
[2021-10-21] MEDS: oxyCODONE 5MG TAB PO PRN ×3 (05:48→19:38)
[2021-10-21] MEDS: BUDESONIDE 0.5 MG/2 ML INHALATION SUSPENSION INH SCH ×2 (07:50→20:00)
[2021-10-21] MEDS: LEVALBUTEROL 1.25 MG/0.5 ML CONCENTRATE NEB NEB SCH ×3 (07:50→20:00)
[2021-10-21] MEDS: OMEPRAZOLE 20MG CAP PO SCH (10:03)
[2021-10-21] MEDS: predniSONE 10 MG TAB PO SCH ×2 (10:03→21:03)
[2021-10-21] MEDS: DOXYCYCLINE HYCLATE 100MG TABLET PO SCH ×2 (10:03→21:03)
[2021-10-21] MEDS ORDERED: ALPRAZolam 0.25 MG TAB PO ONE ×2 (10:15→19:45)
[2021-10-21] MEDS: PRAZOSIN 1 MG CAP PO SCH (21:03)
[2021-10-21] MEDS: ATORVASTATIN 20 MG TAB PO SCH (21:03)
[2021-10-21] MEDS: QUEtiapine FUMARATE 50MG TAB PO SCH (21:03)
[2021-10-21] MEDS: buPROPion **XL** TABLET 150MG (WELLBUTRIN XL) PO SCH (21:03)
[2021-10-22] MEDS: oxyCODONE 5MG TAB PO PRN ×4 (00:47→20:42)
[2021-10-22] MEDS ORDERED: ALPRAZolam 0.25 MG TAB PO ONE (07:45)
[2021-10-22] MEDS: LEVALBUTEROL 1.25 MG/0.5 ML CONCENTRATE NEB NEB SCH ×3 (08:00→16:45)
[2021-10-22] MEDS: OMEPRAZOLE 20MG CAP PO SCH (09:00)
[2021-10-22] MEDS: DOXYCYCLINE HYCLATE 100MG TABLET PO SCH ×2 (09:00→20:40)
[2021-10-22] MEDS: BUDESONIDE 0.5 MG/2 ML INHALATION SUSPENSION INH SCH (12:07)
[2021-10-22] MEDS: predniSONE 10 MG TAB PO SCH ×3 (13:00→20:41)
[2021-10-22] MEDS ORDERED: fentaNYL 100 MCG/HR PATCH TOP PRN (16:30)
[2021-10-22] MEDS ORDERED: FENTANYL REMOVAL DOCUMENTATION MISC XX SCH ×2 (16:30)
[2021-10-22] MEDS ORDERED: fentaNYL 12 MCG/HR PATCH TOP PRN (16:30)
[2021-10-22] MEDS: ATORVASTATIN 20 MG TAB PO SCH (20:36)
[2021-10-22 20:40] VITALS: BP 123/69
[2021-10-22] MEDS: PRAZOSIN 1 MG CAP PO SCH (20:40)
[2021-10-22] MEDS: buPROPion **XL** TABLET 150MG (WELLBUTRIN XL) PO SCH (20:41)
[2021-10-22] MEDS: QUEtiapine FUMARATE 50MG TAB PO SCH (20:41)
[2021-10-23] MEDS: oxyCODONE 5MG TAB PO PRN ×3 (02:33→17:13)
[2021-10-23] MEDS: LEVALBUTEROL 1.25 MG/0.5 ML CONCENTRATE NEB NEB SCH ×4 (08:00→20:00)
[2021-10-23] MEDS: OMEPRAZOLE 20MG CAP PO SCH (09:00)
[2021-10-23] MEDS: predniSONE 10 MG TAB PO SCH ×5 (09:00→21:00)
[2021-10-23] MEDS: BUDESONIDE 0.5 MG/2 ML INHALATION SUSPENSION INH SCH ×2 (11:16→20:00)
[2021-10-23 11:20] VITALS: O2SAT 94
[2021-10-23] MEDS ORDERED: ALPRAZolam 0.25 MG TAB PO ONE (19:40)
[2021-10-23] MEDS: PRAZOSIN 1 MG CAP PO SCH (21:00)
[2021-10-23] MEDS: buPROPion **XL** TABLET 150MG (WELLBUTRIN XL) PO SCH (21:00)
[2021-10-23] MEDS: QUEtiapine FUMARATE 50MG TAB PO SCH (21:00)
[2021-10-23] MEDS: ATORVASTATIN 20 MG TAB PO SCH (21:00)
[2021-10-24] MEDS: oxyCODONE 5MG TAB PO PRN ×2 (01:16→08:12)
[2021-10-24] MEDS ORDERED: ALPRAZolam 0.25 MG TAB PO ONE (05:45)
[2021-10-24] MEDS: predniSONE 10 MG TAB PO SCH (08:12)
[2021-10-24] MEDS: OMEPRAZOLE 20MG CAP PO SCH (08:12)
[2021-10-24] MEDS: LEVALBUTEROL 1.25 MG/0.5 ML CONCENTRATE NEB NEB SCH ×2 (08:34→11:41)
[2021-10-24] MEDS: BUDESONIDE 0.5 MG/2 ML INHALATION SUSPENSION INH SCH (08:34)
[2021-10-24 13:26] VITALS: BP 141/91
== END 2021-10-24 13:28 | disposition home or self-care (01) ==
LOC: M ED 13:51
DX: F32.A Depression, unspecified (principal); J44.9 Chronic obstructive pulmonary disease, unspecified; F17.200 Nicotine dependence, unspecified, uncomplicated; C34.90 Malignant neoplasm of unspecified part of unspecified bronchus or lung; C50.919 Malignant neoplasm of unspecified site of unspecified female breast; F41.9 Anxiety disorder, unspecified; Z88.8 Allergy status to other drugs, medicaments and biological substances; Z90.2 Acquired absence of lung [part of]
CPT/HCPCS: 80048; 80076; 80143; 80307; 82077; 84443; 85027; 87631; 93005; 94640; 99285; J7512

== ENCOUNTER 2021-12-07 13:06 | Inpatient (IN) | payer MEDICAID, MEDICARE ==
[~2021-12-07] VITALS: Ht 157.5 cm; Wt 59.1 kg
[~2021-12-07 13:06] MED LIST changes: +BUDE0.5S6 INH; +DOXY100T27 PO; +FENT12DI12 TOP; +OXYC30TA PO
[2021-12-07 14:29] LABS: HEMATOCRIT 41.4 % (36.0-47.0); HEMOGLOBIN 12.6 g/dl (12.0-15.5); MEAN CORPUSCULAR HEMOGLOBIN 26.6 pg (27.0-33.0); MEAN CORPUSCULAR HGB CONC 30.4 g/dl (32.0-36.5); MEAN CORPUSCULAR VOLUME 87.3 fl (80.0-96.0); PLATELET COUNT, AUTOMATED 180 10^3/uL (150-450); RED BLOOD COUNT 4.74 10^6/uL (4.00-5.40); WHITE BLOOD COUNT 4.4 10^3/uL (4.0-10.0)
[2021-12-07 15:02] LABS: ACETAMINOPHEN LEVEL < 2.0 UG/ML (10.0-30.0); ALBUMIN 3.8 GM/DL (3.2-5.2); ALT/SGPT 19 U/L (12-78); BILIRUBIN,DIRECT 0.1 MG/DL (0.0-0.2); BILIRUBIN,TOTAL 0.3 MG/DL (0.2-1.0); BLOOD UREA NITROGEN 9 MG/DL (7-18); CALCIUM LEVEL 9.7 MG/DL (8.5-10.1); CARBON DIOXIDE LEVEL 33 MEQ/L (21-32); CHLORIDE LEVEL 101 MEQ/L (98-107); CREATININE FOR GFR 0.68 MG/DL (0.55-1.30); ETHYL ALCOHOL (ETHANOL) 0.006 % (0.000-0.010); GLOMERULAR FILTRATION RATE > 60.0 (>51); GLUCOSE, FASTING 122 MG/DL (70-100); POTASSIUM SERUM 3.9 MEQ/L (3.5-5.1); SALICYLATE LEVEL 3.6 MG/DL (5.0-30.0); SODIUM LEVEL 136 MEQ/L (136-145); THYROID STIMULATING HORMONE 0.977 uIU/ML (0.358-3.740); TOTAL PROTEIN 7.1 GM/DL (6.4-8.2)
[2021-12-07 15:37] LABS: RSV AMPLIFICATION NEGATIVE (NEGATIVE)
[2021-12-07 18:21] LABS: AMPHETAMINES LEVEL URINE NEGATIVE (NEGATIVE); BARBITURATES URINE NEGATIVE (NEGATIVE); BENZODIAZEPINES URINE NEGATIVE (NEGATIVE); CANNABINOIDS URINE NEGATIVE (NEGATIVE); COCAINE METABOLITE URINE NEGATIVE (NEGATIVE); METHADONE URINE NEGATIVE (NEGATIVE); OPIATES URINE POSITIVE (NEGATIVE); PHENCYCLIDINE URINE NEGATIVE (NEGATIVE)
[2021-12-07] MEDS ORDERED: FENTANYL REMOVAL DOCUMENTATION MISC XX SCH ×2 (18:45→19:40)
[2021-12-07] MEDS ORDERED: oxyCODONE 5MG TAB PO SCH (18:45)
[2021-12-07] MEDS ORDERED: fentaNYL 100 MCG/HR PATCH TOP ONE ×2 (18:45→19:40)
[2021-12-07] MEDS: oxyCODONE 5MG TAB PO SCH ×2 (19:15→23:27)
[2021-12-07] MEDS ORDERED: fentaNYL 12 MCG/HR PATCH TOP ONE (20:00)
[2021-12-07] MEDS ORDERED: HYDR-643 PO (20:53)
[2021-12-07] MEDS ORDERED: TRAZ-257 PO (20:53)
[2021-12-07] MEDS ORDERED: traZODone 100 MG TAB PO SCH (21:00)
[2021-12-07] MEDS ORDERED: PRAZOSIN 1 MG CAP PO SCH (21:00)
[2021-12-07] MEDS ORDERED: QUEtiapine FUMARATE 100 MG TAB PO SCH (21:00)
[2021-12-07] MEDS ORDERED: buPROPion **XL** TABLET 150MG (WELLBUTRIN XL) PO SCH (21:00)
[2021-12-07] MEDS ORDERED: ATORVASTATIN 20 MG TAB PO SCH (21:00)
[2021-12-07] MEDS ORDERED: ALBUTEROL 90 MCG/ACT 8GM HFA INHALER INH PRN (22:25)
[2021-12-07] MEDS ORDERED: ALPRAZolam 0.25 MG TAB PO PRN (22:25)
[2021-12-07] MEDS ORDERED: ALBUTEROL SULFATE 2.5 MG/0.5 ML INH NEB SOLN INH PRN (22:25)
[2021-12-07] MEDS ORDERED: BACLOFEN 10 MG TAB PO PRN (22:25)
[2021-12-07] MEDS: LEVALBUTEROL 1.25 MG/0.5 ML CONCENTRATE NEB INH SCH (23:05)
[2021-12-08] MEDS: LEVALBUTEROL 1.25 MG/0.5 ML CONCENTRATE NEB INH SCH (03:36)
[2021-12-08] MEDS: oxyCODONE 5MG TAB PO SCH ×2 (06:27→12:15)
[2021-12-08] MEDS ORDERED: SYMBICORT 160/4.5MCG INHALER 6GM INH SCH (08:00)
[2021-12-08] MEDS ORDERED: BUDESONIDE 0.5 MG/2 ML INHALATION SUSPENSION INH SCH (09:00)
[2021-12-08] MEDS ORDERED: NICOTINE 14 MG/24 HR TRANSDERMAL TD SCH (09:00)
[2021-12-08] MEDS ORDERED: IBUPROFEN 400MG TAB PO PRN (13:15)
[2021-12-08] MEDS ORDERED: MAALOX 30 ML SUSP *UDC PO PRN (13:15)
[2021-12-08] MEDS ORDERED: MOM 30ML SUSPENSION UDC PO PRN (13:15)
[2021-12-08] MEDS ORDERED: ALBUTEROL 90 MCG/ACT 8GM HFA INHALER INH PRN (15:35)
[2021-12-08] MEDS ORDERED: ALBUTEROL SULFATE 2.5 MG/0.5 ML INH NEB SOLN NEB PRN (15:35)
[2021-12-08 17:15] VITALS: BP 121/70
[2021-12-08] MEDS: oxyCODONE 5MG TAB PO PRN (18:25)
[2021-12-08] MEDS: SYMBICORT 160/4.5MCG INHALER 6GM INH SCH (20:06)
[2021-12-08] MEDS: ATORVASTATIN 20 MG TAB PO SCH (20:07)
[2021-12-08] MEDS: QUEtiapine FUMARATE 100 MG TAB PO SCH (20:08)
[2021-12-08] MEDS: traZODone 100 MG TAB PO SCH (20:08)
[2021-12-08] MEDS: PRAZOSIN 1 MG CAP PO SCH (20:10)
[2021-12-08] MEDS ORDERED: SALMETEROL DISKUS 50MCG INHALER (SEREVENT) INH SCH (21:00)
[2021-12-08] MEDS ORDERED: buPROPion **XL** TABLET 150MG (WELLBUTRIN XL) PO SCH (21:00)
[2021-12-09] MEDS: oxyCODONE 5MG TAB PO PRN ×3 (01:10→18:37)
[2021-12-09 06:39] VITALS: BP 129/62
[2021-12-09] MEDS: OMEPRAZOLE 20MG CAP PO SCH (07:42)
[2021-12-09] MEDS: NICOTINE 14 MG/24 HR TRANSDERMAL TD SCH (07:42)
[2021-12-09] MEDS: SYMBICORT 160/4.5MCG INHALER 6GM INH SCH ×2 (07:48→20:09)
[2021-12-09] MEDS: TIOTROPIUM INHALER/CAPSULE (SPIRIVA) INH SCH (08:21)
[2021-12-09] MEDS ORDERED: NICOTINE 21MG/24HR 1 EA TRANSDERMAL TD SCH (09:00)
[2021-12-09] MEDS ORDERED: INFLUENZA QUADRIVALENT PF VACCINE 0.5ML SYRINGE IM.IMMUN ONE (09:00)
[2021-12-09] MEDS ORDERED: oxyCODONE 5MG TAB PO PRN (13:15)
[2021-12-09] MEDS: ALPRAZolam 0.25 MG TAB PO PRN (15:07)
[2021-12-09 18:00] VITALS: BP 121/74
[2021-12-09] MEDS: traZODone 100 MG TAB PO SCH (20:10)
[2021-12-09] MEDS: BACLOFEN 10 MG TAB PO PRN (20:10)
[2021-12-09] MEDS: PRAZOSIN 1 MG CAP PO SCH (20:10)
[2021-12-09] MEDS: ATORVASTATIN 20 MG TAB PO SCH (20:10)
[2021-12-09] MEDS: buPROPion **XL** TABLET 150MG (WELLBUTRIN XL) PO SCH (20:10)
[2021-12-09] MEDS: QUEtiapine FUMARATE 100 MG TAB PO SCH (20:10)
[2021-12-10] MEDS: oxyCODONE 5MG TAB PO PRN ×3 (05:18→15:08)
[2021-12-10 06:39] VITALS: BP 93/51
[2021-12-10] MEDS: SYMBICORT 160/4.5MCG INHALER 6GM INH SCH ×2 (07:57→20:09)
[2021-12-10] MEDS: TIOTROPIUM INHALER/CAPSULE (SPIRIVA) INH SCH (07:58)
[2021-12-10] MEDS: OMEPRAZOLE 20MG CAP PO SCH (07:58)
[2021-12-10] MEDS: NICOTINE 14 MG/24 HR TRANSDERMAL TD SCH (07:58)
[2021-12-10] MEDS ORDERED: buPROPion **XL** TABLET 150MG (WELLBUTRIN XL) PO SCH (09:00)
[2021-12-10] MEDS: ALPRAZolam 0.25 MG TAB PO PRN (10:03)
[2021-12-10 16:55] VITALS: BP 109/63
[2021-12-10] MEDS: ATORVASTATIN 20 MG TAB PO SCH (20:09)
[2021-12-10] MEDS: PRAZOSIN 1 MG CAP PO SCH (20:09)
[2021-12-10] MEDS: buPROPion **XL** TABLET 150MG (WELLBUTRIN XL) PO SCH (20:09)
[2021-12-10] MEDS: QUEtiapine FUMARATE 100 MG TAB PO SCH (20:09)
[2021-12-10] MEDS: traZODone 100 MG TAB PO SCH (20:09)
[2021-12-10] MEDS: fentaNYL 100 MCG/HR PATCH TOP SCH (20:42)
[2021-12-10] MEDS: fentaNYL 12 MCG/HR PATCH TOP SCH (20:44)
[2021-12-10] MEDS: FENTANYL REMOVAL DOCUMENTATION MISC XX SCH ×2 (20:47→20:50)
[2021-12-11] MEDS: oxyCODONE 5MG TAB PO PRN ×4 (05:33→20:45)
[2021-12-11 06:52] VITALS: BP 99/51
[2021-12-11] MEDS: SYMBICORT 160/4.5MCG INHALER 6GM INH SCH ×2 (08:38→20:23)
[2021-12-11] MEDS: NICOTINE 14 MG/24 HR TRANSDERMAL TD SCH (08:39)
[2021-12-11] MEDS: OMEPRAZOLE 20MG CAP PO SCH (08:39)
[2021-12-11] MEDS: TIOTROPIUM INHALER/CAPSULE (SPIRIVA) INH SCH (08:39)
[2021-12-11] MEDS: ALPRAZolam 0.25 MG TAB PO PRN (13:53)
[2021-12-11] MEDS: BACLOFEN 10 MG TAB PO PRN (15:21)
[2021-12-11 16:35] VITALS: BP 107/60
[2021-12-11] MEDS: QUEtiapine FUMARATE 100 MG TAB PO SCH (20:23)
[2021-12-11] MEDS: buPROPion **XL** TABLET 150MG (WELLBUTRIN XL) PO SCH (20:23)
[2021-12-11] MEDS: ATORVASTATIN 20 MG TAB PO SCH (20:24)
[2021-12-11] MEDS: traZODone 100 MG TAB PO SCH (20:24)
[2021-12-11] MEDS: PRAZOSIN 1 MG CAP PO SCH (20:30)
[2021-12-12 06:59] VITALS: BP 109/55
[2021-12-12] MEDS: TIOTROPIUM INHALER/CAPSULE (SPIRIVA) INH SCH (07:23)
[2021-12-12] MEDS: SYMBICORT 160/4.5MCG INHALER 6GM INH SCH ×2 (07:23→21:01)
[2021-12-12] MEDS: oxyCODONE 5MG TAB PO PRN ×3 (07:27→18:33)
[2021-12-12] MEDS ORDERED: SERTRALINE HCL 50 MG TAB PO SCH (09:00)
[2021-12-12] MEDS: OMEPRAZOLE 20MG CAP PO SCH (09:48)
[2021-12-12] MEDS: NICOTINE 14 MG/24 HR TRANSDERMAL TD SCH (09:49)
[2021-12-12] MEDS: ALPRAZolam 0.25 MG TAB PO PRN (13:50)
[2021-12-12 18:00] VITALS: BP 112/68
[2021-12-12] MEDS: buPROPion **XL** TABLET 150MG (WELLBUTRIN XL) PO SCH (21:01)
[2021-12-12] MEDS: traZODone 100 MG TAB PO SCH (21:01)
[2021-12-12] MEDS: QUEtiapine FUMARATE 100 MG TAB PO SCH (21:02)
[2021-12-12] MEDS: ATORVASTATIN 20 MG TAB PO SCH (21:02)
[2021-12-12] MEDS: PRAZOSIN 1 MG CAP PO SCH (21:03)
[2021-12-13] MEDS: oxyCODONE 5MG TAB PO PRN ×4 (00:22→18:36)
[2021-12-13 06:27] VITALS: BP 109/55
[2021-12-13] MEDS: TIOTROPIUM INHALER/CAPSULE (SPIRIVA) INH SCH (08:46)
[2021-12-13] MEDS: OMEPRAZOLE 20MG CAP PO SCH (08:46)
[2021-12-13] MEDS: SYMBICORT 160/4.5MCG INHALER 6GM INH SCH ×2 (08:46→20:18)
[2021-12-13] MEDS: NICOTINE 14 MG/24 HR TRANSDERMAL TD SCH (08:46)
[2021-12-13] MEDS: ALPRAZolam 0.25 MG TAB PO PRN ×2 (10:17→16:37)
[2021-12-13 18:50] VITALS: BP 117/63
[2021-12-13] MEDS: FENTANYL REMOVAL DOCUMENTATION MISC XX SCH ×2 (20:00)
[2021-12-13] MEDS: buPROPion **XL** TABLET 150MG (WELLBUTRIN XL) PO SCH (20:11)
[2021-12-13] MEDS: ATORVASTATIN 20 MG TAB PO SCH (20:11)
[2021-12-13] MEDS: PRAZOSIN 1 MG CAP PO SCH (20:12)
[2021-12-13] MEDS: traZODone 100 MG TAB PO SCH (20:12)
[2021-12-13] MEDS: QUEtiapine FUMARATE 100 MG TAB PO SCH (20:12)
[2021-12-13] MEDS: fentaNYL 12 MCG/HR PATCH TOP SCH (20:52)
[2021-12-13] MEDS: fentaNYL 100 MCG/HR PATCH TOP SCH (20:53)
[2021-12-14] MEDS: oxyCODONE 5MG TAB PO PRN ×3 (05:26→16:56)
[2021-12-14 06:53] VITALS: BP 159/69
[2021-12-14] MEDS: SYMBICORT 160/4.5MCG INHALER 6GM INH SCH ×2 (08:54→20:15)
[2021-12-14] MEDS: NICOTINE 14 MG/24 HR TRANSDERMAL TD SCH (08:54)
[2021-12-14] MEDS: OMEPRAZOLE 20MG CAP PO SCH (08:54)
[2021-12-14] MEDS: TIOTROPIUM INHALER/CAPSULE (SPIRIVA) INH SCH (08:54)
[2021-12-14] MEDS: ALPRAZolam 0.25 MG TAB PO PRN ×2 (08:58→20:16)
[2021-12-14 18:32] VITALS: BP 113/63
[2021-12-14] MEDS: traZODone 100 MG TAB PO SCH (20:15)
[2021-12-14] MEDS: ATORVASTATIN 20 MG TAB PO SCH (20:15)
[2021-12-14] MEDS: PRAZOSIN 1 MG CAP PO SCH (20:16)
[2021-12-14] MEDS: buPROPion **XL** TABLET 150MG (WELLBUTRIN XL) PO SCH (20:16)
[2021-12-14] MEDS: QUEtiapine FUMARATE 100 MG TAB PO SCH (20:16)
[2021-12-15] MEDS: oxyCODONE 5MG TAB PO PRN ×4 (02:16→19:57)
[2021-12-15 06:53] VITALS: BP 83/45
[2021-12-15] MEDS: TIOTROPIUM INHALER/CAPSULE (SPIRIVA) INH SCH (08:13)
[2021-12-15] MEDS: NICOTINE 14 MG/24 HR TRANSDERMAL TD SCH (08:13)
[2021-12-15] MEDS: OMEPRAZOLE 20MG CAP PO SCH (08:13)
[2021-12-15] MEDS: SYMBICORT 160/4.5MCG INHALER 6GM INH SCH ×2 (08:13→19:54)
[2021-12-15] MEDS: ALPRAZolam 0.25 MG TAB PO PRN ×2 (09:03→16:19)
[2021-12-15 09:45] VITALS: BP 122/78
[2021-12-15 18:10] VITALS: BP 117/60
[2021-12-15 19:55] VITALS: BP 106/59
[2021-12-15] MEDS: PRAZOSIN 1 MG CAP PO SCH (19:55)
[2021-12-15] MEDS: ATORVASTATIN 20 MG TAB PO SCH (19:55)
[2021-12-15] MEDS: buPROPion **XL** TABLET 150MG (WELLBUTRIN XL) PO SCH (19:55)
[2021-12-15] MEDS: QUEtiapine FUMARATE 100 MG TAB PO SCH (19:55)
[2021-12-15] MEDS: traZODone 100 MG TAB PO SCH (19:55)
[2021-12-16] MEDS: oxyCODONE 5MG TAB PO PRN (02:30)
[2021-12-16 06:13] VITALS: BP 90/52
[2021-12-16] MEDS: ALPRAZolam 0.25 MG TAB PO PRN (06:42)
[2021-12-16] MEDS: SYMBICORT 160/4.5MCG INHALER 6GM INH SCH (08:45)
[2021-12-16] MEDS: TIOTROPIUM INHALER/CAPSULE (SPIRIVA) INH SCH (08:45)
[2021-12-16] MEDS: NICOTINE 14 MG/24 HR TRANSDERMAL TD SCH (08:45)
[2021-12-16] MEDS: OMEPRAZOLE 20MG CAP PO SCH (08:50)
[2021-12-16] MEDS ORDERED: BUPR150T12 PO (09:26)
[2021-12-16] MEDS ORDERED: BACL10TA2 PO (09:26)
[2021-12-16] MEDS ORDERED: ATOR40TA75 PO (09:26)
[2021-12-16] MEDS ORDERED: HYDR-643 PO (09:26)
[2021-12-16] MEDS ORDERED: QUET100T2 PO ×2 (09:26→12:16)
[2021-12-16] MEDS ORDERED: OXYC30TA PO (09:26)
[2021-12-16] MEDS ORDERED: FENT100D25 TD (09:26)
[2021-12-16] MEDS ORDERED: FENT12DI12 TOP (09:26)
[2021-12-16] MEDS ORDERED: ALPR0.25 PO (09:26)
[2021-12-16] MEDS ORDERED: ALBU2.5V10 INH (09:26)
[2021-12-16] MEDS ORDERED: PRAZ1CAP PO (09:26)
[2021-12-16] MEDS ORDERED: ALBU8.5H INH (09:26)
[2021-12-16] MEDS ORDERED: BUDE0.5S6 INH (09:26)
[2021-12-16] MEDS ORDERED: TRAZ-257 PO (09:26)
[2021-12-16] MEDS ORDERED: fentaNYL 100 MCG/HR PATCH TOP ONE (11:00)
[2021-12-16] MEDS ORDERED: fentaNYL 12 MCG/HR PATCH TOP ONE (11:00)
[2021-12-16] MEDS: FENTANYL REMOVAL DOCUMENTATION MISC XX SCH (11:04)
[2021-12-16] MEDS ORDERED: ANOR1AER INH (12:16)
[2021-12-16] MEDS ORDERED: LEVA12INH INH (12:16)
[2021-12-16] MEDS ORDERED: OMEP40CA5 PO (12:16)
[2021-12-16] MEDS ORDERED: NICO14DI24 TD (12:16)
== END 2021-12-16 12:45 | disposition home or self-care (01) | DRG 885 ==
LOC: M ED 13:06 → M ED INP 12-08 13:12 → M PSY 12-08 16:08
PROVIDERS: ADMIT Psychiatry & Neurology Psychiatry; ATTEND Psychiatry & Neurology Psychiatry
DX: F33.1 Major depressive disorder, recurrent, moderate (principal); J96.11 Chronic respiratory failure with hypoxia; R45.851 Suicidal ideations; J44.9 Chronic obstructive pulmonary disease, unspecified; G89.29 Other chronic pain; M54.9 Dorsalgia, unspecified; K21.9 Gastro-esophageal reflux disease without esophagitis; M06.9 Rheumatoid arthritis, unspecified; M79.7 Fibromyalgia; Z90.2 Acquired absence of lung [part of]; Z98.1 Arthrodesis status; Z85.118 Personal history of other malignant neoplasm of bronchus and lung; Z92.3 Personal history of irradiation; Z92.21 Personal history of antineoplastic chemotherapy; Z79.899 Other long term (current) drug therapy; Z88.6 Allergy status to analgesic agent; Z88.8 Allergy status to other drugs, medicaments and biological substances; Z99.81 Dependence on supplemental oxygen